=== PATIENT | female | born 1960 | race Two or more races ===

== ENCOUNTER → 2020-07-06 10:13 | Outpatient (BNVA) | payer MEDICAID, SELFPAY | PROVIDERS: PCP Internal Medicine; Referring Provider Internal Medicine; Visit Provider Internal Medicine | DX: J44.9 Chronic obstructive pulmonary disease, unspecified (principal); J30.9 Allergic rhinitis, unspecified; E66.9 Obesity, unspecified; Z68.34 Body mass index [BMI] 34.0-34.9, adult; Z79.899 Other long term (current) drug therapy | CPT/HCPCS: 99213 ==

== ENCOUNTER 2020-07-08 10:10 | Emergency (ER) | payer MEDICAID, SELFPAY ==
[2020-07-08 10:19] VITALS: BP 115/68; PULSE 95; RESP 14; TEMP 36.3; O2SAT 98; BMI 34.6
--- NOTE | 2020-07-08 10:30 | XR_ITS ---
EXAMINATION: RIGHT SHOULDER. RIGHT RIBS WITH CHEST X-RAY. CLINICAL INFORMATION: Status post fall one week ago. Right shoulder pain. Right rib pain. COMPARISON: None TECHNIQUE: Right shoulder 3 views. Chest and right ribs 4 views. FINDINGS: Right shoulder: There is no visible acute fracture, dislocation or subluxation. There is mild loss of right AC joint with inferior spurring. Also visualized is inferolateral acromial spurring. No loose body seen. No soft tissue abnormality. Chest with right RIBS: The lungs are well-expanded and clear of acute process. The heart size and pulmonary vascularity is normal. No gross bony abnormality. Multiple views of right ribs reveal no visible right rib fracture or bony abnormality. The soft tissues are normal. IMPRESSION: Unremarkable right shoulder exam. Unremarkable chest with right ribs. Especially no visible right rib fracture seen.
--- NOTE | 2020-07-08 10:55 | ED_ITS ---
HPI - General Adult General Chief complaint: General Medical Stated complaint: rib pain, fall Time Seen by Provider: 07/08/20 10:25 Source: patient Mode of arrival: ambulatory Limitations: no limitations History of Present Illness HPI narrative: 59-year-old female with a past medical history of fibromyalgia, obesity and COPD presenting to the ED with reports of a fall in the shower approximately 1 week ago injuring her right shoulder / right lateral ribcage and since then has been having pain to both areas. Denies head injury or loss of consciousness. Denies any other injuries complaints or concerns. Denies being on any blood thinners. Related Data Home Medications Medication Instructions Recorded Confirmed albuterol sulfate 2.5 mg INHALATION Q6H 07/06/20 07/06/20 albuterol sulfate 90 mcg/actuation 1 inh INHALATION QID 07/06/20 07/06/20 aerosol inhaler cholecalciferol (vitamin D3) 50 50 mcg PO DAILY 07/06/20 07/06/20 mcg (2,000 unit) capsule duloxetine 60 mg capsule,delayed 60 mg PO DAILY 07/06/20 07/06/20 release fluticasone propionate 230 2 puff INHALATION BID 07/06/20 07/06/20 mcg-salmeterol 21 mcg/actuation HFA inhaler quetiapine 25 mg tablet 25 mg PO BEDTIME 07/06/20 07/06/20 sertraline 100 mg tablet 150 mg PO DAILY tab 07/06/20 07/06/20 Allergies Allergy/AdvReac Type Severity Reaction Status Date / Time No Known Allergies Allergy Verified 07/06/20 10:29 Review of Systems Review of Systems: Constitutional : No Fever, No Chills ENT/Mouth : No Ear Pain, No Hoarseness, No sore throat Eyes: No Eye Pain, No Swelling, No Redness, No Foreign Body Cardiovascular : No Chest Pain, No SOB Respiratory : No Cough, No Dyspnea Gastrointestinal : No Nausea, No Vomiting, No Diarrhea, No abdominal Pain Genitourinary : No Dysuria, No Hematuria Musculoskeletal : No Myalgias, No Joint Swelling Skin : No Skin lacerations, No rash Neuro : No Weakness, No Numbness, No Paresthesias, No Loss of Consciousness, No Dizziness, No Headache Heme/Lymph: no easy bruising, no Lymphadenopathy Endocrine : No Polyuria, No Polydipsia Yes all other systems are reviewed and are negative [facility] Past Medical History Attestation statement: The following information was validated with the patient. Medical History Allergic rhinitis COPD (chronic obstructive pulmonary disease) Fibromyalgia Obesity (BMI 30.0-34.9) Surgical History Status post fine needle aspiration Social History Social History Advance Directives: No Advance Directives Information Provided: No Physical Exam 2 Vital Signs: Vital Signs: Vital Signs Temp Pulse Resp BP Pulse Ox 07/08/20 10:19 97.3 F 95 14 115/68 98 Body Mass Index 34.6 vital signs have been reviewed as normal and appeared to be correct. Blood pressure normal. Heart rate normal. Respiration rate normal. Temperature normal. Oxygen saturation normal. Appearance: Alert. Oriented X3. No acute distress. Head: Normal external exam. Normocephalic. Atraumatic. No Doll signs noted. No raccoon eyes noted Eyes: PERRLA. EOMI. Conjunctiva and sclera normal. Eyelids normal. ENT: EAC normal. TM's Normal. Pharynx normal. Uvula midline. Moist mucous membr anes. No trismus noted. No drooling noted. No muffled voice noted. Neck: Normal inspection. Neck supple. FROM. No adenopathy. Thyroid Normal. No meningeal signs. No neck mass noted. CVS: Normal heart rate and rhythm. Heart sound normal. No murmurs noted. Pulses normal throughout. Respiratory: No respiratory distress. Painless inspiration. Breath sounds normal. No wheezes/rales/rhonchi noted. Patient tender to palpation of right anterior /lateral lower chest wall. No ecchymosis/ lacerations/abrasions or obvious deformities noted. No accessory muscle usage noted or decreased air movement noted. Abdomen: Soft and nontender. Bowel sounds normal in all 4 quadrants. No distention noted. No organomegaly noted. No visible injury noted. Back: No CVA tenderness. Full range of motion noted. Skin: Skin warm and dry. Normal skin color. Normal skin turgor. No rashes/lesions/lacerations noted. Extremities: Patient with tenderness to palpation of right shoulder at the AC joint medial aspect. Patient has full range of motion. No abrasion/ecchymosis/lacerations or obvious deformities noted. Patient has full range of motion. No lower extremity edema. All other Extremities exhibit normal range of motion and nontender. Neuro: Oriented X 3. No motor deficit. No sensory deficit. Reflexes normal. Course Course Course Narrative: 10:30AM 59-year-old female with a past medical history of fibromyalgia, obesity and COPD presenting to the ED with reports of a fall in the shower approximately 1 week ago injuring her right shoulder / right lateral ribcage and since then has been having pain to both areas. Denies head injury or loss of consciousness. Denies any other injuries complaints or concerns. Denies being on any blood thinners - Plan: Xray of rib cage right sided and r shoulder xray Then re-evaluate. Reevaluation(s) Reevaluation #1: x-rays of ribs and right shoulder within normal limits no acute processes note. Will DC home with symptomatic treatment along with instructions return if any new or worsening symptoms to follow-up with primary care provider. Patient understands agrees the plan. Time: 11:24 Medical Decision Making MDM Narrative Medical decision making narrative: Concern for fracture vs sprain/strain/muscle spasm Imaging Data right ribs/pa chest and r shoulder: Attestation: I personally reviewed and interpreted this imaging study as follows: Radiologist's impression: IMPRESSION: Unremarkable right shoulder exam. Unremarkable chest with right ribs. Especially no visible right rib fracture seen. Discharge Plan Discharge Prescriptions: No Action cholecalciferol (vitamin D3) 50 mcg (2,000 unit) capsule 50 mcg PO DAILY RF: 0 albuterol sulfate 2.5 mg /3 mL (0.083 %) solution for nebulization 2.5 mg inhalation Q6H RF: 0 quetiapine 25 mg tablet 25 mg PO BEDTIME RF: 0 sertraline 100 mg tablet 150 mg PO DAILY RF: 0 Advair HFA 230-21 mcg/actuation HFA aerosol inhaler 2 puff inhalation BID RF: 0 albuterol sulfate [ProAir HFA] 90 mcg/actuation HFA aerosol inhaler 1 inh inhalation QID RF: 0 duloxetine 60 mg capsule,delayed release(DR/EC) 60 mg PO DAILY RF: 0
== END 2020-07-08 11:30 | disposition home or self-care (01) ==
PROVIDERS: Emergency Provider Emergency Medicine; PCP Internal Medicine
DX: S43.401A Unspecified sprain of right shoulder joint, initial encounter (principal); S29.011A Strain of muscle and tendon of front wall of thorax, initial encounter; S20.211A Contusion of right front wall of thorax, initial encounter; W18.2XXA Fall in (into) shower or empty bathtub, initial encounter; Y93.E1 Activity, personal bathing and showering; Y92.012 Bathroom of single-family (private) house as the place of occurrence of the external cause; Y99.9 Unspecified external cause status
CPT/HCPCS: 71101; 73030; 99283

== ENCOUNTER → 2020-08-18 09:19 | Outpatient (BNV) | payer MEDICAID, MEDICARE, OTHER, SELFPAY | PROVIDERS: PCP Internal Medicine; Visit Provider Internal Medicine Medical Oncology | DX: R91.1 Solitary pulmonary nodule (principal) | CPT/HCPCS: 99213; 99214 ==

== ENCOUNTER 2020-09-20 11:33 | Emergency (ER) | payer MEDICAID, SELFPAY ==
[2020-09-20 11:45] VITALS: BP 113/69; PULSE 94; RESP 18; TEMP 37.2; O2SAT 95; BMI 34.4
--- NOTE | 2020-09-20 13:21 | XR_ITS ---
EXAMINATION: XR CHEST CLINICAL INFORMATION: Cough. COMPARISON: 07/08/20. CT scan of 01/29/20. TECHNIQUE: Frontal view of the chest was obtained. FINDINGS: There is minimal opacity laterally at the right base corresponding to nodular density seen on prior studies. This does not appear significantly changed. No other abnormality. No focal consolidation. No other nodules are demonstrated. The pleural spaces are clear. The heart and mediastinal structures are normal. XR/XR chest 1V IMPRESSION: Small opacity right lung base corresponding to nodular density seen on prior studies. This is better assessed on CT scan. No other abnormality.
--- NOTE | 2020-09-20 14:33 | ED_ITS ---
HPI - General Adult General Chief complaint: Fever Stated complaint: fever (on/off), headaches Time Seen by Provider: 09/20/20 13:21 Source: patient Mode of arrival: ambulatory Limitations: no limitations History of Present Illness HPI narrative: 60-year-old female with history of COPD being followed by pulmonology here today it is that she has had some diffuse body aches and subjective chills/fevers requesting COVID-19 test. Does have cough but no shortness of breath or chest pain. Onset (ago): day(s) (5) Radiation: non-radiation Severity: moderate Relieving factors: none Associated symptoms: denies other symptoms Treatments prior to arrival: none Related Data Home Medications Medication Instructions Recorded Confirmed albuterol sulfate 2.5 mg INHALATION Q6H 07/06/20 08/18/20 albuterol sulfate 90 mcg/actuation 1 inh INHALATION QID 07/06/20 08/18/20 aerosol inhaler cholecalciferol (vitamin D3) 50 50 mcg PO DAILY 07/06/20 08/18/20 mcg (2,000 unit) capsule duloxetine 60 mg capsule,delayed 60 mg PO DAILY 07/06/20 08/18/20 release fluticasone propionate 230 2 puff INHALATION BID 07/06/20 08/18/20 mcg-salmeterol 21 mcg/actuation HFA inhaler Previous Rx's Medication Instructions Recorded cyclobenzaprine 10 mg PO TID PRN #14 tab 07/08/20 naproxen 500 mg PO BID PRN #14 tab 07/08/20 tramadol 50 mg PO Q8H PRN #14 tab 07/08/20 azithromycin [Zithromax Z-Greg] 250 mg PO DAILY 5 Days #6 tab 09/20/20 prednisone 40 mg PO DAILY 5 Days #10 tab 09/20/20 Allergies Allergy/AdvReac Type Severity Reaction Status Date / Time No Known Allergies Allergy Verified 07/06/20 10:29 Review of Systems Review of Systems: Constitutional: No Weight loss, No Fever, No Chills, No Night Sweats, No Fatigue, No Malaise ENT/Mouth: No Hearing loss, No Ear Pain, No Nasal Congestion, No Sinus Pain, No Hoarseness, No sore throat, + Rhinorrhea, No Swallowing Difficulty Eyes: No Eye Pain, No Swelling, No Redness, No Foreign Body, No Discharge, No Vision Changes Cardiovascular: No Chest Pain, No SOB, No Dyspnea on Exertion, No Orthopnea, No Edema, No Palpitations Respiratory: + Cough, No Sputum, No Wheezing, No Smoke Exposure, No Dyspnea Gastrointestinal: No Nausea, No Vomiting, No Diarrhea, No Constipation, No abdo susi Pain, No Hematochezia, No Melena Genitourinary: no irregular bleeding, No Dysuria, No Urinary Frequency, No Hematuria, No Urinary Incontinence, No Urgency, No Flank Pain Musculoskeletal: No joint pain, + Myalgias, No Joint Swelling Skin: No Skin Lesions, No rash Neuro: No Weakness, No Numbness, No Paresthesias, No Loss of Consciousness, No Dizziness, No Headache Psych: No Social Issues Heme/Lymph: No Bruising, No Bleeding,No Lymphadenopathy Endocrine: No Polyuria, No Polydipsia, No Temperature Intolerance Yes all other systems are reviewed and are negative [facility] Past Medical History Medical History (Updated 09/20/20 @ 14:44 by Luiz Sheridan NP) Allergic rhinitis Asthma COPD (chronic obstructive pulmonary disease) Fibromyalgia Lung nodule Obesity (BMI 30.0-34.9) Palpitations Surgical History Status post fine needle aspiration Family History Family History (Updated 08/18/20 @ 09:52 by Cathryn Ramso) Mother Leukemia Diabetes Family/Other Hodgkins lymphoma Family/Other Uterine cancer Sister Uterine cancer High cholesterol HTN (hypertension) Paternal Grandmother Uterine cancer Heart attack Father Colon cancer Social History Social History (Updated 08/18/20 @ 09:53 by Cathryn Ramos) Alcohol intake: former Smoking Status: Former smoker Advance Directives: No Physical Exam Vital Signs: Vital Signs: Last Vital Signs Temp 98.9 F 09/20/20 11:45 Pulse 94 09/20/20 11:45 Resp 18 09/20/20 11:45 BP 113/69 09/20/20 11:45 Pulse Ox 95 09/20/20 11:45 Body Mass Index 34.4 Reviewed Const: Other: Mild dry bronchial cough General: cooperative and healthy appearing; No acute distress or intoxicated appearing Nutritional Appearance: average body habitus Orientation/consciousness: patient oriented x3 HENMT: Head: Yes normal to inspection Ears: hearing grossly normal bilaterally Eyes: General: appearance normal, both eyes and all related structures Visual Hull: normal visual hull by confrontation Neck: Neck: Yes normal visual inspection, No positive Brudzinski's sign, No positive Kernig's sign and No tender Thyroid: Thyroid normal Chest: Chest palpation & inspection: normal inspection of the chest Resp: Effort & Inspection: normal respiratory effort Auscultation: clear to auscultation bilaterally Cardio: Jugular venous distension: no JVD Rhythm: regular rhythm Heart sounds: S1 normal heart sound present and S2 normal heart sound present GI: Inspection: Yes normal to inspection Percussion: Yes normal to percussion Auscultation: normal bowel sounds : General: Yes no CVA tenderness Back/Spine/Pelvis: Back: no CVA tenderness Skin: General skin exam: no rashes or lesions noted Neuro: General: patient oriented x3 Extrem: General: Yes normal to inspection Course Course Course Narrative: COVID-19 PCR sent. X-ray with demonstration of lung nodule which she reports she already knows about and has been evaluated. Will give her short course prednisone and azithromycin given her history. Will discharge with States/cdc guidelines clear return follow-up instructions. Ambulatory status with gait no shortness of breath or chest pain. Stable for discharge. Discharge Plan Discharge Clinical Impression: Acute upper respiratory infection, Cough, Incidental lung nodule Patient Disposition: Home, Self-Care Instructions: Upper Respiratory Infection (ED), Pulmonary Nodules (ED), Acute Cough (ED) Additional Instructions: Based on your symptoms and history we have sent a COVID-19. Although your RESULT IS PENDING at this time. RESULTS should return within 72 hours. At this time you will be contacted with either NEGATIVE OR POSITIVE results. -Please wait until we contact you for your results. At this time you will be okay for discharge. Please plan for self quarantine for up to 14 days. Do not expose yourself to others. You may not go to work. If testing does come back negative you may return to activities as long as you are no longer having any symptoms for at least 3 days. Please continue to follow cold instructions and wash your hands frequently. You may take Tylenol as directed on the bottle for pain or fever. Patient seen in the emergency department and should be excused from work until negative test results AND until 72 hours without any symptoms AND at least 10 days have passed since symptoms first appeared or since last exposure to COVID- 19 positive patient CDC Guidelines for home isolation: - Stay away from others - WEAR A MASK if you are sick AND STAY HOME - Cover your mouth and nose with a tissue when you cough or sneeze. Dispose of tissues in a lined trash can and wash your hands immediately with soap and water for at least 20 seconds. If soap and water are not available, clean hands with alcohol-based hand cyber transport systems specialist that contains at least 60% alcohol. - Clean your hands often with soap and water for at least 20 seconds - Avoid touching your eyes, nose and mouth with unwashed hands - Do not share dishes, drinking glasses, cups, eating utensils, towels, or bedding with other people in your home. After using these items, wash them thoroughly with soap and water or put in the hook up driver. - Clean high-touch surfaces in your isolation area ( sick room and bathroom) every day; let a caregiver clean and disinfect high-touch surfaces in other areas of the home. Clean the area or item with soap and water or another detergent if it is dirty. Then, use a household disinfectant. - Limit contact with pets and animals: If you must care for a pet, wash your hands before and after interacting with them Prescriptions: New prednisone 20 mg tablet 40 mg PO DAILY 5 Days Qty: 10 RF: 0 azithromycin [Zithromax Z-Greg] 250 mg tablet 250 mg PO DAILY 5 Days Qty: 6 RF: 0 No Action naproxen 500 mg tablet 500 mg PO BID PRN (Reason: pain) Qty: 14 RF: 0 cyclobenzaprine 10 mg tablet 10 mg PO TID PRN (Reason: muscle spasm) Qty: 14 RF: 0 tramadol 50 mg tablet 50 mg PO Q8H PRN (Reason: pain) Qty: 14 RF: 0 cholecalciferol (vitamin D3) 50 mcg (2,000 unit) capsule 50 mcg PO DAILY RF: 0 albuterol sulfate 2.5 mg /3 mL (0.083 %) solution for nebulization 2.5 mg inhalation Q6H RF: 0 Advair HFA 230-21 mcg/actuation HFA aerosol inhaler 2 puff inhalation BID RF: 0 albuterol sulfate [ProAir HFA] 90 mcg/actuation HFA aerosol inhaler 1 inh inhalation QID RF: 0 duloxetine 60 mg capsule,delayed release(DR/EC) 60 mg PO DAILY RF: 0 Referrals: Jose Daniel Duke MD [Primary Care Provider] - 2 weeks (Follow-up for chest CT) Interventions: ED Discharge Assessment Last Done: 09/20/20 15:15 Discharge Date/Time: 09/20/20 15:16
== END 2020-09-20 15:16 | disposition home or self-care (01) ==
PROVIDERS: Nurse Practitioner Primary Care; Emergency Provider Emergency Medicine; PCP Internal Medicine
DX: J22 Unspecified acute lower respiratory infection (principal); R91.1 Solitary pulmonary nodule; R50.9 Fever, unspecified; M79.10 Myalgia, unspecified site; R05 Cough; Z20.828 Contact with and (suspected) exposure to other viral communicable diseases; Z79.899 Other long term (current) drug therapy; Z87.891 Personal history of nicotine dependence
CPT/HCPCS: 71045; 99283; U0003

== ENCOUNTER 2020-10-07 11:53 | Outpatient (REF) | payer MEDICAID, SELFPAY | END 2020-10-07 11:54 | disposition home or self-care (01) | LOC: HO.LAB 11:53 | PROVIDERS: Visit Provider Internal Medicine | DX: Z20.822 Contact with and (suspected) exposure to COVID-19 (principal) | CPT/HCPCS: 36415; C9803; U0003 ==

== ENCOUNTER → 2020-11-04 09:48 | Outpatient (BNVA) | payer MEDICAID, SELFPAY | PROVIDERS: PCP Internal Medicine; Visit Provider Internal Medicine | DX: R91.1 Solitary pulmonary nodule (principal); E66.9 Obesity, unspecified; J30.9 Allergic rhinitis, unspecified; J44.9 Chronic obstructive pulmonary disease, unspecified | CPT/HCPCS: 99212 ==

== ENCOUNTER 2020-11-24 08:56 | Outpatient (REF) | payer MEDICAID, SELFPAY ==
[2020-11-24 10:23] LABS: Cholesterol 166 mg/dL; HDL Cholesterol 50 mg/dL; LDL Cholesterol Calculated 95 mg/dl; Triglycerides 107 mg/dL
[2020-11-24 10:27] LABS: Estimated Average Glucose 111 mg/dL; Hemoglobin A1c % 5.5 %
== END 2020-11-24 08:57 | disposition home or self-care (01) ==
LOC: HO.LAB 08:56
PROVIDERS: PCP Internal Medicine; Visit Provider Psychiatry & Neurology Psychiatry
DX: Z79.899 Other long term (current) drug therapy (principal)
CPT/HCPCS: 36415; 80061; 83036

== ENCOUNTER 2020-12-12 12:04 | Emergency (ER) | payer OTHER, SELFPAY ==
--- NOTE | ~2020-12-12 | XR_ITS ---
EXAMINATION: 1. CHEST X-RAYS 2. CERVICAL SPINE X-RAYS CLINICAL INFORMATION: Pain after injury COMPARISON: Chest x-ray 09/20/2020 TECHNIQUE: 2 views of the chest and 4 views of the cervical spine were obtained. FINDINGS: CHEST: Cardiac silhouette is normal in size. The lungs are well aerated. There is no lobar consolidation. No pleural effusion or pneumothorax. Previously visualized opacity of the right lung base is not clearly visualized on today's x-ray. Mild degenerative changes of the thoracic spine. Cervical spine: Alignment of the cervical spine is within normal limits. Normal C1/C2 articulation. Vertebral body heights are maintained. Disc spaces demonstrate only mild narrowing diffusely. Bilateral facet hypertrophy diffusely. No prevertebral soft tissue swelling. Visualized lung apices are well aerated. XR/XR cervical spine 2V IMPRESSION: 1. No acute pulmonary pathology. 2. Mild diffuse degenerative changes of the cervical spine.
--- NOTE | ~2020-12-12 | XR_ITS ---
EXAMINATION: 1. CHEST X-RAYS 2. CERVICAL SPINE X-RAYS CLINICAL INFORMATION: Pain after injury COMPARISON: Chest x-ray 09/20/2020 TECHNIQUE: 2 views of the chest and 4 views of the cervical spine were obtained. FINDINGS: CHEST: Cardiac silhouette is normal in size. The lungs are well aerated. There is no lobar consolidation. No pleural effusion or pneumothorax. Previously visualized opacity of the right lung base is not clearly visualized on today's x-ray. Mild degenerative changes of the thoracic spine. Cervical spine: Alignment of the cervical spine is within normal limits. Normal C1/C2 articulation. Vertebral body heights are maintained. Disc spaces demonstrate only mild narrowing diffusely. Bilateral facet hypertrophy diffusely. No prevertebral soft tissue swelling. Visualized lung apices are well aerated. XR/XR chest 2V IMPRESSION: 1. No acute pulmonary pathology. 2. Mild diffuse degenerative changes of the cervical spine.
[2020-12-12 12:07] VITALS: BP 119/66; PULSE 96; RESP 18; TEMP 36.8; O2SAT 97; BMI 34.6
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
== END 2020-12-12 14:01 | disposition home or self-care (01) ==
PROVIDERS: Emergency Provider Emergency Medicine; PCP Internal Medicine
DX: S16.1XXA Strain of muscle, fascia and tendon at neck level, initial encounter (principal); V43.62XA Car passenger injured in collision with other type car in traffic accident, initial encounter; M54.6 Pain in thoracic spine; Y93.89 Activity, other specified; Y92.414 Local residential or business street as the place of occurrence of the external cause; Y99.9 Unspecified external cause status
CPT/HCPCS: 71046; 72040; 99283

== ENCOUNTER 2021-02-17 08:44 | Outpatient (REF) | payer MEDICAID, SELFPAY | END 2021-02-17 08:45 | disposition home or self-care (01) | LOC: HO.LAB 08:44 | PROVIDERS: Visit Provider Internal Medicine | DX: Z20.822 Contact with and (suspected) exposure to COVID-19 (principal) | CPT/HCPCS: C9803; U0003; U0005 ==

== ENCOUNTER 2021-03-17 07:56 | Outpatient (REF) | payer MEDICAID, SELFPAY ==
--- NOTE | ~2021-03-17 | CT_ITS ---
EXAMINATION: CT CHEST WITH CONTRAST CLINICAL INFORMATION: Follow-up pulmonary nodule COMPARISON: Previous chest CT scans most recent January 2020 TECHNIQUE: Multidetector volumetric CT imaging of the chest was obtained after the administration of 65 mL of Omnipaque 350 intravenous contrast without immediate adverse reactions. Axial MIP volume rendering provided. Sagittal and coronal reformatted images were obtained. This CT examination was performed using dose optimization techniques as appropriate, variously including the following: *Automated exposure control *Adjustment of mA and/or kV according to patient size (this includes techniques or standardized protocols for targeted exams where dose is matched to indication/reason for exam; i.e. extremities or head) *Use of iterative reconstruction technique DLP: 174 mGy-cm FINDINGS: LUNGS: There is interval decrease in size in the right middle lobe nodule. This measures 0.7 x 1.1 cm axial image 120 series 7 compared to 1.1 x 1.5 cm on most recent exam January 2020. There is adjacent mild pleural thickening and linear scarring or chronic subsegmental atelectasis. There are several clustered peribronchial nodules or tree-in-bud appearance in the right lower lobe for example axial image 106 series 7 that is stable. The lungs are otherwise clear. MEDIASTINUM: The mediastinum is normal. PLEURA: There is no pleural effusion. No pleural mass or thickening. AXILLA: No lymphadenopathy. UPPER ABDOMEN: The gallbladder has been removed. There is diverticulosis of the colon. OSSEOUS STRUCTURES: There are mild degenerative changes of the spine. CT/CT chest w con IMPRESSION: Interval decrease in size in right middle lobe nodule now measuring 7 x 11 mm.
[2021-03-17] MEDS: iohexoL 350 MG/ML 100 ML INFUS..BTL 85 ML IV (09:32)
== END 2021-03-17 07:57 | disposition home or self-care (01) ==
LOC: HO.CT 07:56
PROVIDERS: Visit Provider Internal Medicine Medical Oncology
DX: R91.1 Solitary pulmonary nodule (principal)
CPT/HCPCS: 71260; Q9967

== ENCOUNTER 2021-04-26 09:10 | Outpatient (REF) | payer MEDICAID, SELFPAY ==
--- NOTE | ~2021-04-26 | CT_ITS ---
EXAMINATION: CT CHEST WITHOUT CONTRAST CLINICAL INFORMATION: Solitary pulmonary nodule. COMPARISON: CT chest 03/17/2021. TECHNIQUE: Multidetector volumetric CT imaging of the chest was done. Axial MIP volume rendering provided. Sagittal and coronal reformatted images were obtained. This CT examination was performed using dose optimization techniques as appropriate, variously including the following: *Automated exposure control *Adjustment of mA and/or kV according to patient size (this includes techniques or standardized protocols for targeted exams where dose is matched to indication/reason for exam; i.e. extremities or head) *Use of iterative reconstruction technique DLP: 234 mGy-cm. FINDINGS: ORTHOPAEDIC TECHNOLOGIST: Unremarkable. LUNGS: The lungs are well expanded with 1.1 x 0.7 cm nodule right middle lobe with linear stranding extending to the major fissure and to the adjacent pleura. There is adjacent band-like atelectasis. The nodule is best visualized on axial image 368/7. Small cluster of nodules is seen in the right lower lobe with the largest nodule measuring 3 mm axial image 337/7. Smaller nodules at the same level measured 2 mm on axial image 338/7. No additional pulmonary nodules. No acute consolidation. MEDIASTINUM: The thyroid lobes are symmetrical and normal. The central trachea and the bronchi are widely patent. Small shotty lymph nodes are seen in the mediastinum. Heart size and the great vessels are normal caliber. No pericardial effusion seen. PLEURA: There is no pleural effusion. No pleural mass or thickening. AXILLA: No abnormal axillary lymph nodes seen. There are punctate calcifications right breast with likely right breast scarring from previous intervention. UPPER ABDOMEN: Visualized liver, spleen, pancreas and bilateral adrenal glands are unremarkable. OSSEOUS STRUCTURES: No lytic or sclerotic process seen. There is mild ventral spondylosis and mild degenerative disc changes with vacuum phenomenon mid and lower dorsal spine. CT/CT chest wo con IMPRESSION: Stable right middle lobe nodule with adjacent scarring or atelectasis. Cluster of nodules in the right lower lobe lateral segment with the nodules in the range of 2-3 mm are stable. No additional nodules seen.
== END 2021-04-26 09:11 | disposition home or self-care (01) ==
LOC: HO.CT 09:10
PROVIDERS: Visit Provider Surgery
DX: R91.1 Solitary pulmonary nodule (principal)
CPT/HCPCS: 71250

== ENCOUNTER 2021-04-27 09:21 | Outpatient (REF) | payer MEDICAID, SELFPAY ==
--- NOTE | ~2021-04-27 | MM_ITS ---
EXAMINATION: MM SCREENING DIGITAL BREAST TOMOSYNTHESIS, BILATERAL CLINICAL INFORMATION: Screening. Asymptomatic. The lifetime risk of breast cancer based on the Tyrer-Cuzick Model is 5%. COMPARISON: Mammography: 04/21/2020, 04/19/2019, 03/08/2018 TECHNIQUE: Digital breast tomosynthesis is performed in both the craniocaudal and mediolateral oblique views along with computer-aided detection (CAD). Synthesized 2D images are generated from the tomosynthesis. FINDINGS: There are scattered areas of fibroglandular density (ACR BI-RADS breast composition Category b). There are no significant masses, abnormal calcifications, or other abnormalities. There are 2 biopsy clip markers right breast upper outer quadrant mid and posterior depth, respectively. Low left axillary tail node is stable. There is no developing density. Skin contours are smooth. MM/MM tomosynthesis screening BI IMPRESSION: No mammographic evidence of malignancy. ASSESSMENT: BI-RADS 2: Benign RECOMMENDATION: Routine annual mammography screening. This patient's information was entered into a reminder system with a target due date for their next mammogram.
== END 2021-04-27 09:22 | disposition home or self-care (01) ==
LOC: HO.MAMMO 09:21
PROVIDERS: Visit Provider Internal Medicine
DX: Z12.31 Encounter for screening mammogram for malignant neoplasm of breast (principal)
CPT/HCPCS: 77063; 77067

== ENCOUNTER → 2021-05-03 14:36 | Outpatient (BNVA) | payer MEDICAID, SELFPAY | PROVIDERS: PCP Internal Medicine; Visit Provider Internal Medicine | DX: J30.9 Allergic rhinitis, unspecified (principal); J44.9 Chronic obstructive pulmonary disease, unspecified; R91.1 Solitary pulmonary nodule; E66.9 Obesity, unspecified; M79.7 Fibromyalgia | CPT/HCPCS: 99212 ==

== ENCOUNTER → 2021-05-14 10:36 | Outpatient (BNVA) | payer MEDICAID, SELFPAY | PROVIDERS: PCP Internal Medicine; Visit Provider Surgery | DX: R91.1 Solitary pulmonary nodule (principal); Z79.899 Other long term (current) drug therapy | CPT/HCPCS: 99212 ==

== ENCOUNTER → 2021-05-21 10:00 | Outpatient (BNVA) | payer MEDICARE, MEDICAID, SELFPAY | PROVIDERS: PCP Internal Medicine; Visit Provider Surgery | DX: R91.1 Solitary pulmonary nodule (principal); Z79.899 Other long term (current) drug therapy | CPT/HCPCS: 99212 ==

== ENCOUNTER 2021-05-27 11:00 | Outpatient (REF) | payer MEDICARE, MEDICAID, SELFPAY ==
--- NOTE | 2021-05-27 17:41 | PFT_ITS ---
INDICATION: COPD. SPIROMETRY: The FEV1 to FVC of 59% with an FEV1 of 1.29 L, which is 47% predicted, and an FVC of 2.2 L, which is 64% predicted. Post bronchodilators, there was a significant response both to the FVC and FEV1. Maximum voluntary ventilation 57% predicted. LUNG VOLUMES: Total lung capacity 92% predicted with residual volume 132% predicted. DIFFUSION CAPACITY: DLCO predicted. COMPARISONS: PFTs in 2019. INTERPRETATION: There is an obstructive ventilatory defect consistent with severe COPD. The patient did have a significant response to bronchodilators noted. Significant small airways disease. There is also moderate decrease in maximum voluntary ventilation secondary to deconditioning and also worsening dynamic inspiratory capacity. Lung volumes with significant air trapping due to the COPD in addition to a significantly decreased expiratory reserve volume secondary to an elevated BMI. Diffusion capacity is within normal limits. When compared to 2019, there is significant increase in the FVC, significant increase in the FEV1, no significant change in the total lung capacity, and no significant change in the diffusion capacity. Clinical correlation warranted. Ganga Alicea MD MR/MODL / [id number]
== END 2021-05-27 11:01 | disposition home or self-care (01) ==
LOC: HO.RESP 11:00
PROVIDERS: PCP Internal Medicine; Visit Provider Internal Medicine
DX: J44.9 Chronic obstructive pulmonary disease, unspecified (principal); J30.9 Allergic rhinitis, unspecified
CPT/HCPCS: 94060; 94727; 94729

== ENCOUNTER → 2021-06-08 11:09 | Outpatient (BNVA) | payer MEDICARE, MEDICAID, SELFPAY | PROVIDERS: PCP Internal Medicine; Visit Provider Internal Medicine | DX: J30.9 Allergic rhinitis, unspecified (principal); J44.9 Chronic obstructive pulmonary disease, unspecified; R91.8 Other nonspecific abnormal finding of lung field | CPT/HCPCS: 99212 ==

== ENCOUNTER → 2021-08-16 09:52 | Outpatient (BNVA) | payer MEDICARE, MEDICAID, SELFPAY | PROVIDERS: PCP Internal Medicine; Visit Provider Internal Medicine | DX: J44.9 Chronic obstructive pulmonary disease, unspecified (principal); J30.9 Allergic rhinitis, unspecified; M79.7 Fibromyalgia; R91.8 Other nonspecific abnormal finding of lung field | CPT/HCPCS: 99212 ==

== ENCOUNTER 2021-08-30 07:24 | Outpatient (REF) | payer MEDICARE, MEDICAID, SELFPAY | END 2021-08-30 07:25 | disposition home or self-care (01) | LOC: HO.LAB 07:24 | PROVIDERS: PCP Internal Medicine; Visit Provider Internal Medicine | DX: Z20.822 Contact with and (suspected) exposure to COVID-19 (principal) | CPT/HCPCS: C9803; U0003; U0005 ==

== ENCOUNTER 2021-09-20 11:15 | Outpatient (REF) | payer MEDICARE, MEDICAID, SELFPAY ==
[2021-09-20 12:57] LABS: COVID-19 Test Negative (Negative); IDNOW Serial# 16C4AD1C
== END 2021-09-20 11:16 | disposition home or self-care (01) ==
LOC: HO.LAB 11:15
PROVIDERS: Visit Provider Internal Medicine
DX: Z20.822 Contact with and (suspected) exposure to COVID-19 (principal)
CPT/HCPCS: 36415; 87635; C9803

== ENCOUNTER 2021-11-18 08:08 | Outpatient (REF) | payer MEDICARE, MEDICAID, SELFPAY ==
--- NOTE | ~2021-11-18 | CT_ITS ---
EXAMINATION: CT CHEST WITHOUT CONTRAST CLINICAL INFORMATION: Solitary pulmonary nodule COMPARISON: Previous chest CT most recent April 2021 TECHNIQUE: Multidetector volumetric CT imaging of the chest was done. Axial MIP volume rendering provided. Sagittal and coronal reformatted images were obtained. This CT examination was performed using dose optimization techniques as appropriate, variously including the following: *Automated exposure control *Adjustment of mA and/or kV according to patient size (this includes techniques or standardized protocols for targeted exams where dose is matched to indication/reason for exam; i.e. extremities or head) *Use of iterative reconstruction technique DLP: 299 mGy-cm FINDINGS: LUNGS: The small pulmonary nodules are stable. Largest pulmonary nodule is a cluster peribronchial nodules in the right lower lobe suggestive of bronchial soft tissue opacification or mucus plugging for example, axial image 403 series 9. Largest discrete nodule measures 7 mm. There are clustered peribronchial nodules or tree-in-bud appearance seen in the more superior lateral right lower lobe for example, axial image 282 series 9, that is stable. There is scarring or subsegmental atelectasis seen in the lateral segment of the right middle lobe and inferior segment of the lingula. The previously identified question nodule versus thick band-like atelectasis in the lateral segment of the right middle lobe measures 8 x 11 mm (axial image 326 series 9) and appears unchanged. There is an area of mild tree-in-bud appearance or clustered peribronchial nodules in the posterior segment of the right upper lobe for example, axial image 165 series 9, that is stable. There are additional discrete small pulmonary nodules or micronodules that are stable. There is mild right apical pleural and parenchymal scarring. MEDIASTINUM: The mediastinum is normal. PLEURA: There is no pleural effusion. No pleural mass or thickening. AXILLA: No lymphadenopathy. UPPER ABDOMEN: Unremarkable. The gallbladder has been removed. OSSEOUS STRUCTURES: There are degenerative changes of the spine. CT/CT chest wo con IMPRESSION: Stable pulmonary nodules. Stable thick band-like atelectasis in the lateral segment of the right middle lobe. Fleischner guidelines were followed.
== END 2021-11-18 08:09 | disposition home or self-care (01) ==
LOC: HO.CT 08:08
PROVIDERS: Visit Provider Surgery
DX: R91.1 Solitary pulmonary nodule (principal)
CPT/HCPCS: 71250

== ENCOUNTER → 2021-12-10 09:44 | Outpatient (BNVA) | payer MEDICARE, MEDICAID, SELFPAY | PROVIDERS: PCP Internal Medicine; Visit Provider Surgery | DX: R91.8 Other nonspecific abnormal finding of lung field (principal) | CPT/HCPCS: 99212 ==

== ENCOUNTER → 2021-12-15 09:53 | Outpatient (BNVA) | payer MEDICARE, MEDICAID, SELFPAY | PROVIDERS: PCP Internal Medicine; Visit Provider Internal Medicine | DX: J44.9 Chronic obstructive pulmonary disease, unspecified (principal); J30.9 Allergic rhinitis, unspecified; R91.8 Other nonspecific abnormal finding of lung field; E66.9 Obesity, unspecified; Z68.34 Body mass index [BMI] 34.0-34.9, adult | CPT/HCPCS: 99212 ==

== ENCOUNTER → 2022-01-28 09:57 | Outpatient (BNVA) | payer MEDICARE, MEDICAID, SELFPAY | PROVIDERS: PCP Internal Medicine; Visit Provider Surgery | DX: R91.8 Other nonspecific abnormal finding of lung field (principal) | CPT/HCPCS: 99212 ==

== ENCOUNTER 2022-02-15 09:00 | Outpatient (RCR) | payer MEDICARE, MEDICAID, SELFPAY ==
[2022-02-09 09:43] VITALS: BP 122/80; PULSE 74; O2SAT 97
--- NOTE | 2022-03-21 15:08 | MHC.PT.DC ---
[facility] [place] [facility] [place] [facility] [employer] [facility] [address] Radha Ruano [address] [phone] F: [phone] F: [phone] F: [phone] F: [phone] Physical Therapy Discharge Report Diagnosis: This is a 61 yo female presenting to skilled PT with a script for BPPV Date of Surgery: Date of Evaluation: 02/09/22 Date of Discharge: 03/21/22 Treatments to Date: 3 Cancellations to Date: 0 No Shows to Date: 0 Discharge Status: Recommend MD Follow-up Discharge Summary: 02/15: Patient reporting that she has not had any episodes of dizziness other than getting a whiff of paint and getting nauseous. Educated her that I do not think her symptoms are vestibular in nature at this time. She reports that she also thinks this as she began to get the symptoms after they changed her medication. Educated her to call me before her appointment if symptoms get worse again otherwise we will hold. DC'd chart after 30 days Electronically signed by: Aby Liao PT Please sign and return to therapist. Thank you for your referral.
== END 2022-03-21 15:08 | disposition home or self-care (01) ==
LOC: HO.PTCHIC 09:00
PROVIDERS: PCP Internal Medicine; Visit Provider Internal Medicine
DX: H81.13 Benign paroxysmal vertigo, bilateral (principal)
CPT/HCPCS: 95992; 97112; 97162

== ENCOUNTER → 2022-03-23 10:09 | Outpatient (BNVA) | payer MEDICARE, MEDICAID, SELFPAY | PROVIDERS: PCP Internal Medicine; Visit Provider Internal Medicine | DX: J44.9 Chronic obstructive pulmonary disease, unspecified (principal); J30.9 Allergic rhinitis, unspecified; R91.8 Other nonspecific abnormal finding of lung field; E66.9 Obesity, unspecified; Z68.33 Body mass index [BMI] 33.0-33.9, adult | CPT/HCPCS: 99212 ==

== ENCOUNTER → 2022-04-21 10:46 | Outpatient (BNVA) | payer MEDICARE, MEDICAID, SELFPAY | PROVIDERS: PCP Internal Medicine; Visit Provider Internal Medicine | DX: J44.9 Chronic obstructive pulmonary disease, unspecified (principal); E66.9 Obesity, unspecified; J30.9 Allergic rhinitis, unspecified; R91.8 Other nonspecific abnormal finding of lung field; Z68.33 Body mass index [BMI] 33.0-33.9, adult | CPT/HCPCS: 99212 ==

== ENCOUNTER 2022-04-29 08:01 | Outpatient (REF) | payer MEDICARE, MEDICAID, SELFPAY ==
--- NOTE | ~2022-04-29 | MM_ITS ---
EXAMINATION: MM SCREENING DIGITAL BREAST TOMOSYNTHESIS, BILATERAL CLINICAL INFORMATION: Screening. Asymptomatic. The lifetime risk of breast cancer based on the Tyrer-Cuzick Model is 5%. COMPARISON: Mammography: 04/27/2021, 04/21/2020, 04/19/2019 TECHNIQUE: Digital breast tomosynthesis is performed in both the craniocaudal and mediolateral oblique views along with computer-aided detection (CAD). Synthesized 2D images are generated from the tomosynthesis. FINDINGS: There are scattered areas of fibroglandular density (ACR BI-RADS breast composition Category b). There are no significant masses, abnormal calcifications, or other abnormalities. Parenchymal pattern is similar to prior studies. No developing density or architectural abnormality. There are 2 biopsy clip markers again noted right breast upper outer quadrant. The axilla and skin contours are unremarkable. No significant changes. MM/MM tomosynthesis screening BI IMPRESSION: No mammographic evidence of malignancy. ASSESSMENT: BI-RADS 1: Negative RECOMMENDATION: Routine annual mammography screening. This patient's information was entered into a reminder system with a target due date for their next mammogram.
== END 2022-04-29 08:02 | disposition home or self-care (01) ==
LOC: HO.MAMMO 08:01
PROVIDERS: Visit Provider Internal Medicine
DX: Z12.31 Encounter for screening mammogram for malignant neoplasm of breast (principal)
CPT/HCPCS: 77063; 77067

== ENCOUNTER 2022-06-03 13:55 | Outpatient (REF) | payer MEDICARE, MEDICAID, SELFPAY ==
--- NOTE | ~2022-06-03 | CT_ITS ---
EXAMINATION: CT CHEST WITHOUT CONTRAST CLINICAL INFORMATION: Pulmonary nodule. COMPARISON: 11/18/2021 and studies dating back to 08/01/2019. TECHNIQUE: Multidetector volumetric CT imaging of the chest was done. Axial MIP volume rendering provided. Sagittal and coronal reformatted images were obtained. This CT examination was performed using dose optimization techniques as appropriate, variously including the following: *Automated exposure control *Adjustment of mA and/or kV according to patient size (this includes techniques or standardized protocols for targeted exams where dose is matched to indication/reason for exam; i.e. extremities or head) *Use of iterative reconstruction technique DLP: 346 mGy-cm FINDINGS: LUNGS: Central airways are patent. There is bilateral bronchial wall thickening seen. No bronchiectasis is noted. No significant changes of emphysema are appreciated. There are some scattered sub-4 mm densities present. Regions of linear scarring are noted within the right middle lobe, right lower lobe, and left lower lobe. No new region of confluent parenchymal disease is appreciated. There is a region of peripheral tree-in-bud configuration disease within the right lower lobe laterally. This is unchanged in appearance on image 289 of 546. Region of density within the right middle lobe adjacent to the major fissure is similar in size and configuration measuring approximately 1 x 0.7 cm in size on image [address] series #5. This appears to be related to pleural-parenchymal scarring. Region of density at the right lower lobe base is less prominent than on previous examination of 11/18/2021. This can be seen on image 412 of 546. There are a few other regions of stable tree-in-bud configuration disease including the superior segment of the left lower lobe. MEDIASTINUM: Visualized thyroid gland appears unremarkable. Heart is upper limits of normal in size. No coronary artery calcification is appreciated. No pericardial effusion. No mediastinal or hilar lymphadenopathy appreciated. No thoracic aortic aneurysm. CORONARY ARTERY CALCIFICATION: None visualized on this study. PLEURA: There is no pleural effusion. No pleural mass or thickening. AXILLA: No lymphadenopathy. UPPER ABDOMEN: Unremarkable. OSSEOUS STRUCTURES: No suspicious destructive bony lesions identified. There is multilevel degenerative disc disease seen. CT/CT chest wo IV con IMPRESSION: Essentially stable appearance of the chest with no aggressive changes appreciated. Fleischner guidelines were followed.
== END 2022-06-03 13:56 | disposition home or self-care (01) ==
LOC: HO.CT 13:55
PROVIDERS: Visit Provider Surgery
DX: R91.8 Other nonspecific abnormal finding of lung field (principal)
CPT/HCPCS: 71250

== ENCOUNTER → 2022-06-10 08:47 | Outpatient (BNVA) | payer MEDICARE, MEDICAID, SELFPAY | PROVIDERS: PCP Internal Medicine; Visit Provider Surgery | DX: R91.8 Other nonspecific abnormal finding of lung field (principal) | CPT/HCPCS: 99212 ==

== ENCOUNTER → 2022-06-23 10:34 | Outpatient (BNVA) | payer MEDICARE, MEDICAID, SELFPAY | PROVIDERS: PCP Internal Medicine; Visit Provider Internal Medicine | DX: J44.9 Chronic obstructive pulmonary disease, unspecified (principal); E66.9 Obesity, unspecified; J30.9 Allergic rhinitis, unspecified; R91.8 Other nonspecific abnormal finding of lung field; Z68.33 Body mass index [BMI] 33.0-33.9, adult | CPT/HCPCS: 99212 ==

== ENCOUNTER 2022-06-28 11:39 | Outpatient (REF) | payer MEDICARE, MEDICAID, SELFPAY ==
--- NOTE | ~2022-06-28 | PE_ITS ---
EXAMINATION: Fluorine-18 FDG PET/CT Scan CLINICAL INDICATION: Subsequent treatment management. Known right middle lobe lung nodule, status post biopsy done on 12/24/2018, for follow-up. PROCEDURE: 67 minutes following the intravenous administration of 16.0 mCi of fluorine 18 FDG, images from the base of the skull to the mid thighs were obtained using a combined PET/CT scanner with CT scan based attenuation correction. No intravenous contrast was administered. Transverse, coronal, sagittal, and volume reconstruction projections were obtained. The patient's blood glucose as determined by a finger stick, was 69 mg/dl immediately prior to injection. The radiotracer was injected intravenously through right antecubital superficial vein, without any complications. Total CT exam dose-length product 1097.78 mGy-cm * These CT images were obtained using dose optimization techniques as appropriate, variously including the following: Automated exposure control * Adjustment of mA and/or kV according to patient size (this includes techniques or standardized protocols for targeted exams where dose is matched to indication/reason for exam; i.e. extremities or head) * Use of iterative reconstruction technique COMPARISON: CT of the chest done on 06/03/[address] study done on 12/06/2018. FINDINGS: NECK AND VISUALIZED HEAD: No metabolically active disease. THORAX: The indexed pleural-based right middle lobe noncalcified nodule is reidentified, currently measures approximately 0.8 x 0.7 cm (135/349), previously 1.7 x 0.8 cm, as was seen on the study dated 12/06/2018. Previously documented FDG avidity with SUV max of 4.5 currently shows SUV max of 1.2 (less than that of the adjacent blood pool (SUV max of 3.0). A few of the smaller lung parenchymal nodules as was detected on the study dated 06/03/2022 are too small for accurate characterization on this study. No evidence of any FDG avid mediastinal or hilar lymphadenopathy, unchanged. No evidence of any pleural or pericardial effusion. ABDOMEN AND PELVIS: No FDG avid disease is present. The gallbladder is surgically absent. Specifically, no FDG avid disease is noted within the liver and adrenal glands, unchanged. No new abnormalities. MUSCULOSKELETAL: No suspicious focal lesion. No metabolically active disease. No significant change. VASCULAR: No significant atherosclerotic disease of the aorta and is branches. No evidence of any aneurysm. No significant change. PET/PET CT fusion skull to thigh IMPRESSION: 1. The index previously biopsied right middle lobe noncalcified FDG avid nodule, as was detected on the study dated 12/06/2018, previously measured 1.7 x 0.8 cm, currently 0.8 x 0.7 cm and , shows SUV max of 1.2, previously 4.5. 2. A few smaller lung parenchymal nodules as was detected bilaterally on the study dated 06/03/2022 are too small for accurate characterization on this CT PET study. Follow-up imaging surveillance with dedicated CT scan of the chest as appropriate may be considered for further clarification. 3. No FDG avid mediastinal or hilar lymphadenopathy or liver or adrenal disease, unchanged. 4. Specifically, no new abnormalities since the prior PET CT study done on 12/06/2018.
== END 2022-06-28 11:40 | disposition home or self-care (01) ==
LOC: HO.PET 11:39
PROVIDERS: Visit Provider Surgery
DX: Z13.89 Encounter for screening for other disorder (principal)

== ENCOUNTER → 2022-07-01 14:54 | Outpatient (BNVA) | payer MEDICARE, MEDICAID, SELFPAY | PROVIDERS: PCP Internal Medicine; Visit Provider Surgery | DX: R91.8 Other nonspecific abnormal finding of lung field (principal) | CPT/HCPCS: 99212 ==

== ENCOUNTER → 2022-11-03 10:46 | Outpatient (BNVA) | payer MEDICARE, MEDICAID, SELFPAY | PROVIDERS: PCP Internal Medicine; Visit Provider Internal Medicine | DX: J44.9 Chronic obstructive pulmonary disease, unspecified (principal); J30.9 Allergic rhinitis, unspecified; R91.8 Other nonspecific abnormal finding of lung field; E66.9 Obesity, unspecified; Z68.32 Body mass index [BMI] 32.0-32.9, adult; Z87.891 Personal history of nicotine dependence; Z79.899 Other long term (current) drug therapy | CPT/HCPCS: 99212 ==

== ENCOUNTER 2023-01-29 15:30 | Emergency (ER) | payer OTHER, SELFPAY ==
--- NOTE | ~2023-01-29 | CT_ITS ---
EXAMINATION: CT ABDOMEN AND PELVIS WITHOUT CONTRAST CLINICAL INFORMATION: Epigastric abdominal pain. COMPARISON: Selected images of the CT scan of the PET/CT of 06/28/2022, chest CT of 11/16/2018. TECHNIQUE: Multidetector volumetric imaging was performed from the superior aspect of the liver through the pubic symphysis. Sagittal and coronal reformatted images were obtained on the technologist's workstation. This CT examination was performed using dose optimization techniques as appropriate, variously including the following: *Automated exposure control *Adjustment of mA and/or kV according to patient size (this includes techniques or standardized protocols for targeted exams where dose is matched to indication/reason for exam; i.e. extremities or head) *Use of iterative reconstruction technique DLP: 734 mGy-cm FINDINGS: LUNG BASES: Streaky atelectasis in the right middle lobe and lingula. More focal nodular opacity in the right middle lobe measuring 0.8 x 0.6 cm (series 4 image 60), previously 0.9 x 0.7 cm (06/28/2022), 2.2 x 1.3 cm (CT scan of 11/16/2018). The lung bases are otherwise unremarkable. No pleural or pericardial effusion. LIVER, GALLBLADDER, AND BILIARY TREE: The liver is normal in size, shape, and attenuation. No focal hepatic lesion is noted within the limits of noncontrast study. The gallbladder is surgically absent. Common bile duct is dilated measuring 1.5 cm in maximum diameter proximally. No filling defect is noted in the common bile duct. PANCREAS: Unremarkable. SPLEEN: Unremarkable. ADRENAL GLANDS: Unremarkable. KIDNEYS AND URETERS: The kidneys are normal in size, shape, and attenuation. No hydronephrosis, hydroureter, or calculi seen. No perinephric stranding. BLADDER: Unremarkable. GASTROINTESTINAL TRACT: No abnormal dilatation of the stomach and small bowel. Colon is normal in caliber. No evidence of colonic wall thickening or pericolonic fat stranding. Scattered colonic diverticula are seen. Normal appendix. ABDOMINAL WALL: No significant hernia is appreciated. LYMPH NODES: No evidence of pathologically enlarged lymph nodes. VASCULAR: The aortoiliac vessels are normal in caliber. PELVIC VISCERA: Streaking metallic density in the lower body of uterus is 3 demonstrated, recommend clinical correlation. The uterus is otherwise unremarkable. Ovaries and adnexa are unremarkable. OSSEOUS STRUCTURES: No evidence of acute or suspicious osseous lesions. Mild degenerative changes in the lower thoracic spine. CT/CT abdomen pelvis wo IV con IMPRESSION: No acute or other significant abnormality is identified to extend patient's symptoms. No CT evidence of acute pancreatitis. Continued interval decrease in the size of a known right middle lobe nodule. Recommend attention to the finding on follow-up imaging. Fleischner guidelines were followed.
[2023-01-29 15:39] VITALS: BP 126/69; PULSE 89; RESP 18; TEMP 36; O2SAT 97; BMI 33.1
--- NOTE | 2023-01-29 15:39 | ED_ITS ---
HPI - General Adult General Chief complaint: Abdominal Pain Stated complaint: abd pain/fever Time Seen by Provider: 01/29/23 16:03 Source: patient Mode of arrival: ambulatory Limitations: no limitations History of Present Illness HPI narrative: 62-year-old female history of COPD, fibromyalgia presenting to the emergency department for evaluation of epigastric pain, nausea and subjective fevers and chills for the past 2 weeks. Patient reports it is a burning sensation to her abdomen without radiation, patient reports pain is constant and worsened if she has an empty stomach. Patient reports her gallbladder was removed however she still has her appendix. Reports that she has been having normal bowel habits in urination. She denies chest pain, shortness of breath, headache, vision changes, dizziness, vomiting, hematemesis, hematochezia, melena. Related Data Home Medications Medication Instructions Recorded Confirmed escitalopram oxalate 20 mg tablet 20 mg PO DAILY 06/08/21 09/06/22 (Lexapro) melatonin 5 mg tablet 10 mg PO BEDTIME 06/08/21 09/06/22 trazodone 150 mg tablet 150 mg PO BEDTIME insomnia 06/08/21 09/06/22 omeprazole 20 mg capsule,delayed 20 mg PO DAILY 04/21/22 09/06/22 release ibuprofen 800 mg tablet 800 mg PO BEDTIME PRN Pain 06/23/22 09/06/22 albuterol sulfate 90 mcg/actuation 2 puff inhalation Q6H PRN 11/03/22 aerosol inhaler (Ventolin HFA) Previous Rx's Medication Instructions Recorded budesonide 180 mcg/actuation 1 inh PO DAILY #1 ea 09/07/22 breath activated powder inhaler (Pulmicort Flexhaler) Serevent Diskus 50 mcg/dose powder 1 inh PO BID #60 ea 10/31/22 for inhalation (salmeterol) albuterol sulfate 2.5 mg/3 mL 2.5 mg (3 mL) inhalation Q4-6H PRN 12/29/22 (0.083 %) solution for nebulization for wheezing #180 mL aluminum-mag hydroxide-simethicone 5 ml PO 5XD PRN dyspepsia #355 mL 01/29/23 200 mg-200 mg-20 mg/5 mL oral susp (Maalox Advanced) Allergies Allergy/AdvReac Type Severity Reaction Status Date / Time albuterol [From Ventolin HFA] AdvReac Intermediate does not Verified 11/03/22 11:09 work Review of Systems Review of Systems: Constitutional : No Weight loss, + Fever, + Chills, + Fatigue, + Malaise ENT/Mouth : No sore throat, No Rhinorrhea Eyes: No Eye Pain, No Swelling, No Redness Cardiovascular : No Chest Pain, No SOB, No Dyspnea on Exertion, No Orthopnea, No Edema, No Palpitations Respiratory : No Cough, No Sputum, No Wheezing Gastrointestinal : + Nausea, No Vomiting, No Diarrhea, No Constipation, + abdominal Pain, No Hematochezia, No Melena Genitourinary : No Dysuria, No Urinary Frequency, No Hematuria, Musculoskeletal : No joint pain, No Myalgias, No Joint Swelling Skin : No Skin Lesions, No rash Neuro : No Weakness, No Numbness, No Dizziness, No Headache Psych : No Anxiety/Panic, No Depression All other systems reviewed and are negative Yes all other systems are reviewed and are negative PMFSH Past Medical History Attestation statement: The following information was validated with the patient. Source: old records reviewed and nursing notes reviewed Medical History Allergic rhinitis Asthma COPD (chronic obstructive pulmonary disease) Fibromyalgia Obesity (BMI 30.0-34.9) Palpitations Pulmonary nodules Surgical History Status post fine needle aspiration (~2019) Family History Family History Mother Leukemia Diabetes Family/Other Hodgkins lymphoma Family/Other Uterine cancer Sister Uterine cancer High cholesterol HTN (hypertension) Paternal Grandmother Uterine cancer Heart attack Father Colon cancer Social History Social History Household Members: None Housing: Apartment Are you a primary resident care manager rn to a significant other at home: No Do you presently have visiting nurse or other home services: No Alcohol intake: unknown Patient Tobacco Use Status: Former Tobacco user Smoked in Last 30 Days: No Use of substances other than those prescribed or required for medical reasons: Unknown Advance Directives: Yes Advance Directives Information Provided: No Advance Directives on File: No Patient : No service: No Current occupational status: disabled Physical Exam ED Vital Signs: Vital Signs - 24 hr 01/29/23 15:39 01/29/23 18:27 Temperature 96.8 F 97.9 F Pulse Rate 89 72 Respiratory Rate 18 16 Blood Pressure 126/69 107/53 L Pulse Oximetry 97 96 Oxygen Delivery Method Room Air Room Air BMI result Body Mass Index 33.1 vss Appearance: Alert.? Oriented X3.? No acute distress.? Head: Normocephalic, atraumatic, no step-offs or deformities Eyes: Pupils equal, round and reactive to light.? ENT: Pharynx normal.? Neck: Normal inspection.? Neck supple.? CVS: Normal heart rate and rhythm.? Pulses normal.? Respiratory: No respiratory distress.? Breath sounds normal.? Abdomen: Soft and tenderness to right upper quadrant epigastric region. Normoactive bowel sounds..? Skin: Skin warm and dry.? Normal skin color.? Normal skin turgor.? Extremities: No lower extremity edema.? No calf ttp. 5/5 strength to bilateral upper and lower extremities Back: No midline tenderness, no C-spine tenderness, full range of motion, no CVA tenderness bilaterally Neuro: Oriented X 3.? No motor deficit.? No sensory deficit. CN 2-12 intact Course Course Course Narrative: RME performed by Ashley Stauffer PA-C. Patient is a 62 year old assigned female at presenting to the emergency department with abdominal pain. Patient states that she has had abdominal pain for weeks. Labs ordered. Patient placed back in the waiting room pending room availability and results. Reevaluation(s) Reevaluation #1: CBC within normal limits. Chemistry with no acute findings requiring intervention. Normal BNP, normal lipase. Troponin negative, EKG nonischemic unlikely ACS. UA without infection. CT of the abdomen pelvis pending. Time: 17:23 Reevaluation #2: Patient feeling better. Will discharge home with Maalox. CT of the abdomen and pelvis with no acute findings. No evidence of acute pancreatitis. Educated patient on diagnosis and treatment plan, answered all question, patient verbalizes understanding. At this time patient will be discharged home, advised to return with new or worsening symptoms. Educated on worrisome signs and symptoms and when to return. At this time I feel comfortable discharge home. To note, at time of discharge patient tolerating p.o. Time: 20:07 Medications Administered Discontinued Medications Generic Name Dose Route Start Last Admin Trade Name Freq PRN Reason Stop Dose Admin Al Hydroxide/Mg Hydroxide 30 ml 01/29/23 16:25 01/29/23 16:34 Magnesium Hydrox/Alum Hydrox 30 Ml Oral.Susp PO 01/29/23 16:26 30 ml ONCE ONE Administration Belladonna Alkaloids/Phenobarbital 10 ml 01/29/23 16:25 01/29/23 16:34 Phenobarb/Hyoscy/Atropine/Scop 10 Ml Elixir PO 01/29/23 16:26 10 ml ONCE ONE Administration Medical Decision Making Medical Decision Making [facility] [place] Narrative: 1626 62-year-old female presents with epigastric pain, nausea, subjective fevers and chills x2 weeks. Physical exam with slight tenderness to epigastric region. Vital signs stable. Lungs clear. Regular rate and rhythm. Neuro nonfocal. Likely gastritis versus GERD. Unlikely atypical presentation for ACS, appendicitis, cholecystitis, bowel obstruction, pancreatitis. Will rule out UTI and electrolyte abnormalities. Plan labs, imaging, urine. Differential Diagnosis Differential Diagnoses: The differential diagnosis associated with the presentation includes Likely gastritis versus GERD. Unlikely atypical presentation for ACS, appendicitis, cholecystitis, bowel obstruction, pancreatitis. Will rule out UTI and electrolyte abnormalities. Admission/Observation Consideration of admission/observation: Escalation of care including admission/observation considered Unlikely Lab Data [facility] [place] Lab Attestation statement: I reviewed the patient's lab results. 01/29/23 16:42 01/29/23 16:42 Labs: Lab Results 01/29/23 01/29/23 01/29/23 Range/Units 16:42 16:42 16:42 WBC 8.0 (4.8-10.8) X10*3/uL RBC 4.51 (4.20-5.50) X10*6/uL Hgb 12.0 (12.0-16.0) g/dl Hct 37.1 (37.0-47.0) % MCV 82.3 (80.0-98.0) fL MCH 26.6 L (27.0-33.0) pg MCHC 32.3 (31.0-35.0) g/dl RDW 14.4 (11.0-16.0) % Plt Count 240 (160-400) X10*3/uL MPV 8.9 L (9.4-12.3) fL Immature Gran % (Auto) 0.2 (0.0-0.4) % Neut % (Auto) 45.3 (45-73) % Lymph % (Auto) 41.7 H (20-40) % Coal % (Auto) 8.1 (2-11) % Eos % (Auto) 4.2 H (0-4) % Baso % (Auto) 0.5 (0-2) % Lymph # (Auto) 3.4 (1.2-4.9) X10*3/uL Coal # (Auto) 0.7 (0.1-1.2) X10*3/uL Eos # (Auto) 0.3 (0.0-0.4) X10*3/uL Baso # (Auto) 0.0 (0.0-0.2) X10*3/uL Abs Immat Gran (auto) 0.02 (0.00-0.03) X10*3/uL Absolute Neuts (auto) 3.6 (2.0-8.3) x10*3/uL Absolute Nucleated RBC 0.000 (0.0-0.012) X10*3/uL Nucleated RBC % (auto) 0.0 (0.0-0.2) /100WBC Sodium 142 (135-145) mmol/L Potassium 3.9 (3.3-5.1) mmol/L Chloride 108 (96-108) mmol/L Carbon Dioxide 27 (22-29) mmol/L Anion Gap 11 L (12-20) BUN 11 (9-16) mg/dL Creatinine 0.80 (0.5-1.4) mg/dL Estim Creat Clear Calc 82.6 Estimated GFR > 60 Random Glucose 73 (60-115) mg/dL Calcium 8.7 D (8.4-10.2) mg/dL Magnesium 2.0 (1.6-2.6) mg/dL Total Bilirubin 0.6 (0.0-1.0) mg/dL AST 44 H (5-31) U/L ALT 38 H (0-31) U/L Alkaline Phosphatase 62 (39-117) U/L Troponin I High Sens < 2.7 (<3.5-17.0) ng/L B-Natriuretic Peptide (<100) pg/mL Total Protein 6.5 (6.5-8.0) g/dL Albumin 3.6 (3.5-5.0) g/dL Lipase 15 (8-78) U/L 01/29/23 Range/Units 16:42 WBC (4.8-10.8) X10*3/uL RBC (4.20-5.50) X10*6/uL Hgb (12.0-16.0) g/dl Hct (37.0-47.0) % MCV (80.0-98.0) fL MCH (27.0-33.0) pg MCHC (31.0-35.0) g/dl RDW (11.0-16.0) % Plt Count (160-400) X10*3/uL MPV (9.4-12.3) fL Immature Gran % (Auto) (0.0-0.4) % Neut % (Auto) (45-73) % Lymph % (Auto) (20-40) % Coal % (Auto) (2-11) % Eos % (Auto) (0-4) % Baso % (Auto) (0-2) % Lymph # (Auto) (1.2-4.9) X10*3/uL Coal # (Auto) (0.1-1.2) X10*3/uL Eos # (Auto) (0.0-0.4) X10*3/uL Baso # (Auto) (0.0-0.2) X10*3/uL Abs Immat Gran (auto) (0.00-0.03) X10*3/uL Absolute Neuts (auto) (2.0-8.3) x10*3/uL Absolute Nucleated RBC (0.0-0.012) X10*3/uL Nucleated RBC % (auto) (0.0-0.2) /100WBC Sodium (135-145) mmol/L Potassium (3.3-5.1) mmol/L Chloride (96-108) mmol/L Carbon Dioxide (22-29) mmol/L Anion Gap (12-20) BUN (9-16) mg/dL Creatinine (0.5-1.4) mg/dL Estim Creat Clear Calc Estimated GFR Random Glucose (60-115) mg/dL Calcium (8.4-10.2) mg/dL Magnesium (1.6-2.6) mg/dL Total Bilirubin (0.0-1.0) mg/dL AST (5-31) U/L ALT (0-31) U/L Alkaline Phosphatase (39-117) U/L Troponin I High Sens (<3.5-17.0) ng/L B-Natriuretic Peptide 51 (<100) pg/mL Total Protein (6.5-8.0) g/dL Albumin (3.5-5.0) g/dL Lipase (8-78) U/L Independent Interpretation I performed an independent interpretation of an: EKG (ventricular rate of 76, franck LA, QRS, QT and QTC, No MEGHAN or inversions. NO signs of ischemia ) and CT Scan Radiology Impression Discussion of test interpretation with radiology: I have reviewed the radiologist's reading. Core Measures AMI core measures followed: Yes Measure exclusions: not indicated Critical Care Time Critical Care Time Critical Care Time: No Discharge Plan Discharge Clinical Impression: Acute epigastric pain, Gastroesophageal reflux disease Patient Disposition: Home, Self-Care Instructions: Gastroesophageal Reflux Disease (DC), Abdominal Pain (ED) Additional Instructions: Take your medications as prescribed. If you were prescribed antibiotics today, it is important that you take your medication to their entirety, do not skip any doses, do not finish them early. Follow-up with your primary care provider this week. Follow-up with Gastroenterology if pain persists. Return to the emergency department with new or worsening symptoms. Such as fevers, chills, chest pain, shortness of breath, nausea, vomiting, dizziness, headache, vision changes, lethargy In case of emergency call 911 CT/CT abdomen pelvis wo IV con IMPRESSION: No acute or other significant abnormality is identified to extend patient's symptoms. No CT evidence of acute pancreatitis. Continued interval decrease in the size of a known right middle lobe nodule. Recommend attention to the finding on follow-up imaging. Fleischner guidelines were followed. Prescriptions: New alum-mag hydroxide-simeth [Maalox Advanced] 200-200-20 mg/5 mL suspension 5 ml PO 5XD PRN (Reason: dyspepsia) Qty: 355 0RF Rx Instructions: administer between meals and at bedtime No Action Pulmicort Flexhaler 180 mcg/actuation aerosol powdr breath activated 1 inh PO DAILY Qty: 1 3RF Serevent Diskus 50 mcg/dose blister with device 1 inh PO BID Qty: 60 3RF albuterol sulfate 2.5 mg /3 mL (0.083 %) solution for nebulization 2.5 mg inhalation Q4-6H PRN (Reason: for wheezing) Qty: 180 3RF melatonin 5 mg tablet 10 mg PO BEDTIME escitalopram oxalate [Lexapro] 20 mg tablet 20 mg PO DAILY trazodone 150 mg tablet 150 mg PO BEDTIME ibuprofen 800 mg tablet 800 mg PO BEDTIME PRN (Reason: Pain) omeprazole 20 mg capsule,delayed release(DR/EC) 20 mg PO DAILY albuterol sulfate [Ventolin HFA] 90 mcg/actuation HFA aerosol inhaler 2 puff inhalation Q6H PRN Referrals: [facility] [place] [facility] [Provider Group] - 1 week Physician,Unknown J [Primary Care Provider] - 2 days Stand Alone Forms: Work/School Release
--- NOTE | 2023-01-29 15:40 | ECG_ITS ---
Test Reason : EPIGASTRIC PAIN Blood Pressure : / mmHG Vent. Rate : 076 BPM Atrial Rate : 076 BPM P-R Int : 194 ms QRS Dur : 070 ms QT Int : 382 ms P-R-T Axes : 057 -12 023 degrees QTc Int : 429 ms Normal sinus rhythm Normal ECG When compared to the previous EKG of No significant changes seen Referred By: Nas Awad Electronically Signed By:Leonel Puentes
[2023-01-29] MEDS: PHENobarb/Hyoscy/Atropine/Scop 10 ML ELIXIR PO (16:34)
[2023-01-29] MEDS: Magnesium Hydrox/Alum Hydrox 30 ML ORAL.SUSP PO (16:34)
[2023-01-29 16:50] LABS: MANUAL DIFF FLAG NO
[2023-01-29 16:51] LABS: Basophils Percent Auto 0.5 % (0-2); Eosinophils Absolute Auto 0.3 X10*3/uL (0.0-0.4); Eosinophils Percent Auto 4.2 % (0-4); Hematocrit 37.1 % (37.0-47.0); Imm Gran Abs Auto 0.02 X10*3/uL (0.00-0.03); Imm Gran Pct Auto 0.2 % (0.0-0.4); Lymphocytes Absolute Auto 3.4 X10*3/uL (1.2-4.9); Lymphocytes Percent Auto 41.7 % (20-40); Mean Corpuscular HGB Conc 32.3 g/dl (31.0-35.0); Mean Corpuscular Hemoglobin 26.6 pg (27.0-33.0); Mean Corpuscular Volume 82.3 fL (80.0-98.0); Mean Platelet Volume 8.9 fL (9.4-12.3); Monocytes Absolute Auto 0.7 X10*3/uL (0.1-1.2); Monocytes Percent Auto 8.1 % (2-11); Neutrophils Absolute Auto 3.6 x10*3/uL (2.0-8.3); Neutrophils Percent Auto 45.3 % (45-73); Platelet Count 240 X10*3/uL (160-400); Red Blood Count 4.51 X10*6/uL (4.20-5.50); Red Cell Distribution Width 14.4 % (11.0-16.0)
[2023-01-29 17:07] LABS: Alanine Aminotransferase 38 U/L (0-31); Albumin Level 3.6 g/dL (3.5-5.0); Alkaline Phosphatase 62 U/L (39-117); Anion Gap 11 (12-20); Aspartate Amino Transferase 44 U/L (5-31); Bilirubin Total 0.6 mg/dL (0.0-1.0); Blood Urea Nitrogen 11 mg/dL (9-16); Calcium 8.7 mg/dL (8.4-10.2); Carbon Dioxide 27 mmol/L (22-29); Chloride 108 mmol/L (96-108); Creatinine Clr Calc Pharmacy 82.6; Estimated Glomerular Filt Rate > 60; Glucose Random 73 mg/dL (60-115); Lipase 15 U/L (8-78); Potassium 3.9 mmol/L (3.3-5.1); Sodium 142 mmol/L (135-145); Total Protein 6.5 g/dL (6.5-8.0)
[2023-01-29 17:12] LABS: B Type Natriuretic Peptide 51 pg/mL (<100)
[2023-01-29 17:19] LABS: Troponin-I High Sensitivity < 2.7 ng/L (<3.5-17.0)
[2023-01-29 18:27] VITALS: BP 107/53; PULSE 72; RESP 16; TEMP 36.6; O2SAT 96
== END 2023-01-29 20:20 | disposition home or self-care (01) ==
PROVIDERS: Physician Assistant Medical; Emergency Provider Internal Medicine
DX: R10.13 Epigastric pain (principal); R50.9 Fever, unspecified; R07.89 Other chest pain; R06.02 Shortness of breath; Z87.891 Personal history of nicotine dependence; Z79.899 Other long term (current) drug therapy
CPT/HCPCS: 36415; 74176; 80053; 83690; 83735; 83880; 84484; 85025; 93005; 99284; 99285

== ENCOUNTER 2023-04-28 10:02 | Outpatient (AMB) | payer OTHER, SELFPAY ==
--- NOTE | 2023-04-28 10:21 | A.OFFVIS_ITS ---
Intake Vital Signs 04/28/23 10:30 Height 5 ft 6 in Weight 207 lb 8 oz BMI 33.5 BP 153/72 H Blood Pressure Location Lt brachial Position Sitting Pulse 71 Intake Visit Reasons: adenopathy of the neck Intake Note: Patient is seen in office for evaluation and treatment of adenopathy of the neck. Patient c/o: pain in the left side of the neck all the way to the ear, had ultrasound done, pain when swallowing or opening the mouth, was instructed to come in here for a possible bx. Commercial Account Executive Required: No Accompanied by: Other Relationship Allergies albuterol [From Ventolin HFA] Adverse Reaction (Intermediate, Verified 04/28/23 10:28) does not work Medication List - Last Reconciled 04/28/23 by Rambo Bland MD albuterol sulfate 90 mcg/actuation (Ventolin HFA) 2 puffs inhalation Q6H PRN albuterol sulfate 2.5 mg (3 mL) inhalation Q4-6H PRN alum-mag hydroxide-simeth 200-200-20 mg/5 mL (Maalox Advanced) 5 mL PO 5XD PRN budesonide 180 mcg/actuation (Pulmicort Flexhaler) 1 inh PO DAILY escitalopram oxalate (Lexapro) 20 mg PO DAILY ibuprofen 800 mg PO BEDTIME PRN omeprazole 20 mg PO DAILY Serevent Diskus (salmeterol) 1 inh PO BID NS trazodone 150 mg PO BEDTIME HPI HPI Comments History of Present Illness Details 62-year-old female patient presenting with complaints of pain in for the ear and extending down along the angle of the jaw. The pain began several months ago and has persisted. She reports being placed on antibiotics without significant improvement. She was checked for oral infections and none were identified. The pain seems to increase with open her mouth and biting down. An ultrasound of the left neck was performed and revealed several enlarged lymph nodes corresponding to the area of pain. She is unable to feel any palpable masses in her neck but does no tenderness when palpating the neck. [facility] Medical History Allergic rhinitis Asthma COPD (chronic obstructive pulmonary disease) Fibromyalgia Obesity (BMI 30.0-34.9) Palpitations Pulmonary nodules Surgical History Status post fine needle aspiration (~2019) Family History Mother Leukemia Diabetes Family/Other Hodgkins lymphoma Family/Other Uterine cancer Sister Uterine cancer High cholesterol HTN (hypertension) Paternal Grandmother Uterine cancer Heart attack Father Colon cancer Social History Household Members: None Housing: Apartment Are you a primary child care associate teacher to a significant other at home: No Do you presently have visiting nurse or other home services: No Alcohol intake: unknown Patient Tobacco Use Status: Former Tobacco user service: No Current occupational status: disabled Review of Systems Const All systems reviewed & are unremarkable except as noted in HPI and below Physical Exam Const General: cooperative and no acute distress Nutritional Appearance: well nourished Orientation/consciousness: patient oriented x3 Limitations: no limitations HEENT Head: Yes normocephalic and Yes atraumatic Ears: hearing grossly normal bilaterally Neck Other: Palpable tenderness noted at the angle the mandible directly over the parotid gland. No definite palpable masses appreciated to my examination. Examination along the anterior and posterior cervical chains reveals no definite palpable node to be biopsied. Examination of the right neck also reveals no suspicious findings. Location is suspicious for salivary gland involvement, namely the parotid gland. Resp Effort & Inspection: normal respiratory effort, no audible wheezes, no cough and no respiratory distress Cardio Jugular venous distension: no JVD GI Inspection: Yes normal to inspection Skin Other: Warm, dry, no rash Neuro General: patient oriented x3 Extrem General: Yes no clubbing, cyanosis or edema Assessment & Plan Assessment & Plan (1) Lymphadenopathy of left cervical region: Code(s): R59.0 - Localized enlarged lymph nodes Plan 62-year-old female patient presenting with complaints of pain in the left neck at the angle the mandible with ultrasound findings of lymphadenopathy. On examination I am unable to definitely feel a palpable lymph node or salivary gland mass. The site is suspicious for parotid gland involvement therefore I recommended further evaluation with CT of the neck soft tissues. I recommended the patient the office following this test to review the results and discuss treatment options. If salivary gland involvement is noted she will be referred to ENT for further management. Orders: Orders CT soft tissue neck w IV con Today R59.0 - Localized enlarged lymph nodes Coding Level of Care Code New Pt Level 4 (76581) Diagnoses Lymphadenopathy of left cervical region R59.0
[2023-04-28 10:30] VITALS: BP 153/72; PULSE 71; BMI 33.5
== END 2023-04-28 10:46 | disposition home or self-care (01) ==
PROVIDERS: PCP Internal Medicine; Referring Provider Internal Medicine; Visit Provider Surgery
DX: R59.0 Localized enlarged lymph nodes (principal)
CPT/HCPCS: 99204

== ENCOUNTER → 2023-04-28 10:02 | Outpatient (BNVA) | payer OTHER, SELFPAY | PROVIDERS: PCP Internal Medicine; Referring Provider Internal Medicine; Visit Provider Surgery | DX: R59.0 Localized enlarged lymph nodes (principal) | CPT/HCPCS: 99202 ==

== ENCOUNTER 2023-05-01 10:58 | Outpatient (AMB) | payer OTHER, SELFPAY ==
--- NOTE | 2023-05-01 10:59 | A.OFFVIS_ITS ---
Intake Vital Signs 05/01/23 11:01 Height 5 ft 6 in Weight 208 lb BMI 33.6 BP 102/64 Blood Pressure Location Lt brachial Position Sitting Pulse 75 Pulse Source Pulse Oximeter Pulse Oximetry (%) 97 Oxygen Delivery Method Room Air Intake Visit Reasons: Asthma Intake Note: pt is here for follow up and states her breathing is not good, she does not want to be stuck to the nebulizer. some tightness with stairs her lungs seem to get better and than back to where they were before. Global Expansion Sales Director Required: No Allergies albuterol [From Ventolin HFA] Adverse Reaction (Intermediate, Verified 05/01/23 11:18) does not work Medication List - Last Reconciled 05/01/23 by Praveen Brady MD albuterol sulfate 90 mcg/actuation (Ventolin HFA) 2 puffs inhalation Q6H PRN albuterol sulfate 2.5 mg (3 mL) inhalation Q4-6H PRN alum-mag hydroxide-simeth 200-200-20 mg/5 mL (Maalox Advanced) 5 mL PO 5XD PRN budesonide 180 mcg/actuation (Pulmicort Flexhaler) 1 inh PO DAILY escitalopram oxalate (Lexapro) 20 mg PO DAILY ibuprofen 800 mg PO BEDTIME PRN omeprazole 20 mg PO DAILY Serevent Diskus (salmeterol) 1 inh PO BID NS trazodone 150 mg PO BEDTIME Do you need a note to return to daycare/school/sports/work: No HPI Asthma HPI Details 62 years old female, suffers from allergic rhinitis and Asthma/COPD . Lately her breathing is not good and she has wheezing on a daily basis. She gets short of breath on minimal walking or climb.ing stairs. She also has ongoing nasal congestion which is fairly well controlled with the use of Flonase . She denies having any recent respiratory infection, per breathing has been worse and may be due to change in the weather. PATIENT DOES NOT SMOKE, QUIT FEW YEARS AGO. [facility] Medical History Allergic rhinitis Asthma COPD (chronic obstructive pulmonary disease) Fibromyalgia Obesity (BMI 30.0-34.9) Palpitations Pulmonary nodules Surgical History Status post fine needle aspiration (~2019) Family History Mother Leukemia Diabetes Family/Other Hodgkins lymphoma Family/Other Uterine cancer Sister Uterine cancer High cholesterol HTN (hypertension) Paternal Grandmother Uterine cancer Heart attack Father Colon cancer Social History Household Members: None Housing: Apartment Are you a primary care nurse rn to a significant other at home: No Do you presently have visiting nurse or other home services: No Alcohol intake: unknown Patient Tobacco Use Status: Former Tobacco user service: No Current occupational status: disabled Review of Systems Const All systems reviewed & are unremarkable except as noted in HPI and below Eyes Reports no additional complaints ENT Reports nasal congestion (Mild intermittent) Card Denies chest pain, Denies irregular heart rhythm and Denies leg edema Resp Reports as per HPI GI Reports no additional complaints Reports no additional complaints Musc Reports back pain and Reports myalgias Skin/Breast Reports system reviewed and no additional complaints, except as documented Neuro Reports no additional complaints Psych Reports no additional complaints Physical Exam Vital Signs: Last Vital Signs Pulse 75 05/01/23 11:01 BP 102/64 05/01/23 11:01 Pulse Ox 97 05/01/23 11:01 Oxygen Delivery Method Room Air 05/01/23 11:01 BMI result Body Mass Index 33.6 Const General: healthy appearing (Except for being overweight), comfortable, no acute distress, alert and awake Orientation/consciousness: patient oriented x3 HEENT Head: Yes normal to inspection General nose exam: No nasal polyps present and No nasal discharge present Face and sinus: Yes sinuses nontender Mouth: oropharynx normal Throat: Yes posterior oropharynx normal Eyes General: appearance normal, both eyes and all related structures Neck Neck: Yes normal visual inspection, Yes no lymphadenopathy, Yes trachea midline and Yes no JVD Thyroid: Thyroid normal Chest Chest palpation & inspection: normal inspection of the chest, normal palpation of entire chest wall and no tenderness Resp Other: Percussion note is resonant, breath sounds are equal on both sides, moderately distant with prolonged expiratory phase. SHE HAS SCATTERED WHEEZES ON BOTH SIDES. Cardio Palpation: normal PMI Rate: regular rate Rhythm: regular rhythm Heart sounds: no gallops and no murmurs GI Palpation (GI): Soft to palpation, nontender, No hepatosplenomegaly present and no masses Auscultation: normal bowel sounds Back/Spine/Pelvis Thoracic/Lumbar Spine: thoracic and lumbar spine normal to inspection Skin General skin exam: no rashes or lesions noted Neuro General: patient oriented x3 and no focal motor deficits Cranial nerves: Yes CN's II-XII intact bilaterally Extrem General: Yes normal to inspection, Yes no clubbing, cyanosis or edema and Yes no calf tenderness Psych Appearance: grossly normal and well kempt Speech and movement: Normal speech and movement present Assessment & Plan Assessment & Plan (1) COPD (chronic obstructive pulmonary disease): Comment: (PFT has shown Moderate Obstructive Airway Disorder, with partial reversibility after bronchodilator - results C/W ACOS) breathing status not well controlled. In spite of her current regimen she continues to have wheezing. Show I think we need to upgrade her medical regimen, as follows. [place] : Symbicort 160-4.52 puffs b.i.d.. Add Spiriva HandiHaler 1 inhalation daily. Ventolin @ puffs q 4 hrs PRN Alternatively ,Albuterol solution for Neb. to use q 6 hrs PRN when in the house , Code(s): J44.9 - Chronic obstructive pulmonary disease, unspecified (2) Allergic rhinitis: Comment: (Mild/Seasonal - Tx Flonase 2 sprays each nostril daily, Claritin 10mg once daily PRN) Code(s): J30.9 - Allergic rhinitis, unspecified (3) Pulmonary nodules: Comment: (stable 8x11mm RML nodule since at least January of 2020) Patient being followed by Thoracic surgery , Dr. Kt Tellez. Code(s): R91.8 - Other nonspecific abnormal finding of lung field Coding Level of Care Code Est Pt Level 4 (00353) Diagnoses COPD (chronic obstructive pulmonary disease) J44.9 Allergic rhinitis J30.9 Pulmonary nodules R91.8
[2023-05-01 11:01] VITALS: BP 102/64; PULSE 75; O2SAT 97; BMI 33.6
== END 2023-05-01 11:18 | disposition home or self-care (01) ==
PROVIDERS: PCP Internal Medicine; Visit Provider Internal Medicine
DX: J44.9 Chronic obstructive pulmonary disease, unspecified (principal); J30.9 Allergic rhinitis, unspecified; R91.8 Other nonspecific abnormal finding of lung field
CPT/HCPCS: 99214

== ENCOUNTER → 2023-05-01 10:58 | Outpatient (BNVA) | payer OTHER, SELFPAY | PROVIDERS: PCP Internal Medicine; Visit Provider Internal Medicine | DX: J45.909 Unspecified asthma, uncomplicated (principal); R91.8 Other nonspecific abnormal finding of lung field; R59.0 Localized enlarged lymph nodes; Z87.891 Personal history of nicotine dependence | CPT/HCPCS: 99212 ==

== ENCOUNTER 2023-05-09 09:04 | Outpatient (REF) | payer OTHER, SELFPAY ==
--- NOTE | ~2023-05-09 | MM_ITS ---
EXAMINATION: MM SCREENING DIGITAL BREAST TOMOSYNTHESIS, BILATERAL CLINICAL INFORMATION: Screening. Asymptomatic. COMPARISON: Mammography: This study is compared with prior exams dating back to 2019. TECHNIQUE: Digital breast tomosynthesis is performed in both the craniocaudal and mediolateral oblique views along with computer-aided detection (CAD). Synthesized 2D images are generated from the tomosynthesis. FINDINGS: There are scattered areas of fibroglandular density (ACR BI-RADS breast composition Category b). There are no significant masses, abnormal calcifications, or other abnormalities. There are 2 tissue markers in the right breast from prior benign percutaneous biopsy. MM/MM tomosynthesis screening BI IMPRESSION: No mammographic evidence of malignancy. ASSESSMENT: BI-RADS BI-RADS 2 - Benign Findings RECOMMENDATION: Routine annual mammography screening. 1 year F/U This examination should not preclude the clinical evaluation of a suspicious palpable abnormality. This patient's information was entered into a reminder system with a target due date for their next mammogram.
== END 2023-05-09 09:05 | disposition home or self-care (01) ==
LOC: HO.MAMMO 09:04
PROVIDERS: PCP Internal Medicine; Visit Provider Internal Medicine
DX: Z12.31 Encounter for screening mammogram for malignant neoplasm of breast (principal)
CPT/HCPCS: 77063; 77067

== ENCOUNTER → 2023-05-09 09:15 | Outpatient (BNV) | payer OTHER, SELFPAY | PROVIDERS: PCP Internal Medicine; Visit Provider Radiology Diagnostic Radiology | DX: Z12.31 Encounter for screening mammogram for malignant neoplasm of breast (principal) | CPT/HCPCS: 77063; 77067 ==

== ENCOUNTER 2023-05-15 14:43 | Outpatient (REF) | payer OTHER, SELFPAY ==
[2023-05-15 15:58] LABS: Blood Urea Nitrogen 15 mg/dL (9-16); Estimated Glomerular Filt Rate > 60
== END 2023-05-15 14:44 | disposition home or self-care (01) ==
LOC: HO.LAB 14:43
PROVIDERS: PCP Internal Medicine; Visit Provider Surgery
DX: R59.0 Localized enlarged lymph nodes (principal)
CPT/HCPCS: 36415; 82565; 84520

== ENCOUNTER 2023-05-18 15:42 | Emergency (ER) | payer OTHER, SELFPAY ==
--- NOTE | ~2023-05-18 | CT_ITS ---
EXAMINATION: CT SOFT TISSUE NECK WITHOUT CONTRAST CLINICAL INFORMATION: Right-sided neck pain. COMPARISON: None available. TECHNIQUE: Helical imaging was performed in the axial plane with generation of coronal and sagittal reformatted images. This CT examination was performed using dose optimization techniques as appropriate, variously including the following: *Automated exposure control *Adjustment of mA and/or kV according to patient size (this includes techniques or standardized protocols for targeted exams where dose is matched to indication/reason for exam; i.e. extremities or head) *Use of iterative reconstruction technique DLP: 587 mGy-cm FINDINGS: The study is limited due to motion artifacts. No obvious contour abnormality is visible within the oral cavity, pharyngeal mucosal space, or larynx. No bulky cervical adenopathy is seen. The parotid and submandibular glands appear grossly normal. The airway is normally maintained. The thyroid gland appears normal. The imaged mediastinum is unremarkable. The visualized portions of the lungs are clear. No acute osseous abnormality is seen. 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 No periapical lucencies seen in the dentition. Mild to moderate cervical spondylosis noted. There is moderate facet arthropathy on the left side at the C4-C5 level and on the left side at the C5-C6 level. No acute osseous abnormality is seen. The craniovertebral junction is normal. The orbits appear normal. The paranasal sinuses are fairly well aerated. The mastoid air cells are clear. There are advanced degenerative changes in the condylar head of the left temporomandibular joint. The imaged portions of the brain demonstrate no acute abnormality. CT/CT soft tissue neck wo IV con IMPRESSION: No acute abnormality on this limited noncontrast study with motion artifacts. Significant right-sided facet arthropathy at the C5-C6 level; clinically correlate as to whether this finding is related to the patient's presenting symptomatology. 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
[2023-05-18 15:45] VITALS: BP 129/67; PULSE 83; RESP 16; TEMP 36.7; O2SAT 97; BMI 32.1
[2023-05-18 16:57] VITALS: BP 118/73; PULSE 77; RESP 14; O2SAT 99
--- NOTE | 2023-05-18 17:19 | ED.HA ---
HPI - Headache General Chief Complaint: Headache Stated Complaint: headache,neck pain Time Seen by Provider: 05/18/23 17:03 Source: patient Mode of arrival: ambulatory Limitations: no limitations History of Present Illness HPI Narrative: Patient comes to the emergency room complaining of left-sided jaw pain for over a month. Patient states that the jaw pain causes her to have headaches. Patient states she has been seen by multiple specialists, all of the tests are negative including ultrasounds. Patient denies nausea vomiting diarrhea. Patient states that 1 of her specialist told her that she has some kind of lump on the left side of her jaw/face but she did not understand she is very worried. Related Data Home Medications Medication Instructions Recorded Confirmed escitalopram oxalate 20 mg tablet 20 mg PO DAILY 06/08/21 04/28/23 (Lexapro) trazodone 150 mg tablet 150 mg PO BEDTIME insomnia 06/08/21 04/28/23 omeprazole 20 mg capsule,delayed 20 mg PO DAILY 04/21/22 04/28/23 release ibuprofen 800 mg tablet 800 mg PO BEDTIME PRN Pain 06/23/22 04/28/23 albuterol sulfate 90 mcg/actuation 2 puff inhalation Q6H PRN 11/03/22 04/28/23 aerosol inhaler (Ventolin HFA) Previous Rx's Medication Instructions Recorded budesonide 180 mcg/actuation 1 inh PO DAILY #1 ea 09/07/22 breath activated powder inhaler (Pulmicort Flexhaler) albuterol sulfate 2.5 mg/3 mL 2.5 mg (3 mL) inhalation Q4-6H PRN 12/29/22 (0.083 %) solution for nebulization for wheezing #180 mL aluminum-mag hydroxide-simethicone 5 ml PO 5XD PRN dyspepsia #355 mL 01/29/23 200 mg-200 mg-20 mg/5 mL oral susp (Maalox Advanced) Serevent Diskus 50 mcg/dose powder 1 inh PO BID #60 ea 02/28/23 for inhalation (salmeterol) fluticasone 500 mcg-salmeterol 50 1 inh inhalation Q12H asthma?copd 05/03/23 mcg/dose blistr powdr for 30 days #60 ea inhalation tiotropium bromide 18 mcg capsule 1 cap inhalation DAILY ASTHMA/COPD 08/16/23 with inhalation device (Spiriva 30 days #1 inh with HandiHaler) ibuprofen 600 mg tablet 600 mg PO TID PRN pain #20 tabs 05/18/23 Allergies Allergy/AdvReac Type Severity Reaction Status Date / Time acetaminophen [From Percocet] AdvReac Vomiting Verified 05/18/23 15:47 oxycodone [From Percocet] AdvReac Vomiting Verified 05/18/23 15:47 Review of Systems Review of Systems: Constitutional : No Weight loss, No Fever, No Chills, No Night Sweats, No Fatigue, No Malaise ENT/Mouth : No Hearing loss, No Ear Pain, No Nasal Congestion, No Sinus Pain, No Hoarseness, No sore throat, No Rhinorrhea, No Swallowing Difficulty Eyes: No Eye Pain, No Swelling, No Redness, No Foreign Body, No Discharge, No Vision Changes Cardiovascular : No Chest Pain, No SOB, No Dyspnea on Exertion, No Orthopnea, No Edema, No Palpitations Respiratory : No Cough, No Sputum, No Wheezing, No Smoke Exposure, No Dyspnea Gastrointestinal : No Nausea, No Vomiting, No Diarrhea, No Constipation, No abdominal Pain, No Hematochezia, No Melena Genitourinary : no irregular bleeding, No Dysuria, No Urinary Frequency, No Hematuria, No Urinary Incontinence, No Urgency, No Flank Pain, No Urinary Flow Changes, No Hesitancy Musculoskeletal : Lining of joint pain in the left mandible, No joint pain, No Myalgias, No Joint Swelling Skin : No Skin Lesions, No rash Neuro : No Weakness, No Numbness, No Paresthesias, No Loss of Consciousness, No Dizziness, No Headache Psych : No Anxiety/Panic, No Depression, No SI/HI/AH/VH, No Social Issues, Heme/Lymph: No Bruising, No Bleeding,No Lymphadenopathy Endocrine : No Polyuria, No Polydipsia, No Temperature Intolerance PMFSH Past Medical History Medical History Allergic rhinitis Asthma COPD (chronic obstructive pulmonary disease) Fibromyalgia Obesity (BMI 30.0-34.9) Palpitations Pulmonary nodules Surgical History Status post fine needle aspiration (~2019) Family History Family History Mother Leukemia Diabetes Family/Other Hodgkins lymphoma Family/Other Uterine cancer Sister Uterine cancer High cholesterol HTN (hypertension) Paternal Grandmother Uterine cancer Heart attack Father Colon cancer Social History Social History Household Members: None Housing: Apartment Are you a primary critical care nurse practitioner to a significant other at home: No Do you presently have visiting nurse or other home services: No Alcohol intake: never Patient Tobacco Use Status: Former Tobacco user Smoked in Last 30 Days: No Use of substances other than those prescribed or required for medical reasons: No Advance Directives: Yes Advance Directives Information Provided: No Advance Directives on File: No Patient : No service: No Current occupational status: disabled Physical Exam Vital Signs: Vital Signs: Last Vital Signs Temp 98.7 F 05/18/23 19:02 Pulse 61 05/18/23 19:02 Resp 17 05/18/23 19:02 BP 116/72 05/18/23 19:02 Pulse Ox 100 05/18/23 19:02 O2 Del Method Room Air 05/18/23 19:02 BMI result Body Mass Index 32.1 Const: Other: Appearance: Alert. Oriented X3. No acute distress. Eyes: Pupils equal, round and reactive to light. ENT: Pharynx normal. When patient opens and closes her mouth, there is grinding at the TMJ Neck: Normal inspection. Neck supple. No lymph nodes noted. No crepitus CVS: Normal heart rate and rhythm. Pulses normal. Normal S1 and S2 Respiratory: No respiratory distress. Breath sounds normal. No Wheezing. No rales Abdomen: Soft and nontender. No rigidity. No distention. Skin: Skin warm and dry. Normal skin color. Normal skin turgor. Extremities: No lower extremity edema. No Lacerations. No Rash Neuro: Oriented X 3. No motor deficit. No sensory deficit. Moving all extremities. No slurred speech. CN 2 through 12 grossly intact Psych: calm, cooperative, normal affect Course Course Course Narrative: -CT scan of the soft tissue of the neck pending Medical Decision Making Medical Decision Making MDM Narrative: -I discussed the physical exam with the patient, patient has grinding when she opens and closes her mouth around the left TMJ, which may be the source of patient's jaw pain and headache -my Evaluation of CT scan:I did not see any significant abnormality seen patient's CT scan of the neck. -CT scan report shows TMJ arthritis. -I discussed the results with the patient her results. Patient will follow-up with her primary care physician, Differential Diagnosis Differential Diagnoses: The differential diagnosis associated with the presentation includes (Arthritis, TMJ, contusion, cavity) Admission/Observation Consideration of admission/observation: Escalation of care including admission/observation considered (Patient came in complaining of jaw pain, stated that the lump was found on ultrasound by her previous providers, admission was considered) Independent Interpretation I performed an independent interpretation of an: CT Scan Interpretation: FINDINGS: The study is limited due to motion artifacts. No obvious contour abnormality is visible within the oral cavity, pharyngeal mucosal space, or larynx. No bulky cervical adenopathy is seen. The parotid and submandibular glands appear grossly normal. The airway is normally maintained. The thyroid gland appears normal. The imaged mediastinum is unremarkable. The visualized portions of the lungs are clear. No acute osseous abnormality is seen. 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 No periapical lucencies seen in the dentition. Mild to moderate cervical spondylosis noted. There is moderate facet arthropathy on the left side at the C4-C5 level and on the left side at the C5-C6 level. No acute osseous abnormality is seen. The craniovertebral junction is normal. The orbits appear normal. The paranasal sinuses are fairly well aerated. The mastoid air cells are clear. There are advanced degenerative changes in the condylar head of the left temporomandibular joint. The imaged portions of the brain demonstrate no acute abnormality. CT/CT soft tissue neck wo IV con IMPRESSION: No acute abnormality on this limited noncontrast study with motion artifacts. ? Significant right-sided facet arthropathy at the C5-C6 level; clinically correlate as to whether this finding is related to the patient's presenting symptomatology. ? 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 Radiology Impression Discussion of test interpretation with radiology: I have reviewed the radiologist's reading. Critical Care Time Critical Care Time Critical Care Time: Yes Total Critical Care Time: 60 Attestation: I have personally provided critical care time. Time includes review of lab data, radiology results, discussion with consultants, and monitoring for potential decompensation. Intervention performed as documented. Discharge Plan Discharge Clinical Impression: TMJ arthralgia Patient Disposition: Home, Self-Care Instructions: Temporomandibular Disorder (ED) Additional Instructions: Please follow-up with your primary care physician tomorrow. If you have any worsening or new symptoms, please return to the emergency room or call 911 Prescriptions: New ibuprofen 600 mg tablet 600 mg PO TID PRN (Reason: pain) Qty: 20 0RF No Action Pulmicort Flexhaler 180 mcg/actuation aerosol powdr breath activated 1 inh PO DAILY Qty: 1 3RF albuterol sulfate 2.5 mg /3 mL (0.083 %) solution for nebulization 2.5 mg inhalation Q4-6H PRN (Reason: for wheezing) Qty: 180 3RF Serevent Diskus 50 mcg/dose blister with device 1 inh PO BID Qty: 60 3RF fluticasone propion-salmeterol 500-50 mcg/dose blister with device 1 inh inhalation Q12H MDD ASTHMA/COPD 30 Days Qty: 60 3RF alum-mag hydroxide-simeth [Maalox Advanced] 200-200-20 mg/5 mL suspension 5 ml PO 5XD PRN (Reason: dyspepsia) Qty: 355 0RF Rx Instructions: administer between meals and at bedtime escitalopram oxalate [Lexapro] 20 mg tablet 20 mg PO DAILY trazodone 150 mg tablet 150 mg PO BEDTIME ibuprofen 800 mg tablet 800 mg PO BEDTIME PRN (Reason: Pain) omeprazole 20 mg capsule,delayed release(DR/EC) 20 mg PO DAILY albuterol sulfate [Ventolin HFA] 90 mcg/actuation HFA aerosol inhaler 2 puff inhalation Q6H PRN Spiriva with HandiHaler 18 mcg capsule, w/inhalation device 1 cap inhalation DAILY 30 Days Qty: 1 3RF Rx Instructions: puncture 1 cap using device; one dose = 2 inhalations
[2023-05-18 19:02] VITALS: BP 116/72; PULSE 61; RESP 17; TEMP 37.1; O2SAT 100
== END 2023-05-18 20:20 | disposition home or self-care (01) ==
PROVIDERS: Emergency Provider Emergency Medicine; PCP Internal Medicine
DX: M26.622 Arthralgia of left temporomandibular joint (principal); Z87.891 Personal history of nicotine dependence
CPT/HCPCS: 70490; 99284

== ENCOUNTER 2023-06-07 08:03 | Outpatient (REF) | payer OTHER, SELFPAY ==
--- NOTE | ~2023-06-07 | CT_ITS ---
EXAMINATION: CT SOFT TISSUE NECK WITH CONTRAST CLINICAL INFORMATION: Localized enlarged lymph nodes. COMPARISON: CT scan of the neck 05/18/2023. TECHNIQUE: Following the intravenous administration of 60 mL of Omnipaque 350 intravenous contrast, helical imaging was performed in the axial plane with generation of coronal and sagittal reformatted images. This CT examination was performed using dose optimization techniques as appropriate, variously including the following: *Automated exposure control *Adjustment of mA and/or kV according to patient size (this includes techniques or standardized protocols for targeted exams where dose is matched to indication/reason for exam; i.e. extremities or head) *Use of iterative reconstruction technique DLP: 280 mGy-cm FINDINGS: There is no cervical lymphadenopathy. There are small lymph nodes at multiple levels in the neck bilaterally. The parotid glands are homogeneous in attenuation; there is accessory parotid tissue over the masseter muscles bilaterally. The submandibular glands are normal. No contour abnormality or pathologic enhancement is seen within the oral cavity or pharyngeal mucosal space. The laryngeal structures are normal. The parapharyngeal fat is preserved. The carotid sheath vasculature opacify normally. No extra mucosal soft tissue mass or fluid collection is seen. No retropharyngeal fluid collection is seen. The thyroid gland is normal. The superior mediastinum is unremarkable. The lung apices are clear. The mastoid air cells are well-aerated. There is mild mucoperiosteal thickening posteriorly in the right sphenoid sinus. The other paranasal sinuses appear well-aerated. 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 There is a prominent incisive canal. No periapical disease is identified. The study redemonstrates the congenital fusion of the multilevel spondylitic and facet arthropathic changes. No acute osseous abnormalities are seen. The imaged portions of the brain parenchyma are unremarkable. CT/CT soft tissue neck w IV con IMPRESSION: 1. There is no cervical lymphadenopathy; there are small lymph nodes at multiple levels in the neck bilaterally. No masses are demonstrated. 2. 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
[2023-06-07] MEDS: iohexoL 350 MG/ML 100 ML INFUS..BTL IV (08:37)
== END 2023-06-07 08:04 | disposition home or self-care (01) ==
LOC: HO.CT 08:03
PROVIDERS: PCP Internal Medicine; Visit Provider Surgery
DX: R59.0 Localized enlarged lymph nodes (principal)
CPT/HCPCS: 70491; Q9967

== ENCOUNTER 2023-06-08 11:02 | Outpatient (AMB) | payer OTHER, SELFPAY ==
[2023-06-08 11:19] VITALS: BP 104/64; PULSE 66; O2SAT 98; BMI 32.4
--- NOTE | 2023-06-08 11:19 | A.OFFVIS_ITS ---
Intake Vital Signs 06/08/23 11:19 Height 5 ft 7 in Weight 207 lb BMI 32.4 BP 104/64 Blood Pressure Location Lt brachial Position Sitting Pulse 66 Pulse Source Pulse Oximeter Pulse Oximetry (%) 98 Oxygen Delivery Method Room Air Intake Visit Reasons: Asthma Intake Note: pt is here for follow up and is doing well with the tx right now, not much need for nebulizer, needs refill on incruse. Allergies acetaminophen [From Percocet] Adverse Reaction (Verified 06/08/23 11:32) Vomiting oxycodone [From Percocet] Adverse Reaction (Verified 06/08/23 11:32) Vomiting Medication List - Last Reconciled 06/08/23 by Praveen Brady MD albuterol sulfate 90 mcg/actuation (Ventolin HFA) 2 puffs inhalation Q6H PRN albuterol sulfate 2.5 mg (3 mL) inhalation Q4-6H PRN alum-mag hydroxide-simeth 200-200-20 mg/5 mL (Maalox Advanced) 5 mL PO 5XD PRN escitalopram oxalate (Lexapro) 10 mg PO DAILY fluticasone propion-salmeterol 500-50 mcg/dose 1 inh inhalation Q12H 30 days MDD ASTHMA/COPD ibuprofen 800 mg PO BEDTIME PRN omeprazole 20 mg PO DAILY peg [id number] 1-0.2-0.2 % (Artificial Tears ([id number])) drps ophthalmic (eye) trazodone 100 mg PO BEDTIME umeclidinium 62.5 mcg/actuation (Incruse Ellipta) 1 inh inhalation DAILY Do you need a note to return to daycare/school/sports/work: No HPI Asthma HPI Details WILL comes back for follow-up and claims that she is doing much better. With the current combination of inhalers her symptoms. Are under control She has only mild intermittent cough. She denies any wheezing. And shortness of breath is only on exertion such as climbing stairs or walking up hills. She say is that addition of Incruse Ellipta has made a big difference. Still has mild intermittent nasal congestion with postnasal discharge which makes her cough. SHE IS NONSMOKER. [facility] Medical History Pulmonary nodules Palpitations Asthma Fibromyalgia Obesity (BMI 30.0-34.9) Allergic rhinitis COPD (chronic obstructive pulmonary disease) Surgical History Status post fine needle aspiration (~2019) Family History Mother Leukemia Diabetes Family/Other Hodgkins lymphoma Family/Other Uterine cancer Sister Uterine cancer High cholesterol HTN (hypertension) Paternal Grandmother Uterine cancer Heart attack Father Colon cancer Social History Household Members: None Housing: Apartment Are you a primary acute care physical therapist to a significant other at home: No Do you presently have visiting nurse or other home services: No Alcohol intake: never Patient Tobacco Use Status: Former Tobacco user service: No Current occupational status: disabled Review of Systems Const All systems reviewed & are unremarkable except as noted in HPI and below Eyes Reports no additional complaints ENT Reports nasal congestion (Mild intermittent) Card Denies chest pain, Denies irregular heart rhythm and Denies leg edema Resp Reports as per HPI GI Reports no additional complaints Reports no additional complaints Musc Reports back pain and Reports myalgias Skin/Breast Reports system reviewed and no additional complaints, except as documented Neuro Reports no additional complaints Psych Reports no additional complaints Physical Exam Vital Signs: Last Vital Signs Pulse 66 06/08/23 11:19 BP 104/64 06/08/23 11:19 Pulse Ox 98 06/08/23 11:19 Oxygen Delivery Method Room Air 06/08/23 11:19 BMI result Body Mass Index 32.4 Const General: healthy appearing (Except for being overweight), comfortable, no acute distress, alert and awake Orientation/consciousness: patient oriented x3 HEENT Head: Yes normal to inspection General nose exam: No nasal polyps present and No nasal discharge present Face and sinus: Yes sinuses nontender Mouth: oropharynx normal Throat: Yes posterior oropharynx normal Eyes General: appearance normal, both eyes and all related structures Neck Neck: Yes normal visual inspection, Yes no lymphadenopathy, Yes trachea midline and Yes no JVD Thyroid: Thyroid normal Chest Chest palpation & inspection: normal inspection of the chest, normal palpation of entire chest wall and no tenderness Resp Other: Percussion note is resonant, breath sounds are equal on both sides, moderately distant with prolonged expiratory phase. Lungs are clear today and no wheezes or crepitations are heard . Cardio Palpation: normal PMI Rate: regular rate Rhythm: regular rhythm Heart sounds: no gallops and no murmurs GI Palpation (GI): Soft to palpation, nontender, No hepatosplenomegaly present and no masses Auscultation: normal bowel sounds Back/Spine/Pelvis Thoracic/Lumbar Spine: thoracic and lumbar spine normal to inspection Skin General skin exam: no rashes or lesions noted Neuro General: patient oriented x3 and no focal motor deficits Cranial nerves: Yes CN's II-XII intact bilaterally Extrem General: Yes normal to inspection, Yes no clubbing, cyanosis or edema and Yes no calf tenderness Psych Appearance: grossly normal and well kempt Speech and movement: Normal speech and movement present Assessment & Plan Assessment & Plan (1) COPD (chronic obstructive pulmonary disease): Comment: (PFT has shown Moderate Obstructive Airway Disorder, with partial reversibility after bronchodilator - results C/W ACOS) breathing status is improved and stable. TX : Advair 500-50 1 inhalation b.i.d.. No need to use Pulmicort while she is using Advair. Incruse Ellipta 1 inhalation daily. Ventolin @ puffs q 4 hrs PRN Alternatively ,Albuterol solution for Neb. to use q 6 hrs PRN when in the house , Code(s): J44.9 - Chronic obstructive pulmonary disease, unspecified (2) Allergic rhinitis: Comment: (Mild/Seasonal - Tx Flonase 2 sprays each nostril daily, Claritin 10mg once daily PRN) Code(s): J30.9 - Allergic rhinitis, unspecified (3) Pulmonary nodules: Comment: (Stable 8x11mm RML nodule since at least January of 2020) Patient being followed by Thoracic surgery . Code(s): R91.8 - Other nonspecific abnormal finding of lung field Coding Level of Care Code Est Pt Level 3 (16272) Diagnoses COPD (chronic obstructive pulmonary disease) J44.9 Allergic rhinitis J30.9 Pulmonary nodules R91.8
== END 2023-06-08 11:38 | disposition home or self-care (01) ==
PROVIDERS: PCP Internal Medicine; Visit Provider Internal Medicine
DX: J44.9 Chronic obstructive pulmonary disease, unspecified (principal); J30.9 Allergic rhinitis, unspecified; R91.8 Other nonspecific abnormal finding of lung field
CPT/HCPCS: 99213

== ENCOUNTER → 2023-06-08 11:02 | Outpatient (BNVA) | payer OTHER, SELFPAY | PROVIDERS: PCP Internal Medicine; Visit Provider Internal Medicine | DX: J45.909 Unspecified asthma, uncomplicated (principal); R91.8 Other nonspecific abnormal finding of lung field | CPT/HCPCS: 99212 ==

== ENCOUNTER 2023-06-15 09:00 | Outpatient (AMB) | payer OTHER, SELFPAY ==
--- NOTE | 2023-06-15 09:02 | A.OFFVIS_ITS ---
Intake Vital Signs 06/15/23 09:08 Height 5 ft 7 in Weight 208 lb BMI 32.6 BP 126/68 Blood Pressure Location Lt brachial Position Sitting Pulse 76 Intake Visit Reasons: CT scan resultsL, lymphadenopathy Lt cervical Intake Note: Patient is seen in office for CT scan results following lymphadenopathy left cervical. Patient c/o: denies any changes since last visit Parts Classifier Required: No Accompanied by: Self / Same As Patient Allergies acetaminophen [From Percocet] Adverse Reaction (Verified 06/15/23 09:08) Vomiting oxycodone [From Percocet] Adverse Reaction (Verified 06/15/23 09:08) Vomiting HPI HPI Comments History of Present Illness Details 62-year-old female patient presenting wi th complaints of pain in for the ear and extending down along the angle of the jaw. The pain began several months ago and has persisted. She reports being placed on antibiotics without significant improvement. She was checked for oral infections and none were identified. The pain seems to increase with open her mouth and biting down. An ultrasound of the left neck was performed and revealed several enlarged lymph nodes corresponding to the area of pain. She is unable to feel any palpable masses in her neck but does no tenderness when palpating the neck. On examination at her previous visit on 04/28/2023, no enlarged lymph nodes were identified however tenderness was noted at the angle of the mandible. A CT of the soft tissues of the neck was requested. She returns today to review the results of this study. This does reveal severe arthropathic changes to the left temporomandibular joint. There is a prominent incisive canal. No periapical disease is identified. She was seen in the emergency department for the same issues and follow-up with her PCP was recommended. She continues to report pain in the left jaw. [facility], [facility] Medical History Pulmonary nodules Palpitations Asthma Fibromyalgia Obesity (BMI 30.0-34.9) Allergic rhinitis COPD (chronic obstructive pulmonary disease) Surgical History Status post fine needle aspiration (~2019) Family History Mother Leukemia Diabetes Family/Other Hodgkins lymphoma Family/Other Uterine cancer Sister Uterine cancer High cholesterol HTN (hypertension) Paternal Grandmother Uterine cancer Heart attack Father Colon cancer Social History Household Members: None Housing: Apartment Are you a primary care team coordinator scheduler to a significant other at home: No Do you presently have visiting nurse or other home services: No Alcohol intake: never Patient Tobacco Use Status: Former Tobacco user service: No Current occupational status: disabled Review of Systems Const All systems reviewed & are unremarkable except as noted in HPI and below Physical Exam Const General: cooperative and no acute distress Nutritional Appearance: well nourished Orientation/consciousness: patient oriented x3 Limitations: no limitations HEENT Head: Yes normocephalic and Yes atraumatic Ears: hearing grossly normal bilaterally Neck Other: Palpable tenderness noted at the angle the mandible directly over the parotid gland. No definite palpable masses appreciated to my examination. Examination along the anterior and posterior cervical chains reveals no definite palpable node. Examination of the right neck also reveals no suspicious findings. Resp Effort & Inspection: normal respiratory effort, no audible wheezes, no cough and no respiratory distress Cardio Jugular venous distension: no JVD GI Inspection: Yes normal to inspection Skin Other: Warm, dry, no rash Neuro General: patient oriented x3 Extrem General: Yes no clubbing, cyanosis or edema Assessment & Plan Assessment & Plan (1) Temporal mandibular joint disorder: Code(s): M26.609 - Unspecified temporomandibular joint disorder, unspecified side Plan 62-year-old female patient presenting with pain in her left jaw with the possibility of an enlarged lymph node in the left neck. Further evaluation with CT of the neck revealed no suspicious lymph nodes are gland enlargement. Arthropathy is identified in the left TMJ and I therefore recommended she follow-up with her dentist for further evaluation and possible referral to oral surgery. She expressed understanding and agrees with the plan. No surgical intervention is required from General surgery at this time. Coding Level of Care Code Est Pt Level 3 (54758) Diagnoses Temporal mandibular joint disorder M26.609
[2023-06-15 09:08] VITALS: BP 126/68; PULSE 76; BMI 32.6
== END 2023-06-15 09:27 | disposition home or self-care (01) ==
PROVIDERS: PCP Internal Medicine; Visit Provider Surgery
DX: R68.84 Jaw pain (principal); M26.609 Unspecified temporomandibular joint disorder, unspecified side
CPT/HCPCS: 99213

== ENCOUNTER → 2023-06-15 09:00 | Outpatient (BNVA) | payer OTHER, SELFPAY | PROVIDERS: PCP Internal Medicine; Visit Provider Surgery | DX: M26.602 Left temporomandibular joint disorder, unspecified (principal) | CPT/HCPCS: 99212 ==

== ENCOUNTER 2023-07-13 08:57 | Outpatient (AMB) | payer OTHER, SELFPAY ==
--- NOTE | 2023-07-13 09:05 | A.OFFVIS_ITS ---
Intake Vital Signs 07/13/23 09:30 Height 5 ft 7 in Weight 205 lb 0.478 oz BMI 32.1 BP 123/61 Blood Pressure Location Lt brachial Position Sitting Pulse 71 Intake Visit Reasons: Abdominal pain Intake Note: Ysabel presents in the office as a new patient for abdominal pains. CC: She got sick and went to the ED - she was told to go to GI - she states there are some things that she is unable to eat because it is heavy on her stomach. Food Checkers And Cashiers Supervisor Required: No Allergies acetaminophen [From Percocet] Adverse Reaction (Verified 07/13/23 09:27) Vomiting oxycodone [From Percocet] Adverse Reaction (Verified 07/13/23 09:27) Vomiting Medication List - Last Reconciled 07/13/23 by Sanna Jernigan PA-C albuterol sulfate 2.5 mg (3 mL) inhalation Q4-6H PRN escitalopram oxalate (Lexapro) 10 mg PO DAILY fluticasone propion-salmeterol 500-50 mcg/dose 1 inh inhalation Q12H 30 days MDD ASTHMA/COPD omeprazole 20 mg PO DAILY peg [id number] 1-0.2-0.2 % (Artificial Tears ([id number])) drps ophthalmic (eye) trazodone 100 mg PO BEDTIME umeclidinium 62.5 mcg/actuation (Incruse Ellipta) 1 inh PO DAILY HPI HPI Comments History of Present Illness Details A 62 y/o female referred for upper abdominal pain she says it only lasted a few days- went to ED was given pills- they worked- She is accompanied by her they say they were not actually going to follow through the appointment is she is not having any complaints I think it was someting I ate she has not had any further issues- I am more worried about what is going on with my lungs being followed for nodules has upcoming testing Appetite is good- no issues-she is seeimg ortho- arthritis in jaw Bowels normal- had a colonoscopy a couple years ago - normal- she thinks at [facility]-she has no bowel issues. Reviewed record- 01/2023- ED She has no nausea, vomiting, hematemesis, hematochezia, abdominal pain, fever or chills is present [facility] Medical History (Updated 07/13/23 @ 14:04 by Sanna Jernigan PA-C) Epigastric pain Pulmonary nodules Palpitations Asthma Fibromyalgia Obesity (BMI 30.0-34.9) Allergic rhinitis COPD (chronic obstructive pulmonary disease) Surgical History (Updated 07/13/23 @ 09:29 by TODD Mosher) Hx of cholecystectomy Hx of colonoscopy Status post fine needle aspiration (~2019) Family History Mother Leukemia Diabetes Family/Other Hodgkins lymphoma Family/Other Uterine cancer Sister Uterine cancer High cholesterol HTN (hypertension) Paternal Grandmother Uterine cancer Heart attack Father Colon cancer Social History Household Members: None Housing: Apartment Are you a primary child care director to a significant other at home: No Do you presently have visiting nurse or other home services: No Alcohol intake: never Patient Tobacco Use Status: Former Tobacco user service: No Current occupational status: disabled Review of Systems Const All systems reviewed & are unremarkable except as noted in HPI and below ENT Denies dysphagia and Denies odynophagia Card Denies chest pain and Denies dyspnea Resp Denies dyspnea GI Denies abdominal pain, Denies bloating, Denies hematochezia, Denies change in bowel habits, Denies change in stool character, Denies constipation, Denies GI cramping, Denies dysphagia, Denies heartburn, Denies diarrhea, Denies loose stools, Denies nausea, Denies odynophagia and Denies vomiting Physical Exam Vital Signs: Last Vital Signs Pulse 71 07/13/23 09:30 BP 123/61 07/13/23 09:30 BMI result Body Mass Index 32.1 Const General: cooperative, healthy appearing, comfortable and no acute distress Orientation/consciousness: patient oriented x3 Limitations: no limitations Eyes Sclerae: sclerae normal Resp Effort & Inspection: normal respiratory effort and able to speak in complete sentences Auscultation: clear to auscultation bilaterally and no wheezes Cardio Rate: regular rate Rhythm: regular rhythm GI Palpation (GI): Soft to palpation and nontender Auscultation: normal bowel sounds Neuro General: patient oriented x3 Extrem General: Yes full ROM Psych Appearance: grossly normal and well kempt Mental Status: mental status grossly normal Speech and movement: Normal speech and movement present and Clear speech present Affect: normal affect Attitude: cooperative Thought process: Normal thought process present Thought content: Normal thought content present Insight: Good insight present (Psych) Judgement: Good judgement present (Psych) Results Reviewed Results Reviewed: CT/CT abdomen pelvis wo IV con IMPRESSION: No acute or other significant abnormality is identified to extend patient's symptoms. No CT evidence of acute pancreatitis. Continued interval decrease in the size of a known right middle lobe nodule. Recommend attention to the finding on follow-up imaging. Fleischner guidelines were followed. Assessment & Plan Assessment & Plan (1) Epigastric pain: Comment: Completely resolved takes no medications Code(s): R10.13 - Epigastric pain Plan: Continue to monitor if recurs Plan Call with any GI related questions or concerns Orders: Orders Comprehensive Met. Panel Today R10.13 - Epigastric pain Complete Blood Count Auto Diff Today R10.13 - Epigastric pain Patient Instructions: Very pleasant 62-year-old female referred after brief episode of epigastric pain seems to have completely resolved She has no GI complaints. Reviewing her record she is going to follow up with Ortho as well as pulmonology She is accompanied by her is very supportive Coding Level of Care Code New Pt Level 3 (83254) Diagnoses Epigastric pain R10.13 Time Spent (min) 30 Comment present very supportive
[2023-07-13 09:30] VITALS: BP 123/61; PULSE 71; BMI 32.1
== END 2023-07-13 10:12 | disposition home or self-care (01) ==
PROVIDERS: PCP Internal Medicine; Visit Provider Physician Assistant
DX: R10.13 Epigastric pain (principal)
CPT/HCPCS: 99203

== ENCOUNTER → 2023-07-13 08:57 | Outpatient (BNVA) | payer OTHER, SELFPAY | PROVIDERS: PCP Internal Medicine; Visit Provider Physician Assistant ==

== ENCOUNTER 2023-09-06 11:04 | Outpatient (AMB) | payer OTHER, SELFPAY ==
--- NOTE | 2023-09-06 11:16 | A.OFFVIS_ITS ---
Intake Vital Signs 09/06/23 11:17 Height 5 ft 7 in Weight 205 lb BMI 32.1 BP 102/72 Blood Pressure Location Lt brachial Position Sitting Pulse 75 Pulse Source Pulse Oximeter Pulse Oximetry (%) 99 Oxygen Delivery Method Room Air Intake Visit Reasons: asthma Intake Note: pt is here for follow up and states she is doing well, using advair every day an d Ventolin as needed. Gaming Investigator Required: No Allergies acetaminophen [From Percocet] Adverse Reaction (Verified 09/06/23 11:22) Vomiting oxycodone [From Percocet] Adverse Reaction (Verified 09/06/23 11:22) Vomiting Medication List - Last Reconciled 09/06/23 by Praveen Brady MD albuterol sulfate 2.5 mg (3 mL) inhalation Q4-6H PRN albuterol sulfate 90 mcg/actuation (Ventolin HFA) 2 puffs inhalation Q6H PRN escitalopram oxalate (Lexapro) 10 mg PO DAILY fluticasone propion-salmeterol 500-50 mcg/dose 1 inh inhalation Q12H 30 days MDD ASTHMA/COPD omeprazole 20 mg PO DAILY peg [id number] 1-0.2-0.2 % (Artificial Tears ([id number])) 1 drp ophthalmic (eye) DAILY umeclidinium 62.5 mcg/actuation (Incruse Ellipta) 1 inh PO DAILY HPI asthma HPI Details 63 years old female is here for her [facility] follow-up for her Asthma/COPD. She states that Advair has been a miracle and addition of Incruse Ellipta . Has helped a lot, She does get some scratchy feeling in the throat after using Advair Now she uses Ventolin only once in a while. Her breathing is much better and remains well controlled. GERD symptoms are also controlled. Emotionally remains very upbeat and stable. [facility] Medical History Epigastric pain Pulmonary nodules Palpitations Asthma Fibromyalgia Obesity (BMI 30.0-34.9) Allergic rhinitis COPD (chronic obstructive pulmonary disease) Surgical History Hx of cholecystectomy Hx of colonoscopy Status post fine needle aspiration (~2019) Family History Mother Leukemia Diabetes Family/Other Hodgkins lymphoma Family/Other Uterine cancer Sister Uterine cancer High cholesterol HTN (hypertension) Paternal Grandmother Uterine cancer Heart attack Father Colon cancer Social History Household Members: None Housing: Apartment Are you a primary career development consultant to a significant other at home: No Do you presently have visiting nurse or other home services: No Alcohol intake: never Patient Tobacco Use Status: Former Tobacco user service: No Current occupational status: disabled Review of Systems Const All systems reviewed & are unremarkable except as noted in HPI and below Eyes Reports no additional complaints ENT Reports nasal congestion (Mild intermittent) Card Denies chest pain, Denies irregular heart rhythm and Denies leg edema Resp Reports as per HPI GI Reports no additional complaints Reports no additional complaints Musc Reports back pain and Reports myalgias Skin/Breast Reports system reviewed and no additional complaints, except as documented Neuro Reports no additional complaints Psych Reports no additional complaints Physical Exam Vital Signs: Last Vital Signs Pulse 75 09/06/23 11:17 BP 102/72 09/06/23 11:17 Pulse Ox 99 09/06/23 11:17 Oxygen Delivery Method Room Air 09/06/23 11:17 BMI result Body Mass Index 32.1 Const General: healthy appearing (Except for being overweight), comfortable, no acute distress, alert and awake Orientation/consciousness: patient oriented x3 HEENT Head: Yes normal to inspection General nose exam: No nasal polyps present and No nasal discharge present Face and sinus: Yes sinuses nontender Mouth: oropharynx normal Throat: Yes posterior oropharynx normal Eyes General: appearance normal, both eyes and all related structures Neck Neck: Yes normal visual inspection, Yes no lymphadenopathy, Yes trachea midline and Yes no JVD Thyroid: Thyroid normal Chest Chest palpation & inspection: normal inspection of the chest, normal palpation of entire chest wall and no tenderness Resp Other: Percussion note is resonant, breath sounds are equal on both sides, moderately distant with prolonged expiratory phase. Lungs are clear today and no wheezes or crepitations are heard . Cardio Palpation: normal PMI Rate: regular rate Rhythm: regular rhythm Heart sounds: no gallops and no murmurs GI Palpation (GI): Soft to palpation, nontender, No hepatosplenomegaly present and no masses Auscultation: normal bowel sounds Back/Spine/Pelvis Thoracic/Lumbar Spine: thoracic and lumbar spine normal to inspection Skin General skin exam: no rashes or lesions noted Neuro General: patient oriented x3 and no focal motor deficits Cranial nerves: Yes CN's II-XII intact bilaterally Extrem General: Yes normal to inspection, Yes no clubbing, cyanosis or edema and Yes no calf tenderness Psych Appearance: grossly normal and well kempt Speech and movement: Normal speech and movement present Assessment & Plan Assessment & Plan (1) COPD (chronic obstructive pulmonary disease): Comment: (PFT has shown Moderate Obstructive Airway Disorder, with partial reversibility after bronchodilator - results C/W ACOS) breathing status is improved and stable. Code(s): J44.9 - Chronic obstructive pulmonary disease, unspecified Plan: TX : Advair dose will be reduced to 250-50 1 inhalation b.i.d.. Rinse the mouth thoroughly after using Advair Incruse Ellipta 1 inhalation daily. Ventolin @ puffs q 4 hrs PRN Alternatively ,Albuterol solution for Neb. to use q 6 hrs PRN when in the house , (2) Allergic rhinitis: Comment: (Mild/Seasonal - Tx Flonase 2 sprays each nostril daily, Claritin 10mg once daily PRN) Code(s): J30.9 - Allergic rhinitis, unspecified Plan: as above (3) Pulmonary nodules: Comment: (Stable 8x11mm RML nodule since at least January of 2020) Patient is active in ANNUAL Lung Screening program . Code(s): R91.8 - Other nonspecific abnormal finding of lung field Plan: as above Medications: New fluticasone propion-salmeterol 250-50 mcg/dose (Advair Diskus) 1 inh inhalation BID 60 ea 5RF Asthma/Copd 30 days Coding Level of Care Code Est Pt Level 3 (02542) Diagnoses COPD (chronic obstructive pulmonary disease) J44.9 Allergic rhinitis J30.9 Pulmonary nodules R91.8
[2023-09-06 11:17] VITALS: BP 102/72; PULSE 75; O2SAT 99; BMI 32.1
--- NOTE | 2023-09-06 15:46 | A.OFFVIS_ITS ---
Intake Vital Signs 09/06/23 11:17 Height 5 ft 7 in Weight 205 lb BMI 32.1 BP 102/72 Blood Pressure Location Lt brachial Position Sitting Pulse 75 Pulse Source Pulse Oximeter Pulse Oximetry (%) 99 Oxygen Delivery Method Room Air Intake Visit Reasons: asthma Allergies acetaminophen [From Percocet] Adverse Reaction (Verified 09/06/23 11:22) Vomiting oxycodone [From Percocet] Adverse Reaction (Verified 09/06/23 11:22) Vomiting Medication List - Last Reconciled 09/06/23 by Praveen Brady MD albuterol sulfate 2.5 mg (3 mL) inhalation Q4-6H PRN albuterol sulfate 90 mcg/actuation (Ventolin HFA) 2 puffs inhalation Q6H PRN escitalopram oxalate (Lexapro) 10 mg PO DAILY fluticasone propion-salmeterol 500-50 mcg/dose 1 inh inhalation Q12H 30 days MDD ASTHMA/COPD omeprazole 20 mg PO DAILY peg [id number] 1-0.2-0.2 % (Artificial Tears ([id number])) 1 drp ophthalmic (eye) DAILY umeclidinium 62.5 mcg/actuation (Incruse Ellipta) 1 inh PO DAILY PFSH Medical History Epigastric pain Pulmonary nodules Palpitations Asthma Fibromyalgia Obesity (BMI 30.0-34.9) Allergic rhinitis COPD (chronic obstructive pulmonary disease) Surgical History Hx of cholecystectomy Hx of colonoscopy Status post fine needle aspiration (~2019) Family History Mother Leukemia Diabetes Family/Other Hodgkins lymphoma Family/Other Uterine cancer Sister Uterine cancer High cholesterol HTN (hypertension) Paternal Grandmother Uterine cancer Heart attack Father Colon cancer Social History Household Members: None Housing: Apartment Are you a primary aged or disabled carer to a significant other at home: No Do you presently have visiting nurse or other home services: No Alcohol intake: never Patient Tobacco Use Status: Former Tobacco user service: No Current occupational status: disabled Physical Exam Vital Signs: Last Vital Signs Pulse 75 09/06/23 11:17 BP 102/72 09/06/23 11:17 Pulse Ox 99 09/06/23 11:17 Oxygen Delivery Method Room Air 09/06/23 11:17 BMI result Body Mass Index 32.1 Assessment & Plan Assessment & Plan (1) COPD (chronic obstructive pulmonary disease): Comment: (PFT has shown Moderate Obstructive Airway Disorder, with partial reversibility after bronchodilator - results C/W ACOS) breathing status is improved and stable. Code(s): J44.9 - Chronic obstructive pulmonary disease, unspecified Plan: ADVAIR 250-50 1 INHALATION B.I.D. INCRUSE ELLIPTA 1 INHALATION DAILY VENTOLIN 2 PUFFS Q 4-6 HOURS P.R.N./ ALTERNATELY ALBUTEROL SOLUTION IN THE NEBULIZER Q 6 HOURS P.R.N. (2) Allergic rhinitis: Comment: (Mild/Seasonal - Tx Flonase 2 sprays each nostril daily, Claritin 10mg once daily PRN) Code(s): J30.9 - Allergic rhinitis, unspecified Plan: ABOVE (3) Pulmonary nodules: Comment: (Stable 8x11mm RML nodule since at least January of 2020) Patient is active in ANNUAL Lung Screening program . Code(s): R91.8 - Other nonspecific abnormal finding of lung field Plan: ABOVE Medications: New fluticasone propion-salmeterol 250-50 mcg/dose (Advair Diskus) 1 inh inhalation BID 60 ea 5RF Asthma/Copd 30 days Quality Reporting (2019) Adult ([facility] 138/2/22/69) Body Mass Index: 32.1 Coding Level of Care Code Tele Est Pt Level 3 (19137) Diagnoses COPD (chronic obstructive pulmonary disease) J44.9 Allergic rhinitis J30.9 Pulmonary nodules R91.8
[2023-09-06 15:47] VITALS: BMI 32.1
== END 2023-09-06 11:33 | disposition home or self-care (01) ==
PROVIDERS: PCP Internal Medicine; Visit Provider Internal Medicine
DX: J44.9 Chronic obstructive pulmonary disease, unspecified (principal); R91.8 Other nonspecific abnormal finding of lung field
CPT/HCPCS: 99213

== ENCOUNTER → 2023-09-06 11:04 | Outpatient (BNVA) | payer OTHER, SELFPAY | PROVIDERS: PCP Internal Medicine; Visit Provider Internal Medicine | DX: J44.9 Chronic obstructive pulmonary disease, unspecified (principal); J30.9 Allergic rhinitis, unspecified; R91.8 Other nonspecific abnormal finding of lung field | CPT/HCPCS: 99212 ==

== ENCOUNTER → 2023-09-13 14:06 | Outpatient (BNVA) | payer OTHER, SELFPAY | PROVIDERS: PCP Internal Medicine; Visit Provider Surgery | DX: R91.1 Solitary pulmonary nodule (principal) | CPT/HCPCS: 99202 ==

== ENCOUNTER 2023-09-13 14:07 | Outpatient (AMB) | payer OTHER, SELFPAY ==
--- NOTE | 2023-09-13 14:13 | A.OFFVIS_ITS ---
Intake Vital Signs 09/13/23 14:20 Height 5 ft 7 in Weight 202 lb BMI 31.6 BP 129/78 Blood Pressure Location Rt brachial Position Sitting Pulse 91 Intake Visit Reasons: Pulmonary nodule Intake Note: Patient referred by PCP Dr. Duke for pulmonary nodule. Patient c/o: back and chest pain. Pain with breathing. Manager Distribution Center Required: No Accompanied by: Self / Same As Patient Allergies acetaminophen [From Percocet] Adverse Reaction (Verified 09/13/23 14:18) Vomiting oxycodone [From Percocet] Adverse Reaction (Verified 09/13/23 14:18) Vomiting HPI HPI Comments History of Present Illness Details Patient presents here for follow-up regarding lung cancer screening clinic. Patient was being seen by the [facility] thoracic surgeon who was formally here and she does not want to travel to [place]. Patient is being followed by Oncology as well as pulmonology at [place]. Patient has no new respiratory symptoms. Infection was seen by her burglar alarm operator just last week because of chronic COPD issues. She denies any new cough, chest pain, wheeze, or hemoptysis. Patient is tentatively scheduled for the end of September for a follow-up CT scan of her chest. Patient has a very involved past medical surgical history. Chart was reviewed patient evaluated. Patient apparently had a lung biopsy which was negative in the past. She also states that she was to have lung surgery but because of her tenuous pulmonary status, this was canceled at [facility]. [facility] Medical History Epigastric pain Pulmonary nodules Palpitations Asthma Fibromyalgia Obesity (BMI 30.0-34.9) Allergic rhinitis COPD (chronic obstructive pulmonary disease) Surgical History Hx of cholecystectomy Hx of colonoscopy Status post fine needle aspiration (~2019) Family History Mother Leukemia Diabetes Family/Other Hodgkins lymphoma Family/Other Uterine cancer Sister Uterine cancer High cholesterol HTN (hypertension) Paternal Grandmother Uterine cancer Heart attack Father Colon cancer Social History Household Members: None Housing: Apartment Are you a primary family day care provider to a significant other at home: No Do you presently have visiting nurse or other home services: No Alcohol intake: never Patient Tobacco Use Status: Former Tobacco user service: No Current occupational status: disabled Physical Exam Vital Signs: Last Vital Signs Pulse 91 09/13/23 14:20 BP 129/78 09/13/23 14:20 BMI result Body Mass Index 31.6 Neck Other: No cervical, periclavicular, or axillary adenopathy bilaterally. Chest Other: Chest breath sounds bilaterally, consistent with COPD. GI Other: Abdomen very corpulent, soft, benign Assessment & Plan Assessment & Plan (1) Lung nodule seen on imaging study: Code(s): R91.1 - Solitary pulmonary nodule Plan Current plan is to await the patient's CT scan in late September and see her after this and direct further interventions and studies based on these results. All questions answered. Plan as noted above. Coding Level of Care Code New Pt Level 4 (02420) Diagnoses Lung nodule seen on imaging study R91.1
[2023-09-13 14:20] VITALS: BP 129/78; PULSE 91; BMI 31.6
== END 2023-09-13 14:33 | disposition home or self-care (01) ==
PROVIDERS: PCP Internal Medicine; Visit Provider Surgery
DX: R91.1 Solitary pulmonary nodule (principal)
CPT/HCPCS: 99204

== ENCOUNTER 2023-10-10 07:27 | Outpatient (REF) | payer OTHER, SELFPAY ==
--- NOTE | ~2023-10-10 | CT_ITS ---
EXAMINATION: CT CHEST WITHOUT CONTRAST CLINICAL INFORMATION: Follow-up on pulmonary nodules COMPARISON: CT chest 06/03/2022 TECHNIQUE: Multidetector volumetric CT imaging of the chest was done. Axial MIP volume rendering provided. Sagittal and coronal reformatted images were obtained. This CT examination was performed using dose optimization techniques as appropriate, variously including the following: *Automated exposure control *Adjustment of mA and/or kV according to patient size (this includes techniques or standardized protocols for targeted exams where dose is matched to indication/reason for exam; i.e. extremities or head) *Use of iterative reconstruction technique DLP: 213 mGy-cm FINDINGS: LEAN MANUFACTURING SPECIALIST: Well-expanded lungs. LUNGS: The lungs are well-expanded with no acute pneumonic consolidation. There is platelike atelectasis right middle lobe right lower lobe and left lower lobe. There are small 4 mm and less intraparenchymal and subpleural densities in both lower lobes, both upper lobes and right middle lobe. These are stable. There are no new nodules, mass or groundglass density seen. Tree-in-bud appearance right lower lobe lateral segment on axial image 371/6 appears stable. Slightly chidi-shaped 1.4 cm density right middle lobe adjacent to right middle lobe scarring visualized on axial image 406/6. Previously measured 1.0 cm MEDIASTINUM: Thyroid lobes are symmetrical and normal. The central trachea and the bronchi widely patent. Heart size and the great vessels are normal caliber. No pericardial effusion seen. Small shotty lymph nodes visualized in the mediastinum. CORONARY ARTERY CALCIFICATION: No coronary artery calcifications are present. PLEURA: There is no pleural effusion. No pleural mass or thickening. AXILLA: No lymphadenopathy. A punctate microcalcifications in bilateral breasts. UPPER ABDOMEN: Visualized liver, spleen, pancreas and bilateral adrenal glands unremarkable. Gallbladder has been surgically removed. OSSEOUS STRUCTURES: No aggressive lytic or sclerotic process. There is mild ventral spondylosis mid and lower dorsal spine. No aggressive lytic or sclerotic process seen. CT/CT chest wo IV con IMPRESSION: No significant change in small scattered pulmonary nodules throughout both lungs, atelectatic changes and slightly prominent right middle lobe 1.4 cm density in the right may be is slightly more prominent than last exam. No abnormal size mediastinal or axillary lymphadenopathy. Fleischner guidelines were followed.
== END 2023-10-10 07:28 | disposition home or self-care (01) ==
LOC: HO.CT 07:27
PROVIDERS: PCP Internal Medicine; Visit Provider Internal Medicine Medical Oncology
DX: R91.8 Other nonspecific abnormal finding of lung field (principal)
CPT/HCPCS: 71250

== ENCOUNTER 2023-10-17 08:45 | Outpatient (REF) | payer OTHER, SELFPAY ==
[2023-10-17 11:16] LABS: C Reactive Protein 0.31 mg/dL (< or = 0.50)
[2023-10-17 11:26] LABS: Erythrocyte Sedimentation Rate 12 MM/HR (0-20)
[2023-10-18 20:49] LABS: Anti DNA DS Antibody <1 IU/mL; SM/Ribonucleoprotein Ab <1.0 NEG AI (<1.0 NEG); Smith Protein <1.0 NEG AI (<1.0 NEG)
[2023-10-18 21:13] LABS: Thyroglobulin Antibodies <1 IU/mL (< or = 1); Thyroid Peroxidase Antibodies <1 IU/mL (<9)
[2023-10-20 09:04] LABS: Aldolase 7.3 U/L (<=8.1)
[2023-10-20 13:52] LABS: Liver Kidney Microsomal Ab <=20.0 U (<=20.0)
[2023-10-22 11:59] LABS: Smooth Muscle Antibody 24 U (<20)
[2023-10-23 14:48] LABS: IgA 473 mg/dL (70-320); IgG 1466 mg/dL (600-1540); IgM 103 mg/dL (50-300)
[2023-10-23 15:23] LABS: Mitochondrial Antibodies NEGATIVE (NEGATIVE)
[2023-10-23 16:00] LABS: Anti Nuclear Antibody Pattern Nuclear, Nucleolar; Anti Nuclear Antibody Screen POSITIVE (NEGATIVE)
== END 2023-10-17 08:46 | disposition home or self-care (01) ==
LOC: HO.LAB 08:45
PROVIDERS: PCP Internal Medicine; Visit Provider Nurse Practitioner Family
DX: R74.8 Abnormal levels of other serum enzymes (principal); R76.8 Other specified abnormal immunological findings in serum; M79.7 Fibromyalgia; R10.13 Epigastric pain; M25.511 Pain in right shoulder; G89.29 Other chronic pain
CPT/HCPCS: 36415; 82085; 82550; 82784; 85652; 86015; 86038; 86039; 86140; 86225; 86235; 86334; 86376; 86381; 86800; 99202

== ENCOUNTER 2023-10-17 08:45 | Outpatient (AMB) | payer OTHER, SELFPAY ==
--- NOTE | 2023-10-17 08:56 | A.OFFVIS_ITS ---
Intake Vital Signs 10/17/23 08:57 Height 5 ft 7 in Weight 207 lb 7.28 oz BMI 32.5 BP 104/70 Blood Pressure Location Lt brachial Position Sitting Pulse 78 Pulse Source Pulse Oximeter Temp 97.1 F Temp Source Skin Pulse Oximetry (%) 98 Oxygen Delivery Method Room Air Intake Visit Reasons: Diffuse Arthalgia/?RA Intake Note: New patient, referred by Dr. Keys (oncology), presents today for joint pain. Seen by Dr. 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 Dx Fibromyalgia, arthritis c/o antolin hand pain, antolin knee pain, antolin hip pain, antolin arm pain. Approx started in 2020. Has tried PT. 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 Grady, 63yoF referred by Oncology for evaluation of total body Pain. She sees Oncology for lung nodules. She has a PMH COPD, Fibromyalgia. She follows with GI for epigastric pain and pain management for lower back pain. Per patient she is a patient at the [facility] where has has receives shoulder injections (last one about 2 years ago), she was given PT, other interventions for the polyarthralgia. She said she is not sure why her Dr sent her here to this clinic. But she liked going to the [facility], nevertheless she will continue here. Patient denies Raynaud's phenomenon, butterfly rash on face or other rashes; denies photosensitivity - getting sick or developing a rash from being out in the sun; denies blood or froth in urine; patient denies hx of SOB, chest pain. Patient denies hx of Carditis or Pleuritis. Patient denies any history of DVT/PE reports never have had o take aspirin or a blood thinner during the successful pregnancies. Denies fevers, excessive fatigue, unexplained weight-loss or weight-gain, Denies: thinning hair or hair loss, hx of rashes; Denies: dry, itchy eyes, red burning eyes needing steroids to treat; dry mouth, mouth sores or ulcers; nose bleed; ringing in the ear, Denies chronic abdominal pain, blood or mucous in stool; nausea, vomiting and diarrhea , difficulty swallowing, Denies morning stiffness lasting more than 45 mins. I have spent 40 minutes reviewing chart, evaluating patient, and documenting. [facility] Medical History (Updated 10/18/23 @ 08:39 by [facility] Chronic right shoulder pain Elevated liver enzymes VETO positive Epigastric pain Pulmonary nodules Palpitations Asthma Fibromyalgia Obesity (BMI 30.0-34.9) Allergic rhinitis COPD (chronic obstructive pulmonary disease) Surgical History Hx of cholecystectomy Hx of colonoscopy Status post fine needle aspiration (~2019) Family History Mother Leukemia Diabetes Arthritis Family/Other Hodgkins lymphoma Family/Other Uterine cancer Sister Uterine cancer High cholesterol HTN (hypertension) Paternal Grandmother Uterine cancer Heart attack Father Colon cancer Social History Household Members: None Housing: Apartment Are you a primary youth care worker to a significant other at home: No Do you presently have visiting nurse or other home services: No Alcohol intake: never Patient Tobacco Use Status: Former Tobacco user service: No Current occupational status: disabled Female Reproductive History Menstrual Total pregnancies: 4 Ab spontaneous: 1 Review of Systems Const All systems reviewed & are unremarkable except as noted in HPI and below Physical Exam Vital Signs: Last Vital Signs Temp 97.1 F 10/17/23 08:57 Pulse 78 10/17/23 08:57 BP 104/70 10/17/23 08:57 Pulse Ox 98 10/17/23 08:57 Oxygen Delivery Method Room Air 10/17/23 08:57 BMI result Body Mass Index 32.5 APPEARANCE: Patient in no acute distress EYES no redness, , eyelids normal EARS:? External ear normal, canal clear and tympanic membrane normal. NOSE/SINUS:? Airflow through both nares, no nasal discharge, no bleeding THROAT:? Oral mucosa moist, no ulcerations NECK:? No thyromegaly or masses, no adenopathy, trachea midline. HEART:? Regular rhythm, S1-S2 heard, no murmurs, rubs or gallops. LUNG:? Clear to percussion and auscultation ABD:? Normal bowel sounds, no organomegaly, masses or tenderness. EXTREMITIES:? No edema, no calf tenderness, normal peripheral pulses. NEURO:? Oriented and alert x3.? No focal weakness.? Reflexes symmetric.? Gait normal. SKIN:? There are no skin lesions evident. No objective signs of Raynaud's phenomenon. JOINT EXAM: Cervical Spine:.? Full range of motion without pain; no tenderness. Thoracic Spine:.? No scoliosis.? No tenderness on palpation. Lumbar Spine:.? Alignment normal.? Full range of motion without pain, no tenderness. Chest Wall:.? No tenderness, swelling, increased warmth or erythema. Hands:.? Normal pain-free range of motion without tenderness, swelling, increased warmth or erythema. 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 Wrists:.? Normal pain-free range of motion without tenderness, swelling, increased warmth or erythema. Elbows:. Normal pain-free range of motion without tenderness, swelling, increased warmth or erythema. Shoulders:.?? Full range of motion without pain. No tenderness, weakness, swelling, increased warmth or erythema. Hips:.? Full range of motion without pain. Hip bursa:.? No tenderness. Knees:.?? Normal pain-free range of motion without tenderness, swelling, increased warmth or erythema.? There is no effusion or crepitation Ankles:.? Normal pain-free range of motion without tenderness, swelling, increased warmth or erythema. Feet:.? Normal pain-free range of motion without tenderness, swelling, increased warmth or erythema. Tender points:? No tenderness to digital palpation at the occiput, trapezius, second rib, lateral epicondyle, knees, greater trochanter and gluteal area bilaterally. ? Results Reviewed Results Reviewed: Laboratory Tests 09/05/23 09:39 Neut % (Auto) 43.4 L Lymph % (Auto) 43.8 H AST 70 H ALT 62 H 06/2020 EXAMINATION: RIGHT SHOULDER. RIGHT RIBS WITH CHEST X-RAY. CLINICAL INFORMATION: Status post fall one week ago. Right shoulder pain. Right rib pain. COMPARISON: None TECHNIQUE: Right shoulder 3 views. Chest and right ribs 4 views. FINDINGS: Right shoulder: There is no visible acute fracture, dislocation or subluxation. There is mild loss of right AC joint with inferior spurring. Also visualized is inferolateral acromial spurring. No loose body seen. No soft tissue abnormality. Chest with right RIBS: The lungs are well-expanded and clear of acute process. The heart size and pulmonary vascularity is normal. No gross bony abnormality. Multiple views of right ribs reveal no visible right rib fracture or bony abnormality. The soft tissues are normal. IMPRESSION: Unremarkable right shoulder exam. Unremarkable chest with right ribs. Especially no visible right rib fracture seen. 01/2023 EXAMINATION: CT ABDOMEN AND PELVIS WITHOUT CONTRAST CLINICAL INFORMATION: Epigastric abdominal pain. COMPARISON: Selected images of the CT scan of the PET/CT of 06/28/2022, chest CT of 11/16/2018. TECHNIQUE: Multidetector volumetric imaging was performed from the superior aspect of the liver through the pubic symphysis. Sagittal and coronal reformatted images were obtained on the technologist's workstation. This CT examination was performed using dose optimization techniques as appropriate, variously including the following: *Automated exposure control *Adjustment of mA and/or kV according to patient size (this includes techniques or standardized protocols for targeted exams where dose is matched to indication/reason for exam; i.e. extremities or head) *Use of iterative reconstruction technique DLP: 734 mGy-cm FINDINGS: LUNG BASES: Streaky atelectasis in the right middle lobe and lingula. More focal nodular opacity in the right middle lobe measuring 0.8 x 0.6 cm (series 4 image 60), previously 0.9 x 0.7 cm (06/28/2022), 2.2 x 1.3 cm (CT scan of 11/16/2018). The lung bases are otherwise unremarkable. No pleural or pericardial effusion. LIVER, GALLBLADDER, AND BILIARY TREE: The liver is normal in size, shape, and attenuation. No focal hepatic lesion is noted within the limits of noncontrast study. The gallbladder is surgically absent. Common bile duct is dilated measuring 1.5 cm in maximum diameter proximally. No filling defect is noted in the common bile duct. PANCREAS: Unremarkable. SPLEEN: Unremarkable. ADRENAL GLANDS: Unremarkable. KIDNEYS AND URETERS: The kidneys are normal in size, shape, and attenuation. No hydronephrosis, hydroureter, or calculi seen. No perinephric stranding. BLADDER: Unremarkable. GASTROINTESTINAL TRACT: No abnormal dilatation of the stomach and small bowel. Colon is normal in caliber. No evidence of colonic wall thickening or pericolonic fat stranding. Scattered colonic diverticula are seen. Normal appendix. ABDOMINAL WALL: No significant hernia is appreciated. LYMPH NODES: No evidence of pathologically enlarged lymph nodes. VASCULAR: The aortoiliac vessels are normal in caliber. PELVIC VISCERA: Streaking metallic density in the lower body of uterus is 3 demonstrated, recommend clinical correlation. The uterus is otherwise unremarkable. Ovaries and adnexa are unremarkable. OSSEOUS STRUCTURES: No evidence of acute or suspicious osseous lesions. Mild degenerative changes in the lower thoracic spine. CT/CT abdomen pelvis wo IV con IMPRESSION: No acute or other significant abnormality is identified to extend patient's symptoms. No CT evidence of acute pancreatitis. Continued interval decrease in the size of a known right middle lobe nodule. Recommend attention to the finding on follow-up imaging. Fleischner guidelines were followed. Assessment & Plan Assessment & Plan (1) Elevated liver enzymes: Code(s): R74.8 - Abnormal levels of other serum enzymes (2) VETO positive: Code(s): R76.8 - Other specified abnormal immunological findings in serum (3) Fibromyalgia: Code(s): M79.7 - Fibromyalgia (4) Chronic right shoulder pain: Code(s): M25.511 - Pain in right shoulder; G89.29 - Other chronic pain Plan #PolyArthralgia/Fibromyalgia: Ms Ty, 66yoF is here for evaluation of joint pains. The patient is a past patient of [facility] and reports to have had satisfactory treatment there. She has had joint injections and PT in the past. She says the injections have provided her with relief for long periods of times up to 1 year. Her historical records also shows that she has had some Rheum work up; 2017 serology +VETO (1:160), Negative RF and inflammatory markers tiffanie sly normal over the years. I think it is reasonable to say that there is no underlying CTD or related inflammatory process that underlies her joint pains/total body pains and her PE today was unremarkable for such. She does carry a diagnosis of Fibromyalgia. I will also obtain records from the [facility]. #Chronic Right Shoulder Pain: Multiple imaging have been done to date showing Osteoarthritis. She had a fall in 1996 that ma have been the start of this - the right wrist was fractured in that fall. he has relief from corticosteroids injection and desires those again. #Elevated Liver Enzymes/+VETO: Her liver enzymes are elevated. It seems that started in January 2022. She has had her gallbladder removed around that time. Patient denies knowledge elevated liver enzymes. A January [address] shows normal liver size and attenuation. She denies ETOH use and there is no medication on her list that is an obvious cause. She does follow with GI, Oncology and Pulmonary. I suspect any concerns for the elevated enzymes would have been addressed. Nonetheless, given her +VETO, I will obtain updated labs for inflammatory marker and reflex the KIRSTIE and antibodies for autoimmune liver and Thyroid. 3 week follow-up. I spent 40 minutes reviewing chart/records, evaluating patient and documenting. Orders: Orders C Reactive Protein 10/17/23 R74.8 - Abnormal levels of other serum enzymes, R76.8 - Other specified abnormal immunological findings in serum Anti Extractable Nuclear Ag 10/17/23 R74.8 - Abnormal levels of other serum enzymes, R76.8 - Other specified abnormal immunological findings in serum Immunofixation Pnl, Serum 10/17/23 R74.8 - Abnormal levels of other serum enzymes, R76.8 - Other specified abnormal immunological findings in serum Anti DNA DS Antibody 10/17/23 R74.8 - Abnormal levels of other serum enzymes, R76.8 - Other specified abnormal immunological findings in serum Thyroglobulin Antibodies 10/17/23 R74.8 - Abnormal levels of other serum enzymes, R76.8 - Other specified abnormal immunological findings in serum Mitochondrial Antibody 10/17/23 R74.8 - Abnormal levels of other serum enzymes, R76.8 - Other specified abnormal immunological findings in serum Smooth Muscle Antibody 10/17/23 R74.8 - Abnormal levels of other serum enzymes, R76.8 - Other specified abnormal immunological findings in serum Liver Kidney Microsomal Ab 10/17/23 R74.8 - Abnormal levels of other serum enzymes, R76.8 - Other specified abnormal immunological findings in serum Creatine Kinase Total 10/17/23 R74.8 - Abnormal levels of other serum enzymes, R76.8 - Other specified abnormal immunological findings in serum VETO Reflex Titer and Pattern 10/17/23 R74.8 - Abnormal levels of other serum enzymes, R76.8 - Other specified abnormal immunological findings in serum Immunoglobulins,IgG IgA IgM 10/17/23 R74.8 - Abnormal levels of other serum enzymes, R76.8 - Other specified abnormal immunological findings in serum Erythrocyte Sedimentation Rate 10/17/23 R74.8 - Abnormal levels of other serum enzymes, R76.8 - Other specified abnormal immunological findings in serum Thyroid Peroxidase Antibodies 10/17/23 R74.8 - Abnormal levels of other serum enzymes, R76.8 - Other specified abnormal immunological findings in serum Aldolase 10/17/23 R74.8 - Abnormal levels of other serum enzymes Coding Level of Care Code New Pt Level 4 (37401) Diagnoses Elevated liver enzymes R74.8 VETO positive R76.8 Fibromyalgia M79.7 Chronic right shoulder pain M25.511; G89.59
[2023-10-17 08:57] VITALS: BP 104/70; PULSE 78; TEMP 36.2; O2SAT 98; BMI 32.5
== END 2023-10-17 09:52 | disposition home or self-care (01) ==
PROVIDERS: PCP Internal Medicine; Visit Provider Nurse Practitioner Family
DX: R74.8 Abnormal levels of other serum enzymes (principal); R76.8 Other specified abnormal immunological findings in serum; M79.7 Fibromyalgia; M25.511 Pain in right shoulder; G89.29 Other chronic pain
CPT/HCPCS: 99204

== ENCOUNTER 2023-10-24 09:35 | Outpatient (AMB) | payer OTHER, SELFPAY ==
--- NOTE | 2023-10-24 09:36 | MHC.OFFVIS ---
Intake Vital Signs 10/24/23 09:39 Height 5 ft 7 in Weight 205 lb 14.588 oz BMI 32.2 BP 122/80 Blood Pressure Location Lt brachial Position Sitting Pulse 78 Intake Visit Reasons: US f/u Intake Note: Patient here to discuss chest CT scan from 10-10-23. Patient c/o: fatigue. Recent change with asthma pumps. Car Sweeper Required: No Accompanied by: Self / Same As Patient Allergies acetaminophen [From Percocet] Adverse Reaction (Verified 10/24/23 09:41) Vomiting oxycodone [From Percocet] Adverse Reaction (Verified 10/24/23 09:41) Vomiting HPI HPI Comments History of Present Illness Details Patient presents for follow-up status post recent CT scan for evaluation of a right middle lobe lung lesion. This has increased in size. Patient states that approximately year ago she was scheduled to have surgery at [facility] for this lesion. Because of a medical issue/respiratory issue the surgery was postponed. Patient has not had a recent pulmonary function test that she can recall. She is on bronchodilators which have much improved respiratory issues. [facility] Medical History Chronic right shoulder pain Elevated liver enzymes VETO positive Epigastric pain Pulmonary nodules Palpitations Asthma Fibromyalgia Obesity (BMI 30.0-34.9) Allergic rhinitis COPD (chronic obstructive pulmonary disease) Surgical History Hx of cholecystectomy Hx of colonoscopy Status post fine needle aspiration (~2019) Family History Mother Leukemia Diabetes Arthritis Family/Other Hodgkins lymphoma Family/Other Uterine cancer Sister Uterine cancer High cholesterol HTN (hypertension) Paternal Grandmother Uterine cancer Heart attack Father Colon cancer Social History Household Members: None Housing: Apartment Are you a primary daycare manager to a significant other at home: No Do you presently have visiting nurse or other home services: No Alcohol intake: never Patient Tobacco Use Status: Former Tobacco user service: No Current occupational status: disabled Physical Exam Vital Signs: Last Vital Signs Pulse 78 10/24/23 09:39 BP 122/80 10/24/23 09:39 BMI result Body Mass Index 32.2 Chest Other: Chest breath sounds bilaterally, HS 1 and 2. No obvious periclavicular cervical or axillary adenopathy bilaterally. GI Other: Abdomen corpulent, soft, benign Assessment & Plan Assessment & Plan (1) Lung nodule seen on imaging study: Code(s): R91.1 - Solitary pulmonary nodule Plan: Because of the enlargement of this right middle lobe lesion, my concern is that this may indeed be an underlying neoplastic process. Patient has noted above was 2 originally have had surgery approximately a year ago for this lesion and was lost in the system. Current plan is to obtain pulmonary function tests and direct further interventions including possible wedge resection with lobectomy. Patient will see me after the above-mentioned study and further discussion will be had. All questions answered. Orders: Orders PFT pulmonary function test Today R91.1 - Solitary pulmonary nodule Coding Level of Care Code Est Pt Level 4 (52480) Diagnoses Lung nodule seen on imaging study R91.1
[2023-10-24 09:39] VITALS: BP 122/80; PULSE 78; BMI 32.2
== END 2023-10-24 09:53 | disposition home or self-care (01) ==
PROVIDERS: PCP Internal Medicine; Visit Provider Surgery
DX: R91.1 Solitary pulmonary nodule (principal)
CPT/HCPCS: 99214

== ENCOUNTER → 2023-10-24 09:35 | Outpatient (BNVA) | payer OTHER, SELFPAY | PROVIDERS: PCP Internal Medicine; Visit Provider Surgery | DX: R91.1 Solitary pulmonary nodule (principal) | CPT/HCPCS: 99212 ==

== ENCOUNTER 2023-11-03 08:17 | Outpatient (AMB) | payer OTHER, SELFPAY ==
--- NOTE | 2023-11-03 09:02 | MHC.OFFVIS ---
Intake Vital Signs 11/03/23 09:03 Height 5 ft 7 in Weight 203 lb 0.732 oz BMI 31.8 BP 114/62 Blood Pressure Location Rt brachial Position Sitting Pulse 81 Pulse Source Pulse Oximeter Temp 97.4 F Temp Source Skin Pulse Oximetry (%) 97 Oxygen Delivery Method Room Air Intake Visit Reasons: OA/joint pain Intake Note: Patient last seen 10/17/23 presents today for follow up and test results. Allergies acetaminophen [From Percocet] Adverse Reaction (Verified 10/24/23 09:41) Vomiting oxycodone [From Percocet] Adverse Reaction (Verified 10/24/23 09:41) Vomiting HPI HPI Comments History of Present Illness Details Ms Grady returns today to review results and get corticosteroid injections to shoulders. Initial History Ms. Grady, 63yoF referred by Oncology for evaluation of total body Pain. She sees Oncology for lung nodules. She has a PMH COPD, Fibromyalgia. She follows with GI for epigastric pain and pain management for lower back pain. Per patient she is a patient at the [facility] where has has receives shoulder injections (last one about 2 years ago), she was given PT, other interventions for the polyarthralgia. She said she is not sure why her Dr sent her here to this clinic. But she liked going to the [facility], nevertheless she will continue here. Patient denies Raynaud's phenomenon, butterfly rash on face or other rashes; denies photosensitivity - getting sick or developing a rash from being out in the sun; denies blood or froth in urine; patient denies hx of SOB, chest pain. Patient denies hx of Carditis or Pleuritis. Patient denies any history of DVT/PE reports never have had o take aspirin or a blood thinner during the successful pregnancies. Denies fevers, excessive fatigue, unexplained weight-loss or weight-gain, Denies: thinning hair or hair loss, hx of rashes; Denies: dry, itchy eyes, red burning eyes needing steroids to treat; dry mouth, mouth sores or ulcers; nose bleed; ringing in the ear, Denies chronic abdominal pain, blood or mucous in stool; nausea, vomiting and diarrhea , difficulty swallowing, Denies morning stiffness lasting more than 45 mins. I have spent 40 minutes reviewing chart, evaluating patient, and documenting. [facility] Medical History Chronic right shoulder pain Elevated liver enzymes VETO positive Epigastric pain Pulmonary nodules Palpitations Asthma Fibromyalgia Obesity (BMI 30.0-34.9) Allergic rhinitis COPD (chronic obstructive pulmonary disease) Surgical History Hx of cholecystectomy Hx of colonoscopy Status post fine needle aspiration (~2019) Family History Mother Leukemia Diabetes Arthritis Family/Other Hodgkins lymphoma Family/Other Uterine cancer Sister Uterine cancer High cholesterol HTN (hypertension) Paternal Grandmother Uterine cancer Heart attack Father Colon cancer Social History Household Members: None Housing: Apartment Are you a primary care director rn to a significant other at home: No Do you presently have visiting nurse or other home services: No Alcohol intake: never Patient Tobacco Use Status: Former Tobacco user service: No Current occupational status: disabled Physical Exam Vital Signs: Last Vital Signs Temp 97.4 F 11/03/23 09:03 Pulse 81 11/03/23 09:03 BP 114/62 11/03/23 09:03 Pulse Ox 97 11/03/23 09:03 Oxygen Delivery Method Room Air 11/03/23 09:03 BMI result Body Mass Index 31.8 APPEARANCE: Patient in no acute distress EYES no redness, , eyelids normal EARS:? External ear normal, canal clear and tympanic membrane normal. NOSE/SINUS:? Airflow through both nares, no nasal discharge, no bleeding THROAT:? Oral mucosa moist, no ulcerations NECK:? No thyromegaly or masses, no adenopathy, trachea midline. HEART:? Regular rhythm, S1-S2 heard, no murmurs, rubs or gallops. LUNG:? Clear to percussion and auscultation ABD:? Normal bowel sounds, no organomegaly, masses or tenderness. EXTREMITIES:? No edema, no calf tenderness, normal peripheral pulses. NEURO:? Oriented and alert x3.? No focal weakness.? Reflexes symmetric.? Gait normal. SKIN:? There are no skin lesions evident. No objective signs of Raynaud's phenomenon. JOINT EXAM: Cervical Spine:.? Full range of motion without pain; no tenderness. Thoracic Spine:.? No scoliosis.? No tenderness on palpation. Lumbar Spine:.? Alignment normal.? Full range of motion without pain, no tenderness. Chest Wall:.? No tenderness, swelling, increased warmth or erythema. Hands:.? Normal pain-free range of motion without tenderness, swelling, increased warmth or erythema. Able to make a full fist and has a good knocker out strength. Wrists:.? Normal pain-free range of motion without tenderness, swelling, increased warmth or erythema. Elbows:. Normal pain-free range of motion without tenderness, swelling, increased warmth or erythema. Shoulders:.?? Full range of motion with some pain and crepitus. Tenderness on palpation to joint lines, especially anterior, no weakness, swelling, increased warmth or erythema. Hips:.? Full range of motion without pain. Hip bursa:.? Moderate tenderness. Knees:.?? Normal pain-free range of motion with mild tenderness but no swelling, increased warmth or erythema.? There is no effusion or crepitation Ankles:.? Normal pain-free range of motion without tenderness, swelling, increased warmth or erythema. Feet:.? Normal pain-free range of motion without tenderness, swelling, increased warmth or erythema. Tender points:? Tenderness to digital palpation at the occiput, trapezius, second rib, lateral epicondyle, knees, greater trochanter and gluteal area bilaterally. ? Office Procedures Joint Injection/Drain Joint Injection/Drain Primary Site: left shoulder Secondary Site: right shoulder Prep: site was prepped using aseptic technique Injected: 60 mg of, Kenalog, with 1 mL of and 1% plain lidocaine Approach Used: anterior Procedure: The patient tolerated the procedure well Coding - Large joint - Glenohumeral/Tronchanteric Bursa/Intraarticular Procedure code (CPT) selection complete Assessment & Plan Assessment & Plan (1) Elevated liver enzymes: Code(s): R74.8 - Abnormal levels of other serum enzymes (2) VETO positive: Code(s): R76.8 - Other specified abnormal immunological findings in serum (3) Fibromyalgia: Code(s): M79.7 - Fibromyalgia (4) Chronic right shoulder pain: Code(s): M25.511 - Pain in right shoulder; G89.29 - Other chronic pain Plan #Shoulders:She has mild OA to [employer]. Injected bilateral shoulders today. Patient tolerated procedure. She will return in two weeks for injection to the Hip Bursa. #+Antibodies: +VETO was likely due to elevated anti-smooth muscle antibodies as serology was negative for CTD and inflammatory processes. She will be seeing GI regarding the +anti Smooth muscle antibodies and elevated liver enzymes. I sent a notification to the GI for them to ascertain any significance. Prior Visit: #PolyArthralgia/Fibromyalgia: Ms Ty, 66yoF is here for evaluation of joint pains. The patient is a past patient of [facility] and reports to have had satisfactory treatment there. She has had joint injections and PT in the past. She says the injections have provided her with relief for long periods of times up to 1 year. Her historical records also shows that she has had some Rheum work up; 2017 serology +VETO (1:160), Negative RF and inflammatory markers grossly normal over the years. I think it is reasonable to say that there is no underlying CTD or related inflammatory process that underlies her joint pains/total body pains and her PE today was unremarkable for such. She does carry a diagnosis of Fibromyalgia. I will also obtain records from the [facility]. #Chronic Right Shoulder Pain: Multiple imaging have been done to date showing Osteoarthritis. She had a fall in 1996 that ma have been the start of this - the right wrist was fractured in that fall. he has relief from corticosteroids injection and desires those again. #Elevated Liver Enzymes/+VETO: Her liver enzymes are elevated. It seems that started in January 2022. She has had her gallbladder removed around that time. Patient denies knowledge elevated liver enzymes. A January [address] shows normal liver size and attenuation. She denies ETOH use and there is no medication on her list that is an obvious cause. She does follow with GI, Oncology and Pulmonary. I suspect any concerns for the elevated enzymes would have been addressed. Nonetheless, given her +VETO, I will obtain updated labs for inflammatory marker and reflex the KIRSTIE and antibodies for autoimmune liver and Thyroid. 3 week follow-up. I spent 30 minutes reviewing chart/records, evaluating patient, discussing results and documenting. Coding Level of Care Code Est Pt Level 3 (87662) Diagnoses Elevated liver enzymes R74.8 VETO positive R76.8 Fibromyalgia M79.7 Chronic right shoulder pain M25.511; G89.29 CPT Codes Coding - 15811 Large joint: 89269 - Large joint ([id number]) Coding - Joint 7: 09234 - Glenohumeral/Tronchanteric Bursa/Intraarticular ([id number])
[2023-11-03 09:03] VITALS: BP 114/62; PULSE 81; TEMP 36.3; O2SAT 97; BMI 31.8
== END 2023-11-03 09:34 | disposition home or self-care (01) ==
PROVIDERS: PCP Internal Medicine; Visit Provider Nurse Practitioner Family
DX: R74.8 Abnormal levels of other serum enzymes (principal); R76.8 Other specified abnormal immunological findings in serum; M79.7 Fibromyalgia; M19.012 Primary osteoarthritis, left shoulder; M19.011 Primary osteoarthritis, right shoulder; G89.29 Other chronic pain
CPT/HCPCS: 20610; 99214

== ENCOUNTER → 2023-11-03 08:17 | Outpatient (BNVA) | payer OTHER, SELFPAY | PROVIDERS: PCP Internal Medicine; Visit Provider Nurse Practitioner Family | DX: M25.511 Pain in right shoulder (principal); M79.7 Fibromyalgia; R74.8 Abnormal levels of other serum enzymes; R76.8 Other specified abnormal immunological findings in serum; G89.29 Other chronic pain | CPT/HCPCS: 20610; 99212 ==

== ENCOUNTER 2023-11-16 10:11 | Outpatient (AMB) | payer OTHER, SELFPAY ==
--- NOTE | 2023-11-16 10:33 | MHC.OFFVIS ---
Intake Vital Signs 11/16/23 10:40 Height 5 ft 7 in Weight 208 lb 15.971 oz BMI 32.7 BP 98/64 Blood Pressure Location Rt brachial Position Sitting Pulse 68 Pulse Source Pulse Oximeter Temp 97 F Temp Source Skin Pulse Oximetry (%) 99 Oxygen Delivery Method Room Air Intake Visit Reasons: Bilateral Shoulder Pain/Hip Bursitis Intake Note: Patient last seen 11/03/23 by Boy, presents today for antolin hip injections and test results. 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 Her shoulders are doing well from the corticosteroid injections from last visit. [facility] Medical History (Updated 11/16/23 @ 11:21 by Stephanie Brunson, PRAVEEN-BETHEL) Chronic left shoulder pain Trochanteric bursitis of both hips Chronic right shoulder pain Elevated liver enzymes VETO positive Epigastric pain Pulmonary nodules Palpitations Asthma Fibromyalgia Obesity (BMI 30.0-34.9) Allergic rhinitis COPD (chronic obstructive pulmonary disease) Surgical History Hx of cholecystectomy Hx of colonoscopy Status post fine needle aspiration (~2019) Family History Mother Leukemia Diabetes Arthritis Family/Other Hodgkins lymphoma Family/Other Uterine cancer Sister Uterine cancer High cholesterol HTN (hypertension) Paternal Grandmother Uterine cancer Heart attack Father Colon cancer Social History Household Members: None Housing: Apartment Are you a primary respiratory care instructor to a significant other at home: No Do you presently have visiting nurse or other home services: No Alcohol intake: never Patient Tobacco Use Status: Former Tobacco user service: No Current occupational status: disabled Physical Exam Vital Signs: Last Vital Signs Temp 97 F 11/16/23 10:40 Pulse 68 11/16/23 10:40 BP 98/64 11/16/23 10:40 Pulse Ox 99 11/16/23 10:40 Oxygen Delivery Method Room Air 11/16/23 10:40 BMI result Body Mass Index 32.7 APPEARANCE: Patient in no acute distress EYES no redness, , eyelids normal EARS:? External ear normal, canal clear and tympanic membrane normal. HEART:? Regular rhythm, S1-S2 heard, no murmurs, rubs or gallops. LUNG:? Clear to percussion and auscultation EXTREMITIES:? No edema, no calf tenderness, normal peripheral pulses. Able to move all extremities NEURO:? Oriented and alert x3.? No focal weakness.? Reflexes symmetric.? Gait normal. JOINT EXAM: Shoulders:.?? Full range of motion with very little discomfort and no crepitus. Mild Tenderness on palpation to joint lines, no weakness, swelling, increased warmth or erythema. Hips:.? Full range of motion without mild pain. Hip bursa:.? Moderate tenderness. ? Office Procedures Joint Injection/Drain Joint Injection/Drain Details: Injected each side (right and left) with 80 mg Kenalog and 2 ml of 1% Lidocaine Primary Site: other Secondary Site: other Prep: site was prepped using aseptic technique Injected: 80 mg of, Kenalog and 1% plain lidocaine Approach Used: other Procedure: The patient tolerated the procedure well Coding 80955 - Glenohumeral/Tronchanteric Bursa/Intraarticular Procedure code (CPT) selection complete Assessment & Plan Assessment & Plan (1) Trochanteric bursitis of both hips: Code(s): M70.61 - Trochanteric bursitis, right hip; M70.62 - Trochanteric bursitis, left hip (2) Chronic right shoulder pain: Code(s): M25.511 - Pain in right shoulder; G89.29 - Other chronic pain (3) Chronic left shoulder pain: Code(s): M25.512 - Pain in left shoulder; G89.29 - Other chronic pain Plan #Shoulder:Her shoulders have improved s/p corticosteroid injections 2 weeks ago. She has more ease of movement and less tenderness on palpation. I encouraged patient also continue to do her shoulder exercises. # Trochanteric bursitis: Moderate to severe bilateral trochanteric bursa tenderness. We will inject both today. Discussed with patient to do mild activities throughout the next couple of days and to refrain from strenuous activities with her legs. We hope these injections will give her at least 3-4 months of ease. Discussed with patient that we do not want to do the corticosteroid injections at any greater frequency. Orders: Orders AMB Joint Injection/Aspiration Today M70.61 - Trochanteric bursitis, right hip, M70.62 - Trochanteric bursitis, left hip Coding Level of Care Code Est Pt Level 2 (90722) Diagnoses Trochanteric bursitis of both hips M70.61; M70.62 Chronic right shoulder pain M25.511; G89.29 Chronic left shoulder pain M25.512; G89.29 CPT Codes Coding - Joint 7: 98380 - Glenohumeral/Tronchanteric Bursa/Intraarticular ([id number])
[2023-11-16 10:40] VITALS: BP 98/64; PULSE 68; TEMP 36.1; O2SAT 99; BMI 32.7
== END 2023-11-16 11:08 | disposition home or self-care (01) ==
PROVIDERS: PCP Internal Medicine; Visit Provider Nurse Practitioner Family
DX: M70.61 Trochanteric bursitis, right hip (principal); M70.62 Trochanteric bursitis, left hip; M25.511 Pain in right shoulder; G89.29 Other chronic pain; M25.512 Pain in left shoulder
CPT/HCPCS: 20610; 99213

== ENCOUNTER → 2023-11-16 10:11 | Outpatient (BNVA) | payer OTHER, SELFPAY | PROVIDERS: PCP Internal Medicine; Visit Provider Nurse Practitioner Family | DX: M70.61 Trochanteric bursitis, right hip (principal); M70.62 Trochanteric bursitis, left hip; M25.511 Pain in right shoulder; M25.512 Pain in left shoulder; G89.29 Other chronic pain | CPT/HCPCS: 20610; 99212 ==

== ENCOUNTER 2023-11-23 08:38 | Outpatient (REF) | payer OTHER, SELFPAY ==
[2023-11-23 08:07] VITALS: PULSE 84; RESP 16; O2SAT 96
--- NOTE | 2023-11-23 11:31 | PFT_ITS ---
Flows: FEV1: 54 % of predicted at 1.43 L FVC: 70 % of predicted at 2.36 L FEV1/FVC: 60 % Bronchodilator response: Absent Volumes: Total lung capacity: 88 % of predicted at 4.92 L Residual volume: 122 % of predicted at 2.47 L Slow vital capacity: 69 % of predicted at 2.46 L Expiratory reserve volume: 56 % of predicted at 0.51 L Diffusion capacity: Normal Impression: Moderate obstructive ventilatory defect with no bronchodilator response. Increased residual volume suggests air trapping. Decreased expiratory reserve volume suggests extrathoracic restriction likely secondary to abdominal obesity. MTDD
== END 2023-11-23 08:39 | disposition home or self-care (01) ==
LOC: HO.RESP 08:38
PROVIDERS: PCP Internal Medicine; Visit Provider Surgery
DX: R91.1 Solitary pulmonary nodule (principal)
CPT/HCPCS: 94010; 94640; 94727; 94729

== ENCOUNTER → 2023-11-23 11:31 | Outpatient (BNV) | payer OTHER, SELFPAY | PROVIDERS: PCP Internal Medicine; Visit Provider Internal Medicine Pulmonary Disease | DX: R91.1 Solitary pulmonary nodule (principal) | CPT/HCPCS: 94060; 94727; 94729 ==

== ENCOUNTER 2023-11-28 07:53 | Outpatient (AMB) | payer OTHER, SELFPAY ==
--- NOTE | 2023-11-28 08:01 | A.OFFVIS_ITS ---
Intake Vital Signs 11/28/23 08:07 Height 5 ft 7 in Weight 211 lb 10.3 oz BMI 33.1 BP 130/68 Blood Pressure Location Lt brachial Position Sitting Pulse 75 Intake Visit Reasons: Abdominal pain Intake Note: Ysabel presents in the office as a new patient for abdominal pains. CC: She states the pains have gotten better since she start omeprozale. Allergies acetaminophen [From Percocet] Adverse Reaction (Verified 11/28/23 08:07) Vomiting oxycodone [From Percocet] Adverse Reaction (Verified 11/28/23 08:07) Vomiting Medication List - Last Reconciled 11/28/23 by Sanna Jernigan PA-C albuterol sulfate 2.5 mg (3 mL) inhalation Q4-6H PRN albuterol sulfate 90 mcg/actuation (Ventolin HFA) 2 puffs inhalation Q6H PRN 30 days escitalopram oxalate 5 mg PO DAILY fluticasone propion-salmeterol 250-50 mcg/dose (Advair Diskus) 1 inh inhalation BID 30 days fluticasone propion-salmeterol 500-50 mcg/dose 1 inh inhalation Q12H 30 days MDD ASTHMA/COPD omeprazole 20 mg PO DAILY peg [id number] 1-0.2-0.2 % (Artificial Tears ([id number])) 1 drp ophthalmic (eye) DAILY umeclidinium 62.5 mcg/actuation (Incruse Ellipta) 1 inh inhalation DAILY HPI HPI Comments History of Present Illness Details A 63 y/o female f/u with acid reflux and epigastric pain- she has been taking omeprazole 20 with excellent response- She has no sx on ppi- She says she is doing very well GI hughes however there is some concern with lung nodules and she is being followed currently. Reviewed CT 01/2023- labs 08/2023 and 10/11 EGD 01/[address] Keys, Dr. Casey-12/04/23-for lung nodule She has nausea, vomiting, hematemesis, abdominal pain, hematochezia fever or chills No headaches, dizziness shortness of breath or chest pain PFSH Medical History Chronic left shoulder pain Trochanteric bursitis of both hips Chronic right shoulder pain Elevated liver enzymes VETO positive Epigastric pain Pulmonary nodules Palpitations Asthma Fibromyalgia Obesity (BMI 30.0-34.9) Allergic rhinitis COPD (chronic obstructive pulmonary disease) Surgical History Hx of cholecystectomy Hx of colonoscopy Status post fine needle aspiration (~2019) Family History Mother Leukemia Diabetes Arthritis Family/Other Hodgkins lymphoma Family/Other Uterine cancer Sister Uterine cancer High cholesterol HTN (hypertension) Paternal Grandmother Uterine cancer Heart attack Father Colon cancer Social History Household Members: None Housing: Apartment Are you a primary healthcare recruiter to a significant other at home: No Do you presently have visiting nurse or other home services: No Alcohol intake: never Patient Tobacco Use Status: Former Tobacco user service: No Current occupational status: disabled Review of Systems Const All systems reviewed & are unremarkable except as noted in HPI and below Card Denies chest pain and Denies dyspnea Resp Denies dyspnea GI Denies abdominal pain, Denies change in bowel habits and Reports heartburn Physical Exam Vital Signs: Last Vital Signs Pulse 75 11/28/23 08:07 BP 130/68 11/28/23 08:07 BMI result Body Mass Index 33.1 Const General: cooperative, comfortable and no acute distress Orientation/consciousness: patient oriented x3 Limitations: no limitations Eyes Sclerae: sclerae normal Resp Effort & Inspection: normal respiratory effort and able to speak in complete sentences Auscultation: clear to auscultation bilaterally, no rales, no rhonchi and no wheezes Cardio Rate: regular rate Rhythm: regular rhythm Heart sounds: S1 normal heart sound present and S2 normal heart sound present GI Palpation (GI): Soft to palpation and nontender Auscultation: normal bowel sounds Skin General skin exam: no rashes or lesions noted Neuro General: patient oriented x3 Extrem General: Yes full ROM Psych Appearance: grossly normal Mental Status: mental status grossly normal Speech and movement: Normal speech and movement present Affect: normal affect Attitude: cooperative Thought process: Normal thought process present Thought content: Normal thought content present Insight: Good insight present (Psych) Judgement: Good judgement present (Psych) Results Reviewed Results Reviewed: 09/2023- CT/CT chest wo IV con IMPRESSION: No significant change in small scattered pulmonary nodules throughout both lungs, atelectatic changes and slightly prominent right middle lobe 1.4 cm density in the right may be is slightly more prominent than last exam. No abnormal size mediastinal or axillary lymphadenopathy. 01/2023- CT/CT abdomen pelvis wo IV con IMPRESSION: No acute or other significant abnormality is identified to extend patient's symptoms. No CT evidence of acute pancreatitis. Continued interval decrease in the size of a known right middle lobe nodule. Recommend attention to the finding on follow-up imaging. Fleischner guidelines were followed. Assessment & Plan Assessment & Plan (1) Gastroesophageal reflux disease: Comment: Well-controlled acid reflux when taking PPI consistent She has had EGD with biopsy-no worrisome results, reviewed with patient Code(s): K21.9 - Gastro-esophageal reflux disease without esophagitis Plan: cont ppi (2) Elevated liver enzymes: Comment: get labs- assess viral serologies- ?? vacine- Code(s): R74.8 - Abnormal levels of other serum enzymes Plan: U/s- (3) Epigastric pain: Comment: Completely resolved takes no medications Code(s): R10.13 - Epigastric pain Plan U/S Orders: Orders Liver Panel 11/28/23 R74.8 - Abnormal levels of other serum enzymes Hepatitis A,B,C Profile 11/28/23 R79.89 - Other specified abnormal findings of blood chemistry Mitochondrial Antibody 11/28/23 R74.01 - Elevation of levels of liver transaminase levels Alpha 1 Anti-trypsin 11/28/23 R74.01 - Elevation of levels of liver transaminase levels US abdomen complete 11/28/23 R74.8 - Abnormal levels of other serum enzymes, R91.1 - Solitary pulmonary nodule, Z90.49 - Acquired absence of other specified parts of digestive tract Smooth Muscle Antibody 11/28/23 R74.8 - Abnormal levels of other serum enzymes Medications: New omeprazole 20 mg PO DAILY 30 days 30 caps 11RF Patient Instructions: A 63-year-old female with acid reflux, well-controlled with PPI Reviewed reflux precautions Updated prescription sent to pharmacy Reviewed EGD from 2022 Opportunity for questions answered to her size Update labs-check viral serologies to be sure she is vaccinated if appropriate Reinforced importance follow-up with Dr. Casey and Dr. Keys Encouraged to call with any questions or concerns Coding Level of Care Code Est Pt Level 3 (33780) Diagnoses Gastroesophageal reflux disease K21.9 Elevated liver enzymes R74.8 Epigastric pain R10.13 Time Spent (min) 30
[2023-11-28 08:07] VITALS: BP 130/68; PULSE 75; BMI 33.1
== END 2023-11-28 09:21 | disposition home or self-care (01) ==
PROVIDERS: PCP Internal Medicine; Visit Provider Physician Assistant
DX: K21.9 Gastro-esophageal reflux disease without esophagitis (principal); R74.8 Abnormal levels of other serum enzymes; R10.13 Epigastric pain
CPT/HCPCS: 99213

== ENCOUNTER → 2023-11-28 07:53 | Outpatient (BNVA) | payer OTHER, SELFPAY | PROVIDERS: PCP Internal Medicine; Visit Provider Physician Assistant | DX: K21.9 Gastro-esophageal reflux disease without esophagitis (principal); R74.8 Abnormal levels of other serum enzymes; R10.13 Epigastric pain | CPT/HCPCS: 99212 ==

== ENCOUNTER 2023-12-04 08:45 | Outpatient (AMB) | payer OTHER, SELFPAY ==
--- NOTE | 2023-12-04 08:55 | A.OFFVIS_ITS ---
Intake Vital Signs 12/04/23 09:00 Height 5 ft 7 in Weight 211 lb BMI 33.0 BP 139/70 Blood Pressure Location Rt brachial Position Sitting Pulse 71 Intake Visit Reasons: Follow up after PFT Intake Note: Patient here to discuss pulmonary function test results. Patient c/o: denies SOB, uses ventolin as needed. PFT: 11-23-23 Vp [employer] Resources Required: No Accompanied by: Self / Same As Patient Allergies acetaminophen [From Percocet] Adverse Reaction (Verified 12/04/23 09:00) Vomiting oxycodone [From Percocet] Adverse Reaction (Verified 12/04/23 09:00) Vomiting HPI HPI Comments History of Present Illness Details Patient presents for follow-up status post pulmonary function tests which were okay. Patient had her case presented at the multidisciplinary lung cancer screening clinic last Monday, and the consensus of opinion is to reorder a PET scan and direct further therapy based on these results. In the meantime, patient has no respiratory issues or complaints. She is quite active and exercises. Denies any shortness a breath, cough, hemoptysis, or chest pain. [facility] Medical History Chronic left shoulder pain Trochanteric bursitis of both hips Chronic right shoulder pain Elevated liver enzymes VETO positive Epigastric pain Pulmonary nodules Palpitations Asthma Fibromyalgia Obesity (BMI 30.0-34.9) Allergic rhinitis COPD (chronic obstructive pulmonary disease) Surgical History Hx of cholecystectomy Hx of colonoscopy Status post fine needle aspiration (~2019) Family History Mother Leukemia Diabetes Arthritis Family/Other Hodgkins lymphoma Family/Other Uterine cancer Sister Uterine cancer High cholesterol HTN (hypertension) Paternal Grandmother Uterine cancer Heart attack Father Colon cancer Social History Household Members: None Housing: Apartment Are you a primary resident care manager rn to a significant other at home: No Do you presently have visiting nurse or other home services: No Alcohol intake: never Patient Tobacco Use Status: Former Tobacco user service: No Current occupational status: disabled Physical Exam Vital Signs: Last Vital Signs Pulse 71 12/04/23 09:00 BP 139/70 12/04/23 09:00 BMI result Body Mass Index 33.0 Chest Other: Chest breath sounds bilaterally, no cervical periclavicular axillary adenopathy. GI Other: Abdomen corpulent, soft, benign Assessment & Plan Assessment & Plan (1) Mass of right lung: Code(s): R91.8 - Other nonspecific abnormal finding of lung field Plan: Current plan is to arrange for PET scan and direct further therapy based on these results. Orders: Orders PET CT fusion skull to thigh Today R91.8 - Other nonspecific abnormal finding of lung field Coding Level of Care Code Est Pt Level 4 (34435) Diagnoses Mass of right lung R91.8
[2023-12-04 09:00] VITALS: BP 139/70; PULSE 71; BMI 33.0
== END 2023-12-04 09:05 | disposition home or self-care (01) ==
PROVIDERS: PCP Internal Medicine; Visit Provider Surgery
DX: R91.8 Other nonspecific abnormal finding of lung field (principal)
CPT/HCPCS: 99214

== ENCOUNTER → 2023-12-04 08:45 | Outpatient (BNVA) | payer OTHER, SELFPAY | PROVIDERS: PCP Internal Medicine; Visit Provider Surgery | DX: R91.8 Other nonspecific abnormal finding of lung field (principal) | CPT/HCPCS: 99212 ==

== ENCOUNTER 2023-12-13 08:05 | Outpatient (REF) | payer OTHER, SELFPAY ==
--- NOTE | ~2023-12-13 | US_ITS ---
EXAMINATION: US ABDOMEN COMPLETE CLINICAL INFORMATION: Abnormal levels of other serum enzymes. COMPARISON: CT abdomen and pelvis 01/29/2023. TECHNIQUE: Real-time imaging of the abdominal viscera. Limited visualization due to bowel gas. FINDINGS: PANCREAS: Limited visualization of pancreatic tail and head. Imaged portion of pancreatic body is unremarkable. ABDOMINAL AORTA: Nonaneurysmal. INFERIOR VENA CAVA: Visualized portions are normal. LIVER: Increased hepatic parenchymal heterogeneity and echogenicity could be associated with hepatocellular disease/hepatic steatosis and substantially limits visualization. Correlation with liver function tests and clinical exam recommended to determine further management. GALLBLADDER: Surgically absent. COMMON BILE DUCT: Abnormal in caliber measuring 1.5 cm in diameter. RIGHT KIDNEY: No hydronephrosis. No renal calculi. Limited visualization. The kidney measures 10.8 cm in maximum dimension. LEFT KIDNEY: No hydronephrosis. No renal calculi. Limited visualization. The kidney measures 11.1 cm in maximum dimension. SPLEEN: The spleen measures 8.8 cm in maximum dimension. Multiple clusters of echogenic foci characteristic of possible calcified lesions, largest 1.9 x 1.0 x 1.1 cm, difficult to fully evaluate due to limited visualization and not identified on prior reports. FREE FLUID: None. US/US abdomen complete IMPRESSION: 1. Increased hepatic parenchymal heterogeneity and echogenicity could be associated with hepatocellular disease/hepatic steatosis and substantially limits visualization. Correlation with liver function tests and clinical exam recommended to determine further management. 2. Multiple clusters of echogenic foci characteristic of possible calcified lesions, largest 1.9 x 1.0 x 1.1 cm, difficult to fully evaluate due to limited visualization and not identified on prior reports. Correlation with clinical exam and additional imaging with CT scan recommended. 3. Gallbladder surgically absent. Common bile duct abnormal in caliber measuring 1.5 cm in diameter. Correlation with clinical and laboratory exam recommended.
[2023-12-13 08:16] LABS: MANUAL DIFF FLAG NO
[2023-12-13 08:32] LABS: Basophils Percent Auto 0.2 % (0-2); Eosinophils Absolute Auto 0.2 X10*3/uL (0.0-0.4); Eosinophils Percent Auto 1.8 % (0-4); Hematocrit 41.8 % (37.0-47.0); Hemoglobin 13.5 g/dl (12.0-16.0); Imm Gran Abs Auto 0.03 X10*3/uL (0.00-0.03); Imm Gran Pct Auto 0.3 % (0.0-0.4); Lymphocytes Absolute Auto 2.1 X10*3/uL (1.2-4.9); Lymphocytes Percent Auto 23.3 % (20-40); Mean Corpuscular HGB Conc 32.3 g/dl (31.0-35.0); Mean Corpuscular Hemoglobin 27.1 pg (27.0-33.0); Mean Corpuscular Volume 83.9 fL (80.0-98.0); Mean Platelet Volume 8.4 fL (9.4-12.3); Monocytes Absolute Auto 0.7 X10*3/uL (0.1-1.2); Monocytes Percent Auto 8.1 % (2-11); Neutrophils Percent Auto 66.3 % (45-73); Platelet Count 212 X10*3/uL (160-400); Red Blood Count 4.98 X10*6/uL (4.20-5.50); Red Cell Distribution Width 16.1 % (11.0-16.0); White Blood Count 9.1 X10*3/uL (4.8-10.8)
[2023-12-13 08:58] LABS: Alanine Aminotransferase 27 U/L (0-31); Albumin Level 3.6 g/dL (3.5-5.0); Alkaline Phosphatase 59 U/L (39-117); Anion Gap 11 (12-20); Aspartate Amino Transferase 24 U/L (5-31); Bilirubin Direct 0.3 mg/dL (0.0-0.5); Bilirubin Total 0.7 mg/dL (0.0-1.0); Blood Urea Nitrogen 18 mg/dL (9-16); Carbon Dioxide 27 mmol/L (22-29); Chloride 108 mmol/L (96-108); Estimated Glomerular Filt Rate > 60; Glucose Random 98 mg/dL (60-115); Potassium 3.8 mmol/L (3.3-5.1); Sodium 142 mmol/L (135-145); Total Protein 6.6 g/dL (6.5-8.0)
[2023-12-13 09:18] LABS: HBS Num1 4.13 mIU/mL (0-7.99); HBc Num1 0.06 S/CO (0.00-0.79); HBsAGNum1 0.35 S/CO (0.00-0.99); Hepatitis A Antibody IgM 0.34 Index (0-0.79); Hepatitis B Core Antibody Nonreactive (Nonreactive); Hepatitis B Surface Antigen Negative (Negative); ~HepC Num1 0.16 S/CO (0.00-0.79); ~Hepatitis A Antibody IgM Nonreactive (Nonreactive); ~Hepatitis B Surface Antibody NONREACTIVE (Nonreactive); ~Hepatitis C Antibody Nonreactive (Nonreactive)
[2023-12-14 19:19] LABS: Alpha 1 Anti-trypsin 160 mg/dL (83-199)
[2023-12-19 13:34] LABS: Mitochondrial Antibodies NEGATIVE (NEGATIVE)
[2023-12-20 13:54] LABS: Smooth Muscle Antibody <20 U (<20)
== END 2023-12-13 08:06 | disposition home or self-care (01) ==
LOC: HO.US 08:05
PROVIDERS: PCP Internal Medicine; Visit Provider Physician Assistant
DX: R10.13 Epigastric pain (principal); R74.01 Elevation of levels of liver transaminase levels; R74.8 Abnormal levels of other serum enzymes; R79.89 Other specified abnormal findings of blood chemistry; R91.1 Solitary pulmonary nodule; Z90.49 Acquired absence of other specified parts of digestive tract
CPT/HCPCS: 36415; 76700; 80053; 82103; 82248; 85025; 86015; 86381; 86704; 86706; 86709; 86803; 87340

== ENCOUNTER 2024-01-04 10:49 | Outpatient (AMB) | payer OTHER, SELFPAY ==
[2024-01-04 11:07] VITALS: BP 110/60; PULSE 65; O2SAT 94; BMI 33.0
--- NOTE | 2024-01-04 11:07 | A.OFFVIS_ITS ---
Intake Vital Signs 01/04/24 11:07 Height 5 ft 7 in Weight 210 lb 8.663 oz BMI 33.0 BP 110/60 Blood Pressure Location Lt brachial Position Sitting Pulse 65 Pulse Source Pulse Oximeter Pulse Oximetry (%) 94 Oxygen Delivery Method Room Air Intake Visit Reasons: asthma Intake Note: pt is here for follow up and states she is doing well, pt does not feel like her generic advair is working as well as name brand Yarn Inspector Required: No Allergies acetaminophen [From Percocet] Adverse Reaction (Verified 01/04/24 11:26) Vomiting oxycodone [From Percocet] Adverse Reaction (Verified 01/04/24 11:26) Vomiting Medication List - Last Reconciled 01/04/24 by Praveen Brady MD albuterol sulfate 2.5 mg (3 mL) inhalation Q4-6H PRN albuterol sulfate 90 mcg/actuation (Ventolin HFA) 2 puffs inhalation Q6H PRN 30 days escitalopram oxalate 5 mg PO DAILY fluticasone propion-salmeterol 250-50 mcg/dose (Advair Diskus) 1 inh inhalation BID 30 days omeprazole 20 mg PO DAILY omeprazole 20 mg PO DAILY 30 days peg [id number] 1-0.2-0.2 % (Artificial Tears ([id number])) 1 drp ophthalmic (eye) DAILY Do you need a note to return to daycare/school/sports/work: No HPI asthma HPI Details 63 YEARS OLD FEMALE, MODERATELY OBESE. WITH LONGSTANDING HISTORY OF ASTHMA/COPD, COMES FOR FOLLOW-UP AFTER 4 MONTHS. BREATHING AGUILLON SHE IS DOING WELL, EXCEPT FOR GETTING SHORT OF BREATH ON WALKING UP HILL OR CLIMBING STAIRS. ALSO SHE GETS MORE SHORT OF BREATH IF SHE HAS ANY COMMON COLD OR ANY VIRAL INFECTION. CURRENTLY ON ADVAIR 250-50 1 INHALATION B.I.D. AND INCRUSE ELLIPTA 1 INHALATION DAILY. SHE COMPLAINS OF POWDER NOT WORKING WELL FOR HER, WHEN I ASKED HER TO CHANGE IT TO HFA FORM SHE SAYS NO SHE IS SAYING THAT THIS CURRENT GENERIC ADVAIR IS NOT GOOD BEFORE. HOWEVER WHEN I LOOKED AT THE UNIT IS BASICALLY SAME ALWAYS. SHE WANTS TO HAVE ADVAIR WITH STRONGER DOSE . SHE IS BEING FOLLOWED UP FOR NODULE IN RIGHT MIDDLE LOBE, BY DR. CASEY , WHO IS PLANNING TO DO A PET SCAN, BECAUSE ON THE CT SCAN THE SIZE OF THE NODULE IS INCREASED TO 1.5 MM. WILL IS A FORMER SMOKER AND QUIT MANY YEARS AGO. FORMERLY [facility], [facility] Medical History Chronic left shoulder pain Trochanteric bursitis of both hips Chronic right shoulder pain Elevated liver enzymes VETO positive Epigastric pain Pulmonary nodules Palpitations Asthma Fibromyalgia Obesity (BMI 30.0-34.9) Allergic rhinitis COPD (chronic obstructive pulmonary disease) Surgical History Hx of cholecystectomy Hx of colonoscopy Status post fine needle aspiration (~2019) Family History Mother Leukemia Diabetes Arthritis Family/Other Hodgkins lymphoma Family/Other Uterine cancer Sister Uterine cancer High cholesterol HTN (hypertension) Paternal Grandmother Uterine cancer Heart attack Father Colon cancer Social History Household Members: None Housing: Apartment Are you a primary morning caregiver to a significant other at home: No Do you presently have visiting nurse or other home services: No Alcohol intake: never Patient Tobacco Use Status: Former Tobacco user service: No Current occupational status: disabled Review of Systems Const All systems reviewed & are unremarkable except as noted in HPI and below Eyes Reports no additional complaints ENT Reports nasal congestion (Mild intermittent) Card Denies chest pain, Denies irregular heart rhythm and Denies leg edema Resp Reports as per HPI GI Reports no additional complaints Reports no additional complaints Musc Reports back pain and Reports myalgias Skin/Breast Reports system reviewed and no additional complaints, except as documented Neuro Reports no additional complaints Psych Reports no additional complaints Physical Exam Vital Signs: Last Vital Signs Pulse 65 01/04/24 11:07 BP 110/60 01/04/24 11:07 Pulse Ox 94 01/04/24 11:07 Oxygen Delivery Method Room Air 01/04/24 11:07 BMI result Body Mass Index 33.0 Const General: healthy appearing (Except for being overweight), comfortable, no acute distress, alert and awake Orientation/consciousness: patient oriented x3 HEENT Head: Yes normal to inspection General nose exam: No nasal polyps present and No nasal discharge present Face and sinus: Yes sinuses nontender Mouth: oropharynx normal Throat: Yes posterior oropharynx normal Eyes General: appearance normal, both eyes and all related structures Neck Neck: Yes normal visual inspection, Yes no lymphadenopathy, Yes trachea midline and Yes no JVD Thyroid: Thyroid normal Chest Chest palpation & inspection: normal inspection of the chest, normal palpation of entire chest wall and no tenderness Resp Other: Percussion note is resonant, breath sounds are equal on both sides, moderately distant with prolonged expiratory phase. Lungs are clear today and no wheezes or crepitations are heard . Cardio Palpation: normal PMI Rate: regular rate Rhythm: regular rhythm Heart sounds: no gallops and no murmurs GI Palpation (GI): Soft to palpation, nontender, No hepatosplenomegaly present and no masses Auscultation: normal bowel sounds Back/Spine/Pelvis Thoracic/Lumbar Spine: thoracic and lumbar spine normal to inspection Skin General skin exam: no rashes or lesions noted Neuro General: patient oriented x3 and no focal motor deficits Cranial nerves: Yes CN's II-XII intact bilaterally Extrem General: Yes normal to inspection, Yes no clubbing, cyanosis or edema and Yes no calf tenderness Psych Appearance: grossly normal and well kempt Speech and movement: Normal speech and movement present Results Reviewed Results Reviewed: PULMONARY FUNCTION TEST ON 11/23/2023 SHOWED MODERATELY SEVERE OBSTRUCTIVE AIRWAY DISORDER. 10/10/23 ct scan of chest IMPRESSION: No significant change in small scattered pulmonary nodules throughout both lungs, atelectatic changes and slightly prominent right middle lobe 1.4 cm density in the right may be is slightly more prominent than last exam. No abnormal size mediastinal or axillary lymphadenopathy. Fleischner guidelines were followed. Assessment & Plan Assessment & Plan (1) COPD (chronic obstructive pulmonary disease): Comment: (PFT has shown Moderate Obstructive Airway Disorder, with partial reversibility after bronchodilator - results C/W ACOS) breathing status is improved and stable. Confirmed by PFT on 11/23/23 I think she is holding very stable. Code(s): J44.9 - Chronic obstructive pulmonary disease, unspecified Plan: Advair 500-51 inhalation b.i.d. Continue Incruse Ellipta 1 inhalation daily. Albuterol HFA 2 puffs Q 4-6 hours p.r.n. (2) Allergic rhinitis: Comment: (Mild/Seasonal -in active at this time Code(s): J30.9 - Allergic rhinitis, unspecified Plan: Tx Flonase 2 sprays each nostril daily, Claritin 10mg once daily PRN) (3) Pulmonary nodules: Comment: (Stable 8x11mm RML nodule since at least January of 2020) Most recent CT scan of the chest on 10/10/23 The density in the right middle lobe is increased to 1.5 cm in size. Code(s): R91.8 - Other nonspecific abnormal finding of lung field Plan: Continue to follow-up with Dr. Casey Medications: New fluticasone propion-salmeterol 500-50 mcg/dose (Advair Diskus) 1 inh inhalation Q12H 30 days 60 ea 3RF ASTHMA/COPD MDD ASTHMA/COPD Coding Level of Care Code Est Pt Level 3 (24569) Diagnoses COPD (chronic obstructive pulmonary disease) J44.9 Allergic rhinitis J30.9 Pulmonary nodules R91.8
== END 2024-01-04 11:24 | disposition home or self-care (01) ==
PROVIDERS: PCP Internal Medicine; Visit Provider Internal Medicine
DX: J44.9 Chronic obstructive pulmonary disease, unspecified (principal); J30.9 Allergic rhinitis, unspecified; R91.8 Other nonspecific abnormal finding of lung field
CPT/HCPCS: 99213

== ENCOUNTER → 2024-01-04 10:49 | Outpatient (BNVA) | payer OTHER, SELFPAY | PROVIDERS: PCP Internal Medicine; Visit Provider Internal Medicine | DX: J44.9 Chronic obstructive pulmonary disease, unspecified (principal); J30.9 Allergic rhinitis, unspecified; R91.8 Other nonspecific abnormal finding of lung field; Z87.891 Personal history of nicotine dependence | CPT/HCPCS: 99212 ==

== ENCOUNTER 2024-01-30 07:58 | Outpatient (AMB) | payer OTHER, SELFPAY ==
--- NOTE | 2024-01-30 08:01 | MHC.OFFVIS ---
Vital Signs 01/30/24 08:04 Height 5 ft 7 in Weight 212 lb BMI 33.2 BP 115/60 Blood Pressure Location Lt brachial Position Sitting Pulse 82 Intake Visit Reasons: 2 month follow up Intake Note: Patient follow up for Patient cc: constipation on and off. Denies any other GI issues for today. Information Systems Coordinator Required: No Accompanied by: Self / Same As Patient Allergies acetaminophen [From Percocet] Adverse Reaction (Verified 01/30/24 08:01) Vomiting oxycodone [From Percocet] Adverse Reaction (Verified 01/30/24 08:01) Vomiting Medication List - Last Reconciled 01/30/24 by Sanna Jernigan PA-C albuterol sulfate 2.5 mg (3 mL) inhalation Q4-6H PRN albuterol sulfate 90 mcg/actuation (Ventolin HFA) 2 puffs inhalation Q6H PRN 30 days escitalopram oxalate 5 mg PO DAILY fluticasone propion-salmeterol 250-50 mcg/dose (Advair Diskus) 1 inh inhalation BID 30 days fluticasone propion-salmeterol 500-50 mcg/dose (Advair Diskus) 1 inh inhalation Q12H 30 days MDD ASTHMA/COPD omeprazole 20 mg PO DAILY omeprazole 20 mg PO DAILY 30 days peg [id number] 1-0.2-0.2 % (Artificial Tears ([id number])) 1 drp ophthalmic (eye) DAILY HPI Comments Details: 63-year-old female elevated liver enzymes and positive VETO follows up after labs to include viral serologies She has no GI complaints- c/o of fibro- bones give her pain- she was taking IBU - however does not take any further- Reviewed labs, viral serologies are negative liver enzymes are now normal Appetite is good, bowels are normal No nausea, vomiting, hematemesis, hematochezia fever or chills PFSH Medical History Chronic left shoulder pain Trochanteric bursitis of both hips Chronic right shoulder pain Elevated liver enzymes VETO positive Epigastric pain Pulmonary nodules Palpitations Asthma Fibromyalgia Obesity (BMI 30.0-34.9) Allergic rhinitis COPD (chronic obstructive pulmonary disease) Surgical History Hx of cholecystectomy Hx of colonoscopy Status post fine needle aspiration (~2019) Family History Mother Leukemia Diabetes Arthritis Family/Other Hodgkins lymphoma Family/Other Uterine cancer Sister Uterine cancer High cholesterol HTN (hypertension) Paternal Grandmother Uterine cancer Heart attack Father Colon cancer Social History Household Members: None Housing: Apartment Are you a primary pharmacist critical care to a significant other at home: No Do you presently have visiting nurse or other home services: No Alcohol intake: never Patient Tobacco Use Status: Former Tobacco user service: No Current occupational status: disabled Review of Systems Const All systems reviewed & are unremarkable except as noted in HPI and below Musc Reports back pain and Reports arthralgias Physical Exam Vital Signs: Last Vital Signs Pulse 82 01/30/24 08:04 BP 115/60 01/30/24 08:04 BMI result Body Mass Index 33.2 Const General: cooperative, healthy appearing, comfortable and no acute distress Orientation/consciousness: patient oriented x3 Limitations: no limitations Resp Effort & Inspection: normal respiratory effort and able to speak in complete sentences Auscultation: clear to auscultation bilaterally, no rales, no rhonchi and no wheezes Cardio Rate: regular rate Rhythm: regular rhythm Heart sounds: S1 normal heart sound present and S2 normal heart sound present GI Palpation (GI): Soft to palpation and nontender Auscultation: normal bowel sounds Neuro General: patient oriented x3 Extrem General: Yes full ROM Psych Appearance: grossly normal and well kempt Mental Status: mental status grossly normal Speech and movement: Normal speech and movement present and Clear speech present Affect: normal affect Attitude: cooperative Thought process: Normal thought process present Thought content: Normal thought content present Insight: Good insight present (Psych) Assessment & Plan Assessment & Plan (1) Elevated liver enzymes: Comment: reviewed labs viral serologies- Code(s): R74.8 - Abnormal levels of other serum enzymes Category: Medical (2) VETO positive: Code(s): R76.8 - Other specified abnormal immunological findings in serum Category: Medical Plan: repeat VETO Plan RTC Orders: Orders VETO Reflex Titer and Pattern Today R74.01 - Elevation of levels of liver transaminase levels Liver Panel Today R74.8 - Abnormal levels of other serum enzymes, R76.8 - Other specified abnormal immunological findings in serum Patient Instructions: Repeat labs Encouraged to call questions or concerns Coding Level of Care Code Est Pt Level 3 (91634) Diagnoses Elevated liver enzymes R74.8 VETO positive R76.8 Time Spent (min) 30
[2024-01-30 08:04] VITALS: BP 115/60; PULSE 82; BMI 33.2
== END 2024-01-30 08:33 | disposition home or self-care (01) ==
PROVIDERS: PCP Internal Medicine; Visit Provider Physician Assistant
DX: R74.8 Abnormal levels of other serum enzymes (principal); R76.8 Other specified abnormal immunological findings in serum
CPT/HCPCS: 99213

== ENCOUNTER → 2024-01-30 07:58 | Outpatient (BNVA) | payer OTHER, SELFPAY | PROVIDERS: PCP Internal Medicine; Visit Provider Physician Assistant | DX: R74.8 Abnormal levels of other serum enzymes (principal); R76.8 Other specified abnormal immunological findings in serum | CPT/HCPCS: 99212 ==

== ENCOUNTER 2024-03-13 09:06 | Outpatient (AMB) | payer OTHER, SELFPAY ==
--- NOTE | 2024-03-13 09:11 | A.OFFVIS_ITS ---
Vital Signs 03/13/24 09:13 Height 5 ft 7 in Weight 212 lb BMI 33.2 BP 132/75 Blood Pressure Location Rt brachial Position Sitting Pulse 72 Intake Visit Reasons: Discuss PET scan 02-29-24 Intake Note: Patient here to discuss PET scan results. Patient c/o: fatigue, SOB PET scan: Kendy 02-29-2024. Etcher [employer]ed [employer] Boards Required: No Accompanied by: spouse Mark Colon Allergies acetaminophen [From Percocet] Adverse Reaction (Verified 03/13/24 09:17) Vomiting oxycodone [From Percocet] Adverse Reaction (Verified 03/13/24 09:17) Vomiting HPI Comments Details: Patient presents with her significant other. We reviewed the most recent PET scan and it demonstrates no evidence of any activity or suspicious lesions. Patient otherwise doing well. She has no respiratory issues or complaints. She denies any chronic cough, hemoptysis, chest pain, wheezing. Weight, appetite, energy all within normal limits PFSH Medical History Chronic left shoulder pain Trochanteric bursitis of both hips Chronic right shoulder pain Elevated liver enzymes VETO positive Epigastric pain Pulmonary nodules Palpitations Asthma Fibromyalgia Obesity (BMI 30.0-34.9) Allergic rhinitis COPD (chronic obstructive pulmonary disease) Surgical History Hx of cholecystectomy Hx of colonoscopy Status post fine needle aspiration (~2019) Family History Mother Leukemia Diabetes Arthritis Family/Other Hodgkins lymphoma Family/Other Uterine cancer Sister Uterine cancer High cholesterol HTN (hypertension) Paternal Grandmother Uterine cancer Heart attack Father Colon cancer Social History Household Members: None Housing: Apartment Are you a primary continuum of care manager to a significant other at home: No Do you presently have visiting nurse or other home services: No Alcohol intake: never Patient Tobacco Use Status: Former Tobacco user service: No Current occupational status: disabled Physical Exam Vital Signs: Last Vital Signs Pulse 72 03/13/24 09:13 BP 132/75 03/13/24 09:13 BMI result Body Mass Index 33.2 Neck Other: No cervical, periclavicular, axillary adenopathy. Chest Other: Chest breath sounds bilaterally GI Other: Abdomen corpulent, soft, benign Assessment & Plan Assessment & Plan (1) Mass of right lung: Code(s): R91.8 - Other nonspecific abnormal finding of lung field Category: Surgical Plan: Current plan is to follow-up CT scan surveillance and a proximally 1 year's time regarding her right lung lesion. All questions answered. Patient will see me after the above-mentioned study or p.r.n.. Orders: Orders CT chest wo/w IV con 11 Months R91.8 - Other nonspecific abnormal finding of lung field Coding Level of Care Code Est Pt Level 4 (09694) Diagnoses Mass of right lung R91.8
[2024-03-13 09:13] VITALS: BP 132/75; PULSE 72; BMI 33.2
== END 2024-03-13 09:31 | disposition home or self-care (01) ==
PROVIDERS: PCP Internal Medicine; Visit Provider Surgery
DX: R91.8 Other nonspecific abnormal finding of lung field (principal)
CPT/HCPCS: 99213

== ENCOUNTER → 2024-03-13 09:06 | Outpatient (BNVA) | payer OTHER, SELFPAY | PROVIDERS: PCP Internal Medicine; Visit Provider Surgery | DX: R91.8 Other nonspecific abnormal finding of lung field (principal) | CPT/HCPCS: 99212 ==

== ENCOUNTER 2024-05-07 10:28 | Outpatient (AMB) | payer OTHER, SELFPAY ==
[2024-05-07 10:35] VITALS: BP 112/72; PULSE 70; O2SAT 98; BMI 32.6
--- NOTE | 2024-05-07 10:35 | A.OFFVIS_ITS ---
Vital Signs 05/07/24 10:35 Height 5 ft 7 in Weight 208 lb 5.389 oz BMI 32.6 BP 112/72 Blood Pressure Location Lt brachial Position Sitting Pulse 70 Pulse Source Pulse Oximeter Pulse Oximetry (%) 98 Oxygen Delivery Method Room Air Intake Visit Reasons: Asthma Intake Note: pt is here for follow up and states her breathing is good and bad on days. Developing Machine Tender Required: No Allergies acetaminophen [From Percocet] Adverse Reaction (Verified 05/07/24 10:53) Vomiting oxycodone [From Percocet] Adverse Reaction (Verified 05/07/24 10:53) Vomiting Medication List - Last Reconciled 05/07/24 by Praveen Brady MD albuterol sulfate 2.5 mg (3 mL) inhalation Q4-6H PRN albuterol sulfate 90 mcg/actuation (Ventolin HFA) 2 puffs inhalation Q6H PRN 30 days escitalopram oxalate 5 mg PO DAILY fluticasone propion-salmeterol 500-50 mcg/dose 1 ea inhalation Q12H omeprazole 20 mg PO DAILY omeprazole 20 mg PO DAILY 30 days peg [id number] 1-0.2-0.2 % (Artificial Tears ([id number])) 1 drp ophthalmic (eye) DAILY umeclidinium 62.5 mcg/actuation (Incruse Ellipta) 1 inh inhalation DAILY 30 days Do you need a note to return to daycare/school/sports/work: No HPI HPI Asthma: Details: This 63 years old female is here after 4 months for her routine follow-up. Today she claims that she is feeling relatively better, as long as she is using her 2 inhalers regularly. ( Advair and Incruse Ellipta) She is being treated for moderately severe ACOS and mild allergic rhinitis. She gets short of breath when she walks around relatively fast or climbs stairs. She denies any acute respiratory issues at this time. ON LICENSE OF [facility] Medical History Chronic left shoulder pain Trochanteric bursitis of both hips Chronic right shoulder pain Elevated liver enzymes VETO positive Epigastric pain Pulmonary nodules Palpitations Asthma Fibromyalgia Obesity (BMI 30.0-34.9) Allergic rhinitis COPD (chronic obstructive pulmonary disease) Surgical History Hx of cholecystectomy Hx of colonoscopy Status post fine needle aspiration (~2019) Family History Mother Leukemia Diabetes Arthritis Family/Other Hodgkins lymphoma Family/Other Uterine cancer Sister Uterine cancer High cholesterol HTN (hypertension) Paternal Grandmother Uterine cancer Heart attack Father Colon cancer Social History Household Members: None Housing: Apartment Are you a primary palliative care nurse practitioner to a significant other at home: No Do you presently have visiting nurse or other home services: No Alcohol intake: never Patient Tobacco Use Status: Former Tobacco user service: No Current occupational status: disabled Review of Systems Const All systems reviewed & are unremarkable except as noted in HPI and below Eyes Reports no additional complaints ENT Reports nasal congestion (Mild intermittent) Card Denies chest pain, Denies irregular heart rhythm and Denies leg edema Resp Reports as per HPI GI Reports no additional complaints Reports no additional complaints Musc Reports back pain and Reports myalgias Skin/Breast Reports system reviewed and no additional complaints, except as documented Neuro Reports no additional complaints Psych Reports no additional complaints Physical Exam Vital Signs: Last Vital Signs Pulse 70 05/07/24 10:35 BP 112/72 05/07/24 10:35 Pulse Ox 98 05/07/24 10:35 Oxygen Delivery Method Room Air 05/07/24 10:35 BMI result Body Mass Index 32.6 Const General: healthy appearing (Except for being overweight), comfortable, no acute distress, alert and awake Orientation/consciousness: patient oriented x3 HEENT Head: Yes normal to inspection General nose exam: No nasal polyps present and No nasal discharge present Face and sinus: Yes sinuses nontender Mouth: oropharynx normal Throat: Yes posterior oropharynx normal Eyes General: appearance normal, both eyes and all related structures Neck Neck: Yes normal visual inspection, Yes no lymphadenopathy, Yes trachea midline and Yes no JVD Thyroid: Thyroid normal Chest Chest palpation & inspection: normal inspection of the chest, normal palpation of entire chest wall and no tenderness Resp Other: Percussion note is resonant, breath sounds are equal on both sides, moderately distant with prolonged expiratory phase. Lungs are clear today and no wheezes or crepitations are heard . Cardio Palpation: normal PMI Rate: regular rate Rhythm: regular rhythm Heart sounds: no gallops and no murmurs GI Palpation (GI): Soft to palpation, nontender, No hepatosplenomegaly present and no masses Auscultation: normal bowel sounds Back/Spine/Pelvis Thoracic/Lumbar Spine: thoracic and lumbar spine normal to inspection Skin General skin exam: no rashes or lesions noted Neuro General: patient oriented x3 and no focal motor deficits Cranial nerves: Yes CN's II-XII intact bilaterally Extrem General: Yes normal to inspection, Yes no clubbing, cyanosis or edema and Yes no calf tenderness Psych Appearance: grossly normal and well kempt Speech and movement: Normal speech and movement present Assessment & Plan Assessment & Plan (1) COPD (chronic obstructive pulmonary disease): Comment: (PFT has shown Moderate Obstructive Airway Disorder, with partial reversibility after bronchodilator - results C/W ACOS) Confirmed by PFT on 11/23/23 I think she is holding very stable, on current medical regimen. Code(s): J44.9 - Chronic obstructive pulmonary disease, unspecified Category: Medical Plan: Advair 500-51 inhalation b.i.d. Incruse Ellipta. 1 inhalation daily Albuterol HFA 2 puffs Q 4-6 hours only p.r.n. (2) Allergic rhinitis: Comment: (Mild/Seasonal -inactive at this time Code(s): J30.9 - Allergic rhinitis, unspecified Category: Medical Plan: To use OTC antihistaminic agents only p.r.n. (3) Pulmonary nodules: Comment: (Stable 8x11mm RML nodule since at least January of 2020) Most recent CT scan of the chest on 10/10/23 The density in the right middle lobe is increased to 1.5 cm in size. Patient has been seen by Dr. Casey , the thoracic surgeon, and plan is to repeat CT scan in 1 year. Code(s): R91.8 - Other nonspecific abnormal finding of lung field Category: Medical Plan: CT scan in 1 year as ordered by Dr. Casey Coding Level of Care Code Est Pt Level 3 (03124) Diagnoses COPD (chronic obstructive pulmonary disease) J44.9 Allergic rhinitis J30.9 Pulmonary nodules R91.8
== END 2024-05-07 10:53 | disposition home or self-care (01) ==
PROVIDERS: PCP Internal Medicine; Visit Provider Internal Medicine
DX: J44.9 Chronic obstructive pulmonary disease, unspecified (principal); J30.9 Allergic rhinitis, unspecified; R91.8 Other nonspecific abnormal finding of lung field
CPT/HCPCS: 99213

== ENCOUNTER → 2024-05-07 10:28 | Outpatient (BNVA) | payer OTHER, SELFPAY | PROVIDERS: PCP Internal Medicine; Visit Provider Internal Medicine | DX: J44.9 Chronic obstructive pulmonary disease, unspecified (principal); J30.9 Allergic rhinitis, unspecified; R91.8 Other nonspecific abnormal finding of lung field | CPT/HCPCS: 99212 ==

== ENCOUNTER 2024-05-16 07:44 | Outpatient (REF) | payer OTHER, SELFPAY ==
--- NOTE | ~2024-05-16 | MM_ITS ---
EXAMINATION: MM SCREENING DIGITAL BREAST TOMOSYNTHESIS, BILATERAL CLINICAL INFORMATION: Screening. Asymptomatic. COMPARISON: Mammography: Comparison is made with available priors TECHNIQUE: Digital breast tomosynthesis is performed in both the craniocaudal and mediolateral oblique views along with computer-aided detection (CAD). Synthesized 2D images are generated from the tomosynthesis. FINDINGS: There are scattered areas of fibroglandular density (ACR BI-RADS breast composition Category b). Right marker clips. There are no significant masses, abnormal calcifications, or other abnormalities. MM/MM tomosynthesis screening BI IMPRESSION: No mammographic evidence of malignancy. ASSESSMENT: BI-RADS BI-RADS 2 - Benign Findings RECOMMENDATION: Routine annual mammography screening. 1 year F/U This examination should not preclude the clinical evaluation of a suspicious palpable abnormality. This patient's information was entered into a reminder system with a target due date for their next mammogram. Electronically signed by: Geena Dillon DO 06/07/2024 08:43 PM EDT
== END 2024-05-16 07:45 | disposition home or self-care (01) ==
LOC: HO.MAMMO 07:44
PROVIDERS: PCP Internal Medicine; Visit Provider Internal Medicine
DX: Z12.31 Encounter for screening mammogram for malignant neoplasm of breast (principal)
CPT/HCPCS: 77063; 77067

== ENCOUNTER → 2024-05-16 08:00 | Outpatient (BNV) | payer OTHER, SELFPAY | PROVIDERS: PCP Internal Medicine; Visit Provider Internal Medicine | DX: Z12.31 Encounter for screening mammogram for malignant neoplasm of breast (principal) | CPT/HCPCS: 77063; 77067 ==

== ENCOUNTER 2024-07-03 08:26 | Outpatient (REF) | payer OTHER, SELFPAY ==
[2024-07-03 09:26] LABS: Alanine Aminotransferase 33 U/L (0-31); Albumin Level 3.7 g/dL (3.5-5.0); Alkaline Phosphatase 66 U/L (39-117); Aspartate Amino Transferase 41 U/L (5-31); Bilirubin Direct 0.3 mg/dL (0.0-0.5); Bilirubin Total 0.8 mg/dL (0.0-1.0); Total Protein 6.7 g/dL (6.5-8.0)
[2024-07-07 13:13] LABS: ANA Pattern 2 Nuclear, Homogeneous; Anti Nuclear Antibody Pattern Nuclear, Nucleolar; Anti Nuclear Antibody Screen POSITIVE (NEGATIVE)
== END 2024-07-03 08:27 | disposition home or self-care (01) ==
LOC: HO.LAB 08:26
PROVIDERS: PCP Internal Medicine; Visit Provider Physician Assistant
DX: R74.01 Elevation of levels of liver transaminase levels (principal); R74.8 Abnormal levels of other serum enzymes; R76.8 Other specified abnormal immunological findings in serum
CPT/HCPCS: 36415; 80076; 86038; 86039

== ENCOUNTER 2024-10-23 08:55 | Outpatient (REF) | payer OTHER, SELFPAY ==
--- OUTSIDE RECORDS SUMMARY | 2024-10-23 10:56 | XMS_ITS | Encounter Summary ---
Author Organization [employer] Address [address] [place] [address] Care Team Providers Care [employer] Founder Name Role Phone Jose Daniel Duke MD Primary Care Provider [phone] Encounter Details Date Type Department Care Team (Late Contact Info) Description 07/12/2023 Telephone [facility] [address] [place] [address] Miguel Cohn DDS [address] [place] [address] Social History Tobacco Use Types Packs/Day Years Used Date Smoking Tobacco: Never Smokeless Tobacco: Never Comments Unknown Sex and Gender Information Value Date Recorded Sex Assigned at Female 07/18/2022 10:14 AM EDT Legal Sex Female 10:14 AM EDT Gender Identity Female 07/18/2022 10:14 AM EDT Sexual Orientation Straight 07/18/2022 10 :14 AM EDT documented as of this encounter Miscellaneous Notes * Telephone Encounter - Judith Vallejo - 07/12/2023 9:45 AM EDT Patient called in and stated that she was having a crown prep done today but tooth wouldn't go in so she left without it. She stated that she would stop in tomorrow because she wants to keep it untilthey are able to complete the work DR documented in this encounter Plan of Treatment Upcoming Encounters Date Type Department Care Team (Late Contact Info) Description 12/09/2024 11:00 AM EDT Office Visit [facility] [address] [place] [address] Jose Daniel Duke MD [address] [place] [address] documented as of this encounter Visit Diagnoses Not on filedocumented in this encounter Care Teams [employer] Founder Relationship Specialty Start Date End Date Jose Daniel Duke MD [address] [place] [address] PCP - General Internal Medicine 10/07/11 documented as of this encounter
--- OUTSIDE RECORDS SUMMARY | 2024-10-23 10:56 | XMS_ITS | Encounter Summary ---
Author Organization [employer] Address [address] [place] [address] Care Team Providers Care Slot Machine Repairer Name Role Phone Jose Daniel Duke MD Primary Care Provider [phone]- [phone] Encounter Details Date Type Department Care Team (Late st Contact Info) Description 08/31/2023 Abstract [facility] [address] [place] [address] Miguel Cohn DDS [address] [place] [address] Social History Tobacco Use Types Packs/Day Years Used Date Smoking Tobacco: Never Smokeless Tobacco: Never Comments Unknown Sex and Gender Information Value Date Recorded Sex Assigned at Female 07/18/2022 10:14 AM EDT Legal Sex Female 10:14 AM EDT Gender Identity Female 07/18/2022 10:14 AM EDT Sexual Orientation Straight 07/18/2022 10 :14 AM EDT documented as of this encounter Plan of Treatment Upcoming Encounters Date Type Department Care Team (Late st Contact Info) Description 12/09/2024 11:00 AM EDT Office Visit [facility] [address] [place] [address] Jose Daniel Duke MD [address] [place] [address] documented as of this encounter Visit Diagnoses Not on filedocumented in this encounter Care Teams Slot Machine Repairer Relationship Specialty Start Date End Date Jose Daniel Duke MD [address] [place] [address] PCP - General Internal Medicine 10/07/11 documented as of this encounter
--- OUTSIDE RECORDS SUMMARY | 2024-10-23 10:56 | XMS_ITS | Encounter Summary ---
Author Organization [employer] Address [address] [place] [address] Care Team Providers Care Size Marker Name Role Phone Jose Daniel Duke MD Primary Care Provider [phone]- [phone] Reason for Visit * Reason Comments Med Refill Encounter Details Date Type Department Care Team ([facility] st Contact Info) Description 12/29/2022 Refill [facility] [address] [place] [address] Miguel Cohn DDS [address] [place] [address] Tooth pain Social History Tobacco Use Types Packs/Day Years Used Date Smoking Tobacco: Never Smokeless Tobacco: Never Comments Unknown Sex and Gender Information Value Date Recorded Sex Assigned at Female 07/18/2022 10:14 AM EDT Legal Sex Female 10:14 AM EDT Gender Identity Female 07/18/2022 10:14 AM EDT Sexual Orientation Straight 07/18/2022 10 :14 AM EDT COVID-19 Exposure Response Date Recorded In the last 10 days, have yo u been in contact with someone who was confirmed or suspected to have Coronavirus/COVID-19? No / Unsure 12/14/2022 9:46 AM EDT documented as of this encounter Miscellaneous Notes * Telephone Encounter - Miguel Cohn DDS - 01/16/2023 3:58 PM EDT Approving, but needs appt for additional refills. documented in this encounter Plan of Treatment Upcoming Encounters Date Type Department Care Team (Late st Contact Info) Description 12/09/2024 11:00 AM EDT Office Visit [facility] [address] [place] [address] Jose Daniel Duke MD [address] [place] [address] documented as of this encounter Visit Diagnoses Diagnosis Tooth pain Unspecified disorder of the teeth and supporting structures documented in this encounter Care Teams Size Marker Relationship Specialty Start Date End Date Jose Daniel Duke MD [address] [place] [address] PCP - General Internal Medicine 10/07/11 documented as of this encounter
--- OUTSIDE RECORDS SUMMARY | 2024-10-23 10:57 | XMS_ITS | Clinical Summary ---
Author Organization [employer] Address [address] [facility] 7[address] [place] [address] Care Team Providers Care Satellite Technician Name Role Phone Jose Daniel Duke MD Primary Care Provider [phone]- [phone] Allergies No known active allergies Medications sodium chloride 0.9 % nebulizer solution with albuterol (5 MG/ML) 0.5% nebulizer solution 0.6 mg/mL Inhale 2 puffs. 6 Active aspirin 81 MG EC tablet Take 1 tablet by mouth at bed time. 8 Active Sod Fluoride-Potassi um Nitrate (PreviDent 5000 Enamel Protect) 1.1-5 % gel use to brush teeth 2 times a day 7 Active loratadine (Claritin) 10 MG tablet Take 1 tablet by mouth at bed time. 0 Active albuterol (2.5 MG/3ML) 0.083% nebulizer solution INHALE ONE AMPULE USING A NEBULIZER EVERY 4 TO 6 HOURS NEEDED SHORTNESS OF BREATH OR FOR WHEEZING 2 Active escitalopram (Lexapro) 10 MG tablet Take 10 mg by mouth in the morning. 2 Active melatonin 5 MG tablet Take 2 tablets by mouth at bedtime. 2 Active traZODone (Desyrel) 150 MG tablet Take 150 mg by mouth if needed at bedtime. 2 Active Ventolin HFA 108 (90 Base) MCG/ACT inhaler INHALE TWO PUFFS EVERY 6 HOURS NEEDED 2 Active amoxicillin (Amoxil) 500 MG capsuleIndicatio ns:Tooth pain TAKE ONE CAPSULE EVERY 8 HOURS UNTIL FINISHED 21 capsule 3 Active Additional Information Patient not taking.Reported on 02/20/2023 ibuprofen 800 MG tablet TAKE ONE TABLET ONCE DAILY NEEDED 30 tablet 3 Active Ventolin HFA 108 (90 Base) MCG/ACT inhalerIndicatio ns:Moderate persistent asthma without complication INHALE TWO PUFFS EVERY 6 HOURS NEEDED 18 g 3 3 Active omeprazole (PriLOSEC) [address] capsule Take 1 capsule (20 mg) by mouth before breakfast. 30 capsule 5 4 Active hydrocortisone (West-Declan) 0.2 % cream Apply topically 2 times daily. apply by topical route 2 times every day to the affected area(s) 45 g 4 Active tacrolimus (Protopic) 0.03 % ointmentIndicati ons:Periorbital dermatitis Apply topically 2 times daily. 30 g 4 09/10/20 25 Active Active Problems Problem Noted Date Diagnosed Date Pain of breast 02/22/2018 Fibromyalgia 10/12/2016 Osteoarthritis 10/12/2016 Peripheral venous insufficiency 10/12/2016 Asthma 11/14/2012 Encounters Date Type Department Care Team Description 09/26/2024 9:30 AM EST Office Visit [facility] [address] [place] [address] Nivia Ramesh DDS 09/20/2024 11:00 AM EST Office Visit [facility] [address] [place] [address] Nivia Ramesh DDS 09/10/2024 11:45 AM EST Office Visit [facility] [address] [place] [address] Jose Daniel Duke MD Periorbital dermatitis (Primary Dx) 09/10/2024 Travel 08/21/2024 Telephone [facility] [address] [place] [address] Jose Daniel Duke MD 08/06/2024 Refill [facility] [address] [place] [address] Jose Daniel Duke MD from Last 3 Months Immunizations Name Administration Dates Next Due Influenza injectable quadriv alent IIV4 with preservative 07/01/2019,06/21/2018,07/01/2016,2014 Influenza injectable quadriv alent preservative free 07/27/2022,07/30/2020,06/21/2017 Influenza, IIV3, injectable 06/05/2014 Influenza, Split (incl. kimberlee fied surface antigen) 06/11/2013 Pneumococcal Conjugate PCV 20 04/18/2024 Tdap 06/17/2015 Zoster, Recombinant 01/24/2023,11/21/2022 Social History Tobacco Use Types Packs/Day Years Used Date Smoking Tobacco: Never Smokeless Tobacco: Never Tobacco Cessation:Counseling Given: Not Answered Depression Answer Date Recorded Patient Health Questionnaire-9 Score 3 04/18/2024 Patient Health Questionnaire-9 Score 3 04/18/2024 Last PHQ-9: Questionnaire Data Not on file 0 04/18/2024 Depression Answer Date Recorded Patient Health Questionnaire-2 Score 1 04/18/2024 Comments Unknown Sex and Gender Information Value Date Recorded Sex Assigned at Female 07/18/2022 10:14 AM EDT Legal Sex Female 10:14 AM EDT Gender Identity Female 07/18/2022 10:14 AM EDT Sexual Orientation Straight 07/18/2022 10 :14 AM EDT Last Filed Vital Signs Vital Sign Reading Time Taken Comments Blood Pressure 128/86 09/20/2024 10:55 AM EST Pulse 81 09/10/2024 11:38 AM EST Temperature 36.9 ??C (98.5 ??F) 09/10/2024 1 1:38 AM EST Respiratory Rate 12 09/10/2024 11:3 8 AM EST Oxygen Saturation 98% 09/10/2024 11: 38 AM EST Inhaled Oxygen Concentration - - Weight 92.4 kg (203 lb 12.8 oz) 024 11:38 AM EST Height 162.6 cm (5' 4 ) 09/10/2024 11:3 8 AM EST Body Mass Index 34.98 09/10/2024 11:38 AM EST Plan of Treatment Upcoming Encounters Date Type Department Care Team ([facility] st Contact Info) Description 12/09/2024 11:00 AM EDT Office Visit [facility] [address] [place] [address] Jose Daniel Duke MD [address] [place] [address] Health Maintenance Due Date Last Done Comments CT Colonography 1959 Colonoscopy 1959 Dental X-Ray: Full Mouth 1959 FIT 1959 FOBT 1959 SDOH Screening 1960 Sigmoidoscopy 1959 Alcohol/Substance Use Screening 1971 RSV Patients and Patients Aged 60 years or older (1 - Risk 60-74 years 1-dose series) 2019 COVID-19 Vaccine ( season) 2024 08/05/2021, 01/12/2021, 12/15/2020 Influenza Vaccine (#1) 2024 , 07/30/2020, 07/01/2019, Additional history exists Dental Oral Exam 06/08/2024 12/06/2023 Dental Prophylaxis 06/08/2024 12/06/2023 Dental X-Ray: Bitewings 12/06/2024 12/06/2023 Depression Screening 04/18/2025 04/18/2024, 04/18/20 DTaP/Tdap/Td Vaccines (2 - Td or Tdap) 06/17/2025 06/17/2015 Tobacco Screening 09/26/2025 09/26/2024 Lipid Panel 11/24/2025 11/24/2020 Cervical Cancer Screening 04/20/2026 HPV/Cotest 04/20/2026 04/20/2021, 06/13/2017 Pap Smear 04/20/2026 04/20/2021 Mammogram 05/16/2026 05/16/2024, 04/19, 04/29/2022, Additional history exists Colorectal Cancer Screening 04/25/2027 FIT DNA/Cologuard 04/25/2027 04/25/2024 Zoster Vaccines Completed 01/24/2023, 11/21/2022 Hepatitis C Screening Completed 12/13/2023 Pneumococcal Vaccine: 50+ Years Completed 04/18/2024 HIB Vaccines Aged Out No longer eligi ble based on patient's age to complete this topic HPV Vaccines Aged Out No longer eligi ble based on patient's age to complete this topic Hepatitis A Vaccines Aged Out No long er eligible based on patient's age to complete this topic Hepatitis B Vaccines Aged Out No long er eligible based on patient's age to complete this topic IPV Vaccines Aged Out No longer eligi ble based on patient's age to complete this topic Meningococcal Vaccine Aged Out No sanaz toy eligible based on patient's age to complete this topic RSV under 20 months Aged Out No longe r eligible based on patient's age to complete this topic Rotavirus Vaccines Aged Out No longer eligible based on patient's age to complete this topic Procedures Procedure Name Priority Date/Time Associated Diagnosis Comments PROSTHODONTICS (REMOVABLE) - REPAIRS TO PARTIAL DENTURES - REPAIR RESIN PARTIAL DENTURE BASE, MAXILLARY Routine 09/26/2024 9:30 AM EST NO CHARGE PROCEDURE Routine 09/20/2024 1 1:00 AM EST 12,14,15,7,2,3,4,6 PARTIAL DENTURE - RESIN Routine 09/20/2024 12:00 AM EST BI MAMMOGRAM SCREENING TOMOSYNTHESIS BILATERAL Routine 05/16/2024 8:00 AM EDT LAB COLOGUARD?? COLON CANCER SCREEN Routine 04/25/2024 8:15 AM EDT Screening for colon cancer HEPATITIS PANEL, GENERAL Routine 12/13/2023 8:14 AM EDT Full PROPHYLAXIS - ADULT Routine 12/06/2023 10:00 AM EDT BITEWINGS - 2 RADIOGRAPHIC IMAGES Routine 12/06/2023 10:00 AM EDT PERIODIC ORAL EVALUATION - ESTABLISHED PATIENT Routine 12/06/2023 10:00 AM EDT HPV MRNA E6/E7 Routine 04/20/2021 2:17 PM EDT THINPREP PAP Routine 04/20/2021 2:17 PM EDT ZZZ HISTORICAL LIPID PANEL Routine 11/24/2020 9:15 AM EST from Last 3 Months or Most Recently Relevant to Health Maintenance Results * BI Mammogram Screening Tomosynthesis Bilateral (05/16/2024 8:00 AM EDT) Anatomical Region Laterality Modality Breast Bilateral Mammography 05/16/2024 8:00 AM EDT Narrative 06/07/2024 8:45 PM EDT ? [facility] ? [address] ?[place] [address] ? Mammography Report ? Signed ? Patient: Ysabel Patterson N ? MR#: [id number] ? : 1960 ?Acct:[id number] ? Age/Sex: 63 / F ?ADM Date: 05/16/24 ? Loc: HO.MAMMO ? Attending Dr: Jose Daniel Duke MD ? Ordering Physician: Jose Daniel Duke MD ?Results: 2 ?? Benign Findings ? Date of Service: 05/16/24 ?Follow Up: 1 Year From Orig ?? inal Mammogram ? Procedure(s): MM tomosynthesis screening BI ?? Accession Number(s): [id number] ? cc: Jose Daniel Duke MD ? EXAMINATION: ?? MM SCREENING DIGITAL BREAST TOMOSYNTHESIS, BILATERAL ? CLINICAL INFORMATION: ? Screening. Asymptomatic. ? COMPARISON: ?? Mammography: Comparison is made with available priors ? TECHNIQUE: ?? Digital breast tomosynthesis is performed in both the craniocaudal and ?? mediolateral oblique views along with computer-aided detection (CAD). ? Synthesized 2D images are generated from the tomosynthesis. ? FINDINGS: ?? There are scattered areas of fibroglandular density (ACR BI-RADS breast ?? composition Category b). ?? Right marker clips. ?? There are no significant masses, abnormal calcifications, or other ?? abnormalities. ? MM/MM tomosynthesis screening BI ?? IMPRESSION: ?? No mammographic evidence of malignancy. ? ASSESSMENT: ? BI-RADS BI-RADS 2 - Benign Findings ? RECOMMENDATION: ?? Routine annual mammography screening. ? 1 year F/U ? This examination should not preclude the clinical evaluation of a ?? suspicious palpable abnormality. ? This patient's information was entered into a reminder system with a ?? target due date for their next mammogram. ? Electronically signed by: ??Geena Dillon DO ??06/07/2024 08:43 PM EDT ? Dictated By: ?Geena Dillon DO ? Signed By: ?<Electronically signed by Geena Dillon, DO in OV> ? 06/07/24 2043 ? DD/ 0800 ? TD/TT: 05/16/24 0815 ? Ferryboat Operator Helper: ? Procedure Note Nela, Image - 06/07/2024 [facility] [address] [place] [address] Mammography Report Signed Patient: Ysabel Patterson MR#: [id number] : 9Acct:[id number] Age/Sex: 63 / FADM Date: 05/16/24 Loc: HO.MAMMO Attending Dr: Jose Daniel Duke MD Ordering Physician: Jose Daniel Duke MDResults: 2 Benign Findings Date of Service: 05/16/24Follow Up: 1 Year From Orig inal Mammogram Procedure(s): MM tomosynthesis screening BI Accession Number(s): [id number] cc: Jose Daniel Duke MD EXAMINATION: MM SCREENING DIGITAL BREAST TOMOSYNTHESIS, BILATERAL CLINICAL INFORMATION: Screening. Asymptomatic. COMPARISON: Mammography: Comparison is made with available priors TECHNIQUE: Digital breast tomosynthesis is performed in both the craniocaudal and mediolateral oblique views along with computer-aided detection (CAD). Synthesized 2D images are generated from the tomosynthesis. FINDINGS: There are scattered areas of fibroglandular density (ACR BI-RADS breast composition Category b). Right marker clips. There are no significant masses, abnormal calcifications, or other abnormalities. MM/MM tomosynthesis screening BI IMPRESSION: No mammographic evidence of malignancy. ASSESSMENT: BI-RADS BI-RADS 2 - Benign Findings RECOMMENDATION: Routine annual mammography screening. 1 year F/U This examination should not preclude the clinical evaluation of a suspicious palpable abnormality. This patient's information was entered into a reminder system with a target due date for their next mammogram. Electronically signed by: Geena Dillon DO 06/07/2024 08:43 PM EDT Dictated By: Geena Dillon DO Signed By: <Electronically signed by Geena Dillon DO in OV> 06/07/242042 DD/ 0800 TD/TT: 05/16/24 0815 Ferryboat Operator Helper: Jose Daniel Duke MD IMG BI PROCEDURES Final Res ult * Cologuard?? colon cancer screening (04/25/2024 8:15 AM EDT) Cologuard Result Negative Negative 04/30/20 8:50 PM EDT for; to (do) (CLIA #:[id number]) Comment: NEGATIVE TEST RESULT. A negative Cologuard result indicates a low likelihood that a colorectal cancer (CRC) or advanced adenoma (adenomatous polyps with more advanced pre-malignant features) ??is present. The chance that a person with a negative Cologuard test has a colorectal cancer is less than 1 in 1500 (negative predictive value >99.9%) or has an ??advanced adenoma is less than ??5.3% (negative predictive value 94.7%). These data are based on a prospective cross-sectional study of 10,000 individuals at average risk for colorectal cancer who were screened with both Cologuard and colonoscopy. (Santiago Huang. ashkan al, N Engl J Med 2014;370(14):1286- 1297) The normal value (reference range) for this assay is negative. COLOGUARD RE-SCREENING RECOMMENDATION: Periodic colorectal cancer screening is an important part of preventive healthcare for asymptomatic individuals at average risk for colorectal cancer. ??Following a negative Cologuard result, the [place] Cancer Society and U.S. Multi-Society Task Force screening guidelines recommend a Cologuard re-screening interval of 3 years. References: [place] [employer] Guideline for Colorectal Cancer Screening: https://www.cancer.org/cancer/lxwom-phavdz-urqpwn/dzcjnryvl-kwhuscola-xuvzhtx/ac s-rec ommendations.html.; Johnny DK, Albertina MENDIETA, Jhoan VazquezK, Colorectal Cancer Screening: Recommendations for Physicians and Patients from the U.S. Multi-Society Task Force on Colorectal Cancer Screening , Am J Gastroenterology 2017; 112:9192-6485. TEST DESCRIPTION: Composite algorithmic analysis of stool DNA-biomarkers with hemoglobin immunoassay. ?? Quantitative values of individual biomarkers are not reportable and are not associated with individual biomarker result reference ranges. Cologuard is intended for colorectal cancer screening of adults of either sex, 45 years or older, who are at average-risk for colorectal cancer (CRC). Cologuard has been approved for use by the U.S. FDA. The performance of Cologuard was established in a cross sectional study of average-risk adults aged 50-84. Cologuard performance in patients ages 45 to 49 years was estimated by sub-group analysis of near-age groups. Colonoscopies performed for a positive result may find as the most clinically significant lesion: colorectal cancer [4.0%], advanced adenoma (including sessile serrated polyps greater than or equal to 1cm diameter) [20%] or non- advanced adenoma [31%]; or no colorectal neoplasia [45%]. These estimates are derived from a prospective cross-sectional screening study of 10,000 individuals at average risk for colorectal cancer who were screened with both Cologuard and colonoscopy. (Santiago Huang. ashkan al, N Engl J Med 2014;370(14):4700-1154.) Cologuard may produce a false negative or false positive result (no colorectal cancer or precancerous polyp present at colonoscopy follow up). A negative Cologuard test result does not guarantee the absence of CRC or advanced adenoma (pre-cancer). The current Cologuard screening interval is every 3 years. ([place] [employer] Society and U.S. Multi-Society Task Force). Cologuard performance data in a 10,000 patient pivotal study using colonoscopy as the reference method can be accessed at the following location: www.TripIt.Nearbox/results. Additional description of the Cologuard test process, warnings and precautions can be found at www.cologuard.com. Stool specimen (specimen) 04/25/2024 8:15 AM EDT 04/26/2024 10:40 AM EDT Jose Daniel Duke MD LAB MOLECULAR DIAGNOSTICS O RDERABLES Final Result Performing Organization Address [facility] Co de Phone Number for; to (do) (CLIA #:[id number]) [address] [place] [address], * Hepatitis Panel, General (12/13/2023 8:14 AM EDT) Hepatitis A IgM Nonreactive Nonreactive [facility] Comment:IgM antibodies to RONDON V not detected; does not exclude earlyacute or recovered HAV infection. ~Hepatitis B Surface Antibody NONREACTIVE Nonreactive [facility] Comment:Nonreactive: < 8.00 mIU/mL Hepatitis B Core Antibody Nonreactive Nonreactive [facility] Hepatitis C Antibody Nonreactive Nonreactive [facility] Comment:Antibodies to HCV no t detected; does not exclude early acuteHCV infection. Hepatitis B Surface Ag Negative Negative [facility] 12/13/2023 8:14 AM EDT 12/13/2023 8:14 AM EDT us Generic External Data Provider LAB BLOOD ORDERAB LES Final Result Performing Organization Address [facility] Co de Phone Number [facility] [address] [place] [address] [phone] * THINPREP PAP (04/20/2021 2:17 PM EDT) Clinical Information: None given [facility] COMMENT SEE COMMENT [facility] Comment: EXPLANATORY NOTE: ? The Pap is a screening test for cervical cancer. It is ?? not a diagnostic test and is subject to false negative ?? and false positive results. It is most reliable when a ?? satisfactory sample, regularly obtained, is submitted ?? with relevant clinical findings and history, and when ?? the Pap result is evaluated along with historic and ?? current clinical information. ?? Tufting Supervisor : SEE COMMENT [facility] Comment: RXB, CT(ASCP) CT screening location: [address] ??[address] Infection Fungal organisms morphologically consistent with Soco spp. [facility] Interpretation/R esult: Negative for intraepithelial lesion or malignancy. [facility] LMP: NONE GIVEN [facility] Prev. BX: NONE GIVEN [facility] Prev. PAP: NONE GIVEN [facility] SOURCE: None given [facility] Statement Of Adequacy: SEE COMMENT [facility] Comment: Satisfactory for evaluation. Endocervical/transformation zone component absent. 04/20/2021 2:17 PM EDT Jessica MCCOY LAB PATHOLOGY ORDERABLES Final Result [facility] [address] * HPV mRNA E6/E7 (04/20/2021 2:17 PM EDT) HPV nRNA E6/E7 Not Detected Not Detected [facility] Comment: Methodology: Customer Accounts Advisor-Mediated Amplification This assay detects E6/E7 viral messenger RNA (mRNA) from 14 high-risk HPV types (16,18,31,33,35,39,45,51,52,56,58,59,66,68). ? The analytical performance characteristics of this assay have been determined by [employer]. The modifications have not been cleared or approved by the FDA. This assay has been validated pursuant to the CLIA regulations and is used for clinical purposes. ?? For additional information, please refer to http://education.Venafi.Nearbox/faq/KYO140f6 (This link if provided for information/ educational purposes only.) 04/20/2021 2:17 PM EDT Jessica MCCOY LAB BLOOD ORDERABLES Jessy mead Result [facility] [address] * LIPID PANEL (11/24/2020 9:15 AM EST) Cholesterol 166 mg/dL [facility] Comment: Desirable Cholesterol: ?less than 200 mg/dL Borderline High Cholesterol: ??200-239 mg/dL High Cholesterol: ? greater than 239 mg/dL HDL Cholesterol 50 mg/dL [facility] Comment: Desirable HDL: ??greater than 40 mg/dL ?? Note: This HDL assay may give artificially ? low results in patients with liver disease. LDL Cholesterol Calculated 95 mg/dl [facility] Comment: Desirable LDL: ? less than 100 mg/dL Near Optimal/Above Optimal LDL: ??110-129 mg/dL Borderline High LDL: ? 130-159 mg/dL High LDL: ?160-189 mg/dL Very High LDL: ? greater than or equal to ?190 mg/dL Triglycerides 107 mg/dL [facility] Comment: Desirable Triglyceride: ? less than 150 mg/dL Borderline High Triglyceride ??150-199 mg/dL High Triglyceride: ?200-499 mg/dL Very High Triglyceride: ? greater than or equal to ? 5OO mg/dL 11/24/2020 9:15 AM EST us Historical Provider MD HISTORICAL/NON ORDERABLE LABS Final Result [facility] [address] [place] [address], from Last 3 Months or Most Recently Relevant to Health Maintenance Insurance [facility] MEDICAID STAND ADULT Care Teams Satellite Technician Relationship Specialty Start Date End Date Jose Daniel Duke MD [address] [place] [address] [place]ON[place] Suarez [address] PCP - General Internal Medicine 10/07/11
--- OUTSIDE RECORDS SUMMARY | 2024-10-23 10:57 | XMS_ITS | Encounter Summary ---
Author Organization [employer] [facility] Address [address] [place] [address] [address] [place] [address] Care Team Providers Care Stone Driller Name Role Phone Jose Daniel Duke MD Primary Care Provider [phone]- [phone] Encounter Details Date Type Department Care Team (Latest Contact Info) Description 09/25/2019 Abstract [facility] CONVERSIONS Dental, Provider, DDS Social History Tobacco Use Types Packs/Day Years Used Date Smoking Tobacco: Never Assessed Comments Unknown Sex and Gender Information Value [...] Description 12/09/2024 11:00 AM EDT Office Visit [facility] [address] [place] [address] Jose Daniel Duke MD [address] [place] [address] documented as of this encounter Visit Diagnoses Not on filedocumented in this encounter Care Teams Stone Driller Relationship Specialty Start Date End Date Jose Daniel Duke MD [address] [place] [address] PCP - General Internal Medicine 10/07/11 documented as of this encounter
--- OUTSIDE RECORDS SUMMARY | 2024-10-23 10:57 | XMS_ITS | Encounter Summary ---
Author Organization [employer] [facility] Address [address] [place] [address] [address] [place] [address] Care Team Providers Care Animal Damage Control Agent Name Role Phone Jose Daniel Duke MD Primary Care Provider [phone]- [phone] Encounter Details Date Type Department Care Team (Latest Contact Info) Description 03/05/2019 Abstract [facility] CONVERSIONS Dental, Provider, DDS Social History [...] Description 12/09/2024 11:00 AM EDT Office Visit [facility] [address] [place] [address] Jose Daniel Duke MD [address] [place] [address] documented as of this encounter Visit Diagnoses Not on filedocumented in this encounter Care Teams Animal Damage Control Agent Relationship Specialty Start Date End Date Jose Daniel Duke MD [address] [place] [address] PCP - General Internal Medicine 10/07/11 documented as of this encounter
--- OUTSIDE RECORDS SUMMARY | 2024-10-23 10:57 | XMS_ITS | Encounter Summary ---
Author Organization [employer] Address [address] [facility] [address]t [place] [address] Care Team Providers Care Analytics Manager Name Role Phone Jose Daniel Duke MD Primary Care Provider [phone]- [phone] Reason for Visit * Reason Onset Date Comments Dentures 02/22/2023 Encounter Details Date Type Department Care Team ([facility] st Contact Info) Description 02/22/2023 Telephone [facility] [address] [place] [address] Miguel Cohn, DDS [address] [place] [address] Dentures Social History Tobacco Use Types Packs/Day Years [...] suspected to have Coronavirus/COVID-19? No / Unsure 02/23/2023 10:53 AM EDT documented as of this encounter Miscellaneous Notes * Telephone Encounter - Marah Gomes - 02/22/2023 11:45 AM EDT Ysabel Ty 1960 Patient called in and wanted to know if partial is ready to get picked up please advise. documented in this encounter Plan of Treatment Upcoming Encounters Date Type Department Care Team (Late st Contact Info) Description 12/09/2024 11:00 AM EDT Office Visit [facility] [address] [place] [address] Jose Daniel Duke MD [address] [place] [address] documented as of this encounter Visit Diagnoses Not on filedocumented in this encounter Care Teams Analytics Manager Relationship Specialty Start Date End Date Jose Daniel Duke MD [address] [place] [address] PCP - General Internal Medicine 10/07/11 documented as of this encounter
--- OUTSIDE RECORDS SUMMARY | 2024-10-23 10:57 | XMS_ITS | Encounter Summary ---
Author Organization [employer] Address [address] [facility] 7t [place] [address] Care Team Providers Care Dimensional Engineer Name Role Phone Jose Daniel Duke MD Primary Care Provider +1 [phone] Reason for Visit * Reason Comments Dentures Encounter Details Date Type Department Care Team ([facility] st Contact Info) Description 09/26/2024 9:30 AM EST Office Visit [facility] ADULT DENTAL [address] [place] [address] Nivia Ramesh DDS [address] [place] [address] Social History Tobacco Use Types Packs/Day Years Used Date Smoking Tobacco: Never Smokeless Tobacco: Never Depression Answer Date Recorded Patient Health Questionnaire-9 [...] AM EDT documented as of this encounter Progress Notes * Nivia Ramesh DDS - 09/26/2024 9:30 AM EST Dental procedures in this visit [id number] - REPAIR RESIN PARTIAL DENTURE BASE, MAXILLARY (Completed) Service provider: Nivia Ramesh DDS Billing provider: Maynor Washington DMD Patient ID: Ysabel Ty is a 64 y.o. female. Time Out: Date: 09/26/2024 Location: [facility] Tooth: Maxilla Procedure: Dentures Verified the above with patient, medical practice assistant, and provider. Confirmed via patient's chart, intraorally and by radiographs. Chief Operations Officer: not applicable Upper acrylic partial denture repair insertion done by Dr. Nivia Ramesh DDS Medical history: Reviewed in EHR Vitals: There were no vitals taken for this visit. Allergies: Reviewed in EHR Medications: Reviewed in EHR - Upper acrylic partial repair denture insertion done. - Bite checked with articulating paper - Necessary adjustments made. - Denture maintenance kit and instructions given to patient. - Patient recalled after 48 hours for post denture insertion follow up. - Patient given instructions for maintenance of denture. - Patient demonstrated how to insert the dentures and take them out. Patient satisfied, left in stable condition NV: follow up after 48 hours. Provider: Dr. Nivia Ramesh DDS Sales Closer: Rakesh Toscano Supervising Dentist: Dr. Washington * Maynor Washington DMD - 09/26/2024 9:30 AM EST I have reviewed the documentation and dental procedures made by the rendering provider, Nivia Ramesh DDS, and approve their chart entries for this visit. Maynor Washington DMD documented in this encounter Plan of Treatment Upcoming Encounters Date Type Department Care Team (Late st Contact Info) Description 12/09/2024 11:00 AM EDT Office Visit [facility] MED & PEDS [address] [place] [address] Jose Daniel Duke MD [address] [place] [address] documented as of this encounter Procedures Procedure Name Priority Date/Time Associated Diagnosis Comments PROSTHODONTICS (REMOVABLE) - REPAIRS TO PARTIAL DENTURES - REPAIR RESIN PARTIAL DENTURE BASE, MAXILLARY Routine 09/26/2024 9:30 AM EST documented in this encounter Visit Diagnoses Not on filedocumented in this encounter Additional Health Concerns Assessment Noted Time PHQ-9 Depression Total Score: 3 04/18/20 24 11:01 AM EDT documented as of this encounter Care Teams Dimensional Engineer Relationship Specialty Start Date End Date Jose Daniel Duke MD [address] [place] [address] PCP - General Internal Medicine 10/07/11 documented as of this encounter
--- OUTSIDE RECORDS SUMMARY | 2024-10-23 10:57 | XMS_ITS | Encounter Summary ---
Author Organization [facility] Address [address] [place] [address] [address] [address] Care Team Providers Care Powder Line Repairer Name Role Phone Jose Daniel Duke MD Primary Care Provider +1- [phone] Encounter Details Date Type Department Care Team (Latest Contact Info) Description 06/24/2021 Abstract [facility] CONVERSIONS Dental, Provider, DDS Social History [...] Description 12/09/2024 11:00 AM EDT Office Visit [facility] CHC MED & PEDS [address] [place] [address] Jose Daniel Duke MD [address] [place] [address] documented as of this encounter Visit Diagnoses Not on filedocumented in this encounter Care Teams Powder Line Repairer Relationship Specialty Start Date End Date Jose Daniel Duke MD [address] [place] [address] PCP - General Internal Medicine 10/07/11 documented as of this encounter
--- OUTSIDE RECORDS SUMMARY | 2024-10-23 10:57 | XMS_ITS | Encounter Summary ---
Author Organization [employer] Address [address] [facility] [address] [address] Care Team Providers Care Logistics Solution Manager Name Role Phone Jose Daniel Duke MD Primary Care Provider +1- [phone] Reason for Visit * Reason Comments Med Refill Encounter Details Date Type Department Care Team (Late st Contact Info) Description 10/12/2022 Refill [facility] MEDICINE [address] [place], [place] [phone] Jose Daniel Duke MD [address] [place] [address] Moderate persistent asthma without complication (Primary Dx) Social History Tobacco Use Types Packs/Day Years [...] Description 12/09/2024 11:00 AM EDT Office Visit [facility] CHC MED & PEDS [address] [place] [address] Jose Daniel Duke MD [address] [place] [address] documented as of this encounter Visit Diagnoses Diagnosis Moderate persistent asthma without complication- Primary documented in this encounter Care Teams Logistics Solution Manager Relationship Specialty Start Date End Date Jose Daniel Duke MD [address] [place] [address] PCP - General Internal Medicine 10/07/11 documented as of this encounter
--- OUTSIDE RECORDS SUMMARY | 2024-10-23 10:57 | XMS_ITS | Clinical Summary ---
Author Organization [employer] [facility] Address [address] [place] [address] Care Team Providers Care Cathode Washer Name Role Phone Unavailable Primary Care Provider Unavailabl e Social History Tobacco Use Types Packs/Day Years Used Date Smoking Tobacco: Never Assessed Sex and Gender Information Value Date Recorded Sex Assigned at Not on file Gender Identity Not on file Sexual Orientation Not on file Plan of Treatment Health Maintenance Due Date Last Done Comments Breast Cancer Screening 1959 DTaP,Tdap,and Td Vaccines (1 - Tdap) 1978 Cervical Cancer Screening: P ap Smear 1980 Zoster Vaccines (1 of 2) 2009 Cholesterol Screening (Lipid Panel) 08/28/2022 Colorectal Cancer Screening: Colonoscopy 08/28/2022 Depression Screening 08/28/2022 Hepatitis C Screening 08/28/2022 Osteoporosis Screening (Bone Density Screening) 08/28/2022 Social Influencers of Health Screening 08/28/2022 COVID-19 Vaccine ( - 2023-2 5 season) 2024 Influenza Vaccine (#1) 2024 07/27/2022 Falls Risk Assessment 2024 Pneumococcal Vaccine: 65+ Ye ars (1 of 1 - PCV) 2024 RSV Immunization Patients 60 + Years Old (1 - 1-dose 75+ series) 2034 HIB Vaccines Aged Out No longer eligi [...] on patient's age to complete this topic MMR Vaccines Aged Out No longer eligi ble based on patient's age to complete this topic Meningococcal ACWY Vaccine Aged Out N o longer eligible based on patient's age to complete this topic Pneumococcal Vaccine: Pediat rics (0 to 5 Years) and At-Risk Patients (6 to 64 Years) Aged Out No longer eligi ble based on patient's age to complete this topic RSV Immunization Patients Un candice 20 months Aged Out No longer eligible b ased on patient's age to complete this topic Varicella Vaccines Aged Out No longer eligible based on patient's age to complete this topic
--- OUTSIDE RECORDS SUMMARY | 2024-10-23 10:57 | XMS_ITS | Encounter Summary ---
Author Organization [email or web address] Address [address] [facility] 7[address] [place] [address] Care Team Providers Care Enthone Solder Stripper Name Role Phone Jose Daniel Duke MD Primary Care Provider +1- [phone] Reason for Visit * Reason Comments Dentures Upper partial repair Encounter Details Date Type Department Care Team ([facility] st Contact Info) Description 09/20/2024 11:00 AM EST Office Visit [facility] ADULT DENTAL [address] [place] [address] Nivia Ramesh DDS [address] [place] [address] Social History Tobacco Use Types Packs/Day Years [...] AM EDT documented as of this encounter Last Filed Vital Signs Vital Sign Reading Time Taken Comments Blood Pressure 128/86 09/20/2024 10:55 AM EST Pulse - - Temperature - - Respiratory Rate - - Oxygen Saturation - - Inhaled Oxygen Concentration - - Weight - - Height - - Body Mass Index - - documented in this encounter Progress Notes * Nivia Ramesh DDS - 09/20/2024 11:00 AM EST Dental procedures in this visit D9999.5 - NO CHARGE PROCEDURE (Completed) Service provider: Nivia Ramesh DDS Billing provider: Christina Joyce DDS Patient ID: Ysabel Ty is a 64 y.o. female. Time Out: Date: 09/20/2024 Location: [facility] Tooth: Maxilla Procedure: Exam Verified the above with patient, health assistant, and provider. Confirmed via patient's chart, intraorally and by radiographs. Corporation Lawyer: not applicable 64 y.o. y/o female presents for limited exam with Dr. Nivia Ramesh DDS Medical history: Reviewed in EHR Vitals: Blood pressure 128/86. Allergies: Reviewed in EHR Medications: Reviewed in EHR Radiographs taken: none taken CHIEF COMPLAINT: my denture has a crack and its braking Discussion: During visit clinical evaluation was done. Upon evaluation it was noted upper acrylic partial denture broken on #6 & #7. PT was informed that denture need to be send to the lab for repair. However, since its Monday denture wont be back until Monday. Pt was given option to come backon Monday to drop denture for repair in order for her not to spend the weekend without it. Pt stated preferring waiting on Monday to repair denture. Denture will be [facility] to [facility] on Monday for repair. Update: on 09/23/2024 denture where drop and sent to the lab for repair. NV: drop denture for repair Provider: Dr. Nivia Ramesh DDS Dental Head Of Music: Teddy Attending: Dr. Bess * Christina Joyce DDS - 09/20/2024 11:00 AM EST I have reviewed the documentation and dental procedures completed by the rendering provider, Nivia Ramesh DDS, and approve their chart entries for this visit. KIERA Cabrera DDS documented in this encounter Plan of Treatment Upcoming Encounters Date Type Department Care Team (Late st Contact Info) Description 12/09/2024 11:00 AM EDT Office Visit [facility] MED & PEDS [address] [place] [address] Jose Daniel Duke MD [address] [place] [address] Scheduled Orders Name Type Priority Associated Diagnoses Orde r Schedule DENTAL LAB DENTURES AND PARTIALS Dental Routine Ordered: 025 documented as of this encounter Procedures Procedure Name Priority Date/Time Associated Diagnosis Comments NO CHARGE PROCEDURE Routine 09/20/2024 11:00 AM EST 12,14,15,7,2,3,4,6 PARTIAL DENTURE - RESIN Routine 09/20/2024 12:00 AM EST documented in this encounter Visit Diagnoses Not on filedocumented in this encounter Additional Health Concerns Assessment Noted Time PHQ-9 Depression Total Score: 3 04/18/20 24 11:01 AM EDT documented as of this encounter Care Teams Enthone Solder Stripper Relationship Specialty Start Date End Date Jose Daniel Duke MD [address] [place] [address] PCP - General Internal Medicine 10/07/11 documented as of this encounter
--- OUTSIDE RECORDS SUMMARY | 2024-10-23 10:57 | XMS_ITS | Encounter Summary ---
Author Organization [facility] Address [address] [facility] [address] [place] [address] Care Team Providers Care Supervisor Sound Technician Name Role Phone Jose Daniel Duke MD Primary Care Provider +1- [phone] Encounter Details Date Type Department Care Team (Late st Contact Info) Description 10/12/2022 Orders Only [facility] MED & PEDS [address] [place] [address] Mar Abreu LPN Social History Tobacco Use Types Packs/Day Years [...] 11:00 AM EDT Office Visit [facility] MED & PEDS [address] [place] [address] Jose Daniel Duke MD [address] [place] [address] documented as of this encounter Visit Diagnoses Not on filedocumented in this encounter Care Teams Supervisor Sound Technician Relationship Specialty Start Date End Date Jose Daniel Duke MD [address] [place] [address] PCP - General Internal Medicine 10/07/11 documented as of this encounter
[2024-10-23 11:14] LABS: Hemoglobin 13.3 g/dl (12.0-16.0); Mean Corpuscular HGB Conc 32.4 g/dl (31.0-35.0); Mean Corpuscular Hemoglobin 27.5 pg (27.0-33.0); Mean Corpuscular Volume 84.7 fL (80.0-98.0); Mean Platelet Volume 9.1 fL (9.4-12.3); Platelet Count 241 X10*3/uL (160-400); Red Blood Count 4.84 X10*6/uL (4.20-5.50); Red Cell Distribution Width 15.4 % (11.0-16.0); White Blood Count 9.5 X10*3/uL (4.8-10.8)
[2024-10-23 11:17] LABS: Prothrombin Time 11.4 SEC (10.9-12.4)
[2024-10-23 11:37] LABS: Alanine Aminotransferase 28 U/L (0-31); Albumin Level 3.9 g/dL (3.5-5.0); Alkaline Phosphatase 61 U/L (39-117); Aspartate Amino Transferase 33 U/L (5-31); Bilirubin Direct 0.2 mg/dL (0.0-0.5); Bilirubin Total 0.4 mg/dL (0.0-1.0); Total Protein 7.1 g/dL (6.5-8.0)
[2024-10-25 11:14] LABS: Immunoglobulin A 335 mg/dL (70-320); Immunoglobulin G 1022 mg/dL (600-1540); Immunoglobulin M 92 mg/dL (50-300)
[2024-10-25 14:53] LABS: Transglutaminase IgA <1.0 U/mL
[2024-10-28 00:09] LABS: Liver Kidney Microsomal Ab <=20.0 U (<=20.0)
[2024-10-29 05:29] LABS: Smooth Muscle Antibody <20 U (<20)
[2024-10-29 12:48] LABS: Mitochondrial Antibodies NEGATIVE (NEGATIVE)
[2024-10-30 14:19] LABS: Anti Nuclear Antibody Screen POSITIVE (NEGATIVE)
[2024-11-01 10:47] LABS: Phosphatidylethanol 16:0-18:1 NEGATIVE; Phosphatidylethanol 16:0-18:2 NEGATIVE
== END 2024-10-23 08:56 | disposition home or self-care (01) ==
LOC: HO.LAB 08:55
PROVIDERS: PCP Internal Medicine; Visit Provider Internal Medicine
DX: R76.8 Other specified abnormal immunological findings in serum (principal); D73.89 Other diseases of spleen; K83.8 Other specified diseases of biliary tract; R74.8 Abnormal levels of other serum enzymes
CPT/HCPCS: 36415; 80076; 80321; 82784; 85027; 85610; 86015; 86038; 86039; 86364; 86376; 86381; 99212

== ENCOUNTER → 2024-10-30 08:09 | Outpatient (BNV) | payer OTHER, SELFPAY | PROVIDERS: PCP Internal Medicine; Visit Provider Radiology Diagnostic Radiology | DX: D73.89 Other diseases of spleen (principal); R16.0 Hepatomegaly, not elsewhere classified; K42.9 Umbilical hernia without obstruction or gangrene | CPT/HCPCS: 74183 ==

== ENCOUNTER 2024-10-30 08:10 | Outpatient (REF) | payer OTHER, SELFPAY ==
--- NOTE | ~2024-10-30 | MR_ITS ---
EXAMINATION: MR ABDOMEN WITHOUT AND WITH CONTRAST CLINICAL INFORMATION: Other disease in the spleen COMPARISON: Correlated to ultrasound dated December 13, [address] dated January 29, 2023. TECHNIQUE: MR abdomen was performed without and with use of 10.0 mL intravenous gadolinium based contrast without reported immediate complications. Postcontrast images are performed in multiphase dynamic sequences. Imaging was performed in 3 planes. FINDINGS: LUNG BASES: No enhancing lesion. LIVER, GALLBLADDER, AND BILIARY TREE: Liver measures 16 cm. No focal enhancing mass. Portal veins, hepatic veins and intrahepatic portion of the IVC are patent. Mild intrahepatic biliary ductal dilatation. Status post cholecystectomy. Common bile duct measures 10 mm in maximum diameter with abrupt cut off at the junction with the second portion of the duodenum. No intraluminal enhancing lesion or filling defects. PANCREAS: No focal mass. No main pancreatic ductal dilatation. No peripancreatic fluid collections. SPLEEN: 9 cm. Heterogeneous enhancement without focal mass. ADRENAL GLANDS: No nodular lesions. KIDNEYS AND URETERS: No renal mass. No hydronephrosis. Normal enhancement pattern of the renal parenchyma. GASTROINTESTINAL TRACT: Abundant stool. No intestinal obstruction pattern. No ascites. ABDOMINAL WALL: Small fat-containing umbilical hernia. LYMPH NODES: No lymphadenopathy. VASCULAR: No aneurysm or dissection, abdominal aorta. OSSEOUS STRUCTURES: Multilevel thoracolumbar spondylosis. Probable intraosseous hemangioma, L3 vertebra. MR/MR abdomen wo/w con IMPRESSION: Common bile duct measures 10 mm. Questionable sphincter of Oddi stricture/stenosis. No choledocholithiasis. No focal mass, spleen. Mild hepatomegaly. Small fat-containing umbilical hernia. Electronically signed by: Armani Blair MD 10/30/2024 11:44 AM EST
--- OUTSIDE RECORDS SUMMARY | 2024-10-30 08:24 | XMS_ITS | Encounter Summary ---
Author Organization [employer] Address [address] [facility] [address] 7t [place] [address] Care Team Providers Care Associate Professor Of Literature Name Role Phone Jose Daniel Duke MD Primary Care Provider +1- [phone] Reason for Visit * Reason Comments Med Refill Encounter Details Date Type Department Care Team ([facility] st Contact Info) Description 12/29/2022 Refill [facility] CHC ADULT DENTAL [address] [place] [address] Miguel Cohn DDS [address] [place] [address] Tooth pain Social History Tobacco Use Types [...] Description 12/09/2024 11:00 AM EDT Office Visit [facility] MED & PEDS [address] [place] [address] Jose Daniel Duke MD [address] [place] [address] documented as of this encounter Visit Diagnoses Diagnosis Tooth pain Unspecified disorder of the teeth and supporting structures documented in this encounter Care Teams Associate Professor Of Literature Relationship Specialty Start Date End Date Jose Daniel Duke MD [address] [place] [address] PCP - General Internal Medicine 10/07/11 documented as of this encounter
--- OUTSIDE RECORDS SUMMARY | 2024-10-30 08:24 | XMS_ITS | Encounter Summary ---
Author Organization [employer] Address [address] 7[address] [place] [address] Care Team Providers Care Automotive Project Engineer Name Role Phone Jose Daniel Duke MD Primary Care Provider +1- [phone] Encounter Details Date Type Department Care Team (Late Contact Info) Description 07/12/2023 Telephone C [facility]C ADULT DENTAL [address] [place] [address] Miguel Cohn DDS [address] [place] [address] Social History Tobacco Use Types Packs/Day Years [...] Description 12/09/2024 11:00 AM EDT Office Visit [facility] MED & PEDS [address] [place] [address] Jose Daniel Duke MD [address] [place] [address] documented as of this encounter Visit Diagnoses Not on filedocumented in this encounter Care Teams Automotive Project Engineer Relationship Specialty Start Date End Date Jose Daniel Duke MD [address] [place] [address] PCP - General Internal Medicine 10/07/11 documented as of this encounter
--- OUTSIDE RECORDS SUMMARY | 2024-10-30 08:24 | XMS_ITS | Encounter Summary ---
Author Organization [employer] Address [address] [facility] 7t [place] [address] Care Team Providers Care Tractor Engine Assembler Name Role Phone Jose Daniel Duke MD Primary Care Provider +1- [phone] Encounter Details Date Type Department Care Team (Late st Contact Info) Description 08/31/2023 Abstract [facility] ADULT DENTAL [address] [place] [address] Miguel Cohn DDS [address] [place] [address] Social History Tobacco Use Types Packs/Day Years [...] 11:00 AM EDT Office Visit [facility] MED & PEDS [address] [place] [address] Jose Daniel Duke MD [address] [place] [address] documented as of this encounter Visit Diagnoses Not on filedocumented in this encounter Care Teams Tractor Engine Assembler Relationship Specialty Start Date End Date Jose Daniel Duke MD [address] [place] [address] PCP - General Internal Medicine 10/07/11 documented as of this encounter
--- OUTSIDE RECORDS SUMMARY | 2024-10-30 08:24 | XMS_ITS | Encounter Summary ---
Author Organization [employer] [facility] Address [address] [facility] [address] [place] [address] Care Team Providers Care Global Cmo Name Role Phone Jose Daniel Duke MD Primary Care Provider +1- [phone] Encounter Details Date Type Department Care Team (Late st Contact Info) Description 10/23/2024 Orders Only GENERIC EXTERNAL DATA DEPARTMENT Provider, Generic External Data Social History Tobacco Use Types Packs/Day Years [...] Description 12/09/2024 11:00 AM EDT Office Visit [facility] CHC MED & PEDS [address] [facility] [place] [address] Jose Daniel Duke MD 505 [place] [address] Pending Results Name Type Priority Associated Diagnoses Date /Time Immunoglobulin G Lab Routine 10/23/19 10:19 AM EST Immunoglobulin A Lab Routine 02/05/20 25 10:19 AM EST Immunoglobulin M Lab Routine 10/23/19 10:19 AM EST Tissue Transglutaminase Antibody, IgA Lab Routine 10/23/2024 10:19 AM EST Liver Kidney Microsomal (LKM-1) Antibody??(IgG) Lab Routine 10/23/19 25 10:19 AM EST Actin (Smooth Muscle) Antibody (IgG) Lab Routine 10/23/2024 10:19 AM EST Mitochondrial Antibody with Reflex to Titer Lab Routine 10/23/2024 10:19 AM EST documented as of this encounter Procedures Procedure Name Priority Date/Time Associated Diagnosis Comments ACTIN (SMOOTH MUSCLE) ANTIBODY (IGG) Routine 10/23/2024 10:19 AM EST TISSUE TRANSGLUTAMINASE AB, IGA Routine 10/23/2024 10:19 AM EST LIVER KIDNEY MICROSOME (LKM-1) AB (IGG) Routine 10/23/2024 10:19 AM EST MITOCHONDRIAL ANTIBODY WITH REFLEX TO TITER Routine 10/23/2024 10:19 AM EST PROTHROMBIN TIME-INR Routine 10/23/2024 10:19 AM EST CBC Routine 10/23/2024 10:19 AM EST IMMUNOGLOBULIN A Routine 10/23/2024 10:1 9 AM EST IGM Routine 10/23/2024 10:19 AM EST IMMUNOGLOBULIN G Routine 10/23/2024 10:1 9 AM EST HEPATIC FUNCTION PANEL Routine 10:19 AM EST documented in this encounter Results * (ABNORMAL) Hepatic Function Panel (10/23/2024 10:19 AM EST) Bilirubin, Total 0.4 0.0 - 1.0 mg/dL [facility] Bilirubin, Direct 0.2 0.0 - 0.5 mg/dL [facility] Aspartate Amino Transferase 33(H) 5 - 31 U/L [facility] Alanine Aminotransferase 28 0 - 31 U/L [facility] Total Protein 7.1 6.5 - 8.0 g/dL [facility] Albumin Level 3.9 3.5 - 5.0 g/dL [facility] Alkaline Phosphatase 61 39 - 117 U/L [facility] 10/23/2024 10:1 9 AM EST 10/23/2024 10:19 AM EST us Generic External Data Provider LAB BLOOD ORDERAB LES Final Result Performing Organization Address City/[facility]/ZIP Co de Phone Number [facility] [address] [place] [phone] * Prothrombin Time-INR (10/23/2024 10:19 AM EST) Prothrombin Time 11.4 10.9 - 12.4 SEC [facility] INTERNATIONAL NORM RATIO 1.0 0.9 - 1.1 [facility] Comment:INTERNATIONAL NORMAL IZED RATIO (INR) REFERENCE RANGES Reference RangeFor patients not on anticoagulant therapy: 0.9 - 1.1INR ranges for oral anticoagulanttherapy:For prevention and treatment of venous thrombosis and pulmonary embolism: 2.0 - 3.0For acute myocardial infarction with aspirin therapy: 2.0 - 3.0For acute myocardial infarction without aspirin therapy: 3.0 - 4.0For patients with mechanical prosthetic heart valves: 2.5 - 3.5 10/23/2024 10:1 9 AM EST 10/23/2024 10:19 AM EST Generic External Data Provider LAB BLOOD ORDERAB LES Final Result Performing Organization Address City/[facility]/ZIP Co de Phone Number [facility] [address] [place] [phone] * (ABNORMAL) CBC (10/23/2024 10:19 AM EST) White Blood Count 9.5 4.8 - 10.8 X10*3/uL [facility] Red Blood Count 4.84 4.20 - 5.50 X10*6/uL [facility] Hemoglobin 13.3 12.0 - 16.0 g/dl [facility] Hematocrit 41.0 37.0 - 47.0 % [facility] Mean Corpuscular Volume 84.7 80.0 - 98.0 fL [facility] Mean Corpuscular Hemoglobin 27.5 27.0 - 33.0 pg [facility] Mean Corpuscular HGB Conc 32.4 31.0 - 35.0 g/dl [facility] Red Cell Distribution Width 15.4 11.0 - 16.0 % [facility] Platelet Count 241 160 - 400 X10*3/uL [facility] Mean Platelet Volume 9.1(L) 9.4 - 12.3 fL [facility] NRBC Pct Auto 0.0 0.0 - 0.2 /100WBC [facility] NRBC Abs Auto 0.000 0.0 - 0.012 X10*3/uL [facility] 10/23/2024 10:1 9 AM EST 10/23/2024 10:19 AM EST us Generic External Data Provider LAB BLOOD ORDERAB LES Final Result [facility] [address] [place] [phone] [phone] documented in this encounter Visit Diagnoses Not on filedocumented in this encounter Additional Health Concerns Assessment Noted Time PHQ-9 Depression Total Score: 3 04/18/20 24 11:01 AM EDT documented as of this encounter Care Teams Global Cmo Relationship Specialty Start Date End Date Jose Daniel Duke MD [address] [place] [address] PCP - General Internal Medicine 10/07/11 documented as of this encounter
--- OUTSIDE RECORDS SUMMARY | 2024-10-30 08:25 | XMS_ITS | Encounter Summary ---
Author Organization [employer] [facility] Address [address] [place] [address] [address] [address] Care Team Providers Care Security Sales Manager Name Role Phone Jose Daniel Duke MD Primary Care Provider +1- [phone] Encounter Details Date Type Department Care Team (Latest Contact Info) Description 09/25/2019 Abstract [facility] CONVERSIONS Dental, Provider, DDS Social History Tobacco [...] Description 12/09/2024 11:00 AM EDT Office Visit [facility] CHC MED & PEDS [address] [place] [address] Jose Daniel Duke MD [address] [place] [address] documented as of this encounter Visit Diagnoses Not on filedocumented in this encounter Care Teams Security Sales Manager Relationship Specialty Start Date End Date Jose Daniel Duke MD [address] [place] [address] PCP - General Internal Medicine 10/07/11 documented as of this encounter
--- OUTSIDE RECORDS SUMMARY | 2024-10-30 08:25 | XMS_ITS | Encounter Summary ---
Author Organization [employer] Address [address] [facility] 7t [place] [address] Care Team Providers Care Grass Farmer Name Role Phone Jose Daniel Duke MD Primary Care Provider +1- [phone] Reason for Visit * Reason Onset Date Comments Dentures 02/22/2023 Encounter Details Date Type Department Care Team ([facility] st Contact Info) Description 02/22/2023 Telephone C [facility] ADULT DENTAL [address] [place] [address] Miguel Cohn, DDS [address] [place] [address] Dentures Social History Tobacco Use Types Packs/Day [...] [facility] [address] [place] [address] Jose Daniel Duke MD [address] [place] [address] documented as of this encounter Visit Diagnoses Not on filedocumented in this encounter Care Teams Grass Farmer Relationship Specialty Start Date End Date Jose Daniel Duke MD [address] [place] [address] PCP - General Internal Medicine 10/07/11 documented as of this encounter
--- OUTSIDE RECORDS SUMMARY | 2024-10-30 08:25 | XMS_ITS | Encounter Summary ---
Author Organization [employer] [facility] Address [address] [place] [address] [address] [address] Care Team Providers Care Immunology Teacher Name Role Phone Jose Daniel Duke MD Primary Care Provider +1- [phone] Encounter Details Date Type Department Care Team (Latest Contact Info) Description 06/24/2021 Abstract [facility] CONVERSIONS Dental, Provider, DDS Social History [...] Description 12/09/2024 11:00 AM EDT Office Visit [facility] CHC MED & PEDS [address] [place] [address] Jose Daniel Duke MD [address] [place] [address] documented as of this encounter Visit Diagnoses Not on filedocumented in this encounter Care Teams Immunology Teacher Relationship Specialty Start Date End Date Jose Daniel Duke MD [address] [place] [address] PCP - General Internal Medicine 10/07/11 documented as of this encounter
--- OUTSIDE RECORDS SUMMARY | 2024-10-30 08:25 | XMS_ITS | Clinical Summary ---
Author Organization [employer] [facility] it Address [address] [place] [address] Care Team Providers Care Hourly Shift Manager Name Role Phone Unavailable Primary Care Provider Unavailabl e Social History Tobacco Use Types Packs/Day Years Used Date Smoking Tobacco: Never Assessed Comments Unknown Sex and Gender Information Value Date Recorded Sex Assigned at Not on file Legal Sex Female 3:17 PM EST Gender Identity Not on file Sexual Orientation [...] 07/27/2022 Falls Risk Assessment 2024 Pneumococcal Vaccine: 50+ Ye ars (1 of 1 - PCV) [...]
--- OUTSIDE RECORDS SUMMARY | 2024-10-30 08:25 | XMS_ITS | Clinical Summary ---
Author Organization [employer] Address [address] [facility] [address] [place] [address] Care Team Providers Care Formwork Carpenter Name Role Phone Jose Daniel Duke MD Primary Care Provider +1- [phone] Allergies No known active allergies Medications sodium [...] Encounters Date Type Department Care Team Description 10/23/2024 Orders Only GENERIC EXTERNAL DATA DEPARTMENT Provider, Generic External Data 09/26/2024 9:30 AM EST Office Visit [facility] ADULT DENTAL [address] [place] [address] Nivia Ramesh DDS 09/20/2024 11:00 AM EST Office Visit [facility] ADULT DENTAL [address] [place] [address] Nivia Ramesh DDS 09/10/2024 11:45 AM EST Office Visit [facility] MED & PEDS [address] [place] [address] Jose Daniel Duke MD Periorbital dermatitis (Primary Dx) 09/10/2024 Travel 08/21/2024 Telephone [facility] PED[facility] [address] [place] [address] Jose Daniel Duke MD 08/06/2024 Refill [facility] [address] [place] [address] Jose Daniel Duke MD from Last 3 [...] Description 12/09/2024 11:00 AM EDT Office Visit [facility] MED & PEDS [address] [place] [address] Jose Daniel Duke MD [address] [place] [address] Health Maintenance Due Date Last Done Comments [...] Procedure Name Priority Date/Time Associated Diagnosis Comments MITOCHONDRIAL ANTIBODY WITH REFLEX TO TITER Routine 10/23/2024 10:19 AM EST ACTIN (SMOOTH MUSCLE) ANTIBODY (IGG) Routine 10/23/2024 10:19 AM EST LIVER KIDNEY MICROSOME (LKM-1) AB (IGG) Routine 10/23/2024 10:19 AM EST TISSUE TRANSGLUTAMINASE AB, IGA Routine 10/23/2024 10:19 AM EST IGM Routine 10/23/2024 10:19 AM EST IMMUNOGLOBULIN A Routine 10/23/2024 10:1 9 AM EST IMMUNOGLOBULIN G Routine 10/23/2024 10:1 9 AM EST HEPATIC FUNCTION PANEL Routine 10:19 AM EST PROTHROMBIN TIME-INR Routine 10/23/2024 10:19 AM EST CBC Routine 10/23/2024 10:19 AM EST PROSTHODONTICS (REMOVABLE) - REPAIRS TO PARTIAL DENTURES [...] for colon cancer HEPATITIS PANEL, GENERAL Routine 8:14 AM EDT Full PROPHYLAXIS - ADULT Routine 10:00 AM EDT BITEWINGS - 2 RADIOGRAPHIC IMAGES Routine 12/06/2023 10:00 AM EDT PERIODIC ORAL EVALUATION - ESTABLISHED PATIENT Routine 12/06/2023 10:00 AM EDT HPV MRNA E6/E7 Routine 04/20/2021 2:17 PM EDT THINPREP PAP Routine 04/20/2021 2:17 PM EDT ZZZ HISTORICAL LIPID PANEL Routine 11/24/2020 9:15 AM EST from Last 3 Months or Most Recently Relevant to Health Maintenance Results * Prothrombin Time-INR (10/23/2024 10:19 AM EST) Prothrombin Time 11.4 10.9 - 12.4 SEC [facility] INTERNATIONAL NORM RATIO 1.0 0.9 - 1.1 [facility] Comment:INTERNATIONAL NORMAL IZED RATIO (INR) [...] Provider LAB BLOOD ORDERAB LES Final Result [facility] [address] [place] [phone] * (ABNORMAL) CBC (10/23/2024 10:19 AM EST) White Blood Count 9.5 4.8 - 10.8 X10*3/uL [facility] Red Blood Count 4.84 4.20 - 5.50 X10*6/uL [facility] Hemoglobin 13.3 12.0 - 16.0 g/dl [facility] Hematocrit 41.0 37.0 - 47.0 % [facility] Mean Corpuscular Volume 84.7 80.0 - 98.0 fL [facility] Mean Corpuscular Hemoglobin 27.5 27.0 - 33.0 pg [facility] Mean Corpuscular HGB Conc 32.4 31.0 - 35.0 g/dl [facility] Red Cell Distribution Width 15.4 11.0 - 16.0 % [facility] Platelet Count 241 160 - 400 X10*3/uL [facility] Mean Platelet Volume 9.1(L) 9.4 - 12.3 fL [facility] NRBC Pct Auto 0.0 0.0 - 0.2 /100WBC [facility] NRBC Abs Auto 0.000 0.0 - 0.012 X10*3/uL [facility] 10/23/2024 10:1 9 AM EST 10/23/2024 10:19 AM EST us Generic External Data Provider LAB BLOOD ORDERAB LES Final Result [facility] [address] [place] [phone] * (ABNORMAL) Hepatic Function Panel (10/23/2024 10:19 AM EST) Bilirubin, Total 0.4 0.0 - 1.0 mg/dL [facility] Bilirubin, Direct 0.2 0.0 - 0.5 mg/dL [facility] Aspartate Amino Transferase 33(H) 5 - 31 U/L [facility] Alanine Aminotransferase 28 0 - 31 U/L [facility] Total Protein 7.1 6.5 - 8.0 g/dL [facility] Albumin Level 3.9 3.5 - 5.0 g/dL [facility] Alkaline Phosphatase 61 39 - 117 U/L [facility] 10/23/2024 10:1 9 AM EST 10/23/2024 10:19 AM EST us Generic External Data Provider LAB BLOOD ORDERAB LES Final Result [facility] [address] [place] [address] [phone] * BI Mammogram Screening Tomosynthesis Bilateral (05/16/2024 8:00 AM EDT) Anatomical Region Laterality Modality Breast Bilateral Mammography 05/16/2024 8:00 AM EDT Narrative 06/07/2024 8:45 PM EDT ? [facility] [place] ? [address] ?[place] [address] ? Mammography Report ? Signed ? Patient: Ysabel Patterson N ? MR#: [id number] ? : 1960 ?Acct:[id number] ? Age/Sex: 63 / F ?ADM Date: 05/16/24 ? Loc: HO.MAMMO ? Attending Dr: Jose Daniel Duke MD ? Ordering Physician: Jose Daniel Duke MD ?Results: 2 ?? Benign Findings ? Date of Service: 05/16/24 ?Follow Up: 1 Year From Orig ?? inal Mammogram ? Procedure(s): MM tomosynthesis screening BI ?? Accession Number(s): [id number] ? cc: Jose Daniel Duke MD ? [...] ??Geena Dillon DO ??06/07/2024 08:43 PM EDT ?? RP ? Dictated By: ?Geena Dillon DO ? Signed By: ?<Electronically signed by Geena Dillon, DO in OV> ? 06/07/242042 ? DD/ 0800 ? TD/TT: 05/16/24 0815 ? Court Operations Clerk: ? Procedure Note Nela, Image - 06/07/2024 [facility] [address] [place] [address] Mammography Report Signed Patient: Ysabel Patterson MR#: [id number] : 1960cct:[id number] Age/Sex: 63 / FADM Date: 05/16/24 Loc: HO.MAMMO Attending Dr: Jose Daniel Duke MD Ordering Physician: Jose Daniel Duke MDResults: 2 Benign Findings Date of Service: 05/16/24Follow Up: 1 Year From [facility] Mammogram Procedure(s): MM tomosynthesis screening BI Accession Number(s): [id number] cc: Jose Daniel Duke MD EXAMINATION: MM [...] Geena Dillon DO in OV> 06/07/242042 DD/ 9 TD/TT: 05/16/[address] Operations Clerk: us Jose Daniel Duke MD IMG BI PROCEDURES Final Res ult * Cologuard?? colon cancer screening (04/25/2024 8:15 AM EDT) [facility] Signature Cologuard Result Negative Negative 04/30/20 24 8:50 PM EDT [employer] (CLIA #:[id number]) Comment: NEGATIVE TEST RESULT. A negative Cologuard [...] screened with both Cologuard and colonoscopy. (Santiago Silver et al, N Engl J Med 2014;370(14):1286- 1297) The normal value (reference range) for this assay is negative. COLOGUARD RE-SCREENING RECOMMENDATION: Periodic colorectal cancer screening is an important part of preventive healthcare for asymptomatic individuals at average risk for colorectal cancer. ??Following a negative Cologuard result, the [place] [employer] Society and U.S. Multi-Society Task Force screening guidelines recommend a Cologuard re-screening interval of 3 years. References: [place] [employer] Guideline for Colorectal Cancer Screening: https://www.cancer.org/cancer/kaslz-jjwbdu-rzxycm/bdibrcsln-uxuiyjblo-cbpotvu/ac s-rec ommendations.html.; Johnny DK, Albertina CR, Jhoan VazquezK, Colorectal Cancer Screening: Recommendations for Physicians and Patients from the U.S. Multi-Society Task Force on Colorectal Cancer Screening , Am J Gastroenterology 2017; 112:5600-7949. TEST DESCRIPTION: Composite algorithmic analysis of stool [...] screened with both Cologuard and colonoscopy. (Santiago Mehta al, N Engl J Med 2014;370(14):6403-3863.) Cologuard may produce a false negative or false positive result (no colorectal cancer or precancerous polyp present at colonoscopy follow up). A negative Cologuard test result does not guarantee the absence of CRC or advanced adenoma (pre-cancer). The current Cologuard screening interval is every 3 years. ([place] [employer] and U.S. Multi-Society Task Force). Cologuard performance data in a 10,000 patient pivotal study using colonoscopy as the reference method can be accessed at the following location: www.[employer].[facility]/results. Additional description of the Cologuard test process, warnings and precautions can be found at www.[employer] Enterprises[employer]uard.com. Stool specimen (specimen) 04/25/2024 8:15 AM EDT 04/26/2024 10:40 AM EDT Jose Daniel Duke MD LAB MOLECULAR DIAGNOSTICS O RDERABLES Final Result [employer] (CLIA #:[id number]) [place] [address], * Hepatitis Panel, General (12/13/2023 8:14 AM EDT) Hepatitis A IgM Nonreactive Nonreactive [facility] Comment:IgM antibodies to RONDON V not detected; does not exclude earlyacute or recovered HAV infection. ~Hepatitis B Surface Antibody NONREACTIVE Nonreactive [facility] Comment:Nonreactive: < 8.00 mIU/mL Hepatitis B Core Antibody Nonreactive Nonreactive [facility] Hepatitis C Antibody Nonreactive Nonreactive [facility] Comment:Antibodies to HCV no t detected; does not exclude early acuteHCV infection. Hepatitis B Surface Ag Negative Negative [facility] 12/13/2023 8:14 AM EDT 12/13/2023 8:14 AM EDT us Generic External Data Provider LAB BLOOD ORDERAB LES Final Result Performing Organization Address [facility] de Phone Number [facility] [address] [place] [address] [phone] * THINPREP PAP (04/20/2021 2:17 PM [...] historic and ?? current clinical information. ?? Burling And Joining Supervisor : SEE COMMENT [facility] Comment: RXB, CT(ASCP) CT screening location: [address] ??[address] Infection Fungal organisms morphologically consistent with Soco spp. [facility] Interpretation/R esult: Negative for intraepithelial lesion or malignancy. [facility] LMP: NONE GIVEN [facility] Prev. BX: NONE GIVEN [facility] Prev. PAP: NONE GIVEN [facility] SOURCE: None given [facility] Statement Of Adequacy: SEE COMMENT [facility] Comment: Satisfactory for evaluation. Endocervical/transformation zone component absent. 04/20/2021 2:17 PM EDT Jessica Mike CNM LAB PATHOLOGY ORDERABLES Final Result Performing Organization Address [facility] de Phone Number [facility] [address] * HPV mRNA E6/E7 (04/20/2021 2:17 PM EDT) Pathologist [facility] HPV nRNA E6/E7 Not Detected Not Detected [facility] Comment: Methodology: Geophysical Observer-Mediated Amplification This assay detects E6/E7 viral messenger RNA (mRNA) from 14 high-risk HPV types (16,18,31,33,35,39,45,51,52,56,58,59,66,68). ? The analytical performance characteristics of this assay have been determined by [employer]. The modifications have not been cleared or approved by the FDA. This assay has been validated pursuant to the CLIA regulations and is used for clinical purposes. ?? For additional information, please refer to http://education.COFCO/faq/VJV078e5 (This link if provided for information/ educational purposes only.) 04/20/2021 2:17 PM EDT Jessica Mike [facility] LAB BLOOD ORDERABLES Jessy l Result Performing Organization Address [facility] de Phone Number [facility] [address] * LIPID PANEL (11/24/2020 9:15 AM EST) [facility] Cholesterol 166 mg/dL [facility] Comment: Desirable Cholesterol: ?less than 200 mg/dL Borderline High Cholesterol: ??200-239 mg/dL High Cholesterol: ? greater than 239 mg/dL HDL Cholesterol 50 mg/dL [facility] Comment: Desirable HDL: ??greater than 40 mg/dL ?? Note: This HDL assay may give artificially ? low results in patients with liver disease. LDL Cholesterol Calculated 95 mg/dl [facility] Comment: Desirable LDL: ? less than 100 mg/dL Near Optimal/Above Optimal LDL: ??110-129 mg/dL Borderline High LDL: ? 130-159 mg/dL High LDL: ?160-189 mg/dL Very High LDL: ? greater than or equal to ?190 mg/dL Triglycerides 107 mg/dL [facility] Comment: Desirable Triglyceride: ? less than 150 mg/dL Borderline High Triglyceride ??150-199 mg/dL High Triglyceride: ?200-499 mg/dL Very High Triglyceride: ? greater than or equal to ? 5OO mg/dL 11/24/2020 9:15 AM EST us Historical Provider HISTORICAL/NON ORDERABLE LABS Final Result [facility] [address] from Last 3 Months or Most Recently Relevant to Health Maintenance Insurance [facility] MEDICAID STAND ADULT Care Teams Formwork Carpenter Relationship Specialty Start Date End Date Jose Daniel Duke MD [address] [place] [address] [place] [address] PCP - General Internal Medicine 10/07/11
--- OUTSIDE RECORDS SUMMARY | 2024-10-30 08:26 | XMS_ITS | Encounter Summary ---
Author Organization [employer] [facility] Address [address] [place] [address] [address] [place] [address] Care Team Providers Care Rotary Furnace Operator Name Role Phone Jose Daniel Duke MD Primary Care Provider +1- [phone] Encounter Details Date Type Department Care Team (Latest Contact Info) Description 03/05/2019 Abstract [facility] CONVERSIONS Dental, Provider, DDS Social History [...] 12/09/2024 11:00 AM EDT Office Visit [facility] MED & PEDS [address] [place] [address] Jose Daniel Duke MD [address] [place] [address] documented as of this encounter Visit Diagnoses Not on filedocumented in this encounter Care Teams Rotary Furnace Operator Relationship Specialty Start Date End Date Jose Daniel Duke MD [address] [place] [address] PCP - General Internal Medicine 10/07/11 documented as of this encounter
--- OUTSIDE RECORDS SUMMARY | 2024-10-30 08:26 | XMS_ITS | Encounter Summary ---
Author Organization [employer] [facility] Address [address] [facility] [address] [place] [address] Care Team Providers Care Distributor Of Directories Name Role Phone Jose Daniel Duke MD Primary Care Provider +1- [phone] Encounter Details Date Type Department Care Team (Late st Contact Info) Description 10/12/2022 Orders Only [facility] MED [facility]EDS [address] [place] [address] Mar Abreu LPN Social History Tobacco Use [...] Description 12/09/2024 11:00 AM EDT Office Visit [facility] PEDS [address] [place] [address] Jose Daniel Duke MD [address] [place] [address] documented as of this encounter Visit Diagnoses Not on filedocumented in this encounter Care Teams Distributor Of Directories Relationship Specialty Start Date End Date Jose Daniel Duke MD [address] [place] [address] PCP - General Internal Medicine 10/07/11 documented as of this encounter
--- OUTSIDE RECORDS SUMMARY | 2024-10-30 08:26 | XMS_ITS | Encounter Summary ---
Author Organization [employer] Address [address] [facility] [address] [facility] [address] [place] [address] Care Team Providers Care Buffing Wheel Former Automatic Name Role Phone Jose Daniel Duke MD Primary Care Provider +1- [phone] Reason for Visit * Reason Comments Med Refill Encounter Details Date Type Department Care Team (Late st Contact Info) Description 10/12/2022 Refill [facility] [address] [place], [place] [phone] Jose Daniel Duke MD [address] [place] [address] Moderate persistent asthma without complication (Primary Dx) [...] Description 12/09/2024 11:00 AM EDT Office Visit [facility] PEDS [address] [place] [address] Jose Daniel Duke MD [address] [place] [address] documented as of this encounter Visit Diagnoses Diagnosis Moderate persistent asthma without complication- Primary documented in this encounter Care Teams Buffing Wheel Former Automatic Relationship Specialty Start Date End Date Jose Daniel Duke MD [address] [place] [phone] PCP - General Internal Medicine 10/07/11 documented as of this encounter
[2024-10-30] MEDS: gadobutroL 10 ML VIAL IVPUSH (09:28)
== END 2024-10-30 08:11 | disposition home or self-care (01) ==
LOC: HO.MRI 08:10
PROVIDERS: PCP Internal Medicine; Visit Provider Internal Medicine
DX: D73.89 Other diseases of spleen (principal); R74.8 Abnormal levels of other serum enzymes
CPT/HCPCS: 74183; A9585

== ENCOUNTER 2024-11-07 10:35 | Outpatient (AMB) | payer OTHER, SELFPAY ==
[2024-11-07 10:44] VITALS: BP 112/62; PULSE 68; O2SAT 99; BMI 32.3
--- NOTE | 2024-11-07 10:44 | MHC.OFFVIS ---
Vital Signs 11/07/24 10:44 Height 5 ft 7 in Weight 206 lb 2.115 oz BMI 32.3 BP 112/62 Blood Pressure Location Lt brachial Position Sitting Pulse 68 Pulse Source Pulse Oximeter Pulse Oximetry (%) 99 Oxygen Delivery Method Room Air Intake Visit Reasons: Asthma Intake Note: pt is here for follow up and states she is doing good Manager Credit Required: No Allergies acetaminophen [From Percocet] Adverse Reaction (Verified 11/07/24 10:58) Vomiting oxycodone [From Percocet] Adverse Reaction (Verified 11/07/24 10:58) Vomiting Medication List - Last Reconciled 11/07/24 by Praveen Brady MD albuterol sulfate 2.5 mg (3 mL) inhalation Q4-6H PRN albuterol sulfate 90 mcg/actuation (Ventolin HFA) 2 puffs inhalation Q6H PRN 30 days escitalopram oxalate 5 mg PO DAILY fluticasone propion-salmeterol 500-50 mcg/dose 1 ea inhalation Q12H omeprazole 20 mg PO DAILY omeprazole 20 mg PO DAILY 30 days peg [id number]-fuzcvven 1-0.2-0.2 % (Artificial Tears ([id number])) 1 drp ophthalmic (eye) DAILY umeclidinium 62.5 mcg/actuation (Incruse Ellipta) 1 inh PO DAILY Do you need a note to return to daycare/school/sports/work: No HPI HPI Asthma: Details: JAMES IS 64 YEARS OLD VERY PLEASANT FEMALE COMING HERE FOR 6 MONTHS FOLLOW-UP. SHE DOES NOT SMOKE. SHE HAS MILD INTERMITTENT COUGH WHICH GETS WORSE SOMETIMES DUE TO CHANGE. IN THE WEATHER SHE ALSO HAS SOME SHORTNESS OF BREATH ON EXERTION. SHE IS BEING TREATED FOR CHRONIC OBSTRUCTIVE PULMONARY DISEASE WHICH IS RELATIVELY STABLE. SHE IS ALSO BEING FOLLOWED FOR A LUNG DENSITY , AND DR. LUNDBERG , IS MONITORING HER CLOSELY. [facility] Medical History Chronic left shoulder pain Trochanteric bursitis of both hips Chronic right shoulder pain Elevated liver enzymes VETO positive Epigastric pain Pulmonary nodules Palpitations Asthma Fibromyalgia Obesity (BMI 30.0-34.9) Allergic rhinitis COPD (chronic obstructive pulmonary disease) Surgical History Hx of cholecystectomy Hx of colonoscopy Status post fine needle aspiration (~2019) Family History Mother Leukemia Diabetes Arthritis Family/Other Hodgkins lymphoma Family/Other Uterine cancer Sister Uterine cancer High cholesterol HTN (hypertension) Paternal Grandmother Uterine cancer Heart attack Father Colon cancer Social History Household Members: None Housing: Apartment Are you a primary career professional to a significant other at home: No Do you presently have visiting nurse or other home services: No Alcohol intake: never Patient Tobacco Use Status: Former Tobacco user service: No Current occupational status: disabled Review of Systems Const All systems reviewed & are unremarkable except as noted in HPI and below Eyes Reports no additional complaints ENT Reports nasal congestion (Mild intermittent) Card Denies chest pain, Denies irregular heart rhythm and Denies leg edema Resp Reports as per HPI GI Reports no additional complaints Reports no additional complaints Musc Reports back pain and Reports myalgias Skin/Breast Reports system reviewed and no additional complaints, except as documented Neuro Reports no additional complaints Psych Reports no additional complaints Physical Exam Vital Signs: Last Vital Signs Pulse 68 11/07/24 10:44 BP 112/62 11/07/24 10:44 Pulse Ox 99 11/07/24 10:44 Oxygen Delivery Method Room Air 11/07/24 10:44 BMI result Body Mass Index 32.3 Const General: healthy appearing (Except for being overweight), comfortable, no acute distress, alert and awake Orientation/consciousness: patient oriented x3 HEENT Head: Yes normal to inspection General nose exam: No nasal polyps present and No nasal discharge present Face and sinus: Yes sinuses nontender Mouth: oropharynx normal Throat: Yes posterior oropharynx normal Eyes General: appearance normal, both eyes and all related structures Neck Neck: Yes normal visual inspection, Yes no lymphadenopathy, Yes trachea midline and Yes no JVD Thyroid: Thyroid normal Chest Chest palpation & inspection: normal inspection of the chest, normal palpation of entire chest wall and no tenderness Resp Other: Percussion note is resonant, breath sounds are equal on both sides, moderately distant with prolonged expiratory phase. Lungs are clear today and no wheezes or crepitations are heard . Cardio Palpation: normal PMI Rate: regular rate Rhythm: regular rhythm Heart sounds: no gallops and no murmurs GI Palpation (GI): Soft to palpation, nontender, No hepatosplenomegaly present and no masses Auscultation: normal bowel sounds Back/Spine/Pelvis Thoracic/Lumbar Spine: thoracic and lumbar spine normal to inspection Skin General skin exam: no rashes or lesions noted Neuro General: patient oriented x3 and no focal motor deficits Cranial nerves: Yes CN's II-XII intact bilaterally Extrem General: Yes normal to inspection, Yes no clubbing, cyanosis or edema and Yes no calf tenderness Psych Appearance: grossly normal and well kempt Speech and movement: Normal speech and movement present Results Reviewed Results Reviewed: 10/10/23 IMPRESSION: No significant change in small scattered pulmonary nodules throughout both lungs, atelectatic changes and slightly prominent right middle lobe 1.4 cm density in the right may be is slightly more prominent than last exam. No abnormal size mediastinal or axillary lymphadenopathy. PATIENT SCHEDULED TO HAVE CT SCAN OF CHEST SOON Assessment & Plan Assessment & Plan (1) COPD (chronic obstructive pulmonary disease): Comment: (PFT has shown Moderate Obstructive Airway Disorder, with partial reversibility after bronchodilator - results C/W ACOS) Confirmed by PFT on 11/23/23 I think she is holding very stable, on current medical regimen. Code(s): J44.9 - Chronic obstructive pulmonary disease, unspecified Category: Medical Plan: CONTINUE INCRUSE ELLIPTA, 1 INHALATION DAILY CONTINUE ADVAIR BUT DOES DECREASED TO 250-50 1 INHALATION B.I.D. ( WITH 500-50 THERE IS INCREASED INCIDENCE OF PNEUMONIA ) ALBUTEROL HFA 2 PUFFS Q 6 HOURS P.R.N., OR ALTERNATIVELY MAY USE ALBUTEROL SOLUTION IN THE NEBULIZER Q.4-6 HOURS P.R.N.. (2) Allergic rhinitis: Comment: (Mild/Seasonal -inactive at this time Code(s): J30.9 - Allergic rhinitis, unspecified Category: Medical Plan: MAY USE OTC ANTIHISTAMINIC AGENT ONLY P.R.N. (3) Pulmonary nodules: Comment: (Stable 8x11mm RML nodule since at least January of 2020) Most recent CT scan of the chest on 10/10/23 The density in the right middle lobe is increased to 1.5 cm in size. Code(s): R91.8 - Other nonspecific abnormal finding of lung field Category: Medical Plan: PATIENT IS ALSO BEING FOLLOWED BY DR. LUNDBERG , THORACIC SURGEON, AND SHE IS TO HAVE A REPEAT CHEST X-RAY IN THE NEXT MONTH OR SO. Medications: New albuterol sulfate 2.5 mg (3 mL) inhalation Q4-6H 30 days PRN 180 mL 3RF shortness of breath or wheezing fluticasone propion-salmeterol 250-50 mcg/dose (Advair Diskus) 1 inh inhalation BID 30 days 60 ea 5RF COPD Coding Level of Care Code Est Pt Level 3 (08738) Diagnoses COPD (chronic obstructive pulmonary disease) J44.9 Allergic rhinitis J30.9 Pulmonary nodules R91.8
--- OUTSIDE RECORDS SUMMARY | 2024-11-07 11:45 | XMS_ITS | Encounter Summary ---
Author Organization [employer] Address [address] [place] [address] Care Team Providers Care Ware Cleaner Name Role Phone Jose Daniel Duke MD Primary Care Provider [phone] Encounter Details Date Type Department Care Team (Late Contact Info) Description 07/12/2023 Telephone [facility] [address] [place] [address] Miguel Cohn DDS [address] [place] [address] Social History Tobacco Use Types Packs/Day Years [...] Description 12/09/2024 11:00 AM EDT Office Visit [facility] [address] [place] [address] Jose Daniel Duke MD [address] [place] [address] documented as of this encounter Visit Diagnoses Not on filedocumented in this encounter Care Teams Ware Cleaner Relationship Specialty Start Date End Date Jose Daniel Duke MD [address] [place] [address] PCP - General Internal Medicine 10/07/11 documented as of this encounter
--- OUTSIDE RECORDS SUMMARY | 2024-11-07 11:45 | XMS_ITS | Encounter Summary ---
Author Organization [facility] Address [address] [place] [address] [address] [place] [address] Care Team Providers Care Plant Safety Engineer Name Role Phone Jose Daniel Duke MD Primary Care Provider [phone] Encounter Details Date Type Department Care Team (Latest Contact Info) Description 06/24/2021 Abstract [facility] CONVERSIONS Dental, Provider, DDS Social History [...] Description 12/09/2024 11:00 AM EDT Office Visit [facility] [address] [place] [address] Jose Daniel Duke MD [address] [place] [address] documented as of this encounter Visit Diagnoses Not on filedocumented in this encounter Care Teams Plant Safety Engineer Relationship Specialty Start Date End Date Jose Daniel Duke MD [address] [place] [address] PCP - General Internal Medicine 10/07/11 documented as of this encounter
--- OUTSIDE RECORDS SUMMARY | 2024-11-07 11:45 | XMS_ITS | Clinical Summary ---
Author Organization [employer] Address [address] [facility] [address] [place] [address] Care Team Providers Care Shoe Handler Name Role Phone Jose Daniel Duke MD Primary Care Provider [phone] Allergies No known active allergies Medications sodium [...] Data 09/26/2024 9:30 AM EST Office Visit [facility] [address] [place] [address] Nivia Rmaesh DDTrang 09/20/2024 11:00 AM EST Office Visit [facility] [address] [place] [address] Nivia Ramesh DDS 09/10/2024 11:45 AM EST Office Visit [facility] [address] [place] [address] Jose Daniel Duke MD Periorbital dermatitis (Primary Dx) 09/10/2024 Travel 08/21/2024 Telephone [facility] [address] [place] [address] Jose Daniel Duke MD from Last 3 [...] Upcoming Encounters Date Type Department Care Team ([facility] Contact Info) Description 12/09/2024 11:00 AM EDT Office Visit [facility] [address] [place] [address] Jose Daniel Duke MD [address] [place] [phone] Health Maintenance Due Date Last Done Comments [...] Procedure Name Priority Date/Time Associated Diagnosis Comments MR ABDOMEN W AND WO CONTRAST Routine 10/30/2024 8:31 AM EST DRUG MONITORING, PHOSPHATIDYLETHANOL (PETH), BLOOD Routine 10/23/2024 10:19 AM EST VETO SCREEN, IFA, W/REFL TITER AND PATTERN Routine 10/23/2024 10:19 AM EST MITOCHONDRIAL ANTIBODY [...] EST CBC Routine 10/23/2024 10:19 AM EST REPAIR RESIN PARTIAL DENTURE BASE, MAX Routine 09/26/2024 9:30 AM EST NO CHARGE [...] PM EDT ZZZ HISTORICAL LIPID PANEL Routine 11/24 9:15 AM EST from Last 3 Months or Most Recently Relevant to Health Maintenance Results * MR Abdomen w/ and w/o Contrast (10/30/2024 8:31 AM EST) Anatomical Region Laterality Modality Abdomen Magnetic Resonan ce 10/30/2024 8:31 AM EST Narrative 10/30/2024 11:47 AM EST ? [facility] ?[address] ?[place] [address] ? Magnetic Resonance Report ? Signed ? Patient: Chaves Chaves,Ysabel N ? MR#: [id number] ? : 1960 ?Acct:[id number] ? Age/Sex: 64 / F ?ADM Date: 10/30/ ? Loc: HO.MRI ? Attending Dr: Amarilis Valdovinos MD ? Ordering Physician: Amarilis Valdovinos MD ?? Date of Service: 10/30/24 ?? Procedure(s): MR abdomen wo/w con ?? Accession Number(s): [id number] ? cc: Jose Daniel Duke MD; Amarilis Valdovinos MD ? EXAMINATION: ?? MR ABDOMEN WITHOUT AND WITH CONTRAST ? CLINICAL INFORMATION: ?? 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 COMPARISON: ?? Correlated to ultrasound dated December 13, [address] dated January 29, ?? 2022. ? TECHNIQUE: ?? MR abdomen was performed without and with use of 10.0 mL intravenous ?? gadolinium based contrast without reported immediate complications. ?? Postcontrast images are performed in multiphase dynamic sequences. ? Imaging was performed in 3 planes. ? FINDINGS: ? LUNG BASES: No enhancing lesion. ? LIVER, GALLBLADDER, AND BILIARY TREE: ? Liver measures 16 cm. No focal enhancing mass. ?? Portal veins, hepatic veins and intrahepatic portion of the IVC are ?? patent. ?? Mild intrahepatic biliary ductal dilatation. ?? Status post cholecystectomy. ?? Common bile duct measures 10 mm in maximum diameter with abrupt cut off ?? at the junction with the second portion of the duodenum. No ?? intraluminal enhancing lesion or filling defects. ? PANCREAS: No focal mass. No main pancreatic ductal dilatation. No ?? peripancreatic fluid collections. ? SPLEEN: 9 cm. Heterogeneous enhancement without focal mass. ? ADRENAL GLANDS: No nodular lesions. ? KIDNEYS AND URETERS: ?? No renal mass. ?? No hydronephrosis. ?? Normal enhancement pattern of the renal parenchyma. ? GASTROINTESTINAL TRACT: ?? Abundant stool. ?? No intestinal obstruction pattern. No ascites. ? ABDOMINAL WALL: Small fat-containing umbilical hernia. ? LYMPH NODES: No lymphadenopathy. ? VASCULAR: No aneurysm or dissection, abdominal aorta. ? OSSEOUS STRUCTURES: Multilevel thoracolumbar spondylosis. Probable ?? intraosseous hemangioma, L3 vertebra. ? MR/MR abdomen wo/w con ?? IMPRESSION: ?? Common bile duct measures 10 mm. Questionable sphincter of Oddi ?? stricture/stenosis. ?? No choledocholithiasis. ?? No focal mass, spleen. ?? Mild hepatomegaly. ?? Small fat-containing umbilical hernia. ? Electronically signed by: ??Armani Blair MD ??10/30/2024 11:44 AM ?? EST RP ? Dictated By: ?Armani Caal MD ? Signed By: ?<Electronically signed by Armani Xiong MD in OV> ? 10/30/24 1144 ? DD/ 0831 ? TD/TT: 10/30/24 0901 ? Manager Pediatric: ? 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 TECHNIQUE: MR abdomen was performed without and with use of 10.0 mL intravenous gadolinium based contrast without reported immediate complications. Postcontrast images are performed in multiphase dynamic sequences. Imaging was performed in 3 planes. FINDINGS: LUNG BASES: No enhancing lesion. LIVER, GALLBLADDER, AND BILIARY TREE: Liver measures 16 cm. No focal enhancing mass. Portal veins, hepatic veins and intrahepatic portion of the IVC are patent. Mild intrahepatic biliary ductal dilatation. Status post cholecystectomy. Common bile duct measures 10 mm in maximum diameter with abrupt cut off at the junction with the second portion of the duodenum. No intraluminal enhancing lesion or filling defects. PANCREAS: No focal mass. No main pancreatic ductal dilatation. No peripancreatic fluid collections. SPLEEN: 9 cm. Heterogeneous enhancement without focal mass. ADRENAL GLANDS: No nodular lesions. KIDNEYS AND URETERS: No renal mass. No hydronephrosis. Normal enhancement pattern of the renal parenchyma. GASTROINTESTINAL TRACT: Abundant stool. No intestinal obstruction pattern. No ascites. ABDOMINAL WALL: Small fat-containing umbilical hernia. LYMPH NODES: No lymphadenopathy. VASCULAR: No aneurysm or dissection, abdominal aorta. OSSEOUS STRUCTURES: Multilevel thoracolumbar spondylosis. Probable intraosseous hemangioma, L3 vertebra. MR/MR abdomen wo/w con IMPRESSION: Common bile duct measures 10 mm. Questionable sphincter of Oddi stricture/stenosis. No choledocholithiasis. No focal mass, spleen. Mild hepatomegaly. Small fat-containing umbilical hernia. Electronically signed by: Armani Blair MD 10/30/2024 11:44 AM EST RP Dictated By: Armani Caal MD Signed By: <Electronically signed by Armani Xiong MDin OV> 10/30/24 1144 DD/ 0831 TD/TT: 10/30/24 0901 Manager Pediatric: [facility] External Provider IMG MRI PROCEDURES Final Result * Drug Monitoring, Phosphatidylethanol (PEth), Blood (10/23/2024 10:19 AM EST) Phosphatidylethanol, Blood NEGATIVE [facility] Comment:REFERENCE RANGE: <20 ng/mLTHIS TEST PERFORMED AT:[facility] [facility] [id number] [place] [phone] DIRECTOR: DC BURKETT MD, PHD PEt 16:0/18:2 (PLPEth) NEGATIVE [facility] Comment:REFERENCE RANGE: <20 ng/mLTHIS TEST PERFORMED AT:[facility] [facility] [id number] [place] [phone] DIRECTOR: DC BURKETT MD, PHD PEt Comments SEE NOTE [facility] Comment:This drug testing is for medical treatment only. Analysiswas performed as non-forensic testing and these resultsshould be used only by healthcare providers to renderdiagnosis or treatment, or to monitor progress of medicalconditions.LDT Notes:Confirmation tests were developed and their analyticalperformance characteristics have been determined by [employer]. It has not been cleared or approved by the FDA.This assay has been validated pursuant to the CLIAregulations and is used for clinical purposes.Healthcare Providers needing Interpretation assistance,please contact us at [phone] ( ) M-F,8am to 10pm ESTTHIS TEST PERFORMED AT:[facility] [place] [phone] DIRECTOR: EVELIO OSULLIVAN MD 10/23/2024 10:1 9 AM EST 10/23/2024 10:19 AM EST us Generic External Data Provider LAB BLOOD ORDERAB LES Final Result [facility] [address] [place] [address] [phone] * Actin (Smooth Muscle) Antibody (IgG) (10/23/2024 10:19 AM EST) Smooth Muscle Antibody <20 <20 U [facility] Comment:Reference Range: <20 U: Negative>or=20 U: PositiveAntibodies recognizing actin are the main componentof smooth muscle antibodies associated with auto- immune liver disease. Actin antibodies are found inapproximately 75% of patients with autoimmunehepatitis (AIH) type 1, approximately 65% of patientswith autoimmune cholangitis, approximately 30% ofpatients with primary biliary cirrhosis andapproximately 2% of healthy controls. High values areclosely correlated with AIH type 1.THIS TEST WAS PERFORMED AT:[facility] [id number] [place] [address]ZZQCUYVDC BURKETT MD,PHD 10/23/2024 10:1 9 AM EST 10/23/2024 10:19 AM EST Generic External Data Provider LAB BLOOD ORDERAB LES Final Result Performing Organization Address [facility] Co de Phone Number [facility] [address] [place] [phone] * Tissue Transglutaminase Antibody, IgA (10/23/2024 10:19 AM EST) Transglutaminase IgA <1.0 U/mL [facility] Comment:Value Interpretation ----- <15.0 Antibody not detected> or = 15.0 Antibody detectedTHIS TEST WAS PERFORMED AT:[facility] [place] [phone] OSULLIVAN MD 10/23/2024 10:1 9 AM EST 10/23/2024 10:19 AM EST Generic External Data Provider LAB BLOOD ORDERAB LES Final Result Performing Organization Address [facility] Phone Number [facility] [address] [place] [phone] * Liver Kidney Microsomal (LKM-1) Antibody??(IgG) (10/23/2024 10:19 AM EST) Liver Kidney Microsomal (LKM-1) Antibody IgG <=20.0 <=20.0 U [facility] Comment:Reference Range: <=2 0.0 Negative 20.1-24.9 Equivocal >=25.0 PositiveAnti-liver/kidney microsomal antibodies (Anti-LKM-1)were previously tested by indirect immunofluorescence(IF) using rodent liver/kidney substrate.Identification of a specific antibody target ascytochrome P450 IID6 has led to the current recombinantbased EJTHRO. Antibodies to this cytochrome are presentin approximately 70% of patients with autoimmunehepatitis type 2. This antibody is also present inapproximately 10% of patients with hepatitis Cinfection.THIS TEST WAS PERFORMED AT:[id number] [place] [address]BRDLOSLDC BURKETT MD,PHD 10/23/2024 10:1 9 AM EST 10/23/2024 10:19 AM EST Generic External Data Provider LAB BLOOD ORDERAB LES Final Result Performing Organization Address [facility] Co de Phone Number [facility] [address] [place] [phone] * Mitochondrial Antibody with Reflex to Titer (10/23/2024 10:19 AM EST) Pathologist [facility] Mitochondrial Antibodies NEGATIVE NEGATIVE [facility] Comment:The specimen was neg ative for cytoplasmic antibodies,however additional staining was observed suggesting thepresence of Antinuclear Antibodies. Consider requestingorder code 249, VETO Screen, IFA with Reflex to Titer andPattern, or order code [id number], VETO Screen, IFA w/reflexTiter/Pattern, and Reflex to Multiplex [employer],if clinically indicated.THIS TEST WAS PERFORMED AT:[facility] [address] [phone] OSULLIVAN MD Mitochondrial Ab Titer TNP [facility] 10/23/2024 10:1 9 AM EST 10/23/2024 10:19 AM EST Generic External Data Provider LAB BLOOD ORDERAB LES Final Result Performing Organization Address [facility] de Phone Number [facility] [address] [place] [phone] * Prothrombin Time-INR (10/23/2024 10:19 AM EST) Prothrombin Time 11.4 10.9 - 12.4 SEC [facility] INTERNATIONAL NORM RATIO 1.0 0.9 - 1.1 [facility] Comment:INTERNATIONAL NORMAL IZED RATIO (INR) [...] Provider LAB BLOOD ORDERAB LES Final Result [facility] [address] [place] [phone] * (ABNORMAL) CBC (10/23/2024 10:19 AM EST) White Blood Count 9.5 4.8 - 10.8 X10*3/uL [facility] Red Blood Count 4.84 4.20 - 5.50 X10*6/uL [facility] Hemoglobin 13.3 12.0 - 16.0 g/dl [facility] Hematocrit 41.0 37.0 - 47.0 % [facility] Mean Corpuscular Volume 84.7 80.0 - 98.0 fL [facility] Mean Corpuscular Hemoglobin 27.5 27.0 - 33.0 pg [facility] Mean Corpuscular HGB Conc 32.4 31.0 - 35.0 g/dl [facility] Red Cell Distribution Width 15.4 11.0 - 16.0 % [facility] Platelet Count 241 160 - 400 X10*3/uL [facility] Mean Platelet Volume 9.1(L) 9.4 - 12.3 fL [facility] NRBC Pct Auto 0.0 0.0 - 0.2 /100WBC [facility] NRBC Abs Auto 0.000 0.0 - 0.012 X10*3/uL [facility] 10/23/2024 10:1 9 AM EST 10/23/2024 10:19 AM EST us Generic External Data Provider LAB BLOOD ORDERAB LES Final Result Performing Organization Address [facility] Co de Phone Number [facility] [address] [place] [address] [phone] * (ABNORMAL) VETO Screen,IFA, with Reflex to Titer and Pattern (10/23/2024 10:19 AM EST) Anti Nuclear Antibody Screen POSITIVE( A) NEGATIVE [facility] Comment:VETO IFA is a first l ine screen for detecting thepresence of up to approximately 150 autoantibodies invarious autoimmune diseases. A positive VETO IFA resultis suggestive of autoimmune disease and reflexes totiter and pattern. Further laboratory testing may beconsidered if clinically indicated.For additional information, please refer tohttp://education.[employer]/faq/YOC214(This link is being provided for informational/educational purposes only.) VETO Titer 1:320(A) titer [facility] Comment:Reference Range <1:4 0 Negative 1:40-1:80 Low Antibody Level >1:80 Elevated Antibody Level VETO Pattern (A) [facility] Comment:Nuclear, Homogeneous Nucleolar Abnormal Flag: ADiffuse staining of the nucleolus is associated withsystemic sclerosis (scleroderma), and systemicsclerosis/polymyositis overlap.AC-8: Homogeneous NucleolarInternational Consensus on VETO Patterns(https://doi.org/10.1515/pnrv-0940-3397)THIS TEST WAS PERFORMED AT:[facility] [place] [phone] OSULLIVAN MD VETO TITER 2 (REF LAB) [facility] VETO Pattern 2 [facility] VETO TITER 3 [facility] VETO PATTERN 3 [facility] 10/23/2024 10:1 9 AM EST 10/23/2024 10:19 AM EST us Generic External Data Provider LAB BLOOD ORDERAB LES Final Result Performing Organization Address [facility]/ZIP Co de Phone Number [facility] [address] [place] [phone] [phone] * (ABNORMAL) Immunoglobulin A (10/23/2024 10:19 AM EST) Immunoglobulin A 335(A) 70 - 320 mg/dL [facility] Comment:THIS TEST WAS PERFOR MED AT:[facility] [address] [phone] OSULLIVAN MD 10/23/2024 10:1 9 AM EST 10/23/2024 10:19 AM EST Generic External Data Provider LAB BLOOD ORDERAB LES Final Result Performing Organization Address [facility] Phone Number [facility] [address] [place] [phone] * Immunoglobulin M (10/23/2024 10:19 AM EST) Immunoglobulin M 92 50 - 300 mg/dL [facility] Comment:THIS TEST WAS PERFOR MED AT:[facility] [address] JASON OSULLIVAN MD 10/23/2024 10:1 9 AM EST 10/23/2024 10:19 AM EST us Generic External Data Provider LAB BLOOD ORDERAB LES Final Result Performing Organization Address [facility] Phone Number [facility] [address] [place] [phone] * Immunoglobulin G (10/23/2024 10:19 AM EST) Immunoglobulin G 1022 600 - 1540 mg/dL [facility] Comment:THIS TEST WAS PERFOR MED AT:[facility] [address] JASNO OSULLIVAN MD 10/23/2024 10:1 9 AM EST 10/23/2024 10:19 AM EST us Generic External Data Provider LAB BLOOD ORDERAB LES Final Result Performing Organization Address [facility] de Phone Number [facility] [address] [place] [address] [phone] * (ABNORMAL) Hepatic Function Panel (10/23/2024 10:19 AM EST) Bilirubin, Total 0.4 0.0 - 1.0 mg/dL [facility] Bilirubin, Direct 0.2 0.0 - 0.5 mg/dL [facility] Aspartate Amino Transferase 33(H) 5 - 31 U/L [facility] Alanine Aminotransferase 28 0 - 31 U/L [facility] Total Protein 7.1 6.5 - 8.0 g/dL [facility] Albumin Level 3.9 3.5 - 5.0 g/dL [facility] Alkaline Phosphatase 61 39 - 117 U/L [facility] 10/23/2024 10:1 9 AM EST 10/23/2024 10:19 AM EST Generic External Data Provider LAB BLOOD ORDERAB LES Final Result Performing Organization Address [facility] de Phone Number [facility] [address] [place] [phone] * BI Mammogram Screening Tomosynthesis Bilateral (05/16/2024 8:00 AM EDT) Anatomical Region Laterality Modality Breast Bilateral Mammography 05/16/2024 8:00 AM EDT Narrative 06/07/2024 8:45 PM EDT ? [facility] ? [address] ?[place] [address] ? Mammography Report ? Signed ? Patient: Chaves Chaves,Ysabel N ? MR#: [id number] ? : 1960 ?Acct:[id number] ? Age/Sex: 63 / F ?ADM Date: 08/29/24 ? Loc: HO.MAMMO ? Attending Dr: Jose Daniel Duke MD ? Ordering Physician: Jose Daniel Duke MD ?Results: 2 ?? Benign Findings ? Date of Service: 05/16/24 ?Follow Up: 1 Year From Orig ?? inal Mammogram ? Procedure(s): MM tomosynthesis screening BI ?? Accession Number(s): [id number] ? cc: Jose Daniel Duke MD ? [...] DD/ 0800 ? TD/TT: 05/16/24 0815 ? Manager Pediatric: ? Procedure Note Donkristofergreyinterpreter, Image - 06/07/2024 [facility] [address] [place] [address] Mammography Report Signed Patient: Ysabel Patterson MR#: [id number] : 9Acct:[id number] Age/Sex: 63 / FADM Date: 05/16/24 Loc: HO.MAMMO Attending Dr: Jose Daniel Duke MD Ordering Physician: Jose Daniel Duke MDResults: 2 Benign Findings Date of Service: 05/16/24Follow Up: 1 Year From Orig ina Mammogram Procedure(s): MM tomosynthesis screening BI Accession Number(s): [id number] cc: Jose Daniel Duke MD EXAMINATION: MM [...] in OV> 06/07/242042 DD/ 9 TD/TT: 05/16/24 0815 Manager Pediatric: us Jose Daniel Duke MD IMG BI PROCEDURES Final Res ult * Cologuard?? colon cancer screening (04/25/2024 8:15 AM EDT) Cologuard Result Negative Negative 04/30/20 8:50 PM EDT [employer] (CLIA #:[id number]) Comment: NEGATIVE TEST RESULT. A negative Cologuard [...] cancer. ??Following a negative Cologuard result, the [place] [employer] Society and U.S. Multi-Society Task Force screening guidelines recommend a Cologuard re-screening interval of 3 years. References: [place] [employer] Guideline for Colorectal Cancer Screening: https://www.cancer.org/cancer/kzlab-dvudfk-nmoqge/rmybttqye-ybkkryixs-wqamqst/ac s-rec ommendations.html.; Johnny DK, Albertina CR, Jhoan VazquezK, Colorectal Cancer Screening: Recommendations for Physicians and Patients from the U.S. Multi-Society Task Force on Colorectal Cancer Screening , Am J Gastroenterology 2017; 112:3551-9400. TEST DESCRIPTION: Composite algorithmic analysis of stool [...] (Santiago Mehta al, N Engl J Med 2014;370(14):6624-6615.) Cologuard may produce a false negative or false positive result (no colorectal cancer or precancerous polyp present at colonoscopy follow up). A negative Cologuard test result does not guarantee the absence of CRC or advanced adenoma (pre-cancer). The current Cologuard screening interval is every 3 years. ([place] [employer] Society and U.S. Multi-Society Task Force). Cologuard performance data in a 10,000 patient pivotal study using colonoscopy as the reference method can be accessed at the following location: www.[employer]/results. Additional description of the Cologuard test process, warnings and precautions can be found at www.Comparabien.comrd.com. Stool specimen (specimen) 04/25/2024 8:15 AM EDT 04/26/2024 10:40 AM EDT us Jose Daniel Duke MD LAB MOLECULAR DIAGNOSTICS O RDERABLES Final Result Performing Organization Address City/[facility]/ZIP Co de Phone Number [facility] (CLIA #:[id number]) [address] [address], * Hepatitis Panel, General (12/13/2023 8:14 AM EDT) Hepatitis A IgM Nonreactive Nonreactive [facility] Comment:IgM antibodies to RONDON V not detected; does not exclude earlyacute or recovered HAV infection. ~Hepatitis B Surface Antibody NONREACTIVE Nonreactive [facility] Comment:Nonreactive: < 8.00 mIU/mL Hepatitis B Core Antibody Nonreactive Nonreactive [facility] Hepatitis C Antibody Nonreactive Nonreactive [facility] Comment:Antibodies to HCV no t detected; does not exclude early acuteHCV infection. Hepatitis B Surface Ag Negative Negative [facility] 12/13/2023 8:14 AM EDT 12/13/2023 8:14 AM EDT Generic External Data Provider LAB BLOOD ORDERAB LES Final Result Performing Organization Address [facility] Co de Phone Number [facility] [address] [place] [phone] * THINPREP PAP (04/20/2021 2:17 PM EDT) Clinical Information: None given [facility] COMMENT SEE COMMENT [facility] [...] historic and ?? current clinical information. ?? Temperature Regulator Pyrometer : [facility] COMMENT [facility] Comment: RXB, CT(ASCP) CT screening location: [address] ??[address] Infection Fungal organisms morphologically consistent with Soco spp. [facility] Interpretation/R esult: Negative for intraepithelial lesion or malignancy. [facility] LMP: NONE GIVEN [facility] Prev. BX: NONE [facility]IV[facility] Prev. PAP: NONE [facility]IV[facility] SOURCE: None given [facility] Statement Of Adequacy: SEE COMMENT [facility] Comment: Satisfactory for evaluation. Endocervical/transformation zone component absent. 04/20/2021 2:17 PM EDT Jessica MCCOY LAB PATHOLOGY ORDERABLES Final Result Performing Organization Address [facility] Co de Phone Number [facility] [address] * HPV mRNA E6/E7 (04/20/2021 2:17 PM EDT) Pathologist [facility] HPV nRNA E6/E7 Not Detected Not Detected [facility] Comment: Methodology: Machine Riveter-Mediated Amplification This assay detects E6/E7 viral messenger RNA (mRNA) from 14 high-risk HPV types (16,18,31,33,35,39,45,51,52,56,58,59,66,68). ? The analytical performance characteristics of this assay have been determined by [employer]. The modifications have not been cleared or approved by the FDA. This assay has been validated pursuant to the CLIA regulations and is used for clinical purposes. ?? For additional information, please refer to http://education.[employer]/faq/NLN434o5 (This link if provided for information/ educational purposes only.) 04/20/2021 2:17 PM EDT Jessica MCCOY LAB BLOOD ORDERABLES Jessy l Result Performing Organization Address [facility] Co de Phone Number [facility] [address] * LIPID PANEL (11/24/2020 9:15 AM [...] liver disease. LDL Cholesterol Calculated 95 mg/dl [facility] Comment: Desirable LDL: ? less [...] Historical Provider HISTORICAL/NON ORDERABLE LABS Final Result [facility] [address] [place] [address], from Last 3 Months or Most Recently Relevant to Health Maintenance Insurance [facility] MEDICAID STAND ADULT * Guarantor: Mag Ariasda Account Type Relation to Patient Date of Phone Billing Address Personal/Family Self [address] Care Teams Shoe Handler Relationship Specialty Start Date End Date Jose Daniel Duke MD [address] [place] [phone] PCP - General Internal Medicine 10/07/11
--- OUTSIDE RECORDS SUMMARY | 2024-11-07 11:45 | XMS_ITS | Encounter Summary ---
Author Organization [employer] [facility] Address [address] [place] [address] 7[place] [address] Care Team Providers Care Physicist Solid State Name Role Phone Jose Daniel Duke MD Primary Care Provider +1- [phone] Encounter Details Date Type Department Care Team (Latest Contact Info) Description 09/25/2019 Abstract [facility] CONVERSIONS Dental, Provider, DDS Social History [...] Description 12/09/2024 11:00 AM EDT Office Visit [facility] MED & PEDS [address] [place] [address] Jose Daniel Duke MD [address] [place] [address] documented as of this encounter Visit Diagnoses Not on filedocumented in this encounter Care Teams Physicist Solid State Relationship Specialty Start Date End Date Jose Daniel Duke MD [address] [place] [address] PCP - General Internal Medicine 10/07/11 documented as of this encounter
--- OUTSIDE RECORDS SUMMARY | 2024-11-07 11:45 | XMS_ITS | Encounter Summary ---
Author Organization [employer] Address [address] [facility] 7t [place] [address] Care Team Providers Care Federal Aid Coordinator Name Role Phone Jose Daniel Duke MD Primary Care Provider +1- [phone] Reason for Visit * Reason Onset Date Comments Dentures 02/22/2023 Encounter Details Date Type Department Care Team ([facility] st Contact Info) Description 02/22/2023 Telephone C [facility] ADULT DENTAL [address] [place] [address] Miguel Cohn, DDS [address] [place] [address] Dentures Social History Tobacco Use Types Packs/Day [...] Description 12/09/2024 11:00 AM EDT Office Visit [facility] MED & PEDS [address] [place] [address] Jose Daniel Duke MD 505 [place] [address] documented as of this encounter Visit Diagnoses Not on filedocumented in this encounter Care Teams Federal Aid Coordinator Relationship Specialty Start Date End Date Jose Daniel Duke MD [address] [place] [address] PCP - General Internal Medicine 10/07/11 documented as of this encounter
--- OUTSIDE RECORDS SUMMARY | 2024-11-07 11:45 | XMS_ITS | Encounter Summary ---
Author Organization [employer] Address 75 [facility] 7[address] [place] [address] Care Team Providers Care Whiskey Filterer Name Role Phone Jose Daniel Duke MD Primary Care Provider +1- [phone] Reason for Visit * Reason Comments Med Refill Encounter Details Date Type Department Care Team (Late st Contact Info) Description 10/12/2022 Refill [facility] [address] [place], [place] [phone] Jose Daniel Duke MD [address] [place] [address] Moderate persistent asthma without complication (Primary Dx) [...] Description 12/09/2024 11:00 AM EDT Office Visit [facility] MED & PEDS [address] [place] [address] Jose Daniel Duke MD [address] [place] [address] documented as of this encounter Visit Diagnoses Diagnosis Moderate persistent asthma without complication- Primary documented in this encounter Care Teams Whiskey Filterer Relationship Specialty Start Date End Date Jose Daniel Duke MD [address] [place] [address] PCP - General Internal Medicine 10/07/11 documented as of this encounter
--- OUTSIDE RECORDS SUMMARY | 2024-11-07 11:45 | XMS_ITS | Encounter Summary ---
Author Organization [employer] [facility] Address [address] [place] [address] [address] [address] Care Team Providers Care Welfare Interviewer Name Role Phone Jose Daniel Duke MD Primary Care Provider +1- [phone] Encounter Details Date Type Department Care Team (Latest Contact Info) Description 03/05/2019 Abstract [facility] CONVERSIONS Dental, Provider, DDS Social History [...] 12/09/2024 11:00 AM EDT Office Visit [facility] CHC MED & PEDS [address] [place] [address] Jose Daniel Duke MD [address] [place] [address] documented as of this encounter Visit Diagnoses Not on filedocumented in this encounter Care Teams Welfare Interviewer Relationship Specialty Start Date End Date Jose Daniel Duke MD [address] [place] [address] PCP - General Internal Medicine 10/07/11 documented as of this encounter
--- OUTSIDE RECORDS SUMMARY | 2024-11-07 11:45 | XMS_ITS | Encounter Summary ---
Author Organization [employer] [facility] Address [address] [facility] 7[address] [place] [address] Care Team Providers Care Shift Foreman Name Role Phone JoseD aniel Duke MD Primary Care Provider +1- [phone] Encounter Details Date Type Department Care Team [...] Description 12/09/2024 11:00 AM EDT Office Visit [facility] CHC MED & PEDS 505 [facility] [place] [address] Jose Daniel Duke MD 505 [facility] [place] [address] documented as of this encounter Procedures Procedure Name Priority Date/Time Associated Diagnosis Comments MR ABDOMEN W AND WO CONTRAST Routine 10/30/2024 8:31 AM EST DRUG MONITORING, PHOSPHATIDYLETHANOL (PETH), BLOOD Routine 10/23/2024 10:19 AM EST ACTIN (SMOOTH MUSCLE) ANTIBODY (IGG) Routine 10/23/2024 10:19 AM EST TISSUE TRANSGLUTAMINASE AB, IGA Routine 10/23/2024 10:19 AM EST LIVER KIDNEY MICROSOME (LKM-1) AB (IGG) Routine 10/23/2024 10:19 AM EST MITOCHONDRIAL ANTIBODY WITH REFLEX TO TITER Routine 10/23/2024 10:19 AM EST PROTHROMBIN TIME-INR Routine 10/23/2024 10:19 AM EST CBC Routine 10/23/2024 10:19 AM EST VETO SCREEN, IFA, W/REFL TITER AND PATTERN Routine 10/23/2024 10:19 AM EST IMMUNOGLOBULIN A Routine 10/23/2024 10:1 9 AM EST IGM Routine 10/23/2024 10:19 AM EST IMMUNOGLOBULIN G Routine 10/23/2024 10:1 9 AM EST HEPATIC FUNCTION PANEL Routine 10:19 AM EST documented in this encounter Results * MR Abdomen w/ and w/o Contrast (10/30/2024 8:31 AM EST) Anatomical Region Laterality Modality Abdomen Magnetic Resonan ce 10/30/2024 8:31 AM EST Narrative 10/30/2024 11:47 AM EST ? [facility] ?[address] ?[place] [address] ? Magnetic Resonance Report ? Signed ? Patient: Chaves Chaves,Ysabel N ? MR#: [id number] ? : 1960 ?Acct:[id number] ? Age/Sex: 64 / F ?ADM Date: 10/30/24 ? Loc: HO.MRI ? Attending Dr: Amarilis Valdovinos MD ? Ordering Physician: Amarilis Valdovinos MD ?? Date of Service: 10/30/24 ?? Procedure(s): MR abdomen wo/w con ?? Accession Number(s): [id number] ? cc: Jose Daniel Duke MD; Amarilis [...] DD/ 0831 ? TD/TT: 10/30/24 0901 ? Mobile Home Servicer: ? Procedure Note Donudayter, Image - 10/30/2024 [place] [address] Magnetic Resonance Report Signed Patient: Ysabel Patterson MR#: [id number] : 9Acct:[id number] Age/Sex: 64 / FADM Date: 10/30/24 Loc: HO.MRI Attending Dr: Amarilis Valdovinos MD Ordering Physician: Amarilis Valdovinos MD Date of Service: 10/30/24 Procedure(s): MR abdomen wo/w con Accession Number(s): [id number] cc: Jose Daniel Duke MD; Amarilis Valdovinos [...] 10/30/24 1144 DD/ 0831 TD/TT: 10/30/24 0901 Mobile Home Servicer: [facility] External Provider IMG MRI PROCEDURES Final Result * Drug Monitoring, Phosphatidylethanol (PEth), Blood (10/23/2024 10:19 AM EST) Phosphatidylethanol, Blood NEGATIVE [facility] Comment:REFERENCE RANGE: <20 ng/mLTHIS TEST PERFORMED AT:[facility] [id number] [facility] [place] [phone] DIRECTOR: DC BURKETT MD, PHD PEth 16:0/18:2 (PLPEth) NEGATIVE [facility] Comment:REFERENCE RANGE: <20 ng/mLTHIS TEST PERFORMED AT:[facility]/WISETIVI [facility] HOSPITALFiberstarOH[facility] [id number] [facility] [place] [phone] DIRECTOR: DC BURKETT MD, PHD [facility] Comments SEE NOTE [facility] Comment:This drug testing is for medical treatment only. Analysiswas performed as non-forensic testing and these resultsshould be used only by healthcare providers to renderdiagnosis or treatment, or to monitor progress of medicalconditions.LDT Notes:Confirmation tests were developed and their analyticalperformance characteristics have been determined by [employer]. It has not been cleared or approved by the FDA.This assay has been validated pursuant to the CLIAregulations and is used for clinical purposes.Healthcare Providers needing Interpretation assistance,please contact us at [phone] ([phone]) M-F,8am to 10pm ESTTHIS TEST PERFORMED AT:[facility] [address] [phone] DIRECTOR: EVELIO OSULLIVAN MD 10/23/2024 10:1 9 AM EST 10/23/2024 10:19 AM EST us Generic External Data Provider LAB BLOOD ORDERAB LES Final Result [facility] [address] [place] [phone] * (ABNORMAL) VETO Screen,IFA, with Reflex to Titer and Pattern (10/23/2024 10:19 AM EST) Anti Nuclear Antibody Screen POSITIVE( A) NEGATIVE [facility] Comment:VETO IFA is a first l ine screen for detecting thepresence of up to approximately 150 autoantibodies invarious autoimmune diseases. A positive VETO IFA resultis suggestive of autoimmune disease and reflexes totiter and pattern. Further laboratory testing may beconsidered if clinically indicated.For additional information, please refer tohttp://education.[employer]/faq/EWO259(This link is being provided for informational/educational purposes only.) VETO Titer 1:320(A) titer [facility] Comment:Reference Range <1:4 0 Negative 1:40-1:80 Low Antibody Level >1:80 Elevated Antibody Level VETO Pattern (A) [facility] Comment:Nuclear, Homogeneous Nucleolar Abnormal Flag: ADiffuse staining of the nucleolus is associated withsystemic sclerosis (scleroderma), and systemicsclerosis/polymyositis overlap.AC-8: Homogeneous NucleolarInternational Consensus on VETO Patterns([email or web address]://[email or web address]/[email or web address])THIS TEST WAS PERFORMED AT:[facility].[address] [place] [phone] OSULLIVAN MD VETO TITER 2 (REF LAB) [facility] VETO Pattern 2 [facility] VETO TITER 3 [facility] VETO PATTERN 3 [facility] 10/23/2024 10:1 9 AM EST 10/23/2024 10:19 AM EST us Generic External Data Provider LAB BLOOD ORDERAB LES Final Result Performing Organization Address City/[facility]/ZIP Co de Phone Number [facility] [address] [place] [address] [phone] * Mitochondrial Antibody with Reflex to Titer (10/23/2024 10:19 AM EST) Mitochondrial Antibodies NEGATIVE NEGATIVE [facility] Comment:The specimen was neg ative for cytoplasmic antibodies,however additional staining was observed suggesting thepresence of Antinuclear Antibodies. Consider requestingorder code 249, VETO Screen, IFA with Reflex to Titer andDavidtterconner, or order code [id number], VETO Screen, IFA w/reflexTiter/Pattern, and Reflex to Multiplex 11 Ab [place],if clinically indicated.THIS TEST WAS PERFORMED AT:[facility].[address] [place] [phone] OSULLIVAN MD Mitochondrial Ab Titer [facility] 10/23/2024 10:1 9 AM EST 10/23/2024 10:19 AM EST us Generic External Data Provider LAB BLOOD ORDERAB LES Final Result Performing Organization Address City/[facility] Co de Phone Number [facility] [address] [place] [phone] * Actin (Smooth Muscle) Antibody (IgG) (10/23/2024 10:19 AM EST) Smooth Muscle Antibody <20 <20 U [facility] Comment:Reference Range: <20 U: Negative>or=20 [...] with AIH type 1.THIS TEST WAS PERFORMED AT:[facility]/WISETIVI [id number] [place] [address]TZWPXMGDC BURKETT MD,PHD 10/23/2024 10:1 9 AM EST 10/23/2024 10:19 AM EST us Generic External Data Provider LAB BLOOD ORDERAB LES Final Result Performing Organization Address [facility] Co de Phone Number [facility] [address] [place] [phone] * Liver Kidney Microsomal (LKM-1) Antibody??(IgG) (10/23/2024 10:19 AM EST) Liver Kidney Microsomal (LKM-1) Antibody IgG <=20.0 <=20.0 U [facility] Comment:Reference Range: <=2 0.0 Negative 20.1-24.9 Equivocal >=25.0 PositiveAnti-liver/kidney microsomal antibodies (Anti-LKM-1)were previously tested by indirect immunofluorescence(IF) using rodent liver/kidney substrate.Identification of a specific antibody target ascytochrome P450 IID6 has led to the current recombinantbased JETHRO. Antibodies to this cytochrome are presentin approximately 70% of patients with autoimmunehepatitis type 2. This antibody is also present inapproximately 10% of patients with hepatitis Cinfection.THIS TEST WAS PERFORMED AT:[facility]/[address]RELLA [id number] [place] [address]NTUYQGGDC BURKETT MD,PHD 10/23/2024 10:1 9 AM EST 10/23/2024 10:19 AM EST Generic External Data Provider LAB BLOOD ORDERAB LES Final Result Performing Organization Address [facility] de Phone Number [facility] [address] [place] [phone] * Tissue Transglutaminase Antibody, IgA (10/23/2024 10:19 AM EST) Transglutaminase IgA <1.0 U/mL [facility] Comment:Value Interpretation ----- <15.0 Antibody not detected> or = 15.0 Antibody detectedTHIS TEST WAS PERFORMED AT:[facility] [address] [address]YAUZNEVELIO OSULLIVAN MD 10/23/2024 10:1 9 AM EST 10/23/2024 10:19 AM EST [facility] External Data Provider LAB BLOOD ORDERAB LES Final Result Performing Organization Address [facility] de Phone Number [facility] [address] [place] [phone] * Immunoglobulin M (10/23/2024 10:19 AM EST) Immunoglobulin M 92 50 - 300 mg/dL [facility] Comment:THIS TEST WAS PERFOR MED AT:[facility] [place] [phone] OSULLIVAN MD 10/23/2024 10:1 9 AM EST 10/23/2024 10:19 AM EST Generic External Data Provider LAB BLOOD ORDERAB LES Final Result Performing Organization Address [facility] de Phone Number [facility] [address] [place] [phone] * (ABNORMAL) Immunoglobulin A (10/23/2024 10:19 AM EST) Immunoglobulin A 335(A) 70 - 320 mg/dL [facility] Comment:THIS TEST WAS PERFOR MED AT:[facility] [address] [phone] OSULLIVAN MD 10/23/2024 10:1 9 AM EST 10/23/2024 10:19 AM EST Generic External Data Provider LAB BLOOD ORDERAB LES Final Result Performing Organization Address [facility] Phone Number [facility] [address] [place] [phone] * Immunoglobulin G (10/23/2024 10:19 AM EST) Pathologist [facility] Immunoglobulin G 1022 600 - 1540 mg/dL [facility] Comment:THIS TEST WAS PERFOR MED AT:[facility] [address] [address]CTUIWDILLON OSULLIVAN MD 10/23/2024 10:1 9 AM EST 10/23/2024 10:19 AM EST Generic External Data Provider LAB BLOOD ORDERAB LES Final Result Performing Organization Address [facility] Co de Phone Number [facility] [address] [place] [phone] * (ABNORMAL) Hepatic Function Panel (10/23/2024 10:19 AM EST) Bilirubin, Total 0.4 0.0 - 1.0 mg/dL [facility] Bilirubin, Direct 0.2 0.0 - 0.5 mg/dL [facility] Aspartate Amino Transferase 33(H) 5 - 31 U/L [facility] Alanine Aminotransferase 28 0 - 31 U/L [facility] Total Protein 7.1 6.5 - 8.0 g/dL [facility] Albumin Level 3.9 3.5 - 5.0 g/dL [facility] Alkaline Phosphatase 61 39 - 117 U/L [facility] 10/23/2024 10:1 9 AM EST 10/23/2024 10:19 AM EST Generic External Data Provider LAB BLOOD ORDERAB LES Final Result Performing Organization Address [facility] Co de Phone Number [facility] [address] [place] [phone] * Prothrombin Time-INR (10/23/2024 10:19 AM EST) Prothrombin Time 11.4 10.9 - 12.4 SEC [facility] INTERNATIONAL NORM RATIO 1.0 0.9 - 1.1 [facility] Comment:INTERNATIONAL NORMAL IZED RATIO (INR) [...] 9 AM EST 10/23/2024 10:19 AM EST [employer] External Data Provider LAB BLOOD ORDERAB LES Final Result Performing Organization Address [facility] Co de Phone Number [facility] [address] [place] [phone] * (ABNORMAL) CBC (10/23/2024 10:19 AM EST) White Blood Count 9.5 4.8 - 10.8 X10*3/uL [facility] Red Blood Count 4.84 4.20 - 5.50 X10*6/uL [facility] Hemoglobin 13.3 12.0 - 16.0 g/dl [facility] Hematocrit 41.0 37.0 - 47.0 % [facility] Mean Corpuscular Volume 84.7 80.0 - 98.0 fL [facility] Mean Corpuscular Hemoglobin 27.5 27.0 - 33.0 pg [facility] Mean Corpuscular HGB Conc 32.4 31.0 - 35.0 g/dl [facility] Red Cell Distribution Width 15.4 11.0 - 16.0 % [facility] Platelet Count 241 160 - 400 X10*3/uL [facility] Mean Platelet Volume 9.1(L) 9.4 - 12.3 fL [facility] NRBC Pct Auto 0.0 0.0 - 0.2 /100WBC [facility] NRBC Abs Auto 0.000 0.0 - 0.012 X10*3/uL [facility] 10/23/2024 10:1 9 AM EST 10/23/2024 10:19 AM EST us Generic External Data Provider LAB BLOOD ORDERAB LES Final Result [facility] [address] [place] [phone] [phone] documented in this encounter Visit Diagnoses Not on filedocumented in this encounter Additional Health Concerns Assessment Noted Time PHQ-9 Depression Total Score: 3 04/18/20 24 11:01 AM EDT documented as of this encounter Care Teams Shift Foreman Relationship Specialty Start Date End Date Jose Daniel Duek MD [address] [place] [phone] PCP - General Internal Medicine 10/07/11 documented as of this encounter
--- OUTSIDE RECORDS SUMMARY | 2024-11-07 11:45 | XMS_ITS | Encounter Summary ---
Author Organization [employer] Address [address] [facility] [address] 7t [place] [address] Care Team Providers Care Patternator Name Role Phone Jose Daniel Duke MD Primary Care Provider +1- [phone] Reason for Visit * Reason Comments Med Refill Encounter Details Date Type Department Care Team ([facility] st Contact Info) Description 12/29/2022 Refill [facility] CHC ADULT DENTAL [address] [place] [address] Miguel Cohn DDS [address] [place] [address] Tooth pain Social History Tobacco Use Types [...] Description 12/09/2024 11:00 AM EDT Office Visit [facility] MED & PEDS [address] [place] [address] Jose Daniel Duke MD [address] [place] [address] documented as of this encounter Visit Diagnoses Diagnosis Tooth pain Unspecified disorder of the teeth and supporting structures documented in this encounter Care Teams Patternator Relationship Specialty Start Date End Date Jose Daniel Duke MD [address] [place] [address] PCP - General Internal Medicine 10/07/11 documented as of this encounter
--- OUTSIDE RECORDS SUMMARY | 2024-11-07 11:45 | XMS_ITS | Clinical Summary ---
Author Organization [employer] [facility] it Address [address] [place] [address] Care Team Providers Care Blank Driller Name Role Phone Unavailable Primary Care Provider [...] Cervical Cancer Screening: P ap Smear 1980 Pneumococcal Vaccine: 50+ Ye ars (1 of 1 - PCV) 2009 Zoster Vaccines (1 of 2) 2009 Cholesterol Screening (Lipid Panel) 08/28/2022 Colorectal Cancer Screening: Colonoscopy 08/28/2022 Depression Screening 08/28/2022 Hepatitis C Screening 08/28/2022 Osteoporosis Screening (Bone Density Screening) 08/28/2022 Social Influencers of Health Screening 08/28/2022 COVID-19 Vaccine ( - 2023-2 5 season) 2024 Influenza Vaccine (#1) 2024 07/27/2022 Falls Risk Assessment 2024 RSV Immunization Patients 60 + Years [...] patient's age to complete this topic Meningococcal B Vacine Aged Out No lo nger eligible based on patient's age to complete [...]
--- OUTSIDE RECORDS SUMMARY | 2024-11-07 11:45 | XMS_ITS | Encounter Summary ---
Author Organization [employer] Address [address] [facility] 7t [place] [address] Care Team Providers Care Slime Plant Operator Name Role Phone Jose Daniel Duke MD Primary Care Provider +1- [phone] Encounter Details Date Type Department Care Team (Late st Contact Info) Description 08/31/2023 Abstract [facility] ADULT D[facility] [address] [place] [address] Miguel Cohn DDS [address] [place] [address] Social History Tobacco Use Types Packs/Day Years [...] Description 12/09/2024 11:00 AM EDT Office Visit [facility] MED & PEDS [address] [place] [address] Jose Daniel Duke MD [address] [place] [address] documented as of this encounter Visit Diagnoses Not on filedocumented in this encounter Care Teams Slime Plant Operator Relationship Specialty Start Date End Date Jose Daniel Duke MD [address] [place] [address] PCP - General Internal Medicine 10/07/11 documented as of this encounter
--- OUTSIDE RECORDS SUMMARY | 2024-11-07 11:45 | XMS_ITS | Encounter Summary ---
Author Organization [facility] Address [address] [facility] [address] [place] [address] Care Team Providers Care Cardiac Cath Technician Name Role Phone Jose Daniel Duke MD Primary Care Provider +1- [phone] Encounter Details Date Type Department Care Team (Late st Contact Info) Description 10/12/2022 Orders Only [facility] MED & PEDS [address] [place] [address] Mar Abreu LPN Social History Tobacco Use [...] Description 12/09/2024 11:00 AM EDT Office Visit [facility] MED & PEDS [address] [place] [address] Jose Daniel Duke MD [address] [place] [address] documented as of this encounter Visit Diagnoses Not on filedocumented in this encounter Care Teams Cardiac Cath Technician Relationship Specialty Start Date End Date Jose Daniel Duke MD [address] [place] [address] PCP - General Internal Medicine 10/07/11 documented as of this encounter
== END 2024-11-07 11:04 | disposition home or self-care (01) ==
PROVIDERS: PCP Internal Medicine; Visit Provider Internal Medicine
DX: J44.9 Chronic obstructive pulmonary disease, unspecified (principal); J30.9 Allergic rhinitis, unspecified; R91.8 Other nonspecific abnormal finding of lung field
CPT/HCPCS: 99213

== ENCOUNTER → 2024-11-07 10:35 | Outpatient (BNVA) | payer OTHER, SELFPAY | PROVIDERS: PCP Internal Medicine; Visit Provider Internal Medicine | DX: J44.9 Chronic obstructive pulmonary disease, unspecified (principal); J30.9 Allergic rhinitis, unspecified; R91.8 Other nonspecific abnormal finding of lung field | CPT/HCPCS: 99212 ==

== ENCOUNTER 2024-12-12 09:44 | Outpatient (AMB) | payer OTHER, SELFPAY ==
[2024-12-12 10:13] VITALS: BP 112/55; PULSE 69; BMI 32.4
--- NOTE | 2024-12-12 10:13 | MHC.OFFVIS ---
Vital Signs 12/12/24 10:13 Height 5 ft 7 in Weight 206 lb 12.697 oz BMI 32.4 BP 112/55 L Blood Pressure Location Rt brachial Position Sitting Pulse 69 Intake Visit Reasons: MRI results Intake Note: Ysabel returns to in office follow up for MRI results. CC: Patient reports doing well as long as she takes her medications. Denies any new GI symptoms or concerns. User Experience Developer Required: No Accompanied by: Self / Same As Patient Allergies acetaminophen [From Percocet] Adverse Reaction (Verified 12/12/24 10:16) Vomiting oxycodone [From Percocet] Adverse Reaction (Verified 12/12/24 10:16) Vomiting HPI Comments Details: 64 y.o F with PMH of tobacco use disorder that has led to COPD, lung nodules under care of pulm and thoracic surg, elevated LFTs who is coming in for follow up. Prev C pt. Prev work up reviewed - labs, PET, US. Discussed that VETO is definitely high but no correlating liver related serology and will likely have to follow back with Rheum. ASMA was weakly posiitve once so will recheck. US reviewed - had dilated CBD 1.5 cm and splenic lesion. Does not appear to have had a follow up on these. Otherwise, asymptomatic, no abd pain, N,V. Reports she did cologuard last year which was negative. MRI Abd 10/2024: Liver measures 16 cm. No focal enhancing mass. Portal veins, hepatic veins and intrahepatic portion of the IVC are patent. Mild intrahepatic biliary ductal dilatation. Status post cholecystectomy. Common bile duct measures 10 mm in maximum diameter with abrupt cut off at the junction with the second portion of the duodenum. No intraluminal enhancing lesion or filling defects. PANCREAS: No focal mass. No main pancreatic ductal dilatation. No peripancreatic fluid collections. 12/12/24: Here for follow up. MRI findings of antolin dil and intrahepatic ductal dilation reviewed. Measured 10 mm by reading radiolgist, proximal CBD measures close to 15 mm on independent review. Again, no obvious correlating sx such as postprandial pain, altered bowel habits, pruritus etc. Pt not on opiates. Has LFT abnl but hepatocellular pattern, not obstructive. [facility] Medical History Chronic left shoulder pain Trochanteric bursitis of both hips Chronic right shoulder pain Elevated liver enzymes VETO positive Epigastric pain Pulmonary nodules Palpitations Asthma Fibromyalgia Obesity (BMI 30.0-34.9) Allergic rhinitis COPD (chronic obstructive pulmonary disease) Surgical History Hx of cholecystectomy Hx of colonoscopy Status post fine needle aspiration (~2019) Family History Mother Leukemia Diabetes Arthritis Family/Other Hodgkins lymphoma Family/Other Uterine cancer Sister Uterine cancer High cholesterol HTN (hypertension) Paternal Grandmother Uterine cancer Heart attack Father Colon cancer Social History Household Members: None Housing: Apartment Are you a primary day care center director to a significant other at home: No Do you presently have visiting nurse or other home services: No Alcohol intake: never Patient Tobacco Use Status: Former Tobacco user service: No Current occupational status: disabled Review of Systems Const All systems reviewed & are unremarkable except as noted in HPI and below Physical Exam Vital Signs: Last Vital Signs Pulse 69 12/12/24 10:13 BP 112/55 L 12/12/24 10:13 BMI result Body Mass Index 32.4 No apparent distress Nonicteric Abdomen soft, nondistended Alert and oriented x3, normal gait Assessment & Plan Assessment & Plan (1) Common bile duct dilatation: Code(s): K83.8 - Other specified diseases of biliary tract Category: Medical (2) Elevated liver enzymes: Comment: reviewed labs viral serologies- Code(s): R74.8 - Abnormal levels of other serum enzymes Category: Medical (3) VETO positive: Code(s): R76.8 - Other specified abnormal immunological findings in serum Category: Medical (4) Lesion of spleen: Code(s): D73.89 - Other diseases of spleen Category: Medical Plan 1. Elevated LFTs/Dilated CBD/Positive VETO Based on pattern of AST/ALT elevation, and appearance on ultrasound, in the context of metabolic factors, this is most likely secondary to fatty liver disease. However given finding of dilated CBD, ddx now also includes CBD stricture vs SOD vs periampullary adenoma vs PSC moon given elevated VETO. Discussed ERCP vs monitoring with serial imaging +LFTs. Pt elects to proceed with ERCP. Plan: - ERCP to be booked - Pt aware will need pulm clearance - Will also notify her photography instructor Dr Max re strongly positive VETO - AIH w/up negative. 2. Calcific splenic lesions: None noted on MRI on independent review of images. Follow up after ERCP. Coding Level of Care Code Est Pt Level 4 (23440) Diagnoses Common bile duct dilatation K83.8 Elevated liver enzymes R74.8 VETO positive R76.8 Lesion of spleen D73.89
--- OUTSIDE RECORDS SUMMARY | 2024-12-12 11:55 | XMS_ITS | Encounter Summary ---
Author Organization [employer] Address [address] [facility] [address] [place] [address] Care Team Providers Care Audiometric Technician Name Role Phone Jose Daniel Duke MD Primary Care Provider [phone] Encounter Details Date Type Department Care Team (Late st Contact Info) Description 08/31/2023 Abstract [facility] ADULT DENTAL [address] [place] [address] Miguel Cohn DDS [address] [place] [address] Social History Tobacco Use Types Packs/Day Years Used Date Smoking Tobacco: Never Smokeless Tobacco: Never Comments Unknown Sex and Gender Information Value Date Recorded Sex Assigned at Female 07/18/2022 10:14 AM EDT Legal Sex Female 10:14 AM EDT Gender Identity Female 07/18/2022 10:14 AM EDT Sexual Orientation Straight 07/18/2022 10 :14 AM EDT documented as of this encounter Plan of Treatment Not on file documented as of this encounter Visit Diagnoses Not on filedocumented in this encounter Care Teams Audiometric Technician Relationship Specialty Start Date End Date Jose Daniel Duke MD [address] [place] [address] PCP - General Internal Medicine 10/07/11 documented as of this encounter
--- OUTSIDE RECORDS SUMMARY | 2024-12-12 11:57 | XMS_ITS | Encounter Summary ---
Author Organization [employer] Address [address] [facility] [address] [place] [address] Care Team Providers Care Room Service Runner Name Role Phone Jose Daniel Duke MD Primary Care Provider [phone]- [phone] Reason for Visit * Reason Comments Follow-up Weight Encounter Details Date Type Department Care Team ([facility] Contact Info) Description 12/09/2024 11:00 AM EDT Office Visit [facility] CHC MED & PEDS [address] [place] [address] Jose Daniel Duke MD [address] [place] [address] Chronic bronchitis, unspecified chronic bronchitis type (CMS/HCC) (Primary Dx); Abnormal LFTs; Dietary counseling; Exercise counseling; Class 2 severe obesity due to excess calories with serious comorbidity and body mass index (BMI) of 35.0 to 35.9 in adult (CMS/HCC); Chronic midline low back pain without sciatica Social History Tobacco Use Types Packs/Day Years [...] Sign Reading Time Taken Comments Blood Pressure 134/71 12/09/2024 10:44 AM EDT Pulse 72 12/09/2024 10:44 AM EDT Temperature 36.5 ??C (97.7 ??F) 12/09/2024 10:44 AM E DT Respiratory Rate 16 12/09/2024 10:44 AM EDT Oxygen Saturation 99% 12/09/2024 10:44 AM EDT Inhaled Oxygen Concentration - - Weight 94.3 kg (208 lb) 12/09/2024 10:44 AM EDT Height 162.6 cm (5' 4 ) 12/09/2024 10:44 AM EDT Body Mass Index 35.7 12/09/2024 10:44 AM EDT documented in this encounter Progress Notes * Jose Daniel Duke MD - 12/09/2024 11:00 AM EDT Subjective Patient ID: Ysabel Ty is a 64 y.o. female who presents for Follow- up (Weight ). HPI Patient with history of chronic obstructive pulmonary disease. Recently evaluated by her independent film maker on November 15, 2024. No significant change was noted in her overall health. She was advised to continue with Incruse Ellipta, Advair but the dose was decreased to 250-51 inhalation twice daily. And also advised to continue with her rescue albuterol HFA 2 puffs every 6 hours as needed or to use her nebulizer every 4-6 hours as needed. Also has history of elevated LFTs. Had a recent follow-up on October 23, 2024 with a manager labor relations. No new symptoms reported. Impression of fatty liver disease. Also has a weakly positive VETO and ASMA antibody in the past. The plan was to recheck autoimmune hepatitis workup. History of incidentally noted dilated CBD on ultrasound. Nonobstructive pattern of LFTs. An MRI of the abdomen with and without contrast was ordered. 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 No choledocholithiasis. No focal mass, mild hepatomegaly, small fat-containing umbilical hernia. H/o OA x several years. Follow up w/ Rheumatology. Started on Meloxicam which is not well tolerated. Pt states she feels Ibuprofen works better for her. C/o multiple joint pain including low back pain w/o radiation. No fever/saddle anesthesia/urinary retention and/or incontinence. Patient Active Problem List Diagnosis Asthma Fibromyalgia Osteoarthritis Pain of breast Peripheral venous insufficiency COPD (chronic obstructive pulmonary disease) ([facility]) Abnormal LFTs Current Outpatient Medications on File Prior to Visit Medication Sig Dispense Refill albuterol (2.5 MG/3ML) 0.083% nebulizer solution INHALE ONE AMPULE USING A NEBULIZER EVERY 4 TO 6 HOURS NEEDED SHORTNESS OF BREATH OR FOR WHEEZING amoxicillin (Amoxil) 500 MG capsule TAKE ONE CAPSULE EVERY 8 HOURS UNTIL FINISHED (Patient not taking: Reported on 02/20/2023) 21 capsule 0 aspirin 81 MG EC tablet Take 1 tablet by mouth at bed time. escitalopram (Lexapro) 10 MG tablet Take 10 mg by mouth in the morning. hydrocortisone (West-Declan) 0.2 % cream Apply topically 2 times daily. apply by topical route 2 times every day to the affected area(s) 45 g 0 ibuprofen 800 MG tablet TAKE ONE TABLET ONCE DAILY NEEDED 30 tablet 0 loratadine (Claritin) 10 MG tablet Take 1 tablet by mouth at bed time. melatonin 5 MG tablet Take 2 tablets by mouth at bedtime. omeprazole (PriLOSEC) [address] capsule Take 1 capsule (20 mg) by mouth before breakfast. 30 capsule5 Sod Fluoride-Potassium Nitrate (PreviDent 5000 Enamel Protect) 1.1-5 % gel use to brush teeth 2 times a day sodium chloride 0.9 % nebulizer solution with albuterol (5 MG/ML) 0.5% nebulizer solution 0.6 mg/mLInhale 2 puffs. tacrolimus (Protopic) 0.03 % ointment Apply topically 2 times daily. 30 g 0 traZODone (Desyrel) 150 MG tablet Take 150 mg by mouth if needed at bedtime. Ventolin HFA 108 (90 Base) MCG/ACT inhaler INHALE TWO PUFFS EVERY 6 HOURS NEEDED Ventolin HFA 108 (90 Base) MCG/ACT inhaler INHALE TWO PUFFS EVERY 6 HOURS NEEDED 18 g 3 No current facility-administered medications on file prior to visit. No Known Allergies Review of Systems Constitutional: Negative for appetite change, chills and diaphoresis. Eyes: Negative for pain and redness. Respiratory: Positive for shortness of breath. Negative for cough, choking and chest tightness. Cardiovascular: Negative for leg swelling. Gastrointestinal: Negative for abdominal pain and anal bleeding. Musculoskeletal: Positive for arthralgias and back pain. Objective BP 134/71 (BP Location: Left arm, Patient Position: Sitting, BP Cuff Size: Large adult) Pulse 72 Temp 97.7 ??F (36.5 ??C) (Oral) Resp 16 Ht 5' 4 (1.626 m) Wt 208 lb (94.3 kg) SpO2 99% BMI 35.70 kg/m?? Physical Exam Constitutional: Appearance: Normal appearance. She is obese. Cardiovascular: Rate and Rhythm: Normal rate. Pulmonary: Breath sounds: Decreased air movement present. Abdominal: Palpations: Abdomen is soft. Neurological: General: No focal deficit present. Mental Status: She is alert. Psychiatric: Mood and Affect: Mood normal. Assessment/Plan Diagnoses and all orders for this visit: Chronic bronchitis, unspecified chronic bronchitis type ([facility]) Comments: Stable Follow up w/ pulmonology No change in management made today. Abnormal LFTs Comments: The Most recent abdo MRI was reviewed: the results discussed. Pt is to follow up w/ her Gastro as scheduled. Dietary counseling Exercise counseling Class 2 severe obesity due to excess calories with serious comorbidity and body mass index (BMI) of35.0 to 35.9 in adult (CMS/HCC) Dietary Recommendations: Fruits, vegetables, whole grains, protein foods, and fat-free or low-fat dairy products are healthychoices. Eat different types of protein foods in your diet. This can include seafood, lean meats, poultry, beans, peas, lentils, nuts, seeds, soy products, and eggs. Limit foods and beverages higher in added sugars, saturated fat, and sodium. Exercise Recommendations: At least 150 minutes of moderate-intensity physical activity per week, or an equivalent combinationof moderate- and vigorous-intensity activity Chronic midline low back pain without sciatica Comments: Moist heat to the area Lidocaine as directed Ibuprofen as needed Call the offfice if no improvemnt in the next 6 weeks. Orders: - lidocaine (LMX 4) 4 % cream; Apply topically if needed in the morning, at noon, in the evening, and at bedtime for mild pain. documented in this encounter Plan of Treatment Not on file documented as of this encounter Visit Diagnoses Diagnosis Chronic bronchitis, unspecified chronic bronchitis type (CMS/HCC)- Primary Abnormal LFTs Dietary counseling Dietary surveillance and counseling Exercise counseling Class 2 severe obesity due to excess calories with serious comorbidity and body mass index (BMI) of 35.0 to 35.9 in adult (CMS/HCC) Chronic midline low back pain without sciatica documented in this encounter Additional Health Concerns Assessment Noted Time PHQ-9 Depression Total Score: 3 04/18/20 24 11:01 AM EDT documented as of this encounter Care Teams Room Service Runner Relationship Specialty Start Date End Date Jose Daniel Duke MD [address] [place] [id number] PCP - General Internal Medicine 10/07/11 documented as of this encounter
--- OUTSIDE RECORDS SUMMARY | 2024-12-12 11:57 | XMS_ITS | Encounter Summary ---
Author Organization [employer] Address [address] [facility] [address] [place] [address] Care Team Providers Care Cobol Developer Name Role Phone Jose Daniel Duke MD Primary Care Provider [phone]- [phone] Encounter Details Date Type Department Care Team (Latest Contact Info) Description 03/05/2019 Abstract [facility] Dental, Provider, DDS Social History Tobacco [...] on filedocumented in this encounter Care Teams Cobol Developer Relationship Specialty Start Date End Date Jose Daniel Duke MD [address] [facility] [place] [address] PCP - General Internal Medicine 10/07/11 documented as of this encounter
--- OUTSIDE RECORDS SUMMARY | 2024-12-12 11:57 | XMS_ITS | Encounter Summary ---
Author Organization [employer] Address [address] [facility] [address] [place] [address] Care Team Providers Care Marketing Designer Name Role Phone Jose Daniel Duke MD Primary Care Provider [phone] Encounter Details Date Type Department Care Team (Latest Contact Info) Description 09/25/2019 Abstract [facility] Dental, Provider, DDS Social [...] on filedocumented in this encounter Care Teams Marketing Designer Relationship Specialty Start Date End Date Jose Daniel Duke MD [address] [facility] [place] [address] PCP - General Internal Medicine 10/07/11 documented as of this encounter
--- OUTSIDE RECORDS SUMMARY | 2024-12-12 11:57 | XMS_ITS | Encounter Summary ---
Author Organization [employer] Address [address] [facility] [address] [place] [address] Care Team Providers Care Inventory Coordinator Name Role Phone Jose Daniel Duke MD Primary Care Provider +1- [phone] Reason for Visit * Reason Onset Date Comments Dentures 02/22/2023 Encounter Details Date Type Department Care Team ([facility] st Contact Info) Description 02/22/2023 Telephone C [facility] ADULT DENTAL [address] [place] [address] Miguel Cohn, DDS [address] [place] [address] Dentures Social History Tobacco Use Types Packs/Day [...] on filedocumented in this encounter Care Teams Inventory Coordinator Relationship Specialty Start Date End Date Jose Daniel Duke MD [address] [place] [id number] PCP - General Internal Medicine 10/07/11 documented as of this encounter
--- OUTSIDE RECORDS SUMMARY | 2024-12-12 11:57 | XMS_ITS | Encounter Summary ---
Author Organization [employer] [facility] Address [address] [facility] [address] [place] [address] Care Team Providers Care Cellophane Worker Name Role Phone Jose Daniel Duke MD Primary Care Provider +1- [phone] Encounter Details Date Type Department Care Team (Latest Contact Info) Description 06/24/2021 Abstract [facility] Dental, Provider, DDS Social [...] on filedocumented in this encounter Care Teams Cellophane Worker Relationship Specialty Start Date End Date Jose Daniel Duke MD [address] [place] [address] PCP - General Internal Medicine 10/07/11 documented as of this encounter
--- OUTSIDE RECORDS SUMMARY | 2024-12-12 11:57 | XMS_ITS | Encounter Summary ---
Author Organization [employer] Address [address] [facility] [address] [place] [address] Care Team Providers Care Pedodontist Name Role Phone Jose Daniel Duke MD Primary Care Provider +1- [phone] Reason for Visit * Reason Comments Pre-visit Planning SDOH unable to reach LVM Encounter Details Date Type Department Care Team ([facility] st Contact Info) Description 12/02/2024 Patient Outreach [facility] CHC MED & PEDS [address] [place] [address] Jose Daniel Duke MD [address] [place] [address] Pre-visit Planning (SDOH unable to reach LVM ) Social History Tobacco Use Types Packs/Day Years [...] as of this encounter Progress Notes * Yanna Mcgregor - 12/02/2024 4:17 PM EDT SHASHA Garcia placed outbound call to patient to complete pre-visit planning. No answer at this time. Patient name and were not confirmed. CC left voicemail requesting return call. Direct contactinformation provided. documented in this encounter Plan of Treatment Not on file documented as of this encounter Visit Diagnoses Not on filedocumented in this encounter Additional Health Concerns Assessment Noted Time PHQ-9 Depression Total Score: 3 04/18/20 24 11:01 AM EDT documented as of this encounter Care Teams Pedodontist Relationship Specialty Start Date End Date Jose Daniel Duke MD [address] [place] [id number] PCP - General Internal Medicine 10/07/11 documented as of this encounter
--- OUTSIDE RECORDS SUMMARY | 2024-12-12 11:57 | XMS_ITS | Encounter Summary ---
Author Organization [employer] [facility] Address [address] [place] [address] [address] [place] [address] Care Team Providers Care Manager Office Services Name Role Phone Jose Daniel Duke MD Primary Care Provider +1- [phone] Reason for Visit * Reason Comments Med Refill Encounter Details Date Type Department Care Team ([facility] st Contact Info) Description 10/12/2022 Refill [facility] MEDICINE [address] [place], [place] [id number] Jose Daniel Duke MD [address] [place] [address] Moderate persistent asthma without complication (Primary Dx) [...] Primary documented in this encounter Care Teams Manager Office Services Relationship Specialty Start Date End Date Jose Daniel Duke MD [address] [place] [address] PCP - General Internal Medicine 10/07/11 documented as of this encounter
--- OUTSIDE RECORDS SUMMARY | 2024-12-12 11:57 | XMS_ITS | Clinical Summary ---
Author Organization [employer] Address [address] [facility] 7t [place] [address] Care Team Providers Care Ed Teacher Name Role Phone Jose Daniel Duke MD Primary Care Provider +1- [phone] Allergies No known active allergies Medications sodium [...] daily. 30 g 4 09/10/20 25 Active lidocaine (LMX 4) 4 % creamIndications :Chronic midline low back pain without sciatica Apply topically if needed in the morning, at noon, in the evening, and at bedtime for mild pain. 28 g 2 5 12/10/19 26 Active Active Problems Problem Noted Date Diagnosed Date COPD (chronic obstructive pulmonary disease) Abnormal LFTs 12/09/2024 Pain of breast 02/22/2018 Fibromyalgia 10/12/2016 Osteoarthritis 10/12/2016 Peripheral venous insufficiency 10/12/2016 Asthma 11/14/2012 Encounters Date Type Department Care Team Description 12/09/2024 11:00 AM EDT Office Visit [facility] MED & PEDS [address] [place] [address] Jose Daniel Duke MD Chronic bronchitis, unspecified chronic bronchitis type (CMS/HCC) (Primary Dx); Abnormal LFTs; Dietary counseling; Exercise counseling; Class 2 severe obesity due to excess calories with serious comorbidity and body mass index (BMI) of 35.0 to 35.9 in adult (CMS/HCC); Chronic midline low back pain without sciatica 12/09/2024 Travel 12/02/2024 Patient Outreach [facility] [address] [place] [address] Jose Daniel Duke MD Pre-visit Planning ([facility] unable to reach LVM ) 10/23/2024 Orders Only GENERIC EXTERNAL DATA DEPARTMENT Provider, Generic External Data 09/26/2024 9:30 AM EST Office Visit [facility] ADULT DENTAL [address] [place] [address] Nivia Ramesh, KIERA 09/20/2024 11:00 AM EST Office Visit [facility] ADULT DENTAL [address] [place] [address] Nivia Ramesh, KIERA from Last 3 Months Immunizations Name Administration [...] Mass Index 35.7 12/09/2024 10:44 AM EDT Plan of Treatment Health Maintenance Due Date [...] EST Narrative 10/30/2024 11:47 AM EST ? [facility] ?[address] ?[place] [address] ? Magnetic Resonance Report ? Signed ? Patient: Chaves Chaves,Ysabel N ? MR#: [id number] ? : 1960 ?Acct:[id number] ? Age/Sex: 64 / F ?ADM Date: 10/30/24 ? Loc: HO.MRI ? Attending Dr: Amarilis Valdovinos MD ? Ordering Physician: Amarilis Valdovinos MD ?? Date of Service: 10/30/24 ?? Procedure(s): MR abdomen wo/w con ?? Accession Number(s): [id number] ? cc: Jose Daniel Duke MD; Amarilis [...] DD/ 0831 ? TD/TT: 10/30/24 0901 ? Yard Cleaner: ? Procedure Note Nela, Image - 10/30/2024 [place] [address] Magnetic Resonance Report Signed Patient: Ysabel Patterson MR#: [id number] : 9Acct:[id number] Age/Sex: 64 / FADM Date: 10/30/24 Loc: HO.MRI Attending Dr: Amarilis Valdovinos MD Ordering Physician: Amarilis Valdovinos MD Date of Service: 10/30/24 Procedure(s): MR abdomen wo/w con Accession Number(s): [id number] cc: Jose Daniel Duke MD; Amarilis Valdovinos [...] 10/30/24 1144 DD/ 0831 TD/TT: 10/30/24 0901 Yard Cleaner: [facility] External Provider IMG MRI PROCEDURES Final Result * Drug Monitoring, Phosphatidylethanol (PEth), Blood (10/23/2024 10:19 AM EST) Phosphatidylethanol, Blood NEGATIVE [facility] Comment:REFERENCE RANGE: <20 ng/mLTHIS TEST PERFORMED AT:[facility]/[facility] [id number] [facility] [place] [phone] DIRECTOR: DC BURKETT MD, PHD PEth 16:0/18:2 (PLPEth) NEGATIVE [facility] Comment:REFERENCE RANGE: <20 ng/mLTHIS TEST PERFORMED AT:[place]/[facility] [id number] [facility] [place] [phone] DIRECTOR: DC BURKETT MD, PHD [facility] Comments SEE NOTE [facility] Comment:This drug testing is for medical treatment only. Analysiswas performed as non-forensic testing and these resultsshould be used only by healthcare providers to renderdiagnosis or treatment, or to monitor progress of medicalconditions.LDT Notes:Confirmation tests were developed and their analyticalperformance characteristics have been determined by [facility]. It has not been cleared or approved by the FDA.This assay has been validated pursuant to the CLIAregulations and is used for clinical purposes.Healthcare Providers needing Interpretation assistance,please contact us at [phone] ( ) M-F,8am to 10pm ESTTHIS TEST PERFORMED AT:[facility] [address] [phone] DIRECTOR: EVELIO OSULLIVAN MD 10/23/2024 10:1 9 AM EST 10/23/2024 10:19 AM EST us Generic External Data Provider LAB BLOOD ORDERAB LES Final Result [facility] [address] [place] [phone] * Actin (Smooth Muscle) Antibody (IgG) (10/23/2024 10:19 AM EST) Smooth Muscle Antibody <20 <20 U [facility] Comment:Reference Range: <20 U: Negative>or=20 U: [...] with AIH type 1.THIS TEST WAS PERFORMED AT:[id number] [place] [address]GOHCFHODC BURKETT MD,PHD 10/23/2024 10:1 9 AM EST 10/23/2024 10:19 AM EST Generic External Data Provider LAB BLOOD ORDERAB LES Final Result Performing Organization Address [facility] Co de Phone Number [facility] [address] [place] [phone] * Tissue Transglutaminase Antibody, IgA (10/23/2024 10:19 AM EST) Transglutaminase IgA <1.0 U/mL [facility] Comment:Value Interpretation ----- <15.0 Antibody not detected> or = 15.0 Antibody detectedTHIS TEST WAS PERFORMED AT:[facility] [address] [address]KLDNPEVELIO OSULLIVAN MD 10/23/2024 10:1 9 AM EST 10/23/2024 10:19 AM EST Generic External Data Provider LAB BLOOD ORDERAB LES Final Result Performing Organization Address [facility] de Phone Number [facility] [address] [place] [phone] * Liver Kidney Microsomal (LKM-1) Antibody??(IgG) (10/23/2024 10:19 AM EST) Liver Kidney Microsomal (LKM-1) Antibody IgG <=20.0 <=20.0 U [facility] Comment:Reference Range: <=2 0.0 Negative 20.1-24.9 [...] patients with hepatitis Cinfection.THIS TEST WAS PERFORMED AT:[place] [place] [address]TXTBQUMDC BURKETT MD,PHD 10/23/2024 10:1 9 AM EST 10/23/2024 10:19 AM EST Generic External Data Provider LAB BLOOD ORDERAB LES Final Result Performing Organization Address [facility] Co de Phone Number [facility] [address] [place] [phone] * Mitochondrial Antibody with Reflex to Titer (10/23/2024 10:19 AM EST) Mitochondrial Antibodies NEGATIVE NEGATIVE [facility] Comment:The specimen was neg ative for cytoplasmic antibodies,however additional staining was observed suggesting thepresence of Antinuclear Antibodies. Consider requestingorder code 249, VETO Screen, IFA with Reflex to Titer andPattern, or order code [id number], VETO Screen, IFA w/reflexTiter/Pattern, and Reflex to Multiplex 11 Ab Pima,if clinically indicated.THIS TEST WAS PERFORMED AT:[facility] [address] [address]KOJOREVELIO OSULLIVAN MD Mitochondrial Ab Titer TNP [facility] 10/23/2024 10:1 9 AM EST 10/23/2024 10:19 AM EST us Generic External Data Provider LAB BLOOD ORDERAB LES Final Result Performing Organization Address [facility] Co de Phone Number [facility] [address] [place] [phone] * Prothrombin Time-INR (10/23/2024 10:19 AM EST) Prothrombin Time 11.4 10.9 - 12.4 SEC [facility] INTERNATIONAL NORM RATIO 1.0 0.9 - 1.1 [facility] Comment:INTERNATIONAL NORMAL IZED RATIO (INR) REFERENCE [...] ORDERAB LES Final Result Performing Organization Address City/State/[facility] Co de Phone Number [facility] [address] [place] [phone] * (ABNORMAL) CBC (10/23/2024 10:19 AM EST) [facility] White Blood Count 9.5 4.8 - 10.8 X10*3/uL [facility] Red Blood Count 4.84 4.20 - 5.50 X10*6/uL [facility] Hemoglobin 13.3 12.0 - 16.0 g/dl [facility] Hematocrit 41.0 37.0 - 47.0 % [facility] Mean Corpuscular Volume 84.7 80.0 - 98.0 fL [facility] Mean Corpuscular Hemoglobin 27.5 27.0 - 33.0 pg [facility] Mean Corpuscular HGB Conc 32.4 31.0 - 35.0 g/dl [facility] Red Cell Distribution Width 15.4 11.0 - 16.0 % [facility] Platelet Count 241 160 - 400 X10*3/uL [facility] Mean Platelet Volume 9.1(L) 9.4 - 12.3 fL [facility] NRBC Pct Auto 0.0 0.0 - 0.2 /100WBC [facility] NRBC Abs Auto 0.000 0.0 - 0.012 X10*3/uL [facility] 10/23/2024 10:1 9 AM EST 10/23/2024 10:19 AM EST us Generic External Data Provider LAB BLOOD ORDERAB LES Final Result [facility] [address] [place] [phone] * (ABNORMAL) VETO Screen,IFA, with Reflex to Titer and Pattern (10/23/2024 10:19 AM EST) Anti Nuclear Antibody Screen POSITIVE( A) NEGATIVE [facility] Comment:VETO IFA is a first l ine screen for detecting thepresence of up to approximately 150 autoantibodies invarious autoimmune diseases. A positive VETO IFA resultis suggestive of autoimmune disease and reflexes totiter and pattern. Further laboratory testing may beconsidered if clinically indicated.For additional information, please refer tohttp://education.Tripleseat/faq/OKW360(This link is being provided for informational/educational purposes only.) VETO Titer 1:320(A) titer [facility] Comment:Reference Range <1:4 0 Negative 1:40-1:80 Low Antibody Level >1:80 Elevated Antibody Level VETO Pattern (A) [facility] Comment:Nuclear, Homogeneous Nucleolar Abnormal Flag: ADiffuse staining of the nucleolus is associated withsystemic sclerosis (scleroderma), and systemicsclerosis/polymyositis overlap.AC-8: Homogeneous NucleolarInternational Consensus on VETO Patterns(https://doi.org/10.1515/jsot-1167-1904)THIS TEST WAS PERFORMED AT:[facility] [place] [phone]EVELIO OSULLIVAN MD VETO TITER 2 (REF LAB) TNP [facility] VETO Pattern 2 [facility] VETO TITER 3 [facility] VETO PATTERN 3 [facility] 10/23/2024 10:1 9 AM EST 10/23/2024 10:19 AM EST us Generic External Data Provider LAB BLOOD ORDERAB LES Final Result Performing Organization Address [facility]/ZIP Co de Phone Number [facility] [address] [place] [phone] * (ABNORMAL) Immunoglobulin A (10/23/2024 10:19 AM EST) Immunoglobulin A 335(A) 70 - 320 mg/dL [facility] Comment:THIS TEST WAS PERFOR MED AT:[facility] [place] [phone] OSULLIVAN MD 10/23/2024 10:1 9 AM EST 10/23/2024 10:19 AM EST Generic External Data Provider LAB BLOOD ORDERAB LES Final Result Performing Organization Address [facility] Co de Phone Number [facility] [address] [place] [phone] * Immunoglobulin M (10/23/2024 10:19 AM EST) Pathologist [facility] Immunoglobulin M 92 50 - 300 mg/dL [facility] Comment:THIS TEST WAS PERFOR MED AT:[facility] [place] [phone] OSULLIVAN MD 10/23/2024 10:1 9 AM EST 10/23/2024 10:19 AM EST us Generic External Data Provider LAB BLOOD ORDERAB LES Final Result Performing Organization Address [facility] Co de Phone Number [facility] [address] [place] [phone] [phone] * Immunoglobulin G (10/23/2024 10:19 AM EST) Immunoglobulin G 1022 600 - 1540 mg/dL [facility] Comment:THIS TEST WAS PERFOR MED AT:[facility] [address] [address]NMXKBEVELIO OSULLIVAN MD 10/23/2024 10:1 9 AM EST 10/23/2024 10:19 AM EST Generic External Data Provider LAB BLOOD ORDERAB LES Final Result Performing Organization Address [facility] de Phone Number [facility] [address] [place] [phone] * (ABNORMAL) Hepatic Function Panel (10/23/2024 10:19 AM EST) Bilirubin, Total 0.4 0.0 - 1.0 mg/dL [facility] Bilirubin, Direct 0.2 0.0 - 0.5 mg/dL [facility] Aspartate Amino Transferase 33(H) 5 - 31 U/L [facility] Alanine Aminotransferase 28 0 - 31 U/L [facility] Total Protein 7.1 6.5 - 8.0 g/dL [facility] Albumin Level 3.9 3.5 - 5.0 g/dL [facility] Alkaline Phosphatase 61 39 - 117 U/L [facility] 10/23/2024 10:1 9 AM EST 10/23/2024 10:19 AM EST Generic External Data Provider LAB BLOOD ORDERAB LES Final Result Performing Organization Address [facility] de Phone Number [facility] [address] [place] [phone] * BI Mammogram Screening Tomosynthesis Bilateral (05/16/2024 8:00 AM EDT) Anatomical Region Laterality Modality Breast Bilateral Mammography 05/16/2024 8:00 AM EDT Narrative 06/07/2024 8:45 PM EDT ? [facility] ? [address] ?[place] [address] ? Mammography Report ? Signed ? Patient: Chaves Chaves,Ysabel N ? MR#: [id number] ? : 1960 ?Acct:[id number] ? Age/Sex: 63 / F ?ADM Date: 05/16/24 ? Loc: HO.MAMMO ? Attending Dr: Jose Daniel Duke MD ? Ordering Physician: Jose Daniel Duke MD ?Results: 2 ?? Benign Findings ? Date of Service: 05/16/24 ?Follow Up: 1 Year From Orig ?? inal Mammogram ? Procedure(s): MM tomosynthesis screening BI ?? Accession Number(s): [id number] ? cc: Jose Daniel Duke MD ? [...] DD/ 0800 ? TD/TT: 05/16/24 0815 ? Yard Cleaner: ? Procedure Note Donlacy, Image - 06/07/2024 [facility] [address] [place] [address] Mammography Report Signed Patient: Ysabel Patterson MR#: [id number] : 9Acct:[id number] Age/Sex: 63 / FADM Date: 05/16/24 Loc: HO.MAMMO Attending Dr: Jose Daniel Duke MD Ordering Physician: Jose Daniel Duke MDResults: 2 Benign Findings Date of Service: 05/16/24Follow Up: 1 Year From [facility] Mammogram Procedure(s): MM tomosynthesis screening BI Accession Number(s): [id number] cc: Jose Daniel Duke MD EXAMINATION: MM [...] DO in OV> 06/07/242042 DD/ 9 TD/TT: 05/16/24814 Yard Cleaner: us Jose Daniel Duke MD IMG BI PROCEDURES Final Res ult * Cologuard?? colon cancer screening (04/25/2024 8:15 AM EDT) Cologuard Result Negative Negative 04/30/20 8:50 PM EDT [employer] (CLIA #:[id number]) Comment: NEGATIVE TEST RESULT. A negative Cologuard [...] (Santiago Mehta al, N Engl J Med 2014;370(14):1286- 1297) The normal value (reference range) for this assay is negative. COLOGUARD RE-SCREENING RECOMMENDATION: Periodic colorectal cancer screening is an important part of preventive healthcare for asymptomatic individuals at average risk for colorectal cancer. ??Following a negative Cologuard result, the [place] Cancer Society and U.S. Multi-Society Task Force screening guidelines recommend a Cologuard re-screening interval of 3 years. References: [place] Cancer Society Guideline for Colorectal Cancer Screening: https://www.cancer.org/cancer/rudlr-uqlund-wiygzr/swqekptuj-hmvanldoz-zdlkzdc/ac s-rec ommendations.html.; Johnny DK, Albertina CR, Jhoan VazquezK, Colorectal Cancer Screening: Recommendations for Physicians and Patients from the U.S. Multi-Society Task Force on Colorectal Cancer Screening , Am J Gastroenterology 2017; 112:2822-0756. TEST DESCRIPTION: Composite algorithmic analysis of stool [...] (Santiago Mehta al, N Engl J Med 2014;370(14):3152-4552.) Cologuard may produce a false negative or false positive result (no colorectal cancer or precancerous polyp present at colonoscopy follow up). A negative Cologuard test result does not guarantee the absence of CRC or advanced adenoma (pre-cancer). The current Cologuard screening interval is every 3 years. ([place] Cancer Society and U.S. Multi-Society Task Force). Cologuard performance data in a 10,000 patient pivotal study using colonoscopy as the reference method can be accessed at the following location: www.VeriTran.com/results. Additional description of the Cologuard test process, warnings and precautions can be found at www.colzulilyrd.com. Stool specimen (specimen) 04/25/2024 8:15 AM EDT 04/26/2024 10:40 AM EDT Jose Daniel Duke MD LAB MOLECULAR DIAGNOSTICS O RDERABLES Final Result Performing Organization Address [facility] Co de Phone Number [employer] (CLIA #:[id number]) [place] [address], * Hepatitis Panel, General (12/13/2023 8:14 AM EDT) Hepatitis A IgM Nonreactive Nonreactive [facility] Comment:IgM antibodies to RONDON V not detected; does not exclude earlyacute or recovered HAV infection. ~Hepatitis B Surface Antibody NONREACTIVE Nonreactive [facility] Comment:Nonreactive: < 8.00 mIU/mL Hepatitis B Core Antibody Nonreactive Nonreactive [facility] Hepatitis C Antibody Nonreactive Nonreactive [facility] Comment:Antibodies to HCV no t detected; does not exclude early acuteHCV infection. Hepatitis B Surface Ag Negative Negative [facility] 12/13/2023 8:14 AM EDT 12/13/2023 8:14 AM EDT Generic External Data Provider LAB BLOOD ORDERAB LES Final Result Performing Organization Address [facility] Co de Phone Number [facility] [address] [place] [phone] [phone] * THINPREP PAP (04/20/2021 2:17 PM [...] historic and ?? current clinical information. ?? Punchboard Stuffer : SEE COMMENT [facility] Comment: RXB, CT(ASCP) CT screening location: [address] ??[address] Infection Fungal organisms morphologically consistent with Soco spp. [facility] Interpretation/R esult: Negative for [...] Jessica MCCOY LAB PATHOLOGY ORDERABLES Final Result [facility] [address] * HPV mRNA E6/E7 (04/20/2021 2:17 PM EDT) HPV nRNA E6/E7 Not Detected Not Detected [facility] Comment: Methodology: Gifted Program Teacher-Mediated Amplification This assay detects E6/E7 viral messenger RNA (mRNA) from 14 high-risk HPV types (16,18,31,33,35,39,45,51,52,56,58,59,66,68). ? The analytical performance characteristics of this assay have been determined by [employer]. The modifications have not been cleared or approved by the FDA. This assay has been validated pursuant to the CLIA regulations and is used for clinical purposes. ?? For additional information, please refer to http://education.Audio Network/faq/VWZ519z5 (This link if provided for information/ educational purposes only.) 04/20/2021 2:17 PM EDT [facility] LAB BLOOD ORDERABLES Jessy boston Result [facility] [address] [place] [address], * LIPID PANEL (11/24/2020 9:15 AM EST) [...] Provider MD HISTORICAL/NON ORDERABLE LABS Final Result [facility] [address] from Last 3 Months or Most Recently Relevant to Health Maintenance Insurance [facility] C[facility] MEDICAID STAND ADULT Care Teams Ed Teacher Relationship Specialty Start Date End Date Jose Daniel Duke MD [address] [place] [address] DEVONTE Suarez [address] PCP - General Internal Medicine 10/07/11
--- OUTSIDE RECORDS SUMMARY | 2024-12-12 11:57 | XMS_ITS | Clinical Summary ---
Author Organization [employer] [facility] it Address [address] [place] [address] Care Team Providers Care Front Maker Name Role Phone Unavailable Primary Care Provider [...]
--- OUTSIDE RECORDS SUMMARY | 2024-12-12 11:57 | XMS_ITS | Encounter Summary ---
Author Organization [email or web address] Address [address] [facility] [address] [place] [address] Care Team Providers Care School Psychology Professor Name Role Phone Jose Daniel Duke MD Primary Care Provider [phone]- [phone] Encounter Details Date Type Department Care Team (Latest Contact Info) Description 12/09/2024 Travel Social History Tobacco Use Types Packs/Day Years [...] documented as of this encounter Care Teams School Psychology Professor Relationship Specialty Start Date End Date Jose Daniel Duke MD [address] [place] [address] PCP - General Internal Medicine 10/07/11 documented as of this encounter
--- OUTSIDE RECORDS SUMMARY | 2024-12-12 11:57 | XMS_ITS | Encounter Summary ---
Author Organization [employer] Address [address] [facility] [address] [place] [address] Care Team Providers Care Gate Shear Operator Name Role Phone Jose Daniel Duke MD Primary Care Provider [phone]- [phone] Encounter Details Date Type Department Care Team ([facility] st Contact Info) Description 10/12/2022 Orders Only [facility] [address] [place] [address] Mar Abreu LPN Social History Tobacco Use [...] on filedocumented in this encounter Care Teams Gate Shear Operator Relationship Specialty Start Date End Date Jose Daniel Duke MD [address] [place] [address] PCP - General Internal Medicine 10/07/11 documented as of this encounter
--- OUTSIDE RECORDS SUMMARY | 2024-12-12 11:57 | XMS_ITS | Encounter Summary ---
Author Organization [employer] Address [address] [facility] [address] [place] [address] Care Team Providers Care Manufacturing Intern Name Role Phone Jose Daniel Duke MD Primary Care Provider [phone] Encounter Details Date Type Department Care Team (Late st Contact Info) Description 07/12/2023 Telephone [facility] ADULT DENTAL [address] [place], [place] [phone] Miguel Cohn DDS [address] [place] [address] Social History Tobacco Use Types Packs/Day Years [...] on filedocumented in this encounter Care Teams Manufacturing Intern Relationship Specialty Start Date End Date Jose Daniel Duke MD [address] [place] [address] PCP - General Internal Medicine 10/07/11 documented as of this encounter
== END 2024-12-12 10:56 | disposition home or self-care (01) ==
LOC: HO.HGI 09:45
PROVIDERS: PCP Internal Medicine; Visit Provider Internal Medicine
DX: K83.8 Other specified diseases of biliary tract (principal); R74.8 Abnormal levels of other serum enzymes; R76.8 Other specified abnormal immunological findings in serum; D73.89 Other diseases of spleen
CPT/HCPCS: 99214

== ENCOUNTER → 2024-12-12 09:44 | Outpatient (BNVA) | payer OTHER, SELFPAY | PROVIDERS: PCP Internal Medicine; Visit Provider Internal Medicine | DX: K83.8 Other specified diseases of biliary tract (principal); R74.8 Abnormal levels of other serum enzymes; R76.8 Other specified abnormal immunological findings in serum; D73.89 Other diseases of spleen | CPT/HCPCS: 99212 ==

== ENCOUNTER 2025-01-20 08:11 | Outpatient (REF) | payer OTHER, SELFPAY ==
--- NOTE | ~2025-01-20 | CT_ITS ---
CLINICAL HISTORY: R91.8 - Other nonspecific abnormal finding of lung field --- Additional Notes or Sp ecial Instructions: Surveillance lung mass CT chest with contrast Comparison: CT/REG/SR - CT CHEST WO IV CON - 10/10/23 07:36 EST Findings: The heart is normal size. The visualized thyroid and mediastinum are unremarkable. The somewhat nodular region of consolidation within the inferior right middle lobe is less prominent than on the comparison study, reference sagittal 93 on the current study versus sagittal 95 on the comparison study. Similar scattered 2-3 mm nodules. No new or increasing nodule. Visualized upper abdomen demonstrates no acute process. No suspicious bone lesion. Impression: The questioned increased somewhat nodular region of consolidation within the right middle lobe on the comparison study is less prominent currently. Otherwise stable scattered small nodules. Twelve month follow-up. This document has been electronically signed by: Wenceslao Hanson MD on 01/20/2025 12:32:51
--- OUTSIDE RECORDS SUMMARY | 2025-01-20 08:26 | XMS_ITS | Encounter Summary ---
Author Organization [employer] Address [address] [facility] [address] [place] [address] Care Team Providers Care Plastic Roller Name Role Phone Jose Daniel Duke MD Primary Care Provider [phone] Encounter Details Date Type Department Care Team (Late st Contact Info) Description 07/12/2023 Telephone [facility] ADULT DENTAL [address] [place], [place] [phone] Miguel Cohn DDS [address] [place] [address] Social History Tobacco Use Types Packs/Day Years [...] on filedocumented in this encounter Care Teams Plastic Roller Relationship Specialty Start Date End Date Jose Daniel Duke MD [address] [place] [address] PCP - General Internal Medicine 10/07/11 documented as of this encounter
--- OUTSIDE RECORDS SUMMARY | 2025-01-20 08:26 | XMS_ITS | Encounter Summary ---
Author Organization [employer] Address [address] [facility] 7t [place] [address] Care Team Providers Care Cable Operator Name Role Phone Jose Daniel Duke MD Primary Care Provider [phone]- [phone] Reason for Visit * Reason Onset Date Comments Dentures 02/22/2023 Encounter Details Date Type Department Care Team ([facility] st Contact Info) Description 02/22/2023 Telephone C [facility] [address] [place] [address] Miguel Cohn, DDS [address] [place] [address] Dentures Social History Tobacco Use Types Packs/Day [...] on filedocumented in this encounter Care Teams Cable Operator Relationship Specialty Start Date End Date Jose Daniel Duke MD [address] [place] [phone] PCP - General Internal Medicine 10/07/11 documented as of this encounter
--- OUTSIDE RECORDS SUMMARY | 2025-01-20 08:26 | XMS_ITS | Encounter Summary ---
Author Organization [facility] Address [address] [place] [address] [address] [place] [address] Care Team Providers Care Janitorial Services Supervisor Name Role Phone Jose Daniel Duke MD Primary Care Provider +1- [phone] Reason for Visit * Reason Comments Med Refill Encounter Details Date Type Department Care Team ([facility] st Contact Info) Description 10/12/2022 Refill [facility] [address] [place], [place] [phone] Jose Daniel Duke MD [address] [place] [address] Moderate persistent asthma without complication (Primary Dx) [...] Primary documented in this encounter Care Teams Janitorial Services Supervisor Relationship Specialty Start Date End Date Jose Daniel Duke MD [address] [place] [address] PCP - General Internal Medicine 10/07/11 documented as of this encounter
--- OUTSIDE RECORDS SUMMARY | 2025-01-20 08:26 | XMS_ITS | Clinical Summary ---
Author Organization [employer] Address [address] [facility] 7t [place] [address] Care Team Providers Care M1A1 Tank Crewman Name Role Phone Jose Daniel Duke MD Primary Care Provider +1- [phone] Allergies No known active allergies Medications sodium [...] topically 2 times daily. 30 g 4 025 Active lidocaine (LMX 4) 4 % creamIndications :Chronic midline low back pain without sciatica Apply topically if needed in the morning, at noon, in the evening, and at bedtime for mild pain. 28 g 2 5 026 Active erythromycin (Romycin) 5 MG/GM ophthalmic ointmentIndicati ons:Blepharitis of right upper eyelid, unspecified type Apply to affected eye(s) 4 times daily for 10 days. Apply Amount per Dose: 0.5 inch (~1 cm) per dose to right upper eyelid once a day at bedtime. 3.5 g 5 025 Active Problems Problem Noted Date Diagnosed Date COPD (chronic obstructive pulmonary disease) Abnormal LFTs 12/09/2024 Pain of breast 02/22/2018 Fibromyalgia 10/12/2016 Osteoarthritis 10/12/2016 Peripheral venous insufficiency 10/12/2016 Asthma 11/14/2012 Encounters Date Type Department Care Team Description 12/23/2024 11:00 AM EDT Office Visit [facility] [address] [place] [address] Sugar Porter MD Blepharitis of right upper eyelid, unspecified type (Primary Dx) 12/23/2024 Travel 12/09/2024 11:00 AM EDT Office Visit [facility] [address] [place] [address] Jose Daniel Duke MD Chronic bronchitis, unspecified chronic bronchitis type (CMS/HCC) (Primary Dx); Abnormal LFTs; Dietary counseling; Exercise counseling; Class 2 severe obesity due to excess calories with serious comorbidity and body mass index (BMI) of 35.0 to 35.9 in adult (CMS/HCC); Chronic midline low back pain without sciatica 12/09/2024 Travel 12/02/2024 Patient Outreach [facility] [address] [place] [address] Jose Daniel Duke MD Pre-visit Planning ([facility] unable to reach [facility] ) 10/23/2024 Orders Only GENERIC EXTERNAL DATA DEPARTMENT Provider, Generic External Data from Last 3 Months Immunizations Name Administration [...] Sign Reading Time Taken Comments Blood Pressure 122/73 12/23/2024 11:11 AM EDT Pulse 73 12/23/2024 11:11 AM EDT Temperature 36.6 ??C (97.9 ??F) 12/23/2024 11:11 AM E DT Respiratory Rate 14 12/23/2024 11:11 AM EDT Oxygen Saturation 98% 12/23/2024 11:11 AM EDT Inhaled Oxygen Concentration - - Weight 93.4 kg (206 lb) 12/23/2024 11:11 AM EDT Height 162.6 cm (5' 4 ) 12/23/2024 11:11 AM EDT Body Mass Index 35.36 12/23/2024 11:11 AM EDT Plan of Treatment Health Maintenance [...] EST CBC Routine 10/23/2024 10:19 AM EST BI MAMMOGRAM SCREENING TOMOSYNTHESIS BILATERAL [...] EST Narrative 10/30/2024 11:47 AM EST ? [facility] ?[address] ?[place] [address] ? Magnetic Resonance Report ? Signed ? Patient: Chaves Chaves,Ysabel N ? MR#: [id number] ? : 1960 ?Acct:[id number] ? Age/Sex: 64 / F ?ADM Date: 10/30/24 ? Loc: HO.MRI ? Attending Dr: Amarilis Valdovinos MD ? Ordering Physician: Amarilis Valdovinos MD ?? Date of Service: 10/30/24 ?? Procedure(s): MR abdomen wo/w con ?? Accession Number(s): [id number] ? cc: Jose Daniel Duke MD; Amarilis [...] DD/ 0831 ? TD/TT: 10/30/24 0901 ? Warehouse Order Puller: ? Procedure Note Nela, Denisse - 10/30/2024 [place] [address] Magnetic Resonance Report Signed Patient: Ysabel Patterson MR#: [id number] : 9Acct:[id number] Age/Sex: 64 / FADM Date: 10/30/24 Loc: HO.MRI Attending Dr: Amarilis Valdovinos MD Ordering Physician: Amarilis Valdovinos MD Date of Service: 10/30/24 Procedure(s): MR abdomen wo/w con Accession Number(s): [id number] cc: Jose Daniel Duke MD; Amarilis Valdovinos [...] 10/30/24 1144 DD/ 0831 TD/TT: 10/30/24 0901 Warehouse Order Puller: [facility] External Provider IMG MRI PROCEDURES Final Result * Drug Monitoring, Phosphatidylethanol (PEth), Blood (10/23/2024 10:19 AM EST) Phosphatidylethanol, Blood NEGATIVE [facility] Comment:REFERENCE RANGE: <20 ng/mLTHIS TEST PERFORMED AT:[employer]/[facility] [id number] [facility] [place] [phone] DIRECTOR: DC BURKETT MD, PHD PEth 16:0/18:2 (PLPEth) NEGATIVE [facility] Comment:REFERENCE RANGE: <20 ng/mLTHIS TEST PERFORMED AT:[employer]/[facility] [id number] [facility] [place] [phone] DIRECTOR: DC BURKETT MD, PHD [facility] Comments SEE NOTE [facility] Comment:This drug testing is for medical treatment only. Analysiswas performed as non-forensic testing and these resultsshould be used only by healthcare providers to renderdiagnosis or treatment, or to monitor progress of medicalconditions.LDT Notes:Confirmation tests were developed and their analyticalperformance characteristics have been determined by [employer]. It has not been cleared or approved by the FDA.This assay has been validated pursuant to the CLIAregulations and is used for clinical purposes.Healthcare Providers needing Interpretation assistance,please contact us at [phone] ( ) M-F,8am to 10pm ESTTHIS TEST PERFORMED AT:[facility] [address] [phone] DIRECTOR: EVELIO OSULLIVAN MD 10/23/2024 10:1 9 AM EST 10/23/2024 10:19 AM EST us Generic External Data Provider LAB BLOOD ORDERAB LES Final Result [facility] [address] [place] [phone] * Actin (Smooth Muscle) Antibody (IgG) (10/23/2024 10:19 AM EST) Smooth Muscle Antibody <20 <20 U [facility] Comment:Reference Range: <20 U: Negative>or=20 U: [...] with AIH type 1.THIS TEST WAS PERFORMED AT:[facility] [place] [address]QIAPCMBDC BURKETT MD,PHD 10/23/2024 10:1 9 AM EST 10/23/2024 10:19 AM EST Generic External Data Provider LAB BLOOD ORDERAB LES Final Result Performing Organization Address [facility] de Phone Number [facility] [address] [place] [phone] * Tissue Transglutaminase Antibody, IgA (10/23/2024 10:19 AM EST) Transglutaminase IgA <1.0 U/mL [facility] Comment:Value Interpretation ----- <15.0 Antibody not detected> or = 15.0 Antibody detectedTHIS TEST WAS PERFORMED AT:[facility] [address] [address]QFZGEEVELIO OSULLIVAN MD 10/23/2024 10:1 9 AM EST 10/23/2024 10:19 AM EST Generic External Data Provider LAB BLOOD ORDERAB LES Final Result Performing Organization Address [facility] de Phone Number [facility] [address] [place] [phone] * Liver Kidney Microsomal (LKM-1) Antibody??(IgG) (10/23/2024 10:19 AM EST) Liver Kidney Microsomal (LKM-1) Antibody IgG <=20.0 <=20.0 U [facility] Comment:Reference Range: <=2 0.0 Negative 20.1-24.9 [...] patients with hepatitis Cinfection.THIS TEST WAS PERFORMED AT:[facility] [place] [address]KWFYNQIDC BURKETT MD,PHD 10/23/2024 10:1 9 AM EST 10/23/2024 10:19 AM EST Generic External Data Provider LAB BLOOD ORDERAB LES Final Result Performing Organization Address [facility] Co de Phone Number [facility] [address] [place] [phone] * Mitochondrial Antibody with Reflex to Titer (10/23/2024 10:19 AM EST) Mitochondrial Antibodies NEGATIVE NEGATIVE [facility] Comment:The specimen was neg ative for cytoplasmic antibodies,however additional staining was observed suggesting thepresence of Antinuclear Antibodies. Consider requestingorder code 249, VETO Screen, IFA with Reflex to Titer andPattern, or order code [id number], VETO Screen, IFA w/reflexTiter/Pattern, and Reflex to Multiplex 11 Ab [place],if clinically indicated.THIS TEST WAS PERFORMED AT:[facility] [address] [address]MLBHTEVELIO OSULLIVAN MD Mitochondrial Ab Titer TNP [facility] 10/23/2024 10:1 9 AM EST 10/23/2024 10:19 AM EST Generic External Data Provider LAB BLOOD ORDERAB LES Final Result Performing Organization Address [facility] Co de Phone Number [facility] [address] [place] [phone] * Prothrombin Time-INR (10/23/2024 10:19 AM EST) Pathologist [facility] Prothrombin Time 11.4 10.9 - 12.4 SEC [facility] INTERNATIONAL NORM RATIO 1.0 0.9 - 1.1 [facility] Comment:INTERNATIONAL NORMAL IZED RATIO (INR) REFERENCE [...] ORDERAB LES Final Result Performing Organization Address City/State/[facility] Co de Phone Number [facility] [address] [place] [phone] * (ABNORMAL) CBC (10/23/2024 10:19 AM EST) [facility] White Blood Count 9.5 4.8 - 10.8 X10*3/uL [facility] Red Blood Count 4.84 4.20 - 5.50 X10*6/uL [facility] Hemoglobin 13.3 12.0 - 16.0 g/dl [facility] Hematocrit 41.0 37.0 - 47.0 % [facility] Mean Corpuscular Volume 84.7 80.0 - 98.0 fL [facility] Mean Corpuscular Hemoglobin 27.5 27.0 - 33.0 pg [facility] Mean Corpuscular HGB Conc 32.4 31.0 - 35.0 g/dl [facility] Red Cell Distribution Width 15.4 11.0 - 16.0 % [facility] Platelet Count 241 160 - 400 X10*3/uL [facility] Mean Platelet Volume 9.1(L) 9.4 - 12.3 fL [facility] NRBC Pct Auto 0.0 0.0 - 0.2 /100WBC [facility] NRBC Abs Auto 0.000 0.0 - 0.012 X10*3/uL [facility] 10/23/2024 10:1 9 AM EST 10/23/2024 10:19 AM EST us Generic External Data Provider LAB BLOOD ORDERAB LES Final Result [facility] [address] [place] [address] [phone] * (ABNORMAL) VETO Screen,IFA, with Reflex to Titer and Pattern (10/23/2024 10:19 AM EST) Anti Nuclear Antibody Screen POSITIVE( A) NEGATIVE [facility] Comment:VETO IFA is a first l ine screen for detecting thepresence of up to approximately 150 autoantibodies invarious autoimmune diseases. A positive VETO IFA resultis suggestive of autoimmune disease and reflexes totiter and pattern. Further laboratory testing may beconsidered if clinically indicated.For additional information, please refer tohttp://education.Heartscape/faq/MWH709(This link is being provided for informational/educational purposes only.) VETO Titer 1:320(A) titer [facility] Comment:Reference Range <1:4 0 Negative 1:40-1:80 Low Antibody Level >1:80 Elevated Antibody Level VETO Pattern (A) [facility] Comment:Nuclear, Homogeneous Nucleolar Abnormal Flag: ADiffuse staining of the nucleolus is associated withsystemic sclerosis (scleroderma), and systemicsclerosis/polymyositis overlap.AC-8: Homogeneous NucleolarInternational Consensus on VETO Patterns(https://doi.org/10.1515/lavh-8738-2384)THIS TEST WAS PERFORMED AT:[facility] [place] [address]EVELIO OSULLIVAN MD VETO TITER 2 (REF LAB) TNP [facility] VETO Pattern 2 [facility] V[facility] TITER 3 [facility] VETO PATTERN 3 [facility] 10/23/2024 10:1 9 AM EST 10/23/2024 10:19 AM EST us Generic External Data Provider LAB BLOOD ORDERAB LES Final Result Performing Organization Address [facility] Co de Phone Number [facility] [address] [place] [phone] * (ABNORMAL) Immunoglobulin A (10/23/2024 10:19 AM EST) Immunoglobulin A 335(A) 70 - 320 mg/dL [facility] Comment:THIS TEST WAS PERFOR MED AT:[facility] [place] [address]TSOGUEVELIO OSULLIVAN MD 10/23/2024 10:1 9 AM EST 10/23/2024 10:19 AM EST Generic External Data Provider LAB BLOOD ORDERAB LES Final Result Performing Organization Address [facility] de Phone Number [facility] [address] [place] [phone] * Immunoglobulin M (10/23/2024 10:19 AM EST) Immunoglobulin M 92 50 - 300 mg/dL [facility] Comment:THIS TEST WAS PERFOR MED AT:[facility] [employer] [facility] [id number] [place] [address]VKXBYEVELIO OSULLIVAN MD 10/23/2024 10:1 9 AM EST 10/23/2024 10:19 AM EST us Generic External Data Provider LAB BLOOD ORDERAB LES Final Result Performing Organization Address [facility] de Phone Number [facility] [address] [place] [phone] [phone] * Immunoglobulin G (10/23/2024 10:19 AM EST) Immunoglobulin G 1022 600 - 1540 mg/dL [facility] Comment:THIS TEST WAS PERFOR MED AT:[facility] [place] [address]NPETEEVELIO OSULLIVAN MD 10/23/2024 10:1 9 AM EST 10/23/2024 10:19 AM EST Generic External Data Provider LAB BLOOD ORDERAB LES Final Result Performing Organization Address [facility] de Phone Number [facility] [address] [place] [phone] * (ABNORMAL) Hepatic Function Panel (10/23/2024 10:19 AM EST) Bilirubin, Total 0.4 0.0 - 1.0 mg/dL [facility] Bilirubin, Direct 0.2 0.0 - 0.5 mg/dL [facility] Aspartate Amino Transferase 33(H) 5 - 31 U/L [facility] Alanine Aminotransferase 28 0 - 31 U/L [facility] Total Protein 7.1 6.5 - 8.0 g/dL [facility] Albumin Level 3.9 3.5 - 5.0 g/dL [facility] Alkaline Phosphatase 61 39 - 117 U/L [facility] 10/23/2024 10:1 9 AM EST 10/23/2024 10:19 AM EST Generic External Data Provider LAB BLOOD ORDERAB LES Final Result Performing Organization Address [facility] de Phone Number [facility] [address] [place] [phone] * BI Mammogram Screening Tomosynthesis Bilateral (05/16/2024 8:00 AM EDT) Anatomical Region Laterality Modality Breast Bilateral Mammography 05/16/2024 8:00 AM EDT Narrative 06/07/2024 8:45 PM EDT ? [facility] ? [address] ?[place] [address] ? Mammography Report ? Signed ? Patient: Chaves Chaves,Ysabel N ? MR#: [id number] ? : 1960 ?Acct:[id number] ? Age/Sex: 63 / F ?ADM Date: 05/16/24 ? Loc: HO.MAMMO ? Attending Dr: Jose Daniel Duke MD ? Ordering Physician: Jose Daniel Duke MD ?Results: 2 ?? Benign Findings ? Date of Service: 05/16/24 ?Follow Up: 1 Year From Orig ?? inal Mammogram ? Procedure(s): MM tomosynthesis screening BI ?? Accession Number(s): [id number] ? cc: Jose Daniel Duke MD ? [...] DD/ 0800 ? TD/TT: 05/16/24 0815 ? Warehouse Order Puller: ? Procedure Note Nela, Image - 06/07/2024 [facility] [address] [place] [address] Mammography Report Signed Patient: Ysabel Patterson MR#: [id number] : 9Acct:[id number] Age/Sex: 63 / FADM Date: 05/16/24 Loc: HO.MAMMO Attending Dr: Jose Daniel Duke MD Ordering Physician: Jose Daniel Duke MDResults: 2 Benign Findings Date of Service: 05/16/24Follow Up: 1 Year From [facility] Mammogram Procedure(s): MM tomosynthesis screening BI Accession Number(s): [id number] cc: Jose Daniel Duke MD EXAMINATION: MM [...] in OV> 06/07/242042 DD/ 9 TD/TT: 05/16/24814 Warehouse Order Puller: us Jose Daniel Duke MD IMG BI PROCEDURES Final Res ult * Cologuard?? colon cancer screening (04/25/2024 8:15 AM EDT) Cologuard Result Negative Negative 04/30/20 8:50 PM EDT [facility] (CLIA #:[id number]) Comment: NEGATIVE TEST RESULT. A negative Cologuard [...] Cancer Society Guideline for Colorectal Cancer Screening: https://www.cancer.org/cancer/kvvyq-obfbes-zrglhq/cgdhxpyrv-poifdhoha-swwucix/ac s-rec ommendations.html.; Johnny DK, Albertina CR, Jhoan VazquezK, Colorectal Cancer Screening: Recommendations for Physicians and Patients from the U.S. Multi-Society Task Force on Colorectal Cancer Screening , Am J Gastroenterology 2017; 112:3767-7669. TEST DESCRIPTION: Composite algorithmic analysis of stool [...] (Santiago Mehta al, N Engl J Med 2014;370(14):0869-9158.) Cologuard may produce a false negative or [...] can be accessed at the following location: www.Believe.in.com/results. Additional description of the Cologuard test process, warnings and precautions can be found at www.colPenneord.com. Stool specimen (specimen) 04/25/2024 8:15 AM EDT 04/26/2024 10:40 AM EDT Jose Daniel Duke MD LAB MOLECULAR DIAGNOSTICS O RDERABLES Final Result Performing Organization Address [facility] Co de Phone Number [facility] (CLIA #:[id number]) Abhij[place] [address], * Hepatitis Panel, General (12/13/2023 8:14 AM EDT) Hepatitis A IgM Nonreactive Nonreactive [facility] Comment:IgM antibodies to R[place] V not detected; does not exclude earlyacute or recovered HAV infection. ~Hepatitis B Surface Antibody NONREACTIVE Nonreactive [facility] Comment:Nonreactive: < 8.00 mIU/mL Hepatitis B Core Antibody Nonreactive Nonreactive [facility] Hepatitis C Antibody Nonreactive Nonreactive [facility] Comment:Antibodies to HCV no t detected; does not exclude early acuteHCV infection. Hepatitis B Surface Ag Negative Negative [facility] 12/13/2023 8:14 AM EDT 12/13/2023 8:14 AM EDT us Generic External Data Provider LAB BLOOD ORDERAB LES Final Result Performing Organization Address [facility] Co de Phone Number [facility] [address] [place] [address] [phone] * THINPREP PAP (04/20/2021 2:17 PM [...] historic and ?? current clinical information. ?? Manager Sales Support : SEE COMMENT [facility] Comment: RXB, CT(ASCP) CT screening location: [address] ??[address] Infection Fungal organisms morphologically consistent with Soco spp. [facility] Interpretation/R esult: Negative for intraepithelial lesion or malignancy. [facility] LMP: NONE GIVEN [facility] Prev. BX: NONE GIVEN [facility] Prev. PAP: NONE GIVEN [facility] SOURCE: None given [facility] Statement Of Adequacy: SEE COMMENT [facility] Comment: Satisfactory for evaluation. Endocervical/transformation zone component absent. 04/20/2021 2:17 PM EDT Jessica Mike [facility] LAB PATHOLOGY ORDERABLES Final Result [facility] [address] * HPV mRNA E6/E7 (04/20/2021 2:17 PM EDT) HPV nRNA E6/E7 Not Detected Not Detected [facility] Comment: Methodology: Weatherization Installer-Mediated Amplification This assay detects E6/E7 viral messenger RNA (mRNA) from 14 high-risk HPV types (16,18,31,33,35,39,45,51,52,56,58,59,66,68). ? The analytical performance characteristics of this assay have been determined by [employer]. The modifications have not been cleared or approved by the FDA. This assay has been validated pursuant to the CLIA regulations and is used for clinical purposes. ?? For additional information, please refer to http://education.Ingresse.Miiix/faq/JMG440x5 (This link if provided for information/ educational purposes only.) 04/20/2021 2:17 PM EDT Jessica Mike [facility] LAB BLOOD ORDERABLES Jessy boston Result [facility] [address] [place] [address], * LIPID PANEL (11/24/2020 9:15 AM EST) [...] liver disease. LDL Cholesterol Calculated 95 mg/dl [facility] Comment: Desirable LDL: ? less [...] Provider MD HISTORICAL/NON ORDERABLE LABS Final Result [facility] [address] from Last 3 Months or Most Recently Relevant to Health Maintenance Insurance [facility] ONE CARE < 65 ELISEO YODER [id number] [facility] MEDICAID STAND ADULT Care Teams M1A1 Tank Crewman Relationship Specialty Start Date End Date Jose Daniel Duke MD [address] [place] [address] DEVONTE Suarez [phone] PCP - General Internal Medicine 10/07/11
--- OUTSIDE RECORDS SUMMARY | 2025-01-20 08:26 | XMS_ITS | Encounter Summary ---
Author Organization [employer] Address [address] [facility] [address]t [place] [address] Care Team Providers Care Broadcast Technician Name Role Phone Jose Daniel Duke MD Primary Care Provider [phone]- [phone] Encounter Details Date Type Department Care Team ([facility] st Contact Info) Description 10/12/2022 Orders Only [facility] [address] [place] [address] Mar Abreu LPN Social History Tobacco Use [...] on filedocumented in this encounter Care Teams Broadcast Technician Relationship Specialty Start Date End Date Jose Daniel Duke MD [address] [place] [address] PCP - General Internal Medicine 10/07/11 documented as of this encounter
--- OUTSIDE RECORDS SUMMARY | 2025-01-20 08:26 | XMS_ITS | Encounter Summary ---
Author Organization [employer] Address [address] [facility] [address] [place] [address] Care Team Providers Care Flatwork Folder Name Role Phone Jose Daniel Duke MD Primary Care Provider [phone]- [phone] Reason for Visit * Reason Comments Med Refill Encounter Details Date Type Department Care Team ([facility] st Contact Info) Description 12/29/2022 Refill [facility] [address] [place] [address] Miguel Cohn DDS [address] [place] [address] Tooth pain Social History Tobacco Use Types [...] structures documented in this encounter Care Teams Flatwork Folder Relationship Specialty Start Date End Date Jose Daniel Duke MD [address] [place] [phone] PCP - General Internal Medicine 10/07/11 documented as of this encounter
--- OUTSIDE RECORDS SUMMARY | 2025-01-20 08:26 | XMS_ITS | Encounter Summary ---
Author Organization [employer] Address [address] [facility] 7[address] [place] [address] Care Team Providers Care Sole Scraper Name Role Phone Jose Daniel Duke MD Primary Care Provider [phone]- [phone] Encounter Details Date Type Department Care Team [...] on filedocumented in this encounter Care Teams Sole Scraper Relationship Specialty Start Date End Date Jose Daniel Duke MD [address] [facility] [place] [address] PCP - General Internal Medicine 10/07/11 documented as of this encounter
--- OUTSIDE RECORDS SUMMARY | 2025-01-20 08:26 | XMS_ITS | Encounter Summary ---
Author Organization [employer] [facility] Address [address] [facility] 7[address] [place] [address] Care Team Providers Care Tailing Machine Operator Name Role Phone Jose Daniel Duke MD Primary Care Provider [phone]- [phone] Encounter Details Date Type Department Care Team [...] on filedocumented in this encounter Care Teams Tailing Machine Operator Relationship Specialty Start Date End Date Jose Daniel Duke MD [address] [facility] [place] [address] PCP - General Internal Medicine 10/07/11 documented as of this encounter
--- OUTSIDE RECORDS SUMMARY | 2025-01-20 08:26 | XMS_ITS | Encounter Summary ---
Author Organization [employer] Address [address] [facility] 7[address] [place] [address] Care Team Providers Care Channel Marketing Specialist Name Role Phone Jose Daniel Duke MD Primary Care Provider [phone]- [phone] Encounter Details Date Type Department Care Team (Late st Contact Info) Description 08/31/2023 Abstract [facility] ADULT DENTAL [address] [place] [address] Miguel Cohn DDS [address] [place] [address] Social History Tobacco Use Types Packs/Day Years [...] on filedocumented in this encounter Care Teams Channel Marketing Specialist Relationship Specialty Start Date End Date Jose Daniel Duke MD [address] [place] [address] PCP - General Internal Medicine 10/07/11 documented as of this encounter
--- OUTSIDE RECORDS SUMMARY | 2025-01-20 08:26 | XMS_ITS | Clinical Summary ---
Author Organization [facility] it Address [address] [place] [address] Care Team Providers Care [employer] Name Role Phone Unavailable Primary Care Provider [...] Vaccine ( - 2023-2 5 season) 2024 Falls Risk Assessment 2024 Influenza Vaccine (Season Ended) 2025 07/27/20 22 RSV Immunization Adult Patie nts (1 - 1-dose 75+ series) 2034 HIB [...] age to complete this topic Meningococcal B Vaccine Aged Out No l onger eligible based on patient's age to complete [...]
--- OUTSIDE RECORDS SUMMARY | 2025-01-20 08:26 | XMS_ITS | Encounter Summary ---
Author Organization [facility] Address [address] [facility] 7[address] [place] [address] Care Team Providers Care Crayon Sawyer Name Role Phone Jose Daniel Duke MD Primary Care Provider [phone]- [phone] Encounter Details Date Type Department Care Team [...] on filedocumented in this encounter Care Teams Crayon Sawyer Relationship Specialty Start Date End Date Jose Daniel Duke MD [address] [place] [address] PCP - General Internal Medicine 10/07/11 documented as of this encounter
[2025-01-20] MEDS: iohexoL 350 MG/ML 100 ML INFUS..BTL IV (09:38)
[2025-01-20 12:04] LABS: Creatinine POC 0.7 mg/dL (0.5-1.4); GFR POC > 60
== END 2025-01-20 08:12 | disposition home or self-care (01) ==
LOC: HO.CT 08:11
PROVIDERS: PCP Internal Medicine; Visit Provider Surgery
DX: R91.8 Other nonspecific abnormal finding of lung field (principal)
CPT/HCPCS: 71260; 82565; Q9967

== ENCOUNTER → 2025-01-20 08:13 | Outpatient (BNV) | payer OTHER, SELFPAY | PROVIDERS: PCP Internal Medicine; Visit Provider Radiology Vascular & Interventional Radiology | DX: R91.8 Other nonspecific abnormal finding of lung field (principal) | CPT/HCPCS: 71260 ==

== ENCOUNTER 2025-02-20 14:13 | Outpatient (AMB) | payer OTHER, SELFPAY ==
[2025-02-20 14:19] VITALS: BMI 32.3
--- NOTE | 2025-02-20 14:19 | MHC.OFFVIS ---
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 Pt states swelling, cramping and pain. Terrazzo Grinder Required: No Accompanied by: Self / Same As Patient Allergies acetaminophen [From Percocet] Adverse Reaction (Verified 02/20/25 14:21) Vomiting oxycodone [From Percocet] Adverse Reaction (Verified 02/20/25 14:21) Vomiting HPI HPI S[employer]ETY ENGINEER [employer]ESSELS/HHC referral for VV: Details: Ysabel, a very pleasant 64yo female patient, is presenting today on a referral from her PCP for concerns of worsening varicose veins. Complaints include pain over varicosities, swelling of lower extremities, itching, cramping, fatigue, and heaviness of the lower extremities. It has been affecting their daily activities including standing and walking/physical activity. It is noted more so in the left leg. She is a former smoker, quit >30y ago. She is not a diabetic. There is no hx of blood clots or clotting disorders. Patient denies any previous venous surgery or injections. Patient denies any history of DVT/ PE. Patient denies any history of phlebitis. Trial of compression includes - elevation with some relief They now present for vascular evaluation regarding their varicose veins. [facility] Medical History Chronic left shoulder pain Trochanteric bursitis of both hips Chronic right shoulder pain Elevated liver enzymes VETO positive Epigastric pain Pulmonary nodules Palpitations Asthma Fibromyalgia Obesity (BMI 30.0-34.9) Allergic rhinitis COPD (chronic obstructive pulmonary disease) Surgical History Hx of cholecystectomy Hx of colonoscopy Status post fine needle aspiration (~2019) Family History Mother Leukemia Diabetes Arthritis Family/Other Hodgkins lymphoma Family/Other Uterine cancer Sister Uterine cancer High cholesterol HTN (hypertension) Paternal Grandmother Uterine cancer Heart attack Father Colon cancer Social History Household Members: None Housing: Apartment Are you a primary neurocritical care physician to a significant other at home: No Do you presently have visiting nurse or other home services: No Alcohol intake: never Patient Tobacco Use Status: Former Tobacco user service: No Current occupational status: disabled Review of Systems Const Reports as per HPI and Denies weakness ENT Reports Normal hearing present and Denies dizziness Card Reports as per HPI, Denies chest pain, Denies chest pain at rest, Denies chest pain with activity, Denies dyspnea and Denies dyspnea on exertion Resp Reports as per HPI, Denies cough, Denies dyspnea and Denies dyspnea on exertion GI Reports as per HPI, Denies abdominal pain, Denies nausea and Denies vomiting Musc Denies numbness Skin/Breast Reports as per HPI, Denies erythema and Denies wounds Neuro Reports Normal hearing present, Denies dizziness, Denies numbness, Denies Sensory deficit (Neuro) and Denies weakness Psych Reports no additional complaints Endo Reports no additional complaints Physical Exam Vital Signs: BMI result Body Mass Index 32.3 Const General: healthy appearing and no acute distress Orientation/consciousness: patient oriented x3 HEENT Head: Yes normal to inspection Ears: hearing grossly normal bilaterally Mouth: Normal oral and palatal mucosa present Resp Effort & Inspection: normal respiratory effort and able to speak in complete sentences Auscultation: clear to auscultation bilaterally Cardio Jugular venous distension: no JVD Rate: regular rate Rhythm: regular rhythm Heart sounds: S1 normal heart sound present and S2 normal heart sound present Bruits: no abdominal aortic bruits, no carotid bruits, no femoral bruits and no renal bruits Peripheral pulses: Peripheral pulses 2+ throughout GI Inspection: Yes normal to inspection Palpation (GI): No Abdominal aortic bruit present Skin General skin exam: no rashes or lesions noted Wounds: no wounds Hair: normal Neuro General: patient oriented x3 Cranial nerves: Yes Normal hearing present Cognition (Neuro): normal cognition Gait exam (Neuro): Normal gait present Motor exam (neuro): 5/5 motor strength present throughout Sensory Exam: No Sensory deficit (Neuro) Extrem Other: Right lower extremity: telangiectases noted throughout the medial thigh and around the ankle. +1 edema noted. Palpable DP pulse. Left lower extremity: multiple telangiectases noted throughout the thigh, knee, medial calf, and ankle area. Rope-like varicosity, appx 3cm in length, on the medial aspect of the knee, painful to palpation. +1 edema noted. Palpable DP pulse. CEAP: C - 3 E - primary A - superficial P - reflux General: Yes normal to inspection, Yes full ROM, Yes capillary refill normal and Yes normal gait Assessment & Plan Assessment & Plan (1) Varicose veins of both lower extremities with inflammation: Code(s): I83.11 - Varicose veins of right lower extremity with inflammation; I83.12 - Varicose veins of left lower extremity with inflammation Category: Medical Plan: Ysabel is presenting today as a referral from her PCP for bilateral lower extremity varicose veins with swelling and discomfort, for >10 years. In short, the patient has evidence of venous insufficiency. I have discussed the pathophysiology with the patient. In addition I have provided informational material regarding venous disease to the patient. We have discussed conservative measures including compression, elevation, and exercise. I have taken the liberty of ordering venous insufficiency testing with the patient. They will follow up with me after testing. The patient had an opportunity to ask questions regarding the treatment plan. All questions were answered. Imaging studies, laboratory studies and physical exam results were discussed and reviewed in detail. No major barriers to understanding were identified. The patient expressed understanding and agreement with the above treatment plan. The patient is aware they should contact our office by phone for worsening of the current condition or the appearance of new symptoms. Thank you for allowing me to participate in the vascular care of this patient. If you have any questions or concerns regarding the treatment for the above condition please do not hesitate to contact me. The office telephone contact is [phone]. This note is constructed using voice recognition software. While every effort has been made to ensure accuracy, geospatial engineer errors may have been included. Thank you for allowing me to participate in the care of your patient. Yours sincerely, ELISEO Silva Orders: Orders US venous duplex LE BI 1 Week I83.11 - Varicose veins of right lower extremity with inflammation, I83.12 - Varicose veins of left lower extremity with inflammation Coding Level of Care Code New Pt Level 4 (74306) Diagnoses Varicose veins of both lower extremities with inflammation I83.11; I83.12
--- OUTSIDE RECORDS SUMMARY | 2025-02-20 16:52 | XMS_ITS | Encounter Summary ---
Author Organization [employer] Address [address] [place] [address] Care Team Providers Care Configuration Management Analyst Name Role Phone Jose Daniel Duke MD Primary Care Provider [phone] Reason for Visit * Reason Comments Med Refill Encounter Details Date Type Department Care Team ([facility] st Contact Info) Description 12/29/2022 Refill [facility] ADULT DENTAL [address] [place] [address] Miguel Cohn DDS [address] [place] [address] Tooth pain Social History Tobacco Use Types [...] Care Team (Late st Contact Info) Description 05/15/2025 11:30 AM EDT Office Visit [facility] [address] [place] [address] Jose Daniel Duke MD [address] [place] [address] documented as of this encounter Visit Diagnoses Diagnosis Tooth pain Unspecified disorder of the teeth and supporting structures documented in this encounter Care Teams Configuration Management Analyst Relationship Specialty Start Date End Date Jose Daniel Duke MD [address] [place] [address] PCP - General Internal Medicine 10/07/11 documented as of this encounter
== END 2025-02-20 14:32 | disposition home or self-care (01) ==
LOC: HO.HVS 14:13
PROVIDERS: PCP Internal Medicine; Visit Provider Physician Assistant Surgical
DX: I83.11 Varicose veins of right lower extremity with inflammation (principal); I83.12 Varicose veins of left lower extremity with inflammation
CPT/HCPCS: 99204

== ENCOUNTER → 2025-02-20 14:13 | Outpatient (BNVA) | payer OTHER, SELFPAY | PROVIDERS: PCP Internal Medicine; Visit Provider Physician Assistant Surgical | DX: I83.11 Varicose veins of right lower extremity with inflammation (principal); I83.12 Varicose veins of left lower extremity with inflammation | CPT/HCPCS: 99202 ==

== ENCOUNTER 2025-03-10 11:55 | Outpatient (AMB) | payer OTHER, SELFPAY ==
--- NOTE | 2025-03-10 12:30 | A.OFFVIS_ITS ---
Vital Signs 03/10/25 12:38 Height 5 ft 7 in Weight 208 lb BMI 32.6 BP 126/68 Blood Pressure Location Rt brachial Position Sitting Pulse 84 Pulse Source Pulse Oximeter Pulse Oximetry (%) 97 Oxygen Delivery Method Room Air Intake Visit Reasons: MRI results Intake Note: Est pt for mgmt of abn LFTs and chronic abd pain. CC; C.O. B/L lower quadrant abd pain (chronic). No additional sx or concerns at this time. Pt also to review results of recent MRI. 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 Prev [facility] pt. Prev work up reviewed - labs, PET, US. Discussed that VETO is definitely high but no correlating liver related serology and will likely have to follow back with Rheum. ASMA was weakly posiitve once so will recheck. US reviewed - had dilated CBD 1.5 cm and splenic lesion. Does not appear to have had a follow up on these. Otherwise, asymptomatic, no abd pain, N,V. Reports she did cologuard last year which was negative. MRI Abd 10/2024: Liver measures 16 cm. No focal enhancing mass. Portal veins, hepatic veins and intrahepatic portion of the IVC are patent. Mild intrahepatic biliary ductal dilatation. Status post cholecystectomy. Common bile duct measures 10 mm in maximum diameter with abrupt cut off at the junction with the second portion of the duodenum. No intraluminal enhancing lesion or filling defects. PANCREAS: No focal mass. No main pancreatic ductal dilatation. No peripancreatic fluid collections. 12/12/24: Here for follow up. MRI findings of antolin dil and intrahepatic ductal dilation reviewed. Measured 10 mm by reading radiolgist, proximal CBD measures close to 15 mm on independent review. Again, no obvious correlating sx such as postprandial pain, altered bowel habits, pruritus etc. Pt not on opiates. Has LFT abnl but hepatocellular pattern, not obstructive. 03/10/25: Here for follow up. Says since last visit has been keeping an eye on sx and does in fact get central abd discomfort for 1-2 hours shortly after eating something fatty. No other new issues. Thought this was going to be a an ERCP appt. [facility] Medical History Chronic left shoulder pain Trochanteric bursitis of both hips Chronic right shoulder pain Elevated liver enzymes VETO positive Epigastric pain Pulmonary nodules Palpitations Asthma Fibromyalgia Obesity (BMI 30.0-34.9) Allergic rhinitis COPD (chronic obstructive pulmonary disease) Surgical History Hx of cholecystectomy Hx of colonoscopy Status post fine needle aspiration (~2019) Family History Mother Leukemia Diabetes Arthritis Family/Other Hodgkins lymphoma Family/Other Uterine cancer Sister Uterine cancer High cholesterol HTN (hypertension) Paternal Grandmother Uterine cancer Heart attack Father Colon cancer Social History Household Members: None Housing: Apartment Are you a primary housekeeper caregiver to a significant other at home: No Do you presently have visiting nurse or other home services: No Alcohol intake: never Patient Tobacco Use Status: Former Tobacco user service: No Current occupational status: disabled Review of Systems Const All systems reviewed & are unremarkable except as noted in HPI and below Physical Exam Vital Signs: Last Vital Signs Pulse 84 03/10/25 12:38 BP 126/68 03/10/25 12:38 Pulse Ox 97 03/10/25 12:38 Oxygen Delivery Method Room Air 03/10/25 12:38 BMI result Body Mass Index 32.6 No apparent distress Nonicteric Abdomen soft, nondistended Alert and oriented x3, normal gait Assessment & Plan Assessment & Plan (1) Common bile duct dilatation: Code(s): K83.8 - Other specified diseases of biliary tract Category: Medical (2) Elevated liver enzymes: Comment: reviewed labs viral serologies- Code(s): R74.8 - Abnormal levels of other serum enzymes Category: Medical (3) VETO positive: Code(s): R76.8 - Other specified abnormal immunological findings in serum Category: Medical (4) Lesion of spleen: Code(s): D73.89 - Other diseases of spleen Category: Medical Plan 1. Elevated LFTs Based on pattern of AST/ALT elevation, and appearance on ultrasound, in the context of metabolic factors, this is most likely secondary to fatty liver disease. 2. Dilated CBD Likely 2/2 CBD stricture vs SOD vs periampullary adenoma. PSC also in DDx moon given elevated VETO. Discussed ERCP vs monitoring with serial imaging +LFTs. Pt elects to proceed with ERCP moon as now also noting occ post prandial pain. Plan: - ERCP to be booked - Pt aware will need pulm clearance due to enlarging RML nodule - follows with Dr Brady Follow up after ERCP. Coding Level of Care Code Est Pt Level 3 (41110) Diagnoses Common bile duct dilatation K83.8 Elevated liver enzymes R74.8 VETO positive R76.8 Lesion of spleen D73.89
[2025-03-10 12:38] VITALS: BP 126/68; PULSE 84; O2SAT 97; BMI 32.6
--- OUTSIDE RECORDS SUMMARY | 2025-03-10 13:31 | XMS_ITS | Encounter Summary ---
Author Organization [employer] Address [address] [place] [address] Care Team Providers Care Medicaid Plan Compliance Director Name Role Phone Jose Daniel Duke MD Primary Care Provider [phone] Reason for Visit * Reason Comments Med Refill Encounter Details Date Type Department Care Team ([facility] st Contact Info) Description 12/29/[address] [facility] CHC ADULT DENTAL [address] [place] [address] Miguel Cohn DDS [address] [place] [address] Tooth pain Social History Tobacco Use Types [...] Description 05/15/2025 11:30 AM EDT Office Visit [facility] MED & PEDS [address] [place] [address] Jose Daniel Duke MD [address] [place] [address] documented as of this encounter Visit Diagnoses Diagnosis Tooth pain Unspecified disorder of the teeth and supporting structures documented in this encounter Care Teams Medicaid Plan Compliance Director Relationship Specialty Start Date End Date Jose Daniel Duke MD [address] [place] [address] PCP - General Internal Medicine 10/07/11 documented as of this encounter
== END 2025-03-10 14:04 | disposition home or self-care (01) ==
LOC: HO.HGI 11:55
PROVIDERS: PCP Internal Medicine; Visit Provider Internal Medicine
DX: K83.8 Other specified diseases of biliary tract (principal); R74.8 Abnormal levels of other serum enzymes; R76.8 Other specified abnormal immunological findings in serum; D73.89 Other diseases of spleen
CPT/HCPCS: 99213

== ENCOUNTER → 2025-03-10 11:55 | Outpatient (BNVA) | payer OTHER, SELFPAY | PROVIDERS: PCP Internal Medicine; Visit Provider Internal Medicine | DX: R76.8 Other specified abnormal immunological findings in serum (principal); R74.8 Abnormal levels of other serum enzymes; K83.8 Other specified diseases of biliary tract; D73.89 Other diseases of spleen | CPT/HCPCS: 99212 ==

== ENCOUNTER 2025-03-18 08:02 | Outpatient (REF) | payer OTHER, SELFPAY ==
--- NOTE | ~2025-03-18 | US_ITS ---
EXAMINATION: US LOWER EXTREMITY VENOUS (REFLUX EXAM), BILATERAL CLINICAL INFORMATION: Varices. COMPARISON: None. TECHNIQUE: Color flow triplex imaging and compression Doppler was performed to evaluate both the deep and the superficial systems bilaterally. To evaluate the superficial system, the examination was performed in the upright position. Color-flow Doppler ultrasound and compression ultrasound were utilized. In addition, maneuvers were utilized to demonstrate reflux. FINDINGS: 1. DEEP VENOUS ULTRASOUND OF THE RIGHT LOWER EXTREMITY: Common Femoral Vein: Compressible, normal respiratory variation and augmented flow. Femoral Vein: Compressible, normal color flow and augmentation. Popliteal Vein: Compressible, normal augmentation. Deep Reflux: There is no evidence of reflux in the deep system in either the common femoral vein, superficial femoral or the popliteal vein. There is no evidence of a Fallon's cyst. 2. SUPERFICIAL ULTRASOUND WITH DOPPLER OF RIGHT LOWER EXTREMITY: GREAT SAPHENOUS VEIN: Saphenofemoral Junction: 0.7 cm; Reflux: 0 ms Proximal Thigh: 0.6 cm; Reflux: 0 ms Mid Thigh: 0.3 cm; Reflux: 0 ms Distal Thigh: 0.2 cm; Reflux: 0 ms At Knee: 0.3 cm; Reflux: 0 ms Proximal Calf: 0.3 cm; Reflux: 0 ms Mid Calf: 0.2 cm; Reflux: 0 ms Distal Calf: 0.2 cm; Reflux: 0 ms DUPLICATED MEDIAL GREAT SAPHENOUS VEIN: Diameter: None imaged Reflux: NA DUPLICATED LATERAL GREAT SAPHENOUS VEIN: Diameter: None imaged Reflux: NA SMALL SAPHENOUS VEIN: Saphenopopliteal Junction: 0.5 cm; Reflux: 0 ms Proximal: 0.2 cm; Reflux: 0 ms Distal: 0.3 cm; Reflux: 0 ms VEIN OF GIACOMINI: Size: 0.3 cm. Reflux: NA PERFORATORS: Location: Small saphenous vein distal segment. Great saphenous vein proximal thigh. Size: 0.2-0.3 cm. Reflux: NA VARICOSITIES: Location: None imaged. Size: NA Reflux: NA 3. DEEP VENOUS ULTRASOUND OF THE LEFT LOWER EXTREMITY: Common Femoral Vein: Compressible, normal respiratory variation and augmented flow. Femoral Vein: Compressible, normal color flow and augmentation. Popliteal Vein: Compressible, normal augmentation. Deep Reflux: There is no evidence of reflux in the deep system in either the common femoral vein, superficial femoral or the popliteal vein. There is no evidence of a Fallon's cyst. 4. SUPERFICIAL ULTRASOUND WITH DOPPLER OF LEFT LOWER EXTREMITY: GREAT SAPHENOUS VEIN: Saphenofemoral Junction: 0.8 cm; Reflux: 0 ms Proximal Thigh: 0.7 cm; Reflux: 0 ms Mid Thigh: 0.3 cm; Reflux: 0 ms Distal Thigh: 0.2 cm; Reflux: 0 ms At Knee: 0.2 cm; Reflux: 0 ms Proximal Calf: 0.5 cm; Reflux: 2324 ms Mid Calf: 0.2 cm; Reflux: 2520 ms Distal Calf: 0.2 cm; Reflux: 0 ms DUPLICATED MEDIAL GREAT SAPHENOUS VEIN: Diameter: None imaged Reflux: NA DUPLICATED LATERAL GREAT SAPHENOUS VEIN: Diameter: 0.3 cm. Reflux: NA SMALL SAPHENOUS VEIN: Saphenopopliteal Junction: 0.3 cm; Reflux: 0 ms Proximal: 0.2 cm; Reflux: 0 ms Distal: 0.2 cm; Reflux: 0 ms VEIN OF GIACOMINI: Size: NA Reflux: NA PERFORATORS: Location: Small saphenous vein proximal to mid segment. Size: 0.2-0.3 cm. Reflux: NA VARICOSITIES: Location: None Imaged Size: NA Reflux: NA US/US venous duplex LE BI IMPRESSION: Right: No venous insufficiency. No gross varices. Perforators without reflux. Left: Venous insufficiency, great saphenous vein below the knee to the mid calf. No varices. Perforators without reflux. Electronically signed by: Armani Blair MD 03/18/2025 09:59 AM EDT
--- OUTSIDE RECORDS SUMMARY | 2025-03-18 08:05 | XMS_ITS | Clinical Summary ---
Author Organization [facility] it Address [address] [place] [address] Care Team Providers Care Sports Equipment Racker Name Role Phone Unavailable Primary Care Provider [...]
--- OUTSIDE RECORDS SUMMARY | 2025-03-18 08:05 | XMS_ITS | Encounter Summary ---
Author Organization [employer] Address [address] [place] [address] Care Team Providers Care Learning And Development Director Name Role Phone Jose Daniel Duke MD Primary Care Provider [phone] Reason for Visit * Reason Comments Med Refill Encounter Details Date Type Department Care Team ([facility] st Contact Info) Description 12/29/2022 Refill [facility] [address] [place] [address] Miguel Cohn DDS [address] [place] [address] Tooth pain Social History Tobacco Use Types [...] 05/15/2025 11:30 AM EDT Office Visit [facility] [address] [place] [address] Jose Daniel Duke MD [address] [place] [address] documented as of this encounter Visit Diagnoses Diagnosis Tooth pain Unspecified disorder of the teeth and supporting structures documented in this encounter Care Teams Learning And Development Director Relationship Specialty Start Date End Date Jose Daniel Duke MD [address] [place] [address] PCP - General Internal Medicine 10/07/11 documented as of this encounter
== END 2025-03-18 08:03 | disposition home or self-care (01) ==
LOC: HO.US 08:02
PROVIDERS: PCP Internal Medicine; Visit Provider Physician Assistant Surgical
DX: I83.11 Varicose veins of right lower extremity with inflammation (principal); I83.12 Varicose veins of left lower extremity with inflammation
CPT/HCPCS: 93970

== ENCOUNTER → 2025-03-18 08:05 | Outpatient (BNV) | payer OTHER, SELFPAY | PROVIDERS: PCP Internal Medicine; Visit Provider Radiology Diagnostic Radiology | DX: I83.812 Varicose veins of left lower extremity with pain (principal) | CPT/HCPCS: 93970 ==

== ENCOUNTER 2025-03-19 10:58 | Day surgery (SDC) | payer OTHER, SELFPAY ==
[2025-03-17 08:42] VITALS: BMI 32.3
--- NOTE | 2025-03-17 15:07 | P.CONAN_ITS ---
Documented by User: Lynn Casey NP 03/17/25 15:09 HPI - Anesthesia Eval Consult details Narrative: 64yo F for ERCP Follows [facility] pulmo for asthma/COPD. Stable at 10/2024 office visit and optimized assuming no subsequent exacerbations of disease PMFSH Active Problems Active Problems: All Active Problems Varicose veins of both lower extremities with inflammation (Acute) Common bile duct dilatation (Acute) Lesion of spleen (Acute) Mass of right lung (Acute) Hx of cholecystectomy (Acute) Chronic left shoulder pain (Acute) Trochanteric bursitis of both hips (Acute) Chronic right shoulder pain (Acute) Elevated liver enzymes (Acute) VETO positive (Acute) Lung nodule seen on imaging study (Acute) Epigastric pain (Acute) Temporal mandibular joint disorder (Acute) Lymphadenopathy of left cervical region (Acute) Pulmonary nodules (Acute) Fibromyalgia (Acute) Obesity (BMI 30.0-34.9) (Acute) Allergic rhinitis (Acute) COPD (chronic obstructive pulmonary disease) (Acute) Past Medical History Medical History Indigestion Chronic left shoulder pain Trochanteric bursitis of both hips Chronic right shoulder pain Elevated liver enzymes VETO positive Epigastric pain Pulmonary nodules Palpitations Asthma Fibromyalgia Obesity (BMI 30.0-34.9) Allergic rhinitis COPD (chronic obstructive pulmonary disease) Family History Family History Mother Leukemia Diabetes Arthritis Family/Other Hodgkins lymphoma Family/Other Uterine cancer Sister Uterine cancer High cholesterol HTN (hypertension) Paternal Grandmother Uterine cancer Heart attack Father Colon cancer Surgical History Surgical History Hx of cholecystectomy Hx of colonoscopy Status post fine needle aspiration (~2019) Social History Social History Household Members: None Housing: Apartment Are you a primary animal care assistant to a significant other at home: No Do you presently have visiting nurse or other home services: No Alcohol intake: never Patient Tobacco Use Status: Former Tobacco user Use of substances other than those prescribed or required for medical reasons: No Are you DNR?: No Advance Directives: No Advance Directives Information Provided: Yes service: No Current occupational status: disabled Meds Allergies Allergy/AdvReac Type Severity Reaction Status Date / Time acetaminophen (From Percocet) AdvReac Vomiting Verified 03/19/25 11:11 oxycodone (From Percocet) AdvReac Vomiting Verified 03/19/25 11:11 Home Medications ?Medication ?Instructions ?Recorded ?Confirmed ?Last Taken ?Type peg 185-[id number]-jidurmwg 1 1 drp ophthalmic (eye) DAILY 06/08/23 03/19/25 Unknown History %-0.2 %-0.2 % eye drops (Artificial Tears ([id number])) polyvinyl alcohol 1.4 % eye drops 1 drp ophthalmic (ey e) BID 03/10/25 03/19/25 Unknown History Exam Height,Weight and Vital Signs: Height 5 ft 7 in Weight 93.44 kg Assessment and Plan Assessment Anesthesia Assessment: Chart Reviewed Documented by User: Veronica Sharif MD 03/19/25 12:53 [facility] Past Medical History Medical History Indigestion Chronic left shoulder pain Trochanteric bursitis of both hips Chronic right shoulder pain Elevated liver enzymes VETO positive Epigastric pain Pulmonary nodules Palpitations Asthma Fibromyalgia Obesity (BMI 30.0-34.9) Allergic rhinitis COPD (chronic obstructive pulmonary disease) Family History Family History Mother Leukemia Diabetes Arthritis Family/Other Hodgkins lymphoma Family/Other Uterine cancer Sister Uterine cancer High cholesterol HTN (hypertension) Paternal Grandmother Uterine cancer Heart attack Father Colon cancer Surgical History Surgical History Hx of cholecystectomy Hx of colonoscopy Status post fine needle aspiration (~2019) History of Problems with Anesthesia: No Social History Social History Household Members: None Housing: Apartment Are you a primary animal care assistant to a significant other at home: No Do you presently have visiting nurse or other home services: No Alcohol intake: never Patient Tobacco Use Status: Former Tobacco user Use of substances other than those prescribed or required for medical reasons: No Are you DNR?: No Advance Directives: No Advance Directives Information Provided: Yes service: No Current occupational status: disabled Meds Allergies Allergy/AdvReac Type Severity Reaction Status Date / Time acetaminophen (From Percocet) AdvReac Vomiting Verified 03/19/25 11:11 oxycodone (From Percocet) AdvReac Vomiting Verified 03/19/25 11:11 Home Medications ?Medication ?Instructions ?Recorded ?Confirmed ?Last Taken ?Type peg 333-[id number]-wpgwbjua 1 1 drp ophthalmic (eye) DAILY 06/08/23 03/19/25 Unknown History %-0.2 %-0.2 % eye drops (Artificial Tears ([id number])) polyvinyl alcohol 1.4 % eye drops 1 drp ophthalmic (ey e) BID 03/10/25 03/19/25 Unknown History Exam Airway Mallampati Class: III TM Dist: >3cm Neck ROM: Full Partial: Upper Loose/Missing/Broken Teeth: Yes and Upper Heart: RRR Lungs: CTA Assessment and Plan Assessment Anesthesia Assessment: Anesthesia Plan Discussed Final Anesthetic Review History of Problems with Anesthesia: No NPO: Yes ASA Class: II Final Preanesthetic Review: Meds/Allgs Chart Reviewed, Consent Obtained/Reviewed and Anes Risks/Benef Reviewed Patient Risk: Low Procedure Risk: Intermediate Anesthetic Plan Anesthetic Plan: GA Disposition: Standard PACU
--- NOTE | ~2025-03-19 | FL_ITS ---
EXAMINATION: FL GUIDANCE ONLY HISTORY: ERCP COMPARISON: Correlation is made with an MRI of the abdomen dated 10/30/2024. TECHNIQUE: Fluoroscopy time: 2.6 minutes. Cumulative Dose: 57.7 mGy. DAP: 15.7 mGym2 Images: 7. FINDINGS: Fluoroscopic spot films from an ERCP demonstrate placement of a wire. The common bile duct is at the upper limits of normal in caliber. FL/FL guidance in OR IMPRESSION: Fluoroscopy during procedure. Please see procedure report for additional information. Electronically signed by: Siddhartha Romo MD 03/19/2025 03:16 PM EDT
[2025-03-19 11:17] VITALS: BMI 32.5
[2025-03-19 11:30] VITALS: BP 115/76; PULSE 68; RESP 15; TEMP 36.6; O2SAT 98
[2025-03-19] MEDS: Lactated Ringers 1,000 ML 100 ML IVCONT (11:33)
--- NOTE | 2025-03-19 12:53 | MHC.SHP ---
Pre-Procedural Eval Section A - 24 Hr Update-Section A only Date of Service: 03/19/25 Section B - Complete if H&P > 30 days Chief Complaint: Other specified diseases of biliary tract Details of Present Illness: 6 months of upper abdominal pain, with food -dilated CBD Relevant Family History (Specify if Yes): No Relevant Social History: None Present Medications: see Short Stay Collaborative assessment Medical History: Significant History ( Chronic left shoulder pain Trochanteric bursitis of both hips Chronic right shoulder pain Elevated liver enzymes VETO positive Epigastric pain Pulmonary nodules Palpitations Asthma Fibromyalgia Obesity (BMI 30.0-34.9) Allergic rhinitis COPD (chronic obstructive pulmonary disease)) History of Previous Operations: Relevant previous surgery/procedure and date(s) (Hx of cholecystectomy Hx of colonoscopy Status post fine needle aspiration (~2019)) Allergies: Allergies Allergy/AdvReac Type Severity Reaction Status Date / Time acetaminophen (From Percocet) AdvReac Vomiting Verified 03/19/25 11:11 oxycodone (From Percocet) AdvReac Vomiting Verified 03/19/25 11:11 Review of Systems Sugical H&P ROS: Negative: Constitution, Cardiovascular, Respiratory, Neurological, Psychiatric, Hem-Onc, Allergic/Immunologic, Gastrointestinal, Genitourinary, Musculoskeletal, Integumentary, Endocrine and Eyes/Ears/Nose/Throat Exam Surgical H&P Exam: Normal: HEENT, Normal: Heart, Normal: Lungs, Normal: Extremities, Normal: Abdomen, Normal: Skin and Normal: Neurological Plan Diagnosis/Plan: Unchanged I have reviewed the history and physical and performed a pertinent physical examination on my patient. No changes have occurred unless specified. Time Spent With Patient Time: Total time managing care of this patient today ____ minutes.
--- NOTE | 2025-03-19 14:45 | W.PM.OPN ---
Operative Note Operative Note Date of Service: 03/19/25 Narrative: Description:?Endoscopic retrograde cholangiopancreatography (ERCP), Upper Endoscopy PROCEDURE:?Endoscopic retrograde cholangiopancreatography with sphincterotomy and stone extraction, spyglass and intraop cholangiogram with interpretation INDICATION FOR THE PROCEDURE:?Patient with a history of post prandial colicky epigastric pain with food. Imaging with dilated CBD, remote hx of cholecystectomy. MEDICATIONS:?General anesthesia, Indomethacin KS 100 mg and Ancef 2 g pre op. The risks of the procedure were made aware to the patient and consisted of medication reaction, bleeding, perforation, aspiration, and post ERCP pancreatitis. DESCRIPTION OF PROCEDURE:?After informed consent and appropriate sedation, the upper endoscope was inserted to check for any other concomitant pathology causing her sx. moderate diverticulitis was noted and mild gastritis. The duodenoscope was inserted into the oropharynx, down the esophagus, and into the stomach. The scope was then advanced through the pylorus to the ampulla. The ampulla was very bulbous and bulging with angulation The CBD could not be accessed due to tight sphincter, the PD was entered using wire guided technique and a sue precut was performed. The CBD was then selectively cannulated with wire guided approach and a cholangiogram was obtained. The cholangiogram was formally interpreted and documented, and confirmed placement with a dilated duct to about 12 mm. A sphincterotomy was performed to facilitate stone removal, ductal clearance and enlarge the orifice beyond standard cannulation. After doing this small stone fragments were noted with some on the tip of the tome. The sphincterotomy was extended using a 10 mm x 4 cm balloon. After this a extraction balloon was used to sweep the duct and no further debris was noted. Completion balloon occluded cholangiography demonstrated no filling defects. Spyglass was used to confirm the radiographic findings and no stone material or debris was noted with clean biliary duct without any mass, or inflammation. The procedure was then terminated. Intraop cholangiogram reivew and interpretation by performing physician: Dilated CBD. CBD measured about 12 mm. No stricture or leak seen. FINDINGS: 1. tight ampulla, probable SOD, 2. Stone debris, removed. 3. duodenitis RECOMMENDATIONS: 1. clears and advance diet tomorrow 2. confirm compliance with PPI, maybe increase dose 3. consider checking for H pylori
[2025-03-19 14:51] VITALS: BP 157/79; PULSE 84; RESP 18; TEMP 36.1; O2SAT 99
[2025-03-19 14:56] VITALS: BP 119/66; PULSE 78; RESP 18; O2SAT 98
[2025-03-19 15:01] VITALS: BP 128/63; PULSE 73; RESP 18; O2SAT 97
[2025-03-19 15:06] VITALS: BP 125/61; PULSE 67; RESP 20; O2SAT 99
[2025-03-19] MEDS: Mag&Al/Sim/Diphenhyd/Lidocaine 10 ML ORAL.SUSP PO (15:13)
[2025-03-19 15:20] VITALS: BP 112/67; PULSE 66; RESP 16; TEMP 36.1; O2SAT 98
== END 2025-03-19 15:41 | disposition home or self-care (01) ==
PROVIDERS: PCP Internal Medicine; Visit Provider Internal Medicine Gastroenterology
PROC: (CPT 43260; principal; 2025-03-19 14:30)
DX: K83.8 Other specified diseases of biliary tract (principal); R74.8 Abnormal levels of other serum enzymes; D73.89 Other diseases of spleen; G89.29 Other chronic pain; R76.8 Other specified abnormal immunological findings in serum; R10.9 Unspecified abdominal pain; J44.9 Chronic obstructive pulmonary disease, unspecified; R91.8 Other nonspecific abnormal finding of lung field; R00.2 Palpitations; M79.7 Fibromyalgia; Z79.51 Long term (current) use of inhaled steroids; Z88.5 Allergy status to narcotic agent; Z79.899 Other long term (current) drug therapy; Z87.891 Personal history of nicotine dependence; Z90.49 Acquired absence of other specified parts of digestive tract
CPT/HCPCS: 43262; 43264; 43273; C1726; C1887; J0690; J1100; J1610; J2003; J2405; J2704; J3010; Q9967

== ENCOUNTER → 2025-03-19 10:58 | Outpatient (BNV) | payer OTHER, SELFPAY | PROVIDERS: PCP Internal Medicine; Visit Provider Internal Medicine Gastroenterology | DX: R10.13 Epigastric pain (principal); K80.20 Calculus of gallbladder without cholecystitis without obstruction | CPT/HCPCS: 43262; 43264; 43273; 74300 ==

== ENCOUNTER 2025-05-05 14:25 | Outpatient (REF) | payer OTHER, SELFPAY ==
[2025-05-05 17:34] LABS: Alanine Aminotransferase 18 U/L (0-31); Albumin Level 3.9 g/dL (3.5-5.0); Alkaline Phosphatase 67 U/L (39-117); Aspartate Amino Transferase 23 U/L (5-31); Total Protein 6.2 g/dL (6.5-8.0)
== END 2025-05-05 14:26 | disposition home or self-care (01) ==
LOC: HO.LAB 14:25
PROVIDERS: PCP Internal Medicine; Visit Provider Internal Medicine
DX: R74.8 Abnormal levels of other serum enzymes (principal)
CPT/HCPCS: 36415; 80076

== ENCOUNTER 2025-05-08 09:54 | Outpatient (AMB) | payer OTHER, SELFPAY ==
[2025-05-08 10:16] VITALS: BP 112/62; PULSE 62; O2SAT 99; BMI 32.6
--- NOTE | 2025-05-08 10:16 | MHC.OFFVIS ---
Vital Signs 05/08/25 10:16 Height 5 ft 7 in Weight 208 lb 5.389 oz BMI 32.6 BP 112/62 Blood Pressure Location Lt brachial Position Sitting Pulse 62 Pulse Source Pulse Oximeter Pulse Oximetry (%) 99 Oxygen Delivery Method Room Air Intake Visit Reasons: asthma Intake Note: pt is here for follow up and she states she feels good, but her chest hurts ? need for biospy now. Sand Caster Apprentice Required: No Allergies acetaminophen (From Percocet) Adverse Reaction (Verified 05/08/25 10:27) Vomiting oxycodone (From Percocet) Adverse Reaction (Verified 05/08/25 10:27) Vomiting Medication List - Last Reconciled 05/08/25 by Praveen Brady MD albuterol sulfate 2.5 mg (3 mL) inhalation Q4-6H PRN 30 days albuterol sulfate 90 mcg/actuation (Ventolin HFA) 2 puffs inhalation Q6H PRN fluticasone propion-salmeterol 250-50 mcg/dose (Advair Diskus) 1 inh inhalation BID 30 days Magic Mouthwash Diphen/Lido/Antacid 1:1:1 10 mL PO QID PRN omeprazole 20 mg PO DAILY peg 720-ekdsritirpbr-vzzdapmt 1-0.2-0.2 % (Artificial Tears ([id number])) 1 drp ophthalmic (eye) DAILY polyvinyl alcohol 1.4% 1 drp ophthalmic (eye) BID umeclidinium 62.5 mcg/actuation (Incruse Ellipta) 1 inh PO DAILY Do you need a note to return to daycare/school/sports/work: No HPI HPI asthma: Details: 64 years old very pleasant female, nonsmoker, comes for follow-up for her asthma/COPD. And also has a density in the right middle lobe for which she is being watched closely. Her breathing is good except for mild intermittent cough, and shortness of breath on walking up stairs. She is happy with her current medical regimen and uses it regularly, however she does need to use the albuterol for emergency purposes only once in a while. She has discomfort over the right parasternal area, and thinks this may be in her lungs, but actually it is at cost 2 chondral line, like a discomfort. She does have history of fibromyalgia, which is not relatively under control. [facility] Medical History Indigestion Chronic left shoulder pain Trochanteric bursitis of both hips Chronic right shoulder pain Elevated liver enzymes VETO positive Epigastric pain Pulmonary nodules Palpitations Asthma Fibromyalgia Obesity (BMI 30.0-34.9) Allergic rhinitis COPD (chronic obstructive pulmonary disease) Surgical History Hx of cholecystectomy Hx of colonoscopy Status post fine needle aspiration (~2019) Family History Mother Leukemia Diabetes Arthritis Family/Other Hodgkins lymphoma Family/Other Uterine cancer Sister Uterine cancer High cholesterol HTN (hypertension) Paternal Grandmother Uterine cancer Heart attack Father Colon cancer Social History Household Members: None Housing: Apartment Are you a primary patient care technician to a significant other at home: No Do you presently have visiting nurse or other home services: No Alcohol intake: never Patient Tobacco Use Status: Former Tobacco user service: No Current occupational status: disabled Review of Systems Const All systems reviewed & are unremarkable except as noted in HPI and below Eyes Reports no additional complaints ENT Reports nasal congestion (Mild intermittent) Card Denies chest pain, Denies irregular heart rhythm and Denies leg edema Resp Reports as per HPI GI Reports no additional complaints Reports no additional complaints Musc Reports back pain and Reports myalgias Skin/Breast Reports system reviewed and no additional complaints, except as documented Neuro Reports no additional complaints Psych Reports no additional complaints Physical Exam Vital Signs: Last Vital Signs Pulse 62 05/08/25 10:16 BP 112/62 05/08/25 10:16 Pulse Ox 99 05/08/25 10:16 Oxygen Delivery Method Room Air 05/08/25 10:16 BMI result Body Mass Index 32.6 Const General: healthy appearing (Except for being overweight), comfortable, no acute distress, alert and awake Orientation/consciousness: patient oriented x3 HEENT Head: Yes normal to inspection General nose exam: No nasal polyps present and No nasal discharge present Face and sinus: Yes sinuses nontender Mouth: oropharynx normal Throat: Yes posterior oropharynx normal Eyes General: appearance normal, both eyes and all related structures Neck Neck: Yes normal visual inspection, Yes no lymphadenopathy, Yes trachea midline and Yes no JVD Thyroid: Thyroid normal Chest Chest palpation & inspection: normal inspection of the chest, normal palpation of entire chest wall and no tenderness Resp Other: Percussion note is resonant, breath sounds are equal on both sides, moderately distant with prolonged expiratory phase. Lungs are clear today and no wheezes or crepitations are heard . Cardio Palpation: normal PMI Rate: regular rate Rhythm: regular rhythm Heart sounds: no gallops and no murmurs GI Palpation (GI): Soft to palpation, nontender, No hepatosplenomegaly present and no masses Auscultation: normal bowel sounds Back/Spine/Pelvis Thoracic/Lumbar Spine: thoracic and lumbar spine normal to inspection Skin General skin exam: no rashes or lesions noted Neuro General: patient oriented x3 and no focal motor deficits Cranial nerves: Yes CN's II-XII intact bilaterally Extrem General: Yes normal to inspection, Yes no clubbing, cyanosis or edema and Yes no calf tenderness Psych Appearance: grossly normal and well kempt Speech and movement: Normal speech and movement present Results Reviewed Results Reviewed: CT SCAN OF CHEST ON 01/20/25 Impression: The questioned increased somewhat nodular region of consolidation within the right middle lobe on the comparison study is less prominent currently. Otherwise stable scattered small nodules. Twelve month follow-up. This document has been electronically signed by: Wenceslao Hanson MD on 01/20/2025 12:32:51 Assessment & Plan Assessment & Plan (1) COPD (chronic obstructive pulmonary disease): Comment: (PFT has shown Moderate Obstructive Airway Disorder, with partial reversibility after bronchodilator - results C/W ACOS) Confirmed by PFT on 11/23/23 I think she is holding very stable, on current medical regimen. c/o mild discomfort over the right parasternal area, which is nonspecific and does not come from the lung. Code(s): J44.9 - Chronic obstructive pulmonary disease, unspecified Category: Medical Plan: Continue Advair 250-50 1 inhalation b.i.d. and Incruse Ellipta 1 inhalation daily Use albuterol HFA 2 puffs Q 6 hours p.r.n. or alternatively albuterol solution in the nebulizer Q 6 hours p.r.n. for any acute attacks. (2) Pulmonary nodules: Comment: (Stable 8x11mm RML nodule since at least January of 2020) On the CT of 10/10/23 the density in the right middle lobe was increased to 1.5 cm in size. Thus she had a CT scan of the chest with contrast on 01/20/25 which showed that the density had actually decreased in size . Code(s): R91.8 - Other nonspecific abnormal finding of lung field Category: Medical Plan: She is nonsmoker for the past many years, and is at a low risk. She will have a repeat CT scan at 12 months interval. (3) Obesity (BMI 30.0-34.9): Comment: Patient remains moderately obese but is trying to lose weight with diet, and walking as much as she can. She has mild snoring Sleep study in 2019 did not show any significant ELENA. Code(s): E66.9 - Obesity, unspecified Category: Medical Plan: Encouraged to lose weight even if she loses 1 or 2 lb per month. (4) Allergic rhinitis: Comment: (Mild/Seasonal -inactive at this time Code(s): J30.9 - Allergic rhinitis, unspecified Category: Medical Plan: Just use OTC antihistaminic agent such as loratadine 10 mg p.r.n. Medications: Changed From Magic Mouthwash Diphen/Lido/Antacid 1:1:1 Lidocaine Viscous 2 % 80mL; diphenhydramine 12.5 mg/5 mL 80mL; aluminum-mag hydrox-simeth [id number]-49wt/5mL 80mL 10 mL PO QID 240 mL 0RF To Magic Mouthwash Diphen/Lido/Antacid 1:1:1 Lidocaine Viscous 2 % 80mL; diphenhydramine 12.5 mg/5 mL 80mL; aluminum-mag hydrox-simeth [id number]-506nq-22cz/5mL 80mL 10 mL PO QID PRN Coding Level of Care Code Est Pt Level 3 (38270) Diagnoses COPD (chronic obstructive pulmonary disease) J44.9 Pulmonary nodules R91.8 Obesity (BMI 30.0-34.9) E66.9 Allergic rhinitis J30.9
--- OUTSIDE RECORDS SUMMARY | 2025-05-08 11:18 | XMS_ITS | Encounter Summary ---
Author Organization [employer] Address [address] [place] [address] Care Team Providers Care Drafter Civil Engineering Name Role Phone Jose Daniel Duke MD Primary Care Provider [phone] Reason for Visit * Reason Comments Med Refill Encounter Details Date Type Department Care Team ([facility] st Contact Info) Description 12/29/2022 Refill [facility] CH[facility] ADULT DENTAL [address] [place] [address] Miguel Cohn DDS [address] [place] [address] Tooth pain Social History Tobacco Use Types [...] Description 05/15/2025 11:30 AM EDT Office Visit [facility] [address] [place] [address] Jose Daniel Duke MD [address] [place] [address] documented as of this encounter Visit Diagnoses Diagnosis Tooth pain Unspecified disorder of the teeth and supporting structures documented in this encounter Care Teams Drafter Civil Engineering Relationship Specialty Start Date End Date Jose Daniel Duke MD [address] [place] [address] PCP - General Internal Medicine 10/07/11 documented as of this encounter
--- OUTSIDE RECORDS SUMMARY | 2025-05-08 11:18 | XMS_ITS | Clinical Summary ---
Author Organization [facility] it Address [address] [place] [address] Care Team Providers Care Museum Or Zoo Director Name Role Phone Unavailable Primary Care Provider [...] Panel) 08/28/2022 Colorectal Cancer Screening: Colonoscopy 08/28/2022 Hepatitis C Screening 08/28/2022 Osteoporosis Screening (Bone Density Screening) 08/28/2022 Social Influencers of Health Screening 08/28/2022 COVID-19 Vaccine ( - 2023-2 5 season) 2024 Falls Risk Assessment 2024 Depression Screening 09/18/2024 Influenza Vaccine (#1) 2025 07/27/2022 RSV Immunization Adult Patie nts (1 - [...]
== END 2025-05-08 10:36 | disposition home or self-care (01) ==
LOC: HO.HPS 09:54
PROVIDERS: PCP Internal Medicine; Visit Provider Internal Medicine
DX: J44.9 Chronic obstructive pulmonary disease, unspecified (principal); R91.8 Other nonspecific abnormal finding of lung field; E66.9 Obesity, unspecified; J30.9 Allergic rhinitis, unspecified
CPT/HCPCS: 99213

== ENCOUNTER → 2025-05-08 09:54 | Outpatient (BNVA) | payer OTHER, SELFPAY | PROVIDERS: PCP Internal Medicine; Visit Provider Internal Medicine | DX: J44.89 Other specified chronic obstructive pulmonary disease (principal); J91.8 Pleural effusion in other conditions classified elsewhere; J30.9 Allergic rhinitis, unspecified; E66.9 Obesity, unspecified; Z68.32 Body mass index [BMI] 32.0-32.9, adult | CPT/HCPCS: 99212 ==

== ENCOUNTER 2025-05-22 07:30 | Outpatient (REF) | payer OTHER, SELFPAY ==
--- NOTE | ~2025-05-22 | MM_ITS ---
EXAMINATION: MM SCREENING DIGITAL BREAST TOMOSYNTHESIS, BILATERAL CLINICAL INFORMATION: Screening. Asymptomatic. COMPARISON: Mammography: Comparison is made with available priors TECHNIQUE: Digital breast mammography with tomosynthesis is performed in both the craniocaudal and mediolateral oblique views along with computer-aided detection (CAD). FINDINGS: There are scattered areas of fibroglandular density (ACR BI-RADS breast composition Category b). Right marker clip. There are no significant masses, abnormal calcifications, or other abnormalities. MM/MM tomosynthesis screening BI IMPRESSION: No mammographic evidence of malignancy. ASSESSMENT: BI-RADS BI-RADS 2 - Benign Findings RECOMMENDATION: Routine annual mammography screening. 1 year F/U This examination should not preclude the clinical evaluation of a suspicious palpable abnormality. This patient's information was entered into a reminder system with a target due date for their next mammogram. Electronically signed by: Geena Dillon DO 05/23/2025 06:08 PM EDT
--- OUTSIDE RECORDS SUMMARY | 2025-05-22 07:34 | XMS_ITS | Encounter Summary ---
Author Organization [employer] Address [address] [facility] [address] [place] [address] Care Team Providers Care Television News Video Editor Name Role Phone Jose Daniel Duke MD Primary Care Provider [phone] Reason for Visit * Reason Onset Date Comments Dentures 02/22/2023 Encounter Details Date Type Department Care Team ([facility] st Contact Info) Description 02/22/2023 Telephone C [facility] ADULT DENTAL [address] [place] [address] Miguel Cohn, DDS [address] [place] [address] Dentures Social History Tobacco Use Types Packs/Day [...] on filedocumented in this encounter Care Teams Television News Video Editor Relationship Specialty Start Date End Date Jose Daniel Duke MD [address] [place] [id number] PCP - General Internal Medicine 10/07/11 documented as of this encounter
--- OUTSIDE RECORDS SUMMARY | 2025-05-22 07:34 | XMS_ITS | Encounter Summary ---
Author Organization [employer] Address [address] [place] [address] Care Team Providers Care Manager Generation Name Role Phone Jose Daniel Duke MD Primary Care Provider [phone] Reason for Visit * Reason Comments Med Refill Encounter Details Date Type Department Care Team ([facility] st Contact Info) Description 12/29/2022 Refill [facility] CHC ADULT DENTAL [address] [place] [address] Miguel Cohn DDS [address] [place] [address] Tooth pain Social History Tobacco Use Types [...] structures documented in this encounter Care Teams Manager Generation Relationship Specialty Start Date End Date Jose Daniel Duke MD [address] [place] [id number] PCP - General Internal Medicine 10/07/11 documented as of this encounter
--- OUTSIDE RECORDS SUMMARY | 2025-05-22 07:34 | XMS_ITS | Clinical Summary ---
Author Organization [facility] it Address [address] [place] [address] Care Team Providers Care Head Of Digital Advertising & Integration Name Role Phone Unavailable Primary Care Provider [...]
--- OUTSIDE RECORDS SUMMARY | 2025-05-22 07:34 | XMS_ITS | Encounter Summary ---
Author Organization [employer] Address [address] [place] [address] [address] [place] [address] Care Team Providers Care Unbundler Name Role Phone Jose Daniel Duke MD Primary Care Provider [phone] Encounter Details Date Type Department Care Team ([facility] st Contact Info) Description 10/12/2022 Orders Only [facility] MED & PEDS [address] [place] [address] Mar Abreu LPN Social History Tobacco Use [...] on filedocumented in this encounter Care Teams Unbundler Relationship Specialty Start Date End Date Jose Daniel Duke MD [address] [place] [address] PCP - General Internal Medicine 10/07/11 documented as of this encounter
--- OUTSIDE RECORDS SUMMARY | 2025-05-22 07:34 | XMS_ITS | Encounter Summary ---
Author Organization [employer] Address [address] [facility] [address] [place] [address] Care Team Providers Care Feeder Loader Name Role Phone Jose Daniel Duke MD Primary Care Provider [phone] Encounter Details Date Type Department Care Team (Late st Contact Info) Description 08/31/2023 Abstract [facility] ADULT DENTAL [address] [place] [address] Miguel Cohn DDS [address] [place] [address] Social History Tobacco Use Types Packs/Day Years [...] on filedocumented in this encounter Care Teams Feeder Loader Relationship Specialty Start Date End Date Jose Daniel Duke MD [address] [place] [address] PCP - General Internal Medicine 10/07/11 documented as of this encounter
--- OUTSIDE RECORDS SUMMARY | 2025-05-22 07:34 | XMS_ITS | Clinical Summary ---
Author Organization [employer] Address [address] [facility] [address] [place] [address] Care Team Providers Care Hat And Cap Drying Room Attendant Name Role Phone Jose Daniel Duke MD Primary Care Provider Allergies No known active allergies Medications sodium chloride 0.9 % nebulizer solution with albuterol (5 MG/ML) 0.5% nebulizer solution 0.6 mg/mL Inhale 2 puffs. 6 Active aspirin 81 MG EC tablet Take 1 tablet by mouth at bed time. 8 Active Sod Fluoride-Potassiu m Nitrate (PreviDent 5000 Enamel Protect) 1.1-5 % [...] mouth if needed at bedtime. 2 Active ibuprofen 800 MG tablet TAKE ONE TABLET ONCE DAILY NEEDED 30 tablet 3 Active Ventolin HFA 108 (90 Base) MCG/ACT inhalerIndication s:Moderate persistent asthma without complication INHALE TWO PUFFS [...] g 4 Active tacrolimus (Protopic) 0.03 % ointmentIndicatio ns:Periorbital dermatitis Apply topically 2 times daily. 30 g 4 09/10/20 25 Active lidocaine (LMX 4) 4 % creamIndications: Chronic midline low back pain without sciatica Apply topically if needed in the morning, at noon, in the evening, and at bedtime for mild pain. 28 g 2 5 12/10/19 26 Active Advair Diskus 250-50 MCG/ACT aerosol powder 5 Active Incruse Ellipta 62.5 MCG/ACT aerosol powder 5 Active predniSONE (Deltasone) 10 MG tabletIndications :COPD exacerbation (CMS/HCC) 30 mg daily x 3 days, 20 mg daily x 3 days, 10 mg daily x 3 days. 20 tablet 5 Active Active Problems Problem Noted Date Diagnosed Date COPD (chronic obstructive pulmonary disease) Abnormal LFTs 12/09/2024 Pain of breast 02/22/2018 Fibromyalgia 10/12/2016 Osteoarthritis 10/12/2016 Peripheral venous insufficiency 10/12/2016 Asthma 11/14/2012 Encounters Date Type Department Care Team Description 05/15/2025 11:30 AM EDT Office Visit [facility] [address] [place] [address] Jose Daniel Duke MD Fibromyalgia (Primary Dx); Encounter for immunization; Chronic bronchitis, unspecified chronic bronchitis type (CMS/HCC); Dilated cbd, acquired 05/15/2025 Travel 05/05/2025 Orders Only GENERIC EXTERNAL DATA DEPARTMENT Provider, Generic External Data 03/18/2025 Orders Only [facility] External Provider, [facility] from Last 3 Months Immunizations Immunization Administration Dates Next Due Influenza injectable quadriv alent IIV4 with preservative 07/01/2019,06/21/2018,07/01/2016,2014 Influenza injectable quadriv alent preservative free 07/27/2022,07/30/2020,06/21/2017 Influenza, IIV3, injectable 06/05/2014 Influenza, Split (incl. kimberlee fied surface antigen) 06/11/2013 Pneumococcal Conjugate PCV 20 04/18/2024 Tdap 05/15/2025,06/17/2015 Zoster, Recombinant 01/24/2023,11/21/2022 Social History Tobacco Use [...] Sign Reading Time Taken Comments Blood Pressure 124/77 05/15/2025 11:47 AM EDT Pulse 73 05/15/2025 11:47 AM EDT Temperature 36.8 C (98.3 F) 05/15/2025 11:47 AM EDT Respiratory Rate 20 05/15/2025 11:47 AM EDT Oxygen Saturation 97% 05/15/2025 11:47 AM EDT Inhaled Oxygen Concentration - - Weight 95.7 kg (211 lb) 05/15/2025 11:47 AM EDT Height 162.6 cm (5' 4 ) 05/15/2025 11:47 AM EDT Body Mass Index 36.22 05/15/2025 11:47 AM EDT Plan of Treatment Health Maintenance Due Date Last Done Comments CT Colonography 1960 Colonoscopy 1959 Dental X-Ray: Full Mouth 1959 FIT 1959 SDOH Screening 1960 Sigmoidoscopy 1959 Alcohol/Substance Use Screening 1971 RSV Patients and Patients Aged 60 years or older (1 - Risk 60-74 years 1-dose series) 2019 Dental Oral Exam 06/08/2024 12/06/2023 Dental Prophylaxis 06/08/2024 12/06/2023 Dental X-Ray: Bitewings 12/06/2024 12/06/2023 Depression Screening 04/18/2025 04/18/2024, 04/18/20 FOBT 04/25/2025 04/25/2024 COVID-19 Vaccine ( season) 2025 08/05/2021, 01/12/2021, 12/15/2020 Influenza Vaccine (#1) 2025 , 07/30/2020, 07/01/2019, Additional history exists Lipid Panel 11/24/2025 11/24/2020 Cervical Cancer Screening 04/20/2026 HPV/Cotest 04/20/2026 04/20/2021, 06/13/2017 Pap Smear 04/20/2026 04/20/2021 Tobacco Screening 05/15/2026 05/15/2025 Mammogram 05/16/2026 05/16/2024, 04/19, 04/29/2022, Additional history exists Colorectal Cancer Screening 04/25/2027 FIT DNA/Cologuard 04/25/2027 04/25/2024 DTaP/Tdap/Td Vaccines (3 - Td or Tdap) 05/15/2035 05/15/2025, 06/17/2015 Zoster Vaccines Completed 01/24/2023, 11/21/2022 Hepatitis C [...] Procedure Name Priority Date/Time Associated Diagnosis Comments HEPATIC FUNCTION PANEL Routine 3:37 PM EDT FL GUIDANCE IN OR Routine 03/19/2025 1:4 0 PM EDT VASC US LOWER EXTREMITY VENOUS DUPLEX BILATERAL Routine 03/18/2025 8:33 AM EDT BI MAMMOGRAM SCREENING TOMOSYNTHESIS BILATERAL Routine 05/16/2024 8:00 AM EDT LAB COLOGUARD COLON CANCER SCREEN Routine 04/25/2024 8:15 AM [...] Recently Relevant to Health Maintenance Results * (ABNORMAL) Hepatic Function Panel (05/05/2025 3:37 PM EDT) Bilirubin, Total 0.5 0.0 - 1.0 mg/dL [facility] Bilirubin, Direct 0.2 0.0 - 0.5 mg/dL [facility] Aspartate Amino Transferase 23 5 - 31 U/L [facility] Alanine Aminotransferase 18 0 - 31 U/L [facility] Total Protein 6.2(L) 6.5 - 8.0 g/dL [facility] Albumin Level 3.9 3.5 - 5.0 g/dL [facility] Alkaline Phosphatase 67 39 - 117 U/L [facility] 05/05/2025 3:37 PM EDT 05/05/2025 3:37 PM EDT us Generic External Data Provider LAB BLOOD ORDERAB LES Final Result Performing Organization Address City/State/[facility] Co de Phone Number [facility] [address] [place] [address] [phone] * FL Guidance in OR (03/19/2025 1:40 PM EDT) Anatomical Region Laterality Modality X-Ray Angiograph y 03/19/2025 1:40 PM EDT Narrative 03/19/2025 3:19 PM EDT [place] [address] Fluoroscopy Report Signed Patient: Ysabel Patterson MR#: [id number] : 1960 Acct:[id number] Age/Sex: 64 / F ADM Date: 03/19/25 Loc: HO[facility] Attending Dr: Douglas Downs MD Ordering Physician: Douglas Downs MD Date of Service: 03/19/25 Procedure(s): FL guidance in OR Accession Number(s): [id number] cc: Jose Daniel Duke MD; Douglas Downs MD EXAMINATION: FL GUIDANCE ONLY HISTORY: ERCP COMPARISON: Correlation is made with an MRI of the abdomen dated 10/30/2024. TECHNIQUE: Fluoroscopy time: 2.6 minutes. Cumulative Dose: 57.7 mGy. DAP: 15.7 mGym2 Images: 7. FINDINGS: Fluoroscopic spot films from an ERCP demonstrate placement of a wire. The common bile duct is at the upper limits of normal in caliber. FL/FL guidance in OR IMPRESSION: Fluoroscopy during procedure. Please see procedure report for additional information. Electronically signed by: Siddhartha Romo MD 03/19/2025 03:16 PM EDT RP Dictated By: Siddhartha Romo MD Signed By: <Electronically signed by Siddhartha Romo MD in OV> 03/19/25 1516 DD/ 1340 TD/TT: 03/19/25 1355 Training Generalist: Procedure Note Donotuseinterpreter, Image - 03/19/2025 [place] [address] Fluoroscopy Report Signed Patient: Ysabel Patterson MR#: [id number] : 9Acct:[id number] Age/Sex: 64 / FADM Date: 03/19/25 Loc: HO[facility] Attending Dr: Douglas Downs MD Ordering Physician: Douglas Downs MD Date of Service: 03/19/25 Procedure(s): FL guidance in OR Accession Number(s): [id number] cc: Jose Daniel Duke MD; Douglas Downs MD EXAMINATION: FL GUIDANCE ONLY HISTORY: ERCP COMPARISON: Correlation is made with an MRI of the abdomen dated 10/30/2024. TECHNIQUE: Fluoroscopy time: 2.6 minutes. Cumulative Dose: 57.7 mGy. DAP: 15.7 mGym2 Images: 7. FINDINGS: Fluoroscopic spot films from an ERCP demonstrate placement of a wire. The common bile duct is at the upper limits of normal in caliber. FL/FL guidance in OR IMPRESSION: Fluoroscopy during procedure. Please see procedure report for additional information. Electronically signed by: Siddhartha Romo MD 03/19/2025 03:16 PM EDT RP Dictated By: Siddhartha Romo MD Signed By: <Electronically signed by Siddhartha Romo MD in OV> 03/19/25 1516 DD/ 1340 TD/TT: 03/19/25 1355 Training Generalist: us [facility] External Provider IMG IR PROCEDURES Final Result * VASC US Lower Extremity Venous Duplex Bilateral (03/18/2025 8:33 AM EDT) 03/18/2025 8:33 AM EDT Narrative [facility] - 03/18/2025 10:03 AM EDT [address] [address] Ultrasound Report Signed Patient: Ysabel Patterson MR#: [id number] : 1960 Acct:[id number] Age/Sex: 64 / F ADM Date: 03/18/25 Loc: . Attending Dr: Leola Burton PA-C Ordering Physician: Leola Burton PA-C Date of Service: 03/18/25 Procedure(s): US venous duplex LE Accession Number(s): [id number] cc: Jose Daniel Duke MD; Leola Burton PA-C EXAMINATION: US LOWER EXTREMITY VENOUS (REFLUX EXAM), BILATERAL CLINICAL INFORMATION: Varices. COMPARISON: None. TECHNIQUE: Color flow triplex imaging and compression Doppler was performed to evaluate both the deep and the superficial systems bilaterally. To evaluate the superficial system, the examination was performed in the upright position. Color-flow Doppler ultrasound and compression ultrasound were utilized. In addition, maneuvers were utilized to demonstrate reflux. FINDINGS: 1. DEEP VENOUS ULTRASOUND OF THE RIGHT LOWER EXTREMITY: Common Femoral Vein: Compressible, normal respiratory variation and augmented flow. Femoral Vein: Compressible, normal color flow and augmentation. Popliteal Vein: Compressible, normal augmentation. Deep Reflux: There is no evidence of reflux in the deep system in either the common femoral vein, superficial femoral or the popliteal vein. There is no evidence of a Fallon's cyst. 2. SUPERFICIAL ULTRASOUND WITH DOPPLER OF RIGHT LOWER EXTREMITY: GREAT SAPHENOUS VEIN: Saphenofemoral Junction: 0.7 cm; Reflux: 0 ms Proximal Thigh: 0.6 cm; Reflux: 0 ms Mid Thigh: 0.3 cm; Reflux: 0 ms Distal Thigh: 0.2 cm; Reflux: 0 ms At Knee: 0.3 cm; Reflux: 0 ms Proximal Calf: 0.3 cm; Reflux: 0 ms Mid Calf: 0.2 cm; Reflux: 0 ms Distal Calf: 0.2 cm; Reflux: 0 ms DUPLICATED MEDIAL GREAT SAPHENOUS VEIN: Diameter: None imaged Reflux: NA DUPLICATED LATERAL GREAT SAPHENOUS VEIN: Diameter: None imaged Reflux: NA SMALL SAPHENOUS VEIN: Saphenopopliteal Junction: 0.5 cm; Reflux: 0 ms Proximal: 0.2 cm; Reflux: 0 ms Distal: 0.3 cm; Reflux: 0 ms VEIN OF GIACOMINI: Size: 0.3 cm. Reflux: NA PERFORATORS: Location: Small saphenous vein distal segment. Great saphenous vein proximal thigh. Size: 0.2-0.3 cm. Reflux: NA VARICOSITIES: Location: None imaged. Size: NA Reflux: NA 3. DEEP VENOUS ULTRASOUND OF THE LEFT LOWER EXTREMITY: Common Femoral Vein: Compressible, normal respiratory variation and augmented flow. Femoral Vein: Compressible, normal color flow and augmentation. Popliteal Vein: Compressible, normal augmentation. Deep Reflux: There is no evidence of reflux in the deep system in either the common femoral vein, superficial femoral or the popliteal vein. There is no evidence of a Fallon's cyst. 4. SUPERFICIAL ULTRASOUND WITH DOPPLER OF LEFT LOWER EXTREMITY: GREAT SAPHENOUS VEIN: Saphenofemoral Junction: 0.8 cm; Reflux: 0 ms Proximal Thigh: 0.7 cm; Reflux: 0 ms Mid Thigh: 0.3 cm; Reflux: 0 ms Distal Thigh: 0.2 cm; Reflux: 0 ms At Knee: 0.2 cm; Reflux: 0 ms Proximal Calf: 0.5 cm; Reflux: 2324 ms Mid Calf: 0.2 cm; Reflux: 2520 ms Distal Calf: 0.2 cm; Reflux: 0 ms DUPLICATED MEDIAL GREAT SAPHENOUS VEIN: Diameter: None imaged Reflux: NA DUPLICATED LATERAL GREAT SAPHENOUS VEIN: Diameter: 0.3 cm. Reflux: NA SMALL SAPHENOUS VEIN: Saphenopopliteal Junction: 0.3 cm; Reflux: 0 ms Proximal: 0.2 cm; Reflux: 0 ms Distal: 0.2 cm; Reflux: 0 ms VEIN OF GIACOMINI: Size: NA Reflux: NA PERFORATORS: Location: Small saphenous vein proximal to mid segment. Size: 0.2-0.3 cm. Reflux: NA VARICOSITIES: Location: None Imaged Size: NA Reflux: NA US/US venous duplex LE BI IMPRESSION: Right: No venous insufficiency. No gross varices. Perforators without reflux. Left: Venous insufficiency, great saphenous vein below the knee to the mid calf. No varices. Perforators without reflux. Electronically signed by: Armani Blair MD 03/18/2025 09:59 AM EDT Dictated By: Armani Caal MD Signed By: <Electronically signed by Armani Xiong MD in OV> 03/18/2559 DD/ 2 TD/TT: 03/18/25915 Training Generalist: Procedure Note Donotuseinterpreter, Image - 03/18/2025 [place] [address] Ultrasound Report Signed Patient: Ysabel Patterson MR#: [id number] : 9Acct:[id number] Age/Sex: 64 / FADM Date: 03/18/25 Loc: HO.US Attending Dr: Leola Burton PA-C Ordering Physician: Leola Burton PA-C Date of Service: 03/18/25 Procedure(s): US venous duplex LE BI Accession Number(s): [id number] cc: Jose Daniel Duke MD; Leola Burton PA-C EXAMINATION: US LOWER EXTREMITY VENOUS (REFLUX EXAM), BILATERAL CLINICAL INFORMATION: Varices. COMPARISON: None. TECHNIQUE: Color flow triplex imaging and compression Doppler was performed to evaluate both the deep and the superficial systems bilaterally. To evaluate the superficial system, the examination was performed in the upright position. Color-flow Doppler ultrasound and compression ultrasound were utilized. In addition, maneuvers were utilized to demonstrate reflux. FINDINGS: 1. DEEP VENOUS ULTRASOUND OF THE RIGHT LOWER EXTREMITY: Common Femoral Vein: Compressible, normal respiratory variation and augmented flow. Femoral Vein: Compressible, normal color flow and augmentation. Popliteal Vein: Compressible, normal augmentation. Deep Reflux: There is no evidence of reflux in the deep system in either the common femoral vein, superficial femoral or the popliteal vein. There is no evidence of a Fallon's cyst. 2. SUPERFICIAL ULTRASOUND WITH DOPPLER OF RIGHT LOWER EXTREMITY: GREAT SAPHENOUS VEIN: Saphenofemoral Junction: 0.7 cm; Reflux: 0 ms Proximal Thigh: 0.6 cm; Reflux: 0 ms Mid Thigh: 0.3 cm; Reflux: 0 ms Distal Thigh: 0.2 cm; Reflux: 0 ms At Knee: 0.3 cm; Reflux: 0 ms Proximal Calf: 0.3 cm; Reflux: 0 ms Mid Calf: 0.2 cm; Reflux: 0 ms Distal Calf: 0.2 cm; Reflux: 0 ms DUPLICATED MEDIAL GREAT SAPHENOUS VEIN: Diameter: None imaged Reflux: NA DUPLICATED LATERAL GREAT SAPHENOUS VEIN: Diameter: None imaged Reflux: NA SMALL SAPHENOUS VEIN: Saphenopopliteal Junction: 0.5 cm; Reflux: 0 ms Proximal: 0.2 cm; Reflux: 0 ms Distal: 0.3 cm; Reflux: 0 ms VEIN OF GIACOMINI: Size: 0.3 cm. Reflux: NA PERFORATORS: Location: Small saphenous vein distal segment. Great saphenous vein proximal thigh. Size: 0.2-0.3 cm. Reflux: NA VARICOSITIES: Location: None imaged. Size: NA Reflux: NA 3. DEEP VENOUS ULTRASOUND OF THE LEFT LOWER EXTREMITY: Common Femoral Vein: Compressible, normal respiratory variation and augmented flow. Femoral Vein: Compressible, normal color flow and augmentation. Popliteal Vein: Compressible, normal augmentation. Deep Reflux: There is no evidence of reflux in the deep system in either the common femoral vein, superficial femoral or the popliteal vein. There is no evidence of a Fallon's cyst. 4. SUPERFICIAL ULTRASOUND WITH DOPPLER OF LEFT LOWER EXTREMITY: GREAT SAPHENOUS VEIN: Saphenofemoral Junction: 0.8 cm; Reflux: 0 ms Proximal Thigh: 0.7 cm; Reflux: 0 ms Mid Thigh: 0.3 cm; Reflux: 0 ms Distal Thigh: 0.2 cm; Reflux: 0 ms At Knee: 0.2 cm; Reflux: 0 ms Proximal Calf: 0.5 cm; Reflux: 2324 ms Mid Calf: 0.2 cm; Reflux: 2520 ms Distal Calf: 0.2 cm; Reflux: 0 ms DUPLICATED MEDIAL GREAT SAPHENOUS VEIN: Diameter: None imaged Reflux: NA DUPLICATED LATERAL GREAT SAPHENOUS VEIN: Diameter: 0.3 cm. Reflux: NA SMALL SAPHENOUS VEIN: Saphenopopliteal Junction: 0.3 cm; Reflux: 0 ms Proximal: 0.2 cm; Reflux: 0 ms Distal: 0.2 cm; Reflux: 0 ms VEIN OF GIACOMINI: Size: NA Reflux: NA PERFORATORS: Location: Small saphenous vein proximal to mid segment. Size: 0.2-0.3 cm. Reflux: NA VARICOSITIES: Location: None Imaged Size: NA Reflux: NA US/US venous duplex LE BI IMPRESSION: Right: No venous insufficiency. No gross varices. Perforators without reflux. Left: Venous insufficiency, great saphenous vein below the knee to the mid calf. No varices. Perforators without reflux. Electronically signed by: Armani Blair MD 03/18/2025 09:59 AM EDT Dictated By: Armani Caal MD Signed By: <Electronically signed by Armani Xiong MDin OV> 03/18/25 0959 DD/ TD/TT: 03/18/25 0916 Training Generalist: [facility] External Provider CV VASC ULAR PROCEDURES Final Result [facility] [address] [place] [phone] * BI Mammogram Screening Tomosynthesis Bilateral (05/16/2024 8:00 AM EDT) Anatomical Region Laterality Modality Breast Bilateral Mammography 05/16/2024 8:00 AM EDT Narrative 06/07/2024 8:45 PM EDT [facility] [address] [place] [address] Mammography Report Signed Patient: Ysabel Patterson MR#: [id number] : 1960 Acct:[id number] Age/Sex: 63 / F ADM Date: 05/16/24 Loc: HO.MAMMO Attending Dr: Jose Daniel Duke MD Ordering Physician: Jose Daniel Duke MD Results: 2 Benign Findings Date of Service: 05/16/24 Follow Up: 1 Year From Orig ina Mammogram Procedure(s): MM tomosynthesis screening BI Accession Number(s): [id number] cc: Jose Daniel Duke MD EXAMINATION: MM [...] OV> 06/07/242042 DD/ 0800 TD/TT: 05/16/24 0815 Training Generalist: Procedure Note Donotuseinterpreter, Image - 06/07/2024 [facility] [address] [place], [place] [address] Mammography Report Signed Patient: Ysabel Patterson MR#: [id number] : 9Acct:[id number] Age/Sex: 63 / FADM Date: 05/16/24 Loc: HO.MAMMO Attending Dr: Jose Daniel Duke MD Ordering Physician: Jose Daniel Duke MDResults: 2 Benign Findings Date of Service: 05/16/24Follow Up: 1 Year From Orig ina Mammogram Procedure(s): MM tomosynthesis screening BI Accession Number(s): [id number] cc: Jose Daniel Duke MD EXAMINATION: MM [...] Geena Dillon DO 06/07/2024 08:43 PM EDT RP Dictated By: Geena Dillon DO Signed By: <Electronically signed by Geena Dillon DO in OV> 06/07/242042 DD/ 0800 TD/TT: 05/16/24 0815 Training Generalist: Joes Daniel Duke MD [facility] BI PROCEDURES Final Res ult * Cologuard?? colon cancer screening (04/25/2024 8:15 AM EDT) Cologuard Result Negative Negative 04/30/20 8:50 PM EDT [facility] (CLIA #:[id number]) Comment: NEGATIVE TEST RESULT. A negative Cologuard result indicates a low likelihood that a colorectal cancer (CRC) or advanced adenoma (adenomatous polyps with more advanced pre-malignant features) is present. The chance that a person with a negative Cologuard test has a colorectal cancer is less than 1 in 1500 (negative predictive value >99.9%) or has an advanced adenoma is less than 5.3% (negative predictive value 94.7%). These data are based on a prospective cross-sectional study of 10,000 individuals at average risk for colorectal cancer who were screened with both Cologuard and colonoscopy. (Santiago Mehta al, N Engl J Med 2014;370(14):1707-8054) The normal value (reference range) for this assay is negative. COLOGUARD RE-SCREENING RECOMMENDATION: Periodic colorectal cancer screening is an important part of preventive healthcare for asymptomatic individuals at average risk for colorectal cancer. Following a negative Cologuard result, the [place] Cancer Society and U.S. Multi-Society Task Force screening guidelines recommend a Cologuard re-screening interval of 3 years. References: [place] [employer] Guideline for Colorectal Cancer Screening: https://www.cancer.org/cancer/ivkif-rxenmm-ffidkh/eljoczppv-shduifzzp-koikuto/ac s-rec ommendations.html.; Johnny DK, Albertina MENDIETA, Jhoan VazquezK, Colorectal Cancer Screening: Recommendations for Physicians and Patients from the U.S. Multi-Society Task Force on Colorectal Cancer Screening , Am J Gastroenterology 2017; 112:3615-0458. TEST DESCRIPTION: Composite algorithmic analysis of stool DNA-biomarkers with hemoglobin immunoassay. Quantitative values of individual biomarkers are not [...] Silver et al, N Engl J Med 2014;370(14):5155-7405.) Cologuard may produce a false negative or false positive result (no colorectal cancer or precancerous polyp present at colonoscopy follow up). A negative Cologuard test result does not guarantee the absence of CRC or advanced adenoma (pre-cancer). The current Cologuard screening interval is every 3 years. ([place] [employer] and U.S. Multi-Society Task Force). Cologuard performance data in a 10,000 patient pivotal study using colonoscopy as the reference method can be accessed at the following location: www.[employer].com/results. Additional description of the Cologuard test process, warnings and precautions can be found at www.cologuard.com. Stool specimen (specimen) 04/25/2024 8:15 AM EDT 04/26/2024 10:40 AM EDT Jose Daniel Duke MD LAB MOLECULAR DIAGNOSTICS O RDERABLES Final Result [facility] (CLIA #:[id number]) [place] [address], * Hepatitis Panel, General (12/13/2023 8:14 AM EDT) Hepatitis A IgM Nonreactive Nonreactive [facility] Comment:IgM antibodies to RONDON V not detected; does not exclude earlyacute or recovered HAV infection. ~Hepatitis B Surface Antibody NONREACTIVE Nonreactive [facility] Comment:Nonreactive: < 8.00 mIU/mL Hepatitis B Core Antibody Nonreactive Nonreactive [facility] Hepatitis C Antibody Nonreactive Nonreactive [facility] Comment:Antibodies to HCV no t detected; does not exclude early acuteHCV infection. Hepatitis B Surface Ag Negative Negative [facility] 12/13/2023 8:14 AM EDT 12/13/2023 8:14 AM EDT us Generic External Data Provider LAB BLOOD ORDERAB LES Final Result [facility] [address] [place] [address] [phone] * THINPREP PAP (04/20/2021 2:17 PM EDT) Clinical Information: None given [facility] COMMENT SEE COMMENT [facility] Comment: EXPLANATORY NOTE: The Pap is a screening test for cervical cancer. It is not a diagnostic test and is subject to false negative and false positive results. It is most reliable when a satisfactory sample, regularly obtained, is submitted with relevant clinical findings and history, and when the Pap result is evaluated along with historic and current clinical information. Science Manager : SEE COMMENT [facility] Comment: RXB, CT(ASCP) CT screening location: [place] [address] Infection Fungal organisms morphologically consistent with Soco spp. [facility] Interpretation/R esult: Negative for intraepithelial lesion or malignancy. [facility] LMP: NONE GIVEN [facility] Prev. BX: NONE [facility]IVEN [facility] Prev. PAP: NONE GIVEN [facility] SOURCE: None given [facility] Statement Of Adequacy: SEE COMMENT [facility] Comment: Satisfactory for evaluation. Endocervical/transformation zone component absent. 04/20/2021 2:17 PM EDT us Jessica MCCOY LAB PATHOLOGY ORDERABLES Final Result Performing Organization Address City/[facility]/ZIP Co de Phone Number [facility] [address] [place] [id number] * HPV mRNA E6/E7 (04/20/2021 2:17 PM EDT) HPV nRNA E6/E7 Not Detected Not Detected [facility] Comment: Methodology: Workers' Compensation Mediator-Mediated Amplification This assay detects E6/E7 viral messenger RNA (mRNA) from 14 high-risk HPV types (16,18,31,33,35,39,45,51,52,56,58,59,66,68). The analytical performance characteristics of this assay have been determined by [employer]. The modifications have not been cleared or approved by the FDA. This assay has been validated pursuant to the CLIA regulations and is used for clinical purposes. For additional information, please refer to http://education.Fleecs/faq/PDO249a0 (This link if provided for information/ educational purposes only.) 04/20/2021 2:17 PM EDT Jessica Mike CN LAB BLOOD ORDERABLES Jessy l Result Performing Organization Address [facility] de Phone Number [facility] [address] * LIPID PANEL (11/24/2020 9:15 AM EST) Cholesterol 166 mg/dL [facility] Comment: Desirable Cholesterol: less than 200 mg/dL Borderline High Cholesterol: 200-239 mg/dL High Cholesterol: greater than 239 mg/dL HDL Cholesterol 50 mg/dL [facility] Comment: Desirable HDL: greater than 40 mg/dL Note: This HDL assay may give artificially low results in patients with liver disease. LDL Cholesterol Calculated 95 mg/dl [facility] Comment: Desirable LDL: less than 100 mg/dL Near Optimal/Above Optimal LDL: 110-129 mg/dL Borderline High LDL: 130-159 mg/dL High LDL: 160-189 mg/dL Very High LDL: greater than or equal to 190 mg/dL Triglycerides 107 mg/dL [facility] Comment: Desirable Triglyceride: less than 150 mg/dL Borderline High Triglyceride 150-199 mg/dL High Triglyceride: 200-499 mg/dL Very High Triglyceride: greater than or equal to 5OO mg/dL 11/24/2020 9:15 AM EST Historical Provider MD HISTORICAL/NON ORDERABLE LABS Final Result Performing Organization Address [facility] de Phone Number [facility] [address] from Last 3 Months or Most Recently Relevant to Health Maintenance Insurance [facility] ONE CARE < 65 DENTAL-[facility] MEDICAID STAND ADULT Care Teams Hat And Cap Drying Room Attendant Relationship Specialty Start Date End Date Jose Daniel Duke MD [address] [place] [id number] PCP - General Internal Medicine 10/07/11
--- OUTSIDE RECORDS SUMMARY | 2025-05-22 07:34 | XMS_ITS | Encounter Summary ---
Author Organization [facility] Address [address] [place] [address] 7t [place] [address] Care Team Providers Care Clerical And Office Support Workers Name Role Phone Jose Daniel Duke MD Primary Care Provider [phone] Encounter Details Date Type Department Care Team (Latest Contact Info) Description 03/05/2019 Abstract [facility] CONVERSIONS Dental, Provider, DDS Social [...] on filedocumented in this encounter Care Teams Clerical And Office Support Workers Relationship Specialty Start Date End Date Jose Daniel Duke MD [address] [facility] [place] [address] PCP - General Internal Medicine 10/07/11 documented as of this encounter
--- OUTSIDE RECORDS SUMMARY | 2025-05-22 07:34 | XMS_ITS | Encounter Summary ---
Author Organization [facility] Address [address] [place] [address] [address] [place] [address] Care Team Providers Care Net Development Manager Name Role Phone Jose Daniel Duek MD Primary Care Provider [phone] Encounter Details Date Type Department Care Team (Latest Contact Info) Description 09/25/2019 Abstract [facility] CONVERSIONS Dental, Provider, DDS Social History Tobacco [...] on filedocumented in this encounter Care Teams Net Development Manager Relationship Specialty Start Date End Date Jose Daniel Duke MD [address] [facility] [place] [address] PCP - General Internal Medicine 10/07/11 documented as of this encounter
--- OUTSIDE RECORDS SUMMARY | 2025-05-22 07:34 | XMS_ITS | Encounter Summary ---
Author Organization [employer] Address [address] [place] [address] [address]t [place] [address] Care Team Providers Care Membership Correspondent Name Role Phone Jose Daniel Duke MD Primary Care Provider [phone] Reason for Visit * Reason Comments Med Refill Encounter Details Date Type Department Care Team ([facility] st Contact Info) Description 10/12/2022 Refill [facility] [address] [place], [place] [phone] Jose Daniel Duke MD [address] [place] [address] Moderate persistent asthma without complication (Primary Dx) [...] Primary documented in this encounter Care Teams Membership Correspondent Relationship Specialty Start Date End Date Jose Daniel Duke MD [address] [place] [address] PCP - General Internal Medicine 10/07/11 documented as of this encounter
--- OUTSIDE RECORDS SUMMARY | 2025-05-22 07:34 | XMS_ITS | Encounter Summary ---
Author Organization [employer] [facility] Address [address] [place] [address] 7 [place] [address] Care Team Providers Care Temper Mill Roller Name Role Phone Jose Daniel Duke MD Primary Care Provider [phone] Encounter Details Date Type Department Care Team [...] on filedocumented in this encounter Care Teams Temper Mill Roller Relationship Specialty Start Date End Date Jose Daniel Duke MD [address] [place] [address] PCP - General Internal Medicine 10/07/11 documented as of this encounter
--- OUTSIDE RECORDS SUMMARY | 2025-05-22 07:34 | XMS_ITS | Encounter Summary ---
Author Organization [employer] Address [address] [facility] [address] [place] [address] Care Team Providers Care Violin Tutor Name Role Phone Jose Daniel Duke MD Primary Care Provider [phone] Encounter Details Date Type Department Care Team (Late st Contact Info) Description 07/12/2023 Telephone [facility] [address] [place] [address] Miguel Cohn DDS [address] [place] [address] Social History Tobacco Use Types Packs/Day Years [...] on filedocumented in this encounter Care Teams Violin Tutor Relationship Specialty Start Date End Date Jose Daniel Duke MD [address] [place] [id number] PCP - General Internal Medicine 10/07/11 documented as of this encounter
== END 2025-05-22 07:31 | disposition home or self-care (01) ==
LOC: HO.MAMMO 07:30
PROVIDERS: PCP Internal Medicine; Visit Provider Internal Medicine
DX: Z12.31 Encounter for screening mammogram for malignant neoplasm of breast (principal)
CPT/HCPCS: 77063; 77067

== ENCOUNTER → 2025-05-22 07:45 | Outpatient (BNV) | payer OTHER, SELFPAY | PROVIDERS: PCP Internal Medicine; Visit Provider Internal Medicine | DX: Z12.31 Encounter for screening mammogram for malignant neoplasm of breast (principal) | CPT/HCPCS: 77063; 77067 ==

== ENCOUNTER 2025-05-29 08:59 | Outpatient (AMB) | payer OTHER, SELFPAY ==
--- NOTE | 2025-05-29 09:19 | MHC.OFFVIS ---
Vital Signs 05/29/25 09:20 Height 5 ft 7 in Weight 208 lb BMI 32.6 Intake Visit Reasons: follow up s/p 03/18/25 Intake Note: follow up 03/18/25 for bilateral LE VV w/ pain, itching and swelling. Left LE worse than the right LE. Pt states they started years ago. 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 The pain is primarily located in her legs, particularly in the calves, and has been described as severe. The patient denies any associated back pain. She is concerned about multiple spider telangiectasias. She now presents for follow-up with venous insufficiency testing. [facility] Medical History Indigestion Chronic left shoulder pain Trochanteric bursitis of both hips Chronic right shoulder pain Elevated liver enzymes VETO positive Epigastric pain Pulmonary nodules Palpitations Asthma Fibromyalgia Obesity (BMI 30.0-34.9) Allergic rhinitis COPD (chronic obstructive pulmonary disease) Surgical History Hx of cholecystectomy Hx of colonoscopy Status post fine needle aspiration (~2019) Family History Mother Leukemia Diabetes Arthritis Family/Other Hodgkins lymphoma Family/Other Uterine cancer Sister Uterine cancer High cholesterol HTN (hypertension) Paternal Grandmother Uterine cancer Heart attack Father Colon cancer Social History Household Members: None Housing: Apartment Are you a primary director long term care to a significant other at home: No Do you presently have visiting nurse or other home services: No Alcohol intake: never Patient Tobacco Use Status: Former Tobacco user service: No Current occupational status: disabled Review of Systems Const All systems reviewed & are unremarkable except as noted in HPI and below Reports no additional complaints ENT Reports Normal hearing present Card Denies chest pain, Denies chest pain at rest, Denies chest pain with activity and Denies pedal edema Resp Denies cough GI Denies abdominal pain Musc Denies abnormal gait, Denies muscle cramps and Denies radiating pain into limb Skin/Breast Denies skin ulcer and Denies wounds Neuro Reports Normal hearing present and Denies abnormal gait Psych Reports no additional complaints Physical Exam Vital Signs: BMI result Body Mass Index 32.6 Const General: cooperative, healthy appearing and comfortable Orientation/consciousness: oriented to person, oriented to place and oriented to time HEENT Head: Yes normal to inspection Neck Neck: Yes normal visual inspection Carotids: no bruits Chest Chest palpation & inspection: normal inspection of the chest Resp Effort & Inspection: normal respiratory effort and able to speak in complete sentences Auscultation: clear to auscultation bilaterally, no crackles, no rales, no rhonchi and no wheezes Cardio Rate: regular rate Rhythm: regular rhythm Heart sounds: S1 normal heart sound present and S2 normal heart sound present Bruits: no carotid bruits Peripheral pulses: Peripheral pulses 2+ throughout GI Inspection: Yes normal to inspection Skin Wounds: no wounds Hair: normal Neuro General: oriented to person, oriented to place and oriented to time Cranial nerves: Yes CN's II-XII intact bilaterally and Yes Normal hearing present Cognition (Neuro): normal cognition Motor exam (neuro): 5/5 motor strength present throughout Extrem Other: venous exam: +1 edema multiple spider telangiectasias General: No clubbing, No cyanosis and Yes edema Psych Appearance: grossly normal Mental Status: mental status grossly normal Speech and movement: Normal speech and movement present Results Reviewed Results Reviewed: Brief summary of venous insufficiency testing is as follows: right great saphenous vein: negative right small saphenous vein: negative right accessory vein: none present left great saphenous vein: Focally positive in left calf left small saphenous vein: negative left accessory vein: none present Please note there is no evidence of any venous aneurysms or significant tortuosity Assessment & Plan Assessment & Plan (1) Varicose veins of both lower extremities with inflammation: Code(s): I83.11 - Varicose veins of right lower extremity with inflammation; I83.12 - Varicose veins of left lower extremity with inflammation Category: Medical Plan: In short patient is negative for any significant venous insufficiency. At the current time would only recommend conservative measures including compression elevation and exercise. She is concerned about her spider telangiectasias and she was notified that this would be mostly cosmetic. She will follow up with us on an as-needed basis. Thank you for allowing us to assist in her care. Coding Level of Care Code Est Pt Level 4 (42400) Diagnoses Varicose veins of both lower extremities with inflammation I83.11; I83.12
[2025-05-29 09:20] VITALS: BMI 32.6
--- OUTSIDE RECORDS SUMMARY | 2025-05-29 10:12 | XMS_ITS | Encounter Summary ---
Author Organization [employer] Address [address] [facility] 7[address] [place] [address] Care Team Providers Care Telecom Manager Name Role Phone Jose Daniel Duke MD Primary Care Provider [phone] Encounter Details Date Type Department Care Team (Late st Contact Info) Description 08/31/2023 Abstract [facility] [address] [place] [address] Miguel Cohn DDS [address] [place] [address] Social History Tobacco Use Types Packs/Day Years [...] on filedocumented in this encounter Care Teams Telecom Manager Relationship Specialty Start Date End Date Jose Daniel Duke MD [address] [place] [address] PCP - General Internal Medicine 10/07/11 documented as of this encounter
--- OUTSIDE RECORDS SUMMARY | 2025-05-29 10:12 | XMS_ITS | Clinical Summary ---
Author Organization [email or web address] Address [address] [facility] 7t [place] [address] Care Team Providers Care Professor Of Marketing Name Role Phone Jose Daniel Duke MD Primary Care Provider [phone] Allergies No known active allergies Medications sodium [...] Encounters Date Type Department Care Team Description 05/23/2025 Telephone [facility] MEDICINE [address] [place] [address] Jose Daniel Duke MD 05/15/2025 11:30 AM EDT Office Visit [facility] CHC MED & PEDS [address] [place], [place] [phone] Jose Daniel Duke MD Fibromyalgia (Primary Dx); Encounter for immunization; Chronic bronchitis, unspecified chronic bronchitis type (CMS/HCC); Dilated cbd, acquired 05/15/2025 Travel 05/05/2025 Orders Only GENERIC EXTERNAL DATA DEPARTMENT Provider, Generic External Data 03/18/2025 Orders Only [facility] External Provider, [facility] from Last 3 Months Immunizations Immunization [...] Smear 04/20/2026 04/20/2021 Tobacco Screening 05/15/2026 05/15/2025 Colorectal Cancer Screening 04/25/2027 FIT DNA/Cologuard 04/25/2027 04/25/2024 Mammogram 05/22/2027 05/22/2025, 04/19, 05/09/2023, Additional history exists DTaP/Tdap/Td Vaccines (3 - Td or Tdap) [...] Procedure Name Priority Date/Time Associated Diagnosis Comments BI MAMMOGRAM SCREENING TOMOSYNTHESIS BILATERAL Routine 05/22/2025 7:35 AM EDT HEPATIC FUNCTION PANEL Routine 3:37 PM EDT FL GUIDANCE IN OR Routine 03/19/2025 1:4 0 PM EDT VASC US LOWER EXTREMITY VENOUS DUPLEX BILATERAL Routine 03/18/2025 8:33 AM EDT LAB COLOGUARD COLON CANCER SCREEN [...] Results * BI Mammogram Screening Tomosynthesis Bilateral (05/22/2025 7:35 AM EDT) Anatomical Region Laterality Modality Breast Bilateral Mammography 05/22/2025 7:35 AM EDT Narrative 05/23/2025 6:11 PM EDT [facility] [address] [place], [place] [address] Mammography Report Signed Patient: Ysabel Patterson MR#: [id number] : 1960 Acct:[id number] Age/Sex: 64 / F ADM Date: 05/22/25 Loc: HO.MAMMO Attending Dr: Jose Daniel Duke MD Ordering Physician: Jose Daniel Duke MD Results: 2 Benign Findings Date of Service: 05/22/25 Follow Up: 1 Year From Orig ina Mammogram Procedure(s): MM tomosynthesis screening BI Accession Number(s): [id number] cc: Jose Daniel Duke MD EXAMINATION: MM SCREENING DIGITAL BREAST TOMOSYNTHESIS, BILATERAL CLINICAL INFORMATION: Screening. Asymptomatic. COMPARISON: Mammography: Comparison is made with available priors TECHNIQUE: Digital breast mammography with tomosynthesis is performed in both the craniocaudal and mediolateral oblique views along with computer-aided detection (CAD). FINDINGS: There are scattered areas of fibroglandular density (ACR BI-RADS breast composition Category b). Right marker clip. There are no significant masses, abnormal calcifications, [...] mammogram. Electronically signed by: Geena Dillon DO 05/23/2025 06:08 PM EDT Dictated By: Geena Dillon DO Signed By: <Electronically signed by Geena Dillon DO in OV> 05/23/25 1808 DD/ 0759 TD/TT: 05/22/25 0752 Photoengraving Apprentice: Procedure Note Donotuseinterpreter, Image - 05/23/2025 [facility] [address] [place], [place] [address] Mammography Report Signed Patient: Ysabel Patterson MR#: [id number] : 9Acct:[id number] Age/Sex: 64 / FADM Date: 05/22/25 Loc: HO.MAMMO Attending Dr: Jose Daniel Duke MD Ordering Physician: Jose Daniel Duke MDResults: 2 Benign Findings Date of Service: 05/22/25Follow Up: 1 Year From Orig inal Mammogram Procedure(s): MM tomosynthesis screening BI Accession Number(s): [id number] cc: Jose Daniel Duke MD EXAMINATION: MM SCREENING DIGITAL BREAST TOMOSYNTHESIS, BILATERAL CLINICAL INFORMATION: Screening. Asymptomatic. COMPARISON: Mammography: Comparison is made with available priors TECHNIQUE: Digital breast mammography with tomosynthesis is performed in both the craniocaudal and mediolateral oblique views along with computer-aided detection (CAD). FINDINGS: There are scattered areas of fibroglandular density (ACR BI-RADS breast composition Category b). Right marker clip. There are no significant masses, abnormal calcifications, [...] mammogram. Electronically signed by: Geena Dillon DO 05/23/2025 06:08 PM EDT Dictated By: Geena Dillon DO Signed By: <Electronically signed by Geena Dillon DO in OV> 05/23/25 1808 DD/ 0735 TD/TT: 05/22/25 075 Photoengraving Apprentice: us Jose Daniel Duke MD IMG BI PROCEDURES Final Res ult * (ABNORMAL) Hepatic Function Panel (05/05/2025 3:37 PM EDT) Bilirubin, Total 0.5 0.0 - 1.0 mg/dL [facility] Bilirubin, Direct 0.2 0.0 - 0.5 mg/dL [facility] Aspartate Amino Transferase 23 5 - 31 U/L [facility] Alanine Aminotransferase 18 0 - 31 U/L [facility] Total Protein 6.2(L) 6.5 - 8.0 g/dL [facility] Albumin Level 3.9 3.5 - 5.0 g/dL [facility] Alkaline Phosphatase 67 39 - 117 U/L [facility] 05/05/2025 3:37 PM EDT 05/05/2025 3:37 PM EDT us Generic External Data Provider LAB BLOOD ORDERAB LES Final Result Performing Organization Address City/State/[facility] Co de Phone Number [facility] [address] [place] [phone] * FL Guidance in OR (03/19/2025 1:40 PM EDT) Anatomical Region Laterality Modality X-Ray Angiograph y 03/19/2025 1:40 PM EDT Narrative 03/19/2025 3:19 PM EDT [address] [address] Fluoroscopy Report Signed Patient: Ysabel Patterson MR#: [id number] : 1960 Acct:[id number] Age/Sex: 64 / F ADM Date: 03/19/25 Loc: HO.SSS Attending Dr: Douglas Downs MD Ordering Physician: Douglas Downs MD Date of Service: 03/19/25 Procedure(s): FL guidance in OR Accession Number(s): [id number] cc: Jose Daniel Duke MD; Douglas Downs [...] 03/19/25 1516 DD/ 1340 TD/TT: 03/19/25 1355 Photoengraving Apprentice: Procedure Note Donotuseinterpreter, Image - 03/19/2025 [place] [address] Fluoroscopy Report Signed Patient: Ysabel Patterson MR#: [id number] : 1960cct:[id number] Age/Sex: 64 / FADM Date: 03/19/25 Loc: .[facility] Attending Dr: Douglas Downs MD Ordering Physician: Douglas Downs MD Date of Service: 03/19/25 Procedure(s): FL guidance in OR Accession Number(s): [id number] cc: Jose Daniel Duke MD; Douglas Downs [...] 03/19/25 1516 DD/ 1340 TD/TT: 03/19/25 1355 Photoengraving Apprentice: [facility] External Provider IMG IR PROCEDURES Final Result * VASC US Lower Extremity Venous Duplex Bilateral (03/18/2025 8:33 AM EDT) 03/18/2025 8:33 AM EDT Narrative [facility] IMAGING - 03/18/2025 10:03 AM EDT [address] [address] Ultrasound Report Signed Patient: Ysabel Patterson MR#: [id number] : 1960 Acct:[id number] Age/Sex: 64 / F ADM Date: 03/18/25 Loc: . Attending Dr: Leola Burton PA-C Ordering Physician: Leola Burton PA-C Date of Service: 03/18/25 Procedure(s): US venous duplex LE BI Accession Number(s): [id number] cc: Jose Daniel Duke MD; Leola Burton [...] Armani Blair MD 03/18/2025 09:59 AM EDT RP Dictated By: Armani Caal MD Signed By: <Electronically signed by Armani Xiong MD in OV> 03/18/25 0959 DD/ TD/TT: 03/18/25 0916 Photoengraving Apprentice: Procedure Note Donotuseinterpreter, Image - 03/18/2025 [place] [address] Ultrasound Report Signed Patient: Ysabel Patterson MR#: [id number] : 9Acct:[id number] Age/Sex: 64 / FADM Date: 03/18/25 Loc: .US Attending Dr: Leola Burton PA-C Ordering Physician: Leola Burton PA-C Date of Service: 03/18/25 Procedure(s): US venous duplex LE BI Accession Number(s): [id number] cc: Jose Daniel Duke MD; Leola Burton [...] OV> 03/18/25 0959 DD/ TD/TT: 03/18/25 0916 Photoengraving Apprentice: [facility] External Provider CV VASC ULAR PROCEDURES Final Result [facility] [address] [place] [address] * Cologuard?? colon cancer screening (04/25/2024 8:15 AM EDT) Cologuard Result Negative Negative 04/30/20 8:50 PM EDT [facility] (CLIA #:[id number]) Comment: NEGATIVE TEST RESULT. A negative Cologuard [...] Silver et al, N Engl J Med 2014;370(14):8536-9150) The normal value (reference range) for this assay is negative. COLOGUARD RE-SCREENING RECOMMENDATION: Periodic colorectal cancer screening is an important part of preventive healthcare for asymptomatic individuals at average risk for colorectal cancer. Following a negative Cologuard result, the [place] Cancer Society and U.S. Multi-Society Task Force screening guidelines recommend a Cologuard re-screening interval of 3 years. References: [place] [employer] Society Guideline for Colorectal Cancer Screening: https://www.cancer.org/cancer/jkjpt-mhvxsv-wgmhur/qqktkcgdc-gmdbdkkae-cgtzoty/ac s-rec ommendations.html.; Johnny DK, Albertina CR, Jhoan VazquezK, Colorectal Cancer Screening: Recommendations for Physicians and Patients from the U.S. Multi-Society Task Force on Colorectal Cancer Screening , Am J Gastroenterology 2017; 112:8185-5508. TEST DESCRIPTION: Composite algorithmic analysis of stool [...] (Santiago Mehta al, N Engl J Med 2014;370(14):5053-4693.) Cologuard may produce a false negative or false positive result (no colorectal cancer or precancerous polyp present at colonoscopy follow up). A negative Cologuard test result does not guarantee the absence of CRC or advanced adenoma (pre-cancer). The current Cologuard screening interval is every 3 years. ([place] Cancer Society and U.S. Multi-Society Task Force). Cologuard performance data in a 10,000 patient pivotal study using colonoscopy as the reference method can be accessed at the following location: www.[employer]/results. Additional description of the Cologuard test process, warnings and precautions can be found at www.[employer]Neverfailrd.com. Stool specimen (specimen) 04/25/2024 8:15 AM EDT 04/26/2024 10:40 AM EDT us Jose Daniel Duke MD LAB MOLECULAR DIAGNOSTICS O RDERABLES Final Result [facility] (CLIA #:[id number]) Abhijit Navarro . [place] [id number], * Hepatitis Panel, General (12/13/2023 8:14 AM EDT) Hepatitis A IgM Nonreactive Nonreactive [facility] Comment:IgM antibodies to RONDON V not detected; does not exclude earlyacute or recovered HAV infection. ~Hepatitis B Surface Antibody NONREACTIVE Nonreactive [facility] Comment:Nonreactive: < 8.00 mIU/mL Hepatitis B Core Antibody Nonreactive Nonreactive [facility] Hepatitis C Antibody Nonreactive Nonreactive [facility] Comment:Antibodies to HCV no t detected; does not exclude early acuteHCV infection. Hepatitis B Surface Ag Negative Negative [facility] 12/13/2023 8:14 AM EDT 12/13/2023 8:14 AM EDT us Generic External Data Provider LAB BLOOD ORDERAB LES Final Result Performing Organization Address [facility] Co de Phone Number [facility] [address] [place] [address] [phone] * THINPREP PAP (04/20/2021 2:17 PM [...] along with historic and current clinical information. Smoke Tester : SEE COMMENT [facility] Comment: RXB, CT(ASCP) CT screening location: [address] [address] Infection Fungal organisms morphologically consistent with [place] [...] Final Result [facility] [address] * HPV mRNA E6/E7 (04/20/2021 2:17 PM EDT) HPV nRNA E6/E7 Not Detected Not Detected [facility] Comment: Methodology: Dewaxer-Mediated Amplification This assay detects E6/E7 viral messenger RNA (mRNA) from 14 high-risk HPV types (16,18,31,33,35,39,45,51,52,56,58,59,66,68). The analytical performance characteristics of this assay have been determined by [employer]. The modifications have not been cleared or approved by the FDA. This assay has been validated pursuant to the CLIA regulations and is used for clinical purposes. For additional information, please refer to http://education.Tapgage/faq/MXI542r4 (This link if provided for information/ educational purposes only.) 04/20/2021 2:17 PM EDT Jessica Mike [facility] LAB BLOOD ORDERABLES Jessy l Result Performing Organization Address [facility] de Phone Number [facility] [address] * LIPID PANEL (11/24/2020 9:15 AM [...] liver disease. LDL Cholesterol Calculated 95 mg/dl [facility] Comment: Desirable LDL: less than [...] to 5OO mg/dL 11/24/2020 9:15 AM EST us Historical Provider MD HISTORICAL/NON ORDERABLE LABS Final Result Performing Organization Address [facility] Co de Phone Number [facility] [address] from Last 3 Months or Most Recently Relevant to Health Maintenance Insurance [facility] ONE CARE < 65 [facility] MEDICAID STAND ADULT Care Teams Professor Of Marketing Relationship Specialty Start Date End Date Jose Daniel Duke MD [address] [place] [address] [place] [address] PCP - General Internal Medicine 10/07/11
--- OUTSIDE RECORDS SUMMARY | 2025-05-29 10:12 | XMS_ITS | Encounter Summary ---
Author Organization [employer] Address [address] [facility] [address] 7t [place] [address] Care Team Providers Care Washer Blanket Name Role Phone Jose Daniel Duke MD Primary Care Provider [phone] Reason for Visit * Reason Comments Med Refill Encounter Details Date Type Department Care Team ([facility] st Contact Info) Description 12/29/2022 Refill [facility] CHC ADULT DENTAL [address] [place] [address] Miguel Cohn DDS [address] [place] [address] Tooth pain Social History Tobacco Use Types [...] structures documented in this encounter Care Teams Washer Blanket Relationship Specialty Start Date End Date Jose Daniel Duke MD [address] [place] [address] PCP - General Internal Medicine 10/07/11 documented as of this encounter
--- OUTSIDE RECORDS SUMMARY | 2025-05-29 10:12 | XMS_ITS | Clinical Summary ---
Author Organization [facility] it Address [address] [place] [address] Care Team Providers Care Veneer Splicer Name Role Phone Unavailable Primary Care Provider [...] 08/28/2022 Social Influencers of Health Screening 08/28/2022 Falls Risk Assessment 2024 Depression Screening 09/18/2024 COVID-19 Vaccine ( - 2023-2 5 season) 2025 Influenza Vaccine (#1) 2025 07/27/2022 RSV Immunization [...]
--- OUTSIDE RECORDS SUMMARY | 2025-05-29 10:12 | XMS_ITS | Encounter Summary ---
Author Organization [employer] Address [address] [facility] [address] 7[address] [place] [address] Care Team Providers Care Processing Associate Name Role Phone Jose Daniel Duke MD Primary Care Provider [phone] Encounter Details Date Type Department Care Team (Late st Contact Info) Description 07/12/2023 Telephone C [facility] ADULT DENTAL [address] [place] [address] Miguel Cohn DDS [address] [place] [address] Social History Tobacco Use Types Packs/Day Years [...] on filedocumented in this encounter Care Teams Processing Associate Relationship Specialty Start Date End Date Jose Daniel Duke MD [address] [place] [address] PCP - General Internal Medicine 10/07/11 documented as of this encounter
--- OUTSIDE RECORDS SUMMARY | 2025-05-29 10:12 | XMS_ITS | Encounter Summary ---
Author Organization [employer] Address [address] [facility] [address]t [place] [address] Care Team Providers Care Personal Fitness Manager Name Role Phone Jose Daniel Duke MD Primary Care Provider [phone] Reason for Visit * Reason Onset Date Comments Dentures 02/22/2023 Encounter Details Date Type Department Care Team ([facility] st Contact Info) Description 02/22/2023 Telephone C [facility] ADULT DENTAL [address] [place] [address] Miguel Cohn, DDS [address] [place] [address] Dentures Social History Tobacco Use Types Packs/Day [...] on filedocumented in this encounter Care Teams Personal Fitness Manager Relationship Specialty Start Date End Date Jose Daniel Duke MD [address] [place] [address] PCP - General Internal Medicine 10/07/11 documented as of this encounter
--- OUTSIDE RECORDS SUMMARY | 2025-05-29 10:12 | XMS_ITS | Encounter Summary ---
Author Organization [employer] Address [address] [place] [address] 7[address] [place] [address] Care Team Providers Care Orthotic And Prosthetic Technician Name Role Phone Jose Daniel Duke MD Primary Care Provider [phone] Encounter Details Date Type Department Care Team ([facility] st Contact Info) Description 10/12/2022 Orders Only [facility] CHC MED & PEDS [address] [place] [address] Mar Abreu LPN Social History Tobacco Use [...] on filedocumented in this encounter Care Teams Orthotic And Prosthetic Technician Relationship Specialty Start Date End Date Jose Daniel Duke MD [address] [place] [address] PCP - General Internal Medicine 10/07/11 documented as of this encounter
--- OUTSIDE RECORDS SUMMARY | 2025-05-29 10:12 | XMS_ITS | Encounter Summary ---
Author Organization [facility] Address [address] [place] [address] 7t [place] [address] Care Team Providers Care Drug Enforcement Agent Name Role Phone Jose Daniel Duke MD Primary Care Provider [phone] Encounter Details Date Type Department Care Team (Latest Contact Info) Description 03/05/2019 Abstract [facility] CONVERSIONS Dental, Provider, DDS Social [...] on filedocumented in this encounter Care Teams Drug Enforcement Agent Relationship Specialty Start Date End Date Jose Daniel Duke MD [address] [place] [address] PCP - General Internal Medicine 10/07/11 documented as of this encounter
--- OUTSIDE RECORDS SUMMARY | 2025-05-29 10:12 | XMS_ITS | Encounter Summary ---
Author Organization [employer] [facility] Address [address] [place] [address] 7t [place] [address] Care Team Providers Care Tube Teller Name Role Phone Jose Daniel Duke MD Primary Care Provider [phone] Encounter Details Date Type Department Care Team [...] on filedocumented in this encounter Care Teams Tube Teller Relationship Specialty Start Date End Date Jose Daniel Duke MD [address] [facility] [place] [address] PCP - General Internal Medicine 10/07/11 documented as of this encounter
--- OUTSIDE RECORDS SUMMARY | 2025-05-29 10:12 | XMS_ITS | Encounter Summary ---
Author Organization [employer] Address [address] [place] [address] [address] [place] [address] Care Team Providers Care Family Educator Name Role Phone Jose Daniel Duke MD Primary Care Provider [phone] Reason for Visit * Reason Comments Med Refill Encounter Details Date Type Department Care Team ([facility] st Contact Info) Description 10/12/2022 Refill [facility] MEDICINE [address] [place], [place] [phone] Jose Daniel Duke MD [address] [place] [address] Moderate persistent asthma without complication (Primary Dx) [...] Primary documented in this encounter Care Teams Family Educator Relationship Specialty Start Date End Date Jose Daniel Duke MD [address] [place] [address] PCP - General Internal Medicine 10/07/11 documented as of this encounter
--- OUTSIDE RECORDS SUMMARY | 2025-05-29 10:12 | XMS_ITS | Encounter Summary ---
Author Organization [employer] [facility] Address [address] [place] [address] [address] [place] [address] Care Team Providers Care Pen Tender Name Role Phone Jose Daniel Duke MD Primary Care Provider [phone] Encounter Details Date Type Department Care Team [...] on filedocumented in this encounter Care Teams Pen Tender Relationship Specialty Start Date End Date Jose Daniel Duke MD [address] [facility] [place] [address] PCP - General Internal Medicine 10/07/11 documented as of this encounter
== END 2025-05-29 09:39 | disposition home or self-care (01) ==
LOC: HO.HVS 09:00
PROVIDERS: PCP Internal Medicine; Visit Provider Surgery Vascular Surgery
DX: I83.11 Varicose veins of right lower extremity with inflammation (principal); I83.12 Varicose veins of left lower extremity with inflammation
CPT/HCPCS: 99214

== ENCOUNTER → 2025-05-29 08:59 | Outpatient (BNVA) | payer OTHER, SELFPAY | PROVIDERS: PCP Internal Medicine; Visit Provider Surgery Vascular Surgery | DX: I83.11 Varicose veins of right lower extremity with inflammation (principal); I83.12 Varicose veins of left lower extremity with inflammation | CPT/HCPCS: 99212 ==

== ENCOUNTER 2025-08-06 09:33 | Outpatient (AMB) | payer OTHER, SELFPAY ==
--- NOTE | 2025-08-06 09:39 | A.OFFVIS_ITS ---
Vital Signs 3 08/06/25 09:40 Height 5 ft 7 in Weight 207 lb 3.752 oz BMI 32.5 BP 112/56 L Blood Pressure Location Lt brachial Position Sitting Pulse 66 Intake Visit Reasons: Follow up 3 months Intake Note: Ysabel presents in the office as a 3 month follow up. CC: She states that she feels like she lost weight. She states that sometimes she has pains in the stomach and she states she can only eat so much. Swatch Maker Required: No Allergies acetaminophen (From Percocet) Adverse Reaction (Verified 08/06/25 09:41) Vomiting oxycodone (From Percocet) Adverse Reaction (Verified 08/06/25 09:41) Vomiting HPI Comments Details: 64 y.o F with PMH of tobacco use disorder that has led to COPD, lung nodules under care of pulm and thoracic surg, elevated LFTs who is coming in for follow up. Prev C pt. Prev work up reviewed - labs, PET, US. Discussed that VETO is definitely high but no correlating liver related serology and will likely have to follow back with Rheum. ASMA was weakly posiitve once so will recheck. US reviewed - had dilated CBD 1.5 cm and splenic lesion. Does not appear to have had a follow up on these. Otherwise, asymptomatic, no abd pain, N,V. Reports she did cologuard last year which was negative. MRI Abd 10/2024: Liver measures 16 cm. No focal enhancing mass. Portal veins, hepatic veins and intrahepatic portion of the IVC are patent. Mild intrahepatic biliary ductal dilatation. Status post cholecystectomy. Common bile duct measures 10 mm in maximum diameter with abrupt cut off at the junction with the second portion of the duodenum. No intraluminal enhancing lesion or filling defects. PANCREAS: No focal mass. No main pancreatic ductal dilatation. No peripancreatic fluid collections. 12/12/24: Here for follow up. MRI findings of antolin dil and intrahepatic ductal dilation reviewed. Measured 10 mm by reading radiolgist, proximal CBD measures close to 15 mm on independent review. Again, no obvious correlating sx such as postprandial pain, altered bowel habits, pruritus etc. Pt not on opiates. Has LFT abnl but hepatocellular pattern, not obstructive. 03/10/25: Here for follow up. Says since last visit has been keeping an eye on sx and does in fact get central abd discomfort for 1-2 hours shortly after eating something fatty. No other new issues. Thought this was going to be a an ERCP appt. 03/19/25: Dr Downs 1. tight ampulla, probable SOD, 2. Stone debris, removed. 3. duodenitis 05/05/25: Here for follow up. Reports no further abd pain. Does report intermittent nausea and loss of appetite. This only started 2-3 weks ago. Weight curva stable. No change in bowel habtis. Reports had cologaurd testing done 1-2 years ago but not aware of results. 08/06/25: Here for follow up. Labs reviewed, liver function tests are normal post-procedure. She reports intermittent abdominal pain, typically after consuming bread or similar foods, though not consistent with all meals. Pain is located laterally, with occasional bloating, The discomfort is managed with daily omeprazole with occ break through symptoms. Celiac screening was negative. In terms of CRC pt reports hx of polyps in the past but had Cologuard test done through PCP 04/2024 which was negative. Reviewed that based on hx of colon polyps, will recommend colonoscopy for screening in future. --- Pt was informed and consented to the use of ambient scribe for this encounter. --- [facility] Medical History Indigestion Chronic left shoulder pain Trochanteric bursitis of both hips Chronic right shoulder pain Elevated liver enzymes VETO positive Epigastric pain Pulmonary nodules Palpitations Asthma Fibromyalgia Obesity (BMI 30.0-34.9) Allergic rhinitis COPD (chronic obstructive pulmonary disease) Surgical History Hx of cholecystectomy Hx of colonoscopy Status post fine needle aspiration (~2019) Family History Mother Leukemia Diabetes Arthritis Family/Other Hodgkins lymphoma Family/Other Uterine cancer Sister Uterine cancer High cholesterol HTN (hypertension) Paternal Grandmother Uterine cancer Heart attack Father Colon cancer Social History Household Members: None Housing: Apartment Are you a primary emergency care attendant to a significant other at home: No Do you presently have visiting nurse or other home services: No Alcohol intake: never Patient Tobacco Use Status: Former Tobacco user service: No Current occupational status: disabled Review of Systems Const All systems reviewed & are unremarkable except as noted in HPI and below Physical Exam Exam Exam: No apparent distress Nonicteric Abdomen soft, nondistended Alert and oriented x3, normal gait Vital Signs: Last Vital Signs Pulse 66 08/06/25 09:40 BP 112/56 L 08/06/25 09:40 BMI result Body Mass Index 32.5 Assessment & Plan Assessment & Plan (1) Elevated liver enzymes: Comment: resolved Code(s): R74.8 - Abnormal levels of other serum enzymes Category: Medical (2) Common bile duct dilatation: Comment: resolved Code(s): K83.8 - Other specified diseases of biliary tract Category: Medical (3) Obesity (BMI 30.0-34.9): Code(s): E66.9 - Obesity, unspecified Category: Medical (4) Epigastric pain: Code(s): R10.13 - Epigastric pain Category: Medical (5) Personal history of colonic polyps: Code(s): Z86.0100 - Personal history of colon polyps, unspecified Category: Medical Plan 1. Post-ERCP Status - Liver function normalized - Pt already s/p CCY 2. Intermittent Abdominal Pain 3. GERD Triggered by diet. Plan: - continue omeprazole daily. - Add Mylanta PRN; - Avoid triggers - If has to utilize mylanta > 50% of the time, would recommend barium swallow for evaluation. 4. Routine Colorectal Cancer Screening Based on pt reported hx of polyps, would recommend a colonoscopy as screening option. Due in 2026. Follow up 1 year --- Pt was informed and consented to the use of ambient scribe for this encounter. --- Medications: New 2 alum-mag hydroxide-simeth 400-400-40 mg/5 mL (Mylanta Maximum Strength) 5 mL PO .1-2 x day PRN 100 mL 1RF indigestion Coding Level of Care Code Est Pt Level 4 (92389) Diagnoses Elevated liver enzymes R74.8 Common bile duct dilatation K83.8 Obesity (BMI 30.0-34.9) E66.9 Epigastric pain R10.13 Personal history of colonic polyps Z86.0100
[2025-08-06 09:40] VITALS: BP 112/56; PULSE 66; BMI 32.5
--- OUTSIDE RECORDS SUMMARY | 2025-08-06 17:41 | XMS_ITS | Clinical Summary ---
Author Organization [employer] Address [address] [facility] 7t [place] [address] Care Team Providers Care Debt And Budget Counselor Name Role Phone Jose [place] Duke MD [...] (Deltasone) 10 MG tabletIndications :COPD exacerbation (CMS/HCC) (HCC) 30 mg daily x 3 days, 20 mg daily x 3 days, 10 mg daily x 3 days. 20 tablet 5 Active Active Problems Problem Noted Date Diagnosed Date COPD (chronic obstructive pulmonary disease) Abnormal LFTs 12/09/2024 Pain of breast 02/22/2018 Fibromyalgia 10/12/2016 Osteoarthritis 10/12/2016 Peripheral venous insufficiency 10/12/2016 Asthma 11/14/2012 Encounters Date Type Department Care Team Description 06/02/2025 Telephone [facility] MEDICINE [address] [place] [address] Jose [place] Duke MD 05/23/2025 Telephone [facility] MEDICINE [address] [place] [address] Jose [place] Duke MD 05/15/2025 11:30 AM EDT Office Visit [facility] CHC MED & PEDS [address] [place], [place] [id number] Jose [place] Duke MD Fibromyalgia (Primary Dx); Encounter for immunization; Chronic bronchitis, unspecified chronic bronchitis type (CMS/HCC); Dilated cbd, acquired 05/15/2025 Travel from Last 3 Months Immunizations Immunization Administration [...] 60 years or older (1 - Risk 50-74 years 1-dose series) 2009 Dental Oral Exam 06/08/2024 12/06/2023 Dental Prophylaxis [...] TOMOSYNTHESIS BILATERAL Routine 05/22/2025 7:35 AM EDT LAB COLOGUARD COLON CANCER SCREEN [...] AM EDT Narrative 05/23/2025 6:11 PM EDT [facility] [address] [place], [place] [address] Mammography Report Signed Patient: Ysabel Patterson MR#: [id number] : 1960 Acct:[id number] Age/Sex: 64 / F ADM Date: 05/22/25 Loc: HO.MAMMO Attending Dr: Jose Daniel Duke MD Ordering Physician: Jose Daniel Duke MD Results: 2 Benign Findings Date of Service: 05/22/25 Follow Up: 1 Year From Orig inal Mammogram Procedure(s): MM tomosynthesis screening BI Accession Number(s): [id number] cc: Jose Daniel Duke MD EXAMINATION: MM [...] OV> 05/23/25 1808 DD/ 0735 TD/TT: 05/22/25 0752 [employer] Mk1 Operator: Procedure Note Donotuseinterpreter, Image - 05/23/2025 [facility] [address] [place], [place] [address] Mammography Report Signed Patient: Ysabel Patterson MR#: [id number] : 1960cct:[id number] Age/Sex: 64 / FADM Date: 05/22/25 Loc: HO.MAMMO Attending Dr: Jose Daniel Duke MD Ordering Physician: Jose Daniel Duke MDResults: 2 Benign Findings Date of Service: 05/22/25Follow Up: 1 Year From [facility] Mammogram Procedure(s): MM tomosynthesis screening BI Accession Number(s): [id number] cc: Jose Daniel Duke MD EXAMINATION: MM [...] OV> 05/23/25 1808 DD/ 0735 TD/TT: 05/22/25 0752 [employer] Mk1 Operator: us Jose Daniel Duke MD IM BI PROCEDURES Final Res ult * Cologuard?? colon cancer screening (04/25/2024 8:15 AM EDT) Cologuard Result Negative Negative 04/30/20 8:50 PM EDT [facility] (CLIA #:[id number]) Comment: NEGATIVE TEST RESULT. A negative Cologuard [...] were screened with both Cologuard and colonoscopy. (Santaigo Mehta al, N Engl J Med 2014;370(14):5715-7665) The normal value (reference range) for this assay is negative. COLOGUARD RE-SCREENING RECOMMENDATION: Periodic colorectal cancer screening is an important part of preventive healthcare for asymptomatic individuals at average risk for colorectal cancer. Following a negative Cologuard result, the [place] [employer] Society and U.S. Multi-Society Task Force screening guidelines recommend a Cologuard re-screening interval of 3 years. References: [place] [employer] Guideline for Colorectal Cancer Screening: https://www.cancer.org/cancer/wcjou-vcfahx-jxcviv/xgndcuias-kugxnjthh-ymnxydf/ac s-rec ommendations.html.; Johnny DK, Albertina MENDIETA, Jhoan VazquezK, Colorectal Cancer Screening: Recommendations for Physicians and Patients from the U.S. Multi-Society Task Force on Colorectal Cancer Screening , Am J Gastroenterology 2017; 112:0408-1457. TEST DESCRIPTION: Composite algorithmic analysis of stool [...] (Santiago Mehta al, N Engl J Med 2014;370(14):8968-9388.) Cologuard may produce a false negative or false positive result (no colorectal cancer or precancerous polyp present at colonoscopy follow up). A negative Cologuard test result does not guarantee the absence of CRC or advanced adenoma (pre-cancer). The current Cologuard screening interval is every 3 years. ([place] [employer] Society and U.S. Multi-Society Task Force). Cologuard performance data in a 10,000 patient pivotal study using colonoscopy as the reference method can be accessed at the following location: www.[employer]/results. Additional description of the Cologuard test process, warnings and precautions can be found at www.[employer].com. Stool specimen (specimen) 04/25/2024 8:15 AM EDT 04/26/2024 10:40 AM EDT Jose [place] Duke MD LAB MOLECULAR DIAGNOSTICS O RDERABLES Final Result [facility] (CLIA #:[id number]) [place] [address], * Hepatitis Panel, General (12/13/2023 8:14 AM EDT) Hepatitis A IgM Nonreactive Nonreactive [facility] Comment:IgM antibodies to RONDON V not detected; does not exclude earlyacute or recovered HAV infection. ~Hepatitis B Surface Antibody NONREACTIVE Nonreactive [facility] Comment:Nonreactive: < 8.00 mIU/mL Hepatitis B Core Antibody Nonreactive Nonreactive [facility] Hepatitis C Antibody Nonreactive Nonreactive [facility] Comment:Antibodies to HCV no t detected; does not exclude early acuteHCV infection. Hepatitis B Surface Ag Negative Negative [facility] 12/13/2023 8:14 AM EDT 12/13/2023 8:14 AM EDT us Generic External Data Provider LAB BLOOD ORDERAB LES Final Result Performing Organization Address City/[facility]/ZIP Co de Phone Number [facility] [address] [place] [phone] * THINPREP PAP (04/20/2021 2:17 PM [...] along with historic and current clinical information. Body Make Up Artist : SEE COMMENT [facility] Comment: RXB, CT(ASCP) CT screening location: [place] [address] Infection Fungal organisms morphologically consistent with Soco spp. [facility] Interpretation/R esult: Negative for intraepithelial lesion or malignancy. [facility] LMP: NONE GIVEN [facility] Prev. BX: NONE GIVEN [facility] Prev. PAP: NONE GIVEN [facility] SOURCE: None given [facility] Statement Of Adequacy: SEE COMMENT [facility] Comment: Satisfactory for evaluation. Endocervical/transformation zone component absent. 04/20/2021 2:17 PM EDT us Jessica MCCOY LAB PATHOLOGY ORDERABLES Final Result Performing Organization Address City/[facility]/ZIP Co de Phone Number [facility] [address] * HPV mRNA E6/E7 (04/20/2021 2:17 PM EDT) HPV nRNA E6/E7 Not Detected Not Detected [facility] Comment: Methodology: Sweet Pickled Fruit Maker-Mediated Amplification This assay detects E6/E7 viral messenger RNA (mRNA) from 14 high-risk HPV types (16,18,31,33,35,39,45,51,52,56,58,59,66,68). The analytical performance characteristics of this assay have been determined by [employer]. The modifications have not been cleared or approved by the FDA. This assay has been validated pursuant to the CLIA regulations and is used for clinical purposes. For additional information, please refer to http://education.[employer]/faq/MXM740j4 (This link if provided for information/ educational purposes only.) 04/20/2021 2:17 PM EDT Jessica MCCOY LAB BLOOD ORDERABLES Jessy l Result Performing Organization Address [facility]/[place]UST de Phone Number [facility] [address] * LIPID PANEL (11/24/2020 9:15 AM [...] liver disease. LDL Cholesterol Calculated 95 mg/dl [facility] Comment: Desirable LDL: less than [...] ORDERABLE LABS Final Result Performing Organization Address City/[facility] Co de Phone Number [facility] [address] from Last 3 Months or Most Recently Relevant to Health Maintenance Insurance [facility] ONE CARE < [address] DENTAL-[facility] MEDICAID STAND ADULT Care Teams Debt And Budget Counselor Relationship Specialty Start Date End Date Jose Daniel Duke MD [address] [place] [address] [place] [address] PCP - General Internal Medicine 10/07/11
--- OUTSIDE RECORDS SUMMARY | 2025-08-06 17:41 | XMS_ITS | Encounter Summary ---
Author Organization [employer] Address [address] [facility] 7t [place] [address] Care Team Providers Care Floral Artist Name Role Phone Jose [place] Duke MD Primary Care Provider [phone] Reason for Visit * Reason Onset Date Comments Dentures 02/22/2023 Encounter Details Date Type Department Care Team ([facility] st Contact Info) Description 02/22/2023 Telephone [facility] ADULT DENTAL [address] [place] [address] Miguel Cohn, DDS [address] [place] [address] Dentures Social History Tobacco Use Types Packs/Day [...] on filedocumented in this encounter Care Teams Floral Artist Relationship Specialty Start Date End Date Jose Daniel Duke MD [address] [place] [address] PCP - General Internal Medicine 10/07/11 documented as of this encounter
--- OUTSIDE RECORDS SUMMARY | 2025-08-06 17:41 | XMS_ITS | Encounter Summary ---
Author Organization [employer] Address [address] [facility] 7t [place] [address] Care Team Providers Care Firearms Inspector Name Role Phone Jose Daniel Duke MD Primary Care Provider [phone] Encounter Details Date Type Department Care Team (Late st Contact Info) Description 06/02/2025 Telephone [facility] MEDICINE [address] [place] [address] Jose [place] Duke MD [address] [place] [address] Social History Tobacco Use Types Packs/Day Years [...] documented as of this encounter Care Teams Firearms Inspector Relationship Specialty Start Date End Date Jose [place] Duke MD [address] [place] [address] PCP - General Internal Medicine 10/07/11 documented as of this encounter
--- OUTSIDE RECORDS SUMMARY | 2025-08-06 17:41 | XMS_ITS | Encounter Summary ---
Author Organization [employer] Address [address] [facility] 7t [place] [address] Care Team Providers Care Senior Sales Compensation Analyst Name Role Phone Jose [place] Duke MD Primary Care Provider [phone] Encounter Details Date Type Department Care Team (Late st Contact Info) Description 08/31/2023 Abstract [facility] ADULT DENTAL [address] [place] [address] Miguel Cohn DDS [address] [place] [address] Social History Tobacco Use Types Packs/Day Years [...] on filedocumented in this encounter Care Teams Senior Sales Compensation Analyst Relationship Specialty Start Date End Date Jose Daniel Duke MD [address] [place] [address] PCP - General Internal Medicine 10/07/11 documented as of this encounter
--- OUTSIDE RECORDS SUMMARY | 2025-08-06 17:41 | XMS_ITS | Encounter Summary ---
Author Organization [employer] Address [address] [facility] [address] 7t [place] [address] Care Team Providers Care Elementary Reading Tutor Name Role Phone Jose Daniel Duke MD Primary Care Provider [phone] Reason for Visit * Reason Comments Med Refill Encounter Details Date Type Department Care Team ([facility] st Contact Info) Description 12/29/2022 Refill [facility] CHC ADULT DENTAL [address] [place] [address] Miguel Cohn DDS [address] [place] [address] Tooth pain Social History Tobacco Use Types [...] structures documented in this encounter Care Teams Elementary Reading Tutor Relationship Specialty Start Date End Date Jose Daniel Duke MD [address] [place] [address] PCP - General Internal Medicine 10/07/11 documented as of this encounter
--- OUTSIDE RECORDS SUMMARY | 2025-08-06 17:41 | XMS_ITS | Encounter Summary ---
Author Organization [employer] Address [address] [facility] [address] [place] [address] Care Team Providers Care Anatomy Professor Name Role Phone Jose Daniel Duke MD Primary Care Provider [phone] Encounter Details Date Type Department Care Team (Late st Contact Info) Description 07/12/2023 Telephone C [facility] ADULT [facility] [address] [place] [address] Miguel Cohn DDS [address] [place] [address] Social History Tobacco Use Types Packs/Day Years [...] on filedocumented in this encounter Care Teams Anatomy Professor Relationship Specialty Start Date End Date Jose Daniel Duke MD [address] [place] [address] PCP - General Internal Medicine 10/07/11 documented as of this encounter
--- OUTSIDE RECORDS SUMMARY | 2025-08-06 17:42 | XMS_ITS | Encounter Summary ---
Author Organization [employer] Address [address] [place] [address] 7t [place] [address] Care Team Providers Care Bending Roll Hand Name Role Phone Jose Daniel Duke MD Primary Care Provider [phone] Encounter Details Date Type Department Care Team ([facility] st Contact Info) Description 10/12/2022 Orders Only [facility] CHC MED & PEDS [address] [place] [address] Mar Abreu LPN Social History Tobacco Use [...] on filedocumented in this encounter Care Teams Bending Roll Hand Relationship Specialty Start Date End Date Jose Daniel Duke MD [address] [place] [address] PCP - General Internal Medicine 10/07/11 documented as of this encounter
--- OUTSIDE RECORDS SUMMARY | 2025-08-06 17:42 | XMS_ITS | Encounter Summary ---
Author Organization [employer] Address [address] [place] [address] [address]t [place] [address] Care Team Providers Care Local Driver Name Role Phone Jose [place] Duke MD Primary Care Provider [phone] Reason for Visit * Reason Comments Med Refill Encounter Details Date Type Department Care Team ([facility] st Contact Info) Description 10/12/2022 Refill [facility] MEDICINE [address] [place], [place] [phone] Jose [place] Duke MD [address] [place] [address] Moderate persistent asthma without complication (Primary Dx) [...] Primary documented in this encounter Care Teams Local Driver Relationship Specialty Start Date End Date Jose [place] Duke MD [address] [place] [address] PCP - General Internal Medicine 10/07/11 documented as of this encounter
--- OUTSIDE RECORDS SUMMARY | 2025-08-06 17:42 | XMS_ITS | Encounter Summary ---
Author Organization [employer] [facility] Address [address] [place] [address] [address]t [place] [address] Care Team Providers Care Electrician Maintenance Name Role Phone Jose Daniel Duke MD Primary Care Provider +[phone] Encounter Details Date Type Department Care Team [...] on filedocumented in this encounter Care Teams Electrician Maintenance Relationship Specialty Start Date End Date Jose Daniel Duke MD [address] [facility] [place] [address] PCP - General Internal Medicine 10/07/11 documented as of this encounter
--- OUTSIDE RECORDS SUMMARY | 2025-08-06 17:42 | XMS_ITS | Encounter Summary ---
Author Organization [employer] [facility] Address [address] [place] [address] 7t [place] [address] Care Team Providers Care Assisted Living Manager Name Role Phone Jose [place] Duke MD Primary Care Provider +[phone] Encounter Details Date Type Department Care Team (Latest Contact Info) Description 03/05/2019 Abstract [facility], Provider, DDS Social History Tobacco [...] on filedocumented in this encounter Care Teams Assisted Living Manager Relationship Specialty Start Date End Date Jose Daniel Duke MD [address] [facility] [place] [address] PCP - General Internal Medicine 10/07/11 documented as of this encounter
--- OUTSIDE RECORDS SUMMARY | 2025-08-06 17:42 | XMS_ITS | Encounter Summary ---
Author Organization [facility] Address [address] [place] [address] [address] [place] [address] Care Team Providers Care Wired Sweatband Cutter Name Role Phone Jose Daniel Duke MD Primary Care Provider [phone] Encounter Details Date Type Department Care Team [...] on filedocumented in this encounter Care Teams Wired Sweatband Cutter Relationship Specialty Start Date End Date Jose [place] Duke MD [address] [facility] [place] [address] PCP - General Internal Medicine 10/07/11 documented as of this encounter
--- OUTSIDE RECORDS SUMMARY | 2025-08-06 17:42 | XMS_ITS | Clinical Summary ---
Author Organization [facility] Address [address] [place] [address] Care Team Providers Care Appraiser Irrigation Tax Name Role Phone Unavailable Primary Care Provider [...] 2009 Zoster Vaccines (1 of 2) 2009 Depression Screening 09/18/2024 COVID-19 Vaccine (1 - 2024-2 6 season) 2025 Influenza Vaccine (#1) 2025 07/27/2022 [...]
== END 2025-08-06 10:08 | disposition home or self-care (01) ==
LOC: HO.HGI 09:34
PROVIDERS: PCP Internal Medicine; Visit Provider Internal Medicine
DX: R74.8 Abnormal levels of other serum enzymes (principal); K83.8 Other specified diseases of biliary tract; E66.9 Obesity, unspecified; R10.13 Epigastric pain; Z86.0100 Personal history of colon polyps, unspecified
CPT/HCPCS: 99214

== ENCOUNTER → 2025-08-06 09:33 | Outpatient (BNVA) | payer OTHER, SELFPAY | PROVIDERS: PCP Internal Medicine; Visit Provider Internal Medicine | DX: R10.13 Epigastric pain (principal); R74.8 Abnormal levels of other serum enzymes; E66.9 Obesity, unspecified; K83.8 Other specified diseases of biliary tract; Z86.0100 Personal history of colon polyps, unspecified | CPT/HCPCS: 99212 ==

== ENCOUNTER 2025-09-03 09:49 | Outpatient (AMB) | payer OTHER, SELFPAY ==
[2025-09-03 10:00] VITALS: BP 120/70; PULSE 63; O2SAT 99; BMI 32.8
--- NOTE | 2025-09-03 10:00 | MHC.OFFVIS ---
Vital Signs 09/03/25 10:00 Height 5 ft 7 in Weight 209 lb 7.026 oz BMI 32.8 BP 120/70 Blood Pressure Location Lt brachial Position Sitting Pulse 63 Pulse Source Pulse Oximeter Pulse Oximetry (%) 99 Oxygen Delivery Method Room Air Intake Visit Reasons: asthma Intake Note: pt is here for follow up and states she is coughing with some phlegm at times, she also has back pain that has been going on for about 3 days, she thinks from coughing so hard Netting Inspector Required: No Template Worker: Template Worker offered & declined Allergies acetaminophen (From Percocet) Adverse Reaction (Verified 09/03/25 10:16) Vomiting oxycodone (From Percocet) Adverse Reaction (Verified 09/03/25 10:16) Vomiting Medication List - Last Reconciled 09/03/25 by Praveen Brady MD albuterol sulfate 2.5 mg (3 mL) inhalation Q4-6H PRN albuterol sulfate 90 mcg/actuation (Ventolin HFA) 2 puffs inhalation Q6H PRN alum-mag hydroxide-simeth 400-400-40 mg/5 mL (Mylanta Maximum Strength) 5 mL PO .1-2 x day PRN fluticasone propion-salmeterol 250-50 mcg/dose (Advair Diskus) 1 inh inhalation BID 30 days gabapentin 100 mg PO BEDTIME Magic Mouthwash Diphen/Lido/Antacid 1:1:1 10 mL PO QID PRN omeprazole 20 mg PO DAILY peg [id number] 1-0.2-0.2 % (Artificial Tears ([id number])) 1 drp ophthalmic (eye) DAILY polyvinyl alcohol 1.4% 1 drp ophthalmic (eye) BID umeclidinium 62.5 mcg/actuation (Incruse Ellipta) 1 inh PO DAILY Do you need a note to return to daycare/school/sports/work: No HPI HPI asthma: Details: 65 YEARS OLD VERY PLEASANT FEMALE IS HERE FOR 6 MONTHS FOLLOW-UP. BREATHING HAS BEEN GOOD AND STABLE. BUT NOW WITH THE START OF WINTER SHE IS HAVING A LITTLE BIT MORE COUGH WITH CONGESTED FEELING. NO FEVER OR CHILLS AND SHE HAS HAD NOT ANY ACUTE RESPIRATORY INFECTION. SHE CONTINUES TO HAVE SOME BACK PAIN AND STIFFNESS WHICH IS MOSTLY MUSCULAR NASAL CONGESTION MILD OFF AND ON AND MOSTLY REMAINS UNDER CONTROL WITH MEDICATIONS. LOSTLDCT WAS IN JANUARY 2025. [facility] Medical History Indigestion Chronic left shoulder pain Trochanteric bursitis of both hips Chronic right shoulder pain Elevated liver enzymes VETO positive Epigastric pain Pulmonary nodules Palpitations Asthma Fibromyalgia Obesity (BMI 30.0-34.9) Allergic rhinitis COPD (chronic obstructive pulmonary disease) Surgical History Hx of cholecystectomy Hx of colonoscopy Status post fine needle aspiration (~2019) Family History Mother Leukemia Diabetes Arthritis Family/Other Hodgkins lymphoma Family/Other Uterine cancer Sister Uterine cancer High cholesterol HTN (hypertension) Paternal Grandmother Uterine cancer Heart attack Father Colon cancer Social History Household Members: None Housing: Apartment Are you a primary mall plant caretaker to a significant other at home: No Do you presently have visiting nurse or other home services: No Alcohol intake: never Patient Tobacco Use Status: Former Tobacco user service: No Current occupational status: disabled Review of Systems Const All systems reviewed & are unremarkable except as noted in HPI and below Eyes Reports no additional complaints ENT Reports nasal congestion (Mild intermittent) Card Denies chest pain, Denies irregular heart rhythm and Denies leg edema Resp Reports as per HPI GI Reports no additional complaints Reports no additional complaints Musc Reports back pain and Reports myalgias Skin/Breast Reports system reviewed and no additional complaints, except as documented Neuro Reports no additional complaints Psych Reports no additional complaints Physical Exam Vital Signs: Last Vital Signs Pulse 63 09/03/25 10:00 BP 120/70 09/03/25 10:00 Pulse Ox 99 09/03/25 10:00 Oxygen Delivery Method Room Air 09/03/25 10:00 BMI result Body Mass Index 32.8 Const General: healthy appearing (Except for being overweight), comfortable, no acute distress, alert and awake Orientation/consciousness: patient oriented x3 HEENT Head: Yes normal to inspection General nose exam: No nasal polyps present and No nasal discharge present Face and sinus: Yes sinuses nontender Mouth: oropharynx normal Throat: Yes posterior oropharynx normal Eyes General: appearance normal, both eyes and all related structures Neck Neck: Yes normal visual inspection, Yes no lymphadenopathy, Yes trachea midline and Yes no JVD Thyroid: Thyroid normal Chest Chest palpation & inspection: normal inspection of the chest, normal palpation of entire chest wall and no tenderness Resp Other: Percussion note is resonant, breath sounds are equal on both sides, moderately distant with prolonged expiratory phase. Lungs are clear today and no wheezes or crepitations are heard . Cardio Palpation: normal PMI Rate: regular rate Rhythm: regular rhythm Heart sounds: no gallops and no murmurs GI Palpation (GI): Soft to palpation, nontender, No hepatosplenomegaly present and no masses Auscultation: normal bowel sounds Back/Spine/Pelvis Thoracic/Lumbar Spine: thoracic and lumbar spine normal to inspection Skin General skin exam: no rashes or lesions noted Neuro General: patient oriented x3 and no focal motor deficits Cranial nerves: Yes CN's II-XII intact bilaterally Extrem General: Yes normal to inspection, Yes no clubbing, cyanosis or edema and Yes no calf tenderness Psych Appearance: grossly normal and well kempt Speech and movement: Normal speech and movement present Assessment & Plan Assessment & Plan (1) COPD (chronic obstructive pulmonary disease): Comment: Patient is a known case of Moderate Obstructive Airway Disorder, ( ACOS) Confirmed by PFT on 11/23/23 I think she is holding very stable, on current medical regimen. Complains of intermittent cough and chest congestion at the start of winter. Code(s): J44.9 - Chronic obstructive pulmonary disease, unspecified Category: Medical Plan: Continue Wixela 250-51 inhalation b.i.d. and Incruse Ellipta 1 inhalation daily. Albuterol HFA 2 puffs Q 4-6 hours p.r.n. and in the house she may use albuterol solution in the nebulizer Q 4-6 hours prn. Advised that during the winter months it is important to have humidifier in the house. For mucus and increased cough she can use Mucinex 400 mg b.i.d. or Robitussin 2 tsp t.i.d. (2) Pulmonary nodules: Comment: (Stable 8x11mm RML nodule since at least January of 2020) On the CT of 10/10/23 the density in the right middle lobe was increased to 1.5 cm in size. Thus she had a CT scan of the chest with contrast on 01/20/25 which showed that the density had actually decreased in size . Code(s): R91.8 - Other nonspecific abnormal finding of lung field Category: Medical Plan: She is due to have a repeat CT scan in January 2026 (3) Allergic rhinitis: Comment: (Mild/Seasonal -inactive at this time Code(s): J30.9 - Allergic rhinitis, unspecified Category: Medical Plan: Continue to use loratadine 10 mg once a day p.r.n. for increased nasal congestion Coding Level of Care Code Est Pt Level 3 (77964) Diagnoses COPD (chronic obstructive pulmonary disease) J44.9 Pulmonary nodules R91.8 Allergic rhinitis J30.9
== END 2025-09-03 10:18 | disposition home or self-care (01) ==
LOC: HO.HPS 09:50
PROVIDERS: PCP Internal Medicine; Visit Provider Internal Medicine
DX: J44.9 Chronic obstructive pulmonary disease, unspecified (principal); R91.8 Other nonspecific abnormal finding of lung field; J30.9 Allergic rhinitis, unspecified
CPT/HCPCS: 99213

== ENCOUNTER → 2025-09-03 09:49 | Outpatient (BNVA) | payer OTHER, SELFPAY | PROVIDERS: PCP Internal Medicine; Visit Provider Internal Medicine | DX: J44.9 Chronic obstructive pulmonary disease, unspecified (principal); R91.8 Other nonspecific abnormal finding of lung field; J30.9 Allergic rhinitis, unspecified; Z87.891 Personal history of nicotine dependence; Z79.51 Long term (current) use of inhaled steroids; Z79.899 Other long term (current) drug therapy | CPT/HCPCS: 99212 ==